=== PATIENT | male | born 1950 ===

== ENCOUNTER 2017-11-24 00:33 | Emergency (ER) | payer MEDICARE ==
[2017-11-24 00:56] VITALS: BP 153/52; PULSE 65; RESP 18; TEMP 97.1; O2SAT 100
[2017-11-24] MEDS ORDERED: Oxycodone/Acetaminophen 5/325 mg Tab PO ONE (02:14)
--- NOTE | 2017-11-24 02:18 | ED PDOC ---
Lower Extremity Pain/Injury Time Seen by Provider: 11/24/17 01:28 Chief Complaint (Nursing): Lower Extremity Problem/Injury Chief Complaint (Provider): left foot pain History Per: Patient History/Exam Limitations: no limitations Onset/Duration Of Symptoms: Days (3) Current Symptoms Are (Timing): Still Present Additional History Per: Patient Additional Complaint(s): 67 y/o male presents with left foot pain x 3 days. Patient states pain started in between 3rd and 4th toe, and today noted redness and swelling spreading up the foot. Denies fever, nausea/vomiting, chest pain, shortness of breath, palpitations, numbness/weakness lower extremities. Past Medical History Reviewed: Historical Data, Nursing Documentation, Vital Signs Vital Signs: Last Vital Signs Temp 97.1 F L 11/24/17 00:53 Pulse 65 11/24/17 00:53 Resp 18 11/24/17 00:53 BP 153/52 H 11/24/17 00:53 Pulse Ox 100 11/24/17 00:53 - Medical History PMH: CAD, Diabetes, Hypercholesterolemia - Surgical History Surgical History: CABG - Family History Family History: States: No Known Family Hx - Allergies Allergies/Adverse Reactions: Allergies Allergy/AdvReac Type Severity Reaction Status Date / Time No Known Allergies Allergy Verified 11/24/17 00:56 Review of Systems ROS Statement: Except As Marked, All Systems Reviewed And Found Negative Musculoskeletal: Positive for: Foot Pain (left foot) Physical Exam - Reviewed Nursing Documentation Reviewed: Yes Vital Signs Reviewed: Yes - Physical Exam Appears: Positive for: Well, Non-toxic, No Acute Distress Head Exam: Positive for: ATRAUMATIC, NORMAL INSPECTION, NORMOCEPHALIC Skin: Positive for: Normal Color Eye Exam: Positive for: Normal appearance ENT: Positive for: Normal ENT Inspection Cardiovascular/Chest: Positive for: Regular Rate, Rhythm Respiratory: Positive for: Normal Breath Sounds Pulses-Dorsalis Pedis (L): 2+ Pulses-Dorsalis Pedis (R): 2+ Pulses-Post. Tibialis (L): 2+ Pulses-Post. Tibialis (R): 2+ Extremity: Positive for: Normal ROM, Other (open wound/skin maceration 3- 4interdigit space left foot with surrounding edema, erythema dorsal left foot. + warm to touch) Neurologic/Psych: Positive for: Alert, Oriented. Negative for: Motor/Sensory Deficits - Laboratory Results Result Diagrams: 11/24/17 03:30 11/24/17 03:30 - ECG ECG: Positive for: Viewed By Me ECG Rhythm: Positive for: Sinus Bradycardia (59bpm) O2 Sat by Pulse Oximetry: 100 Pulse Ox Interpretation: Normal - Radiology X-Ray: Viewed By Me X-Ray Interpretation: No Acute Disease - Other Rad xray left foot X-Ray: Viewed By Me X-Ray Interpretation: no acute findings - Progress ED Course And Treament: labs, xray, percocet PO Patient educated on findings, IV vanco, IV zosyn dose given in ED. Advised patient and son that patient should be admitted for continuation of IV antibiotics but patient does not think he wants to stay. Patient agreeable for first dose IV antibiotic and podiatry consult and will discuss with son. Podiatry aware, will consult patient Disposition - Clinical Impression Clinical Impression: Cellulitis of foot - Patient ED Disposition Is Patient to be Admitted: No - Disposition Referrals: Tom Leo MD [Primary Care Provider] - Disposition: Transfer of Care Disposition Time: 06:00 Condition: FAIR Forms: [employer] (Cypriot) Patient Signed Over To: Jaspreet Champagne Handoff Comments: pending podiatry eval
[2017-11-24] MEDS ORDERED: Oxycodone/Acetaminophen 5/325 mg Tab ONE (02:49)
[2017-11-24 03:41] LABS: VENOUS BLOOD GAS BASE EXCESS -0.1 mmol/L (0.0-2.0); VENOUS BLOOD GAS PCO2 52 mmHg (40-60); VENOUS BLOOD GAS PO2 20 mm/Hg (30-55); VENOUS BLOOD PH 7.32 (7.32-7.43)
[2017-11-24 04:11] LABS: BASO # 0.1 K/uL (0.0-0.2); BASO % 0.8 % (0.0-2.0); EOS # 2.2 K/uL (0.0-0.7); EOS % 14.2 % (0.0-4.0); HEMOGLOBIN 11.9 g/dL (12.0-18.0); LYMPH # 1.8 K/uL (1.0-4.3); LYMPH % 11.5 % (20.0-40.0); MEAN CELL VOLUME 80.2 fl (80.0-94.0); MEAN CORPUSCULAR HEMOGLOBIN 26.6 pg (27.0-31.0); MEAN CORPUSCULAR HGB CONC 33.2 g/dL (33.0-37.0); MONO # 1.1 K/uL (0.0-0.8); MONO % 6.9 % (0.0-10.0); NEUT # 10.3 K/uL (1.8-7.0); NEUT % 66.6 % (50.0-75.0); RBC 4.49 Mil/uL (4.40-5.90); WHITE BLOOD COUNT 15.4 K/uL (4.8-10.8)
[2017-11-24 04:18] LABS: ALB/GLOB RATIO 1.1 (1.0-2.1); ALBUMIN 4.2 g/dL (3.5-5.0)
[2017-11-24] MEDS ORDERED: Piperacillin/Tazobact 3.375 GM in Sodium Chloride 0.9% 100 ML IV ONE (04:41)
[2017-11-24] MEDS ORDERED: Piperacillin/Tazobact 3.375 gm Inj IVPB ONE (05:12)
--- NOTE | 2017-11-24 06:13 | ED PDOC ---
- Laboratory Results Result Diagrams: 11/24/17 03:30 11/24/17 03:30 - ECG O2 Sat by Pulse Oximetry: 100 Medical Decision Making Medical Decision Making: Time: 06:00 --Patient signed over to me by Elsa Lora PA-C pending podiatry consult Time: 07:00 --This patient is choosing to leave against medical advice. I have personally explained to the pt that choosing to do so may result in permanent bodily harm or . I have discussed at great length that without further evaluation and monitoring there may be unforeseen circumstances and/or deterioration causing permanent bodily harm or as a result of their choice. The pt verbalized these risks back to the physician in laymans terms. The pt is alert, oriented, and shows the mental capacity to make clear decisions regarding the pts health care at this time. The pt continues to wish to leave against medical advice. --In light of the pts decision to leave AMA, follow-up has been arranged and the pt is aware of the importance of following up as instructed. The pt has been advised that they should return to the ED immediately if they change their mind at any time, or if their condition begins to change or worsen in any way. Scribe Attestation: Documented by Tawanda Becker, acting as a scribe for Jaspreet Champagne MD. Provider Scribe Attestation: All medical record entries made by the Scribe were at my direction and personally dictated by me. I have reviewed the chart and agree that the record accurately reflects my personal performance of the history, physical exam, medical decision making, and the department course for this patient. I have also personally directed, reviewed, and agree with the discharge instructions and disposition. Disposition - Clinical Impression Clinical Impression: Cellulitis of foot - POA Present On Arrival: None - Disposition Referrals: Tom Leo MD [Primary Care Provider] - Disposition: AGAINST MEDICAL ADVICE Disposition Time: 07:00 Condition: FAIR Prescriptions: Clindamycin [Cleocin] 300 mg PO TID 10 Days cap Instructions: Cellulitis (ED), Diabetic Foot Care (ED), Diabetic Foot Ulcers ( ED), Against Medical Advice (ED) Forms: [employer] (Tunisian) Print Language: ANGUILLAN
[2017-11-24] MEDS ORDERED: Povidone Iodine Topical 10% Sol ONE (06:30)
[2017-11-24] MEDS ORDERED: Povidone Iodine Topical 10% Sol TOP ONE (06:31)
--- NOTE | 2017-11-24 07:04 | CP.PCM.CON ---
History of Present Illness - History of Present Illness History of Present Illness: Podiatry Consult 67 y.o with PMH of DM, HTN, high cholesterol, and heart disease seen in the ED for left foot infection. Patient reports that the redness and swelling started Tuesday and has been getting progressively worse. Patient is accompanied by son at bedside. Patient reports that he does not have a criminal records technician whom he regularly sees. Patient denies n/v/sob/cp/chills or f Review of Systems - Constitutional Constitutional: As Per HPI Past Patient History - Past Social History Smoking Status: Heavy Smoker > 10 Cigarettes Daily - CARDIAC Hx Hypercholesterolemia: Yes - ENDOCRINE/METABOLIC Hx Endocrine Disorders: Yes Hx Diabetes Mellitus Type 1: Yes - PSYCHIATRIC Hx Substance Use: No - SURGICAL HISTORY Hx Coronary Artery Bypass Graft: Yes Meds Home Medications: Home Medication List Medication Instructions Recorded Confirmed Type Clindamycin [Cleocin] 300 mg PO TID 10 Days cap 11/24/17 Rx Allergies/Adverse Reactions: Allergies Allergy/AdvReac Type Severity Reaction Status Date / Time No Known Allergies Allergy Verified 11/24/17 00:56 Physical Exam - Constitutional Appears: Well, Non-toxic, No Acute Distress - Extremities Exam Additional comments: Vasc: DP and PT 1/4 bilaterally, CFT > 3 seconds x10 digits, mild swelling noted to left foot, temperature gradient WNL Ortho: pain with palpation to the lateral left foot and dorsum, MM is 4/5 in all four compartments: dorsiflexion, plantarflexion, inversion, and eversion Neuro: gross and protective sensation diminished bilaterally Derm: interdigital maceration noted to 4th interspace, no active purulence or drainage, no odor, erythema noted from the lateral left foot distal 4th and 5th toes extending dorsum of left forefoot, no abscess, no fluctance noted Results - Vital Signs Recent Vital Signs: Last Vital Signs Temp 97.1 F L 11/24/17 00:53 Pulse 65 11/24/17 00:53 Resp 18 11/24/17 00:53 BP 153/52 H 11/24/17 00:53 Pulse Ox 100 11/24/17 06:14 - Labs Result Diagrams: 11/24/17 03:30 11/24/17 03:30 Labs: Laboratory Results - last 24 hr 11/24/17 11/24/17 11/24/17 03:28 03:30 03:30 WBC 15.4 H RBC 4.49 Hgb 11.9 L Hct 36.0 MCV 80.2 MCH 26.6 L MCHC 33.2 RDW 14.0 Plt Count 220 MPV 9.0 Neut % (Auto) 66.6 Lymph % (Auto) 11.5 L Newberry % (Auto) 6.9 Eos % (Auto) 14.2 H Baso % (Auto) 0.8 Neut # 10.3 H Lymph # 1.8 Newberry # 1.1 H Eos # 2.2 H Baso # 0.1 pO2 VBG pH VBG pCO2 VBG HCO3 VBG Total CO2 VBG O2 Sat (Calc) VBG Base Excess VBG Potassium Glucose Lactate FiO2 Sodium 141 Potassium 5.2 H Chloride 105 Carbon Dioxide 24 Anion Gap 17 BUN 21 H Creatinine 1.7 H Est GFR ( Amer) 49 Est GFR (Non-Af Amer) 41 POC Glucose (mg/dL) 220 H Random Glucose 182 H Calcium 9.0 Total Bilirubin 0.4 AST 50 ALT 69 Alkaline Phosphatase 118 Total Protein 8.0 Albumin 4.2 Globulin 3.8 Albumin/Globulin Ratio 1.1 Venous Blood Potassium 11/24/17 03:38 WBC RBC Hgb Hct MCV MCH MCHC RDW Plt Count MPV Neut % (Auto) Lymph % (Auto) Newberry % (Auto) Eos % (Auto) Baso % (Auto) Neut # Lymph # Newberry # Eos # Baso # pO2 20 L VBG pH 7.32 VBG pCO2 52 VBG HCO3 22.9 VBG Total CO2 28.4 H VBG O2 Sat (Calc) 34.7 L VBG Base Excess -0.1 L VBG Potassium 5.0 Glucose 187 H Lactate 1.0 FiO2 21.0 Sodium 136.0 Potassium Chloride 104.0 Carbon Dioxide Anion Gap BUN Creatinine Est GFR ( Amer) Est GFR (Non-Af Amer) POC Glucose (mg/dL) Random Glucose Calcium Total Bilirubin AST ALT Alkaline Phosphatase Total Protein Albumin Globulin Albumin/Globulin Ratio Venous Blood Potassium 5.0 Assessment & Plan - Assessment and Plan (Free Text) Assessment: 67 y.o with PMH of DM, HTN, high cholesterol, and heart disease seen in the ED for left foot infection Plan: Patient examined and evaluated All questions/concerns addressed Discussed plan in detail with attending Dr. Zhang Labs and chart reviewed- WBC=15.4 X-rays reviewed Wound culture ordered and taken Betadine ordered Open lesion cleansed with copious mixture of 1:1 saline and betadine, dressed with betadine, dsd, cling. Stockinette placed over and surgical shoe dispense Will continue to follow patient once on floors Thank you for the consult
--- NOTE | 2017-11-24 08:20 | CARD ---
APPROVED REPORT EKG Measurement Heart [id number] <Conclusion> Sinus bradycardia with sinus arrhythmia Left axis deviation Right bundle branch block Anteroseptal infarct, age undetermined Abnormal ECG
--- NOTE | 2017-11-24 09:52 | RAD ---
PROCEDURE: Left Foot Radiographs. HISTORY: pain/redness COMPARISON: None. FINDINGS: BONES: No acute fracture. JOINTS: Unremarkable. SOFT TISSUES: Normal. OTHER FINDINGS: Achilles enthesophyte. Inferior plantar calcaneal spur. Arterial vascular calcifications. IMPRESSION: No demonstrated fracture or dislocation.
--- NOTE | 2017-11-24 10:03 | RAD ---
HISTORY: admit COMPARISON: Chest radiograph dated 01/11/2014. FINDINGS: LUNGS: No active pulmonary disease. PLEURA: No significant pleural effusion identified, no pneumothorax apparent. CARDIOVASCULAR: Prior sternotomy with sternal wires, surgical clips and prosthetic cardiac valve redemonstrated. Cardiomediastinal silhouette unchanged. OSSEOUS STRUCTURES: Unchanged. VISUALIZED UPPER ABDOMEN: Normal. OTHER FINDINGS: None. IMPRESSION: No active disease.
== END 2017-11-24 07:07 | disposition home or self-care (01) ==
LOC: H.ER 00:33
DX: A04.8 Other specified bacterial intestinal infections (principal); E11.9 Type 2 diabetes mellitus without complications; L03.116 Cellulitis of left lower limb; Z79.4 Long term (current) use of insulin; E78.00 Pure hypercholesterolemia, unspecified; I10 Essential (primary) hypertension; I25.10 Atherosclerotic heart disease of native coronary artery without angina pectoris; Z95.1 Presence of aortocoronary bypass graft
CPT/HCPCS: 71045; 73630; 80053; 82803; 82948; 85025; 87040; 87070; 87181; 93005; 96374; 99284; J2543

== ENCOUNTER 2017-12-28 09:00 | Emergency (ER) | payer MEDICARE ==
[2017-12-28 09:12] VITALS: RESP 18
[2017-12-28] MEDS ORDERED: Sodium Chloride 0.45% 1,000 ML IV SCH (10:00)
[2017-12-28 10:20] LABS: BASO # 0.1 K/uL (0.0-0.2); BASO % 0.7 % (0.0-2.0); EOS # 0.4 K/uL (0.0-0.7); EOS % 3.1 % (0.0-4.0); HEMOGLOBIN 11.8 g/dL (12.0-18.0); LYMPH # 1.1 K/uL (1.0-4.3); LYMPH % 8.6 % (20.0-40.0); MEAN CELL VOLUME 77.7 fl (80.0-94.0); MEAN CORPUSCULAR HGB CONC 33.4 g/dL (33.0-37.0); MEAN PLATELET VOLUME 8.2 fl (7.2-11.7); MONO # 0.5 K/uL (0.0-0.8); MONO % 4.2 % (0.0-10.0); NEUT # 10.8 K/uL (1.8-7.0); NEUT % 83.4 % (50.0-75.0); PLATELET COUNT 287 K/uL (130-400); RBC 4.55 Mil/uL (4.40-5.90); RED CELL DISTRIBUTION WIDTH 13.9 % (11.5-14.5)
--- NOTE | 2017-12-28 10:26 | ED PDOC ---
HPI:Nausea, Vomiting, Diarrhea Time Seen by Provider: 12/28/17 09:27 Chief Complaint (Nursing): Abdominal Pain Chief Complaint (Provider): Nausea, Vomiting History Per: Patient History/Exam Limitations: no limitations Onset/Duration Of Symptoms: Hrs (x 3) Current Symptoms Are (Timing): Still Present Additional Complaint(s): Ramses is a 67 y/o male who presents to the ED complaining of nausea and vomiting. Patient was woken up at 6am because he felt nauseous and vomited 2 times - no blood, no dark color. He also has associated nonradiating epigastric discomfort but denies chest pain or shortness of breath. PMD: Tom Leo Past Medical History Reviewed: Historical Data, Nursing Documentation, Vital Signs Vital Signs: Last Vital Signs Temp 97.5 F L 12/28/17 09:09 Pulse 91 H 12/28/17 09:09 Resp 18 12/28/17 09:09 BP 132/76 12/28/17 09:09 Pulse Ox 100 12/28/17 09:09 - Medical History PMH: CAD (status post CABG), Diabetes, Hypercholesterolemia Other PMH: Peripheral artery disease w/ gangreen in left foot - Surgical History Surgical History: CABG - Family History Family History: States: No Known Family Hx - Living Arrangements Living Arrangements: With Family - Social History Current smoker - smoking cessation education provided: No Drugs: Denies - Home Medications Home Medications: Ambulatory Orders Medication Instructions Recorded Clindamycin [Cleocin] 300 mg PO TID 10 Days cap 11/24/17 Ciprofloxacin [Cipro] 500 mg PO BID #20 tab 11/26/17 Ondansetron [Zofran] 4 mg PO Q8H #9 tab 12/28/17 - Allergies Allergies/Adverse Reactions: Allergies Allergy/AdvReac Type Severity Reaction Status Date / Time No Known Allergies Allergy Verified 12/28/17 09:09 Review of Systems ROS Statement: Except As Marked, All Systems Reviewed And Found Negative Constitutional: Negative for: Fever, Chills Cardiovascular: Negative for: Chest Pain Respiratory: Negative for: Shortness of Breath Gastrointestinal: Positive for: Nausea, Vomiting, Abdominal Pain (epigastric discomfort) Physical Exam - Reviewed Nursing Documentation Reviewed: Yes Vital Signs Reviewed: Yes - Physical Exam Head Exam: Positive for: ATRAUMATIC, NORMOCEPHALIC Skin: Positive for: Normal Color (thorocotomy scar midline of chest), Warm, Dry. Negative for: Rash Neck: Positive for: Normal, Painless ROM, Supple Cardiovascular/Chest: Positive for: Regular Rate, Rhythm. Negative for: Murmur Respiratory: Positive for: Normal Breath Sounds. Negative for: Respiratory Distress Gastrointestinal/Abdominal: Positive for: Soft, Tenderness (mild epigastric) Extremity: Positive for: Normal ROM. Negative for: Pedal Edema Neurologic/Psych: Positive for: Alert, Oriented. Negative for: Motor/Sensory Deficits - Laboratory Results Result Diagrams: 12/28/17 10:10 12/28/17 10:10 - ECG O2 Sat by Pulse Oximetry: 100 (RA) Pulse Ox Interpretation: Normal Medical Decision Making Medical Decision Making: Time: 9:47 Initial Impression: Acute Nausea; Differentials include gastritis, medication side effects, rule out acute coronary syndrome Initial Plan: --XR Obstructuve Series --EKG --CMP --Troponin --Urine Dip --CBC --Pepcid --Zofran Time: 10:53 XR OBSTRUCTIVE SERIES FINDINGS: CHEST: Lungs: Clear. Cardiovascular: Normal size heart. No pulmonary vascular congestion. Midline sternotomy wires in place and valve prosthesis in place Pleura: No pleural fluid. No pneumothorax. Other findings: None. ABDOMEN AND PELVIS: Bowel: Unremarkable bowel gas pattern. No evidence of mechanical obstruction. Free air: None. Bones: Senescent changes Other findings: None. IMPRESSION: Unremarkable radiographs of chest and abdomen. No evidence of mechanical bowel obstruction. Scribe Attestation: Documented by Esvin Hoyos, acting as a scribe for Dr. Paula Santana MD. Provider Scribe Attestation: All medical record entries made by the Scribe were at my direction and personally dictated by me. I have reviewed the chart and agree that the record accurately reflects my personal performance of the history, physical exam, medical decision making, and the department course for this patient. I have also personally directed, reviewed, and agree with the discharge instructions and disposition. 12.15p - he is feeling better. labs and x-rays are without significant findings. will d/c on symptomatic meds. Disposition - Clinical Impression Clinical Impression: Vomiting - Patient ED Disposition Is Patient to be Admitted: No Doctor Will See Patient In The: Office Counseled Patient/Family Regarding: Diagnosis, Need For Followup, Rx Given - Disposition Disposition: Routine/Home Disposition Time: 12:39 Condition: STABLE Prescriptions: Ondansetron [Zofran] 4 mg PO Q8H #9 tab Instructions: Acute Nausea and Vomiting (ED) Forms: [employer] (Mosotho) Print Language: VATICAN CITIZEN - POA Present On Arrival: None
[2017-12-28 10:31] LABS: ALBUMIN 4.2 g/dL (3.5-5.0); ALT/SGPT 41 U/L (21-72); AST/SGOT 29 U/L (17-59); BLOOD UREA NITROGEN 18 mg/dl (9-20); CALCIUM 9.4 mg/dL (8.4-10.2); GFR AFRICAN-AMERICAN > 60; GFR NON-AFRICAN AMERICAN 51
--- NOTE | 2017-12-28 10:55 | RAD ---
PROCEDURE: Radiographs of the chest and abdomen (obstructive series) HISTORY: epigastric pain, nausea, vomiting COMPARISON: No prior. TECHNIQUE: AP radiograph of the chest, with upright and supine radiographs of the abdomen. FINDINGS: CHEST: Lungs: Clear. Cardiovascular: Normal size heart. No pulmonary vascular congestion. Midline sternotomy wires in place and valve prosthesis in place Pleura: No pleural fluid. No pneumothorax. Other findings: None. ABDOMEN AND PELVIS: Bowel: Unremarkable bowel gas pattern. No evidence of mechanical obstruction. Free air: None. Bones: Senescent changes Other findings: None. IMPRESSION: Unremarkable radiographs of chest and abdomen. No evidence of mechanical bowel obstruction.
[2017-12-28 11:16] LABS: HYPOCHROMIC SLIGHT; LYMPHOCYTE 5 % (20-50); MICROCYTOSIS SLIGHT; MONOCYTE 4 % (0-10); NEUTROPHIL 91 % (42-75); PLATELET ESTIMATE NORMAL (NORMAL); TOTAL CELLS COUNTED 100
[2017-12-28 12:48] VITALS: BP 132/68; PULSE 89; TEMP 98; O2SAT 98
--- NOTE | 2017-12-28 14:04 | CARD ---
APPROVED REPORT EKG Measurement Heart [id number] <Conclusion> Sinus rhythm with premature atrial complexes with aberrant conduction Right bundle branch block Left anterior fascicular block Bifascicular block Cannot rule out Inferior infarct, age undetermined-not diagnostic Anteroseptal infarct, age undetermined Abnormal ECG
== END 2017-12-28 12:48 | disposition home or self-care (01) ==
LOC: H.ER 09:00
DX: R11.2 Nausea with vomiting, unspecified (principal); R10.9 Unspecified abdominal pain; E11.51 Type 2 diabetes mellitus with diabetic peripheral angiopathy without gangrene; E78.00 Pure hypercholesterolemia, unspecified; I25.10 Atherosclerotic heart disease of native coronary artery without angina pectoris; Z95.1 Presence of aortocoronary bypass graft
CPT/HCPCS: 74022; 80053; 84484; 85025; 93005; 96374; 96375; 99283; J2405; J7030

== ENCOUNTER 2018-01-27 09:48 | Inpatient (IN) | payer MEDICARE ==
--- NOTE | 2018-01-27 10:43 | ED PDOC ---
Lower Extremity Pain/Injury Time Seen by Provider: 01/27/18 10:19 Chief Complaint (Nursing): Lower Extremity Problem/Injury Chief Complaint (Provider): Lower Extremity Problem/Injury History Per: Patient History/Exam Limitations: no limitations Onset/Duration Of Symptoms: Persistent (x3 months) Current Symptoms Are (Timing): Still Present Additional Complaint(s): 67 year old male with medical history of CAD and diabetes, presents to the emergency department with a complaint of left foot pain associated with blackened toes ongoing for 3 months. He denied any fever or chills. PMD: none provided Past Medical History Reviewed: Historical Data, Nursing Documentation, Vital Signs Vital Signs: Last Vital Signs Temp 97 F L 01/27/18 10:30 Pulse 77 01/27/18 10:30 Resp 17 01/27/18 10:30 BP 115/65 01/27/18 10:30 Pulse Ox 99 01/27/18 10:30 - Medical History PMH: CAD (status post CABG), Diabetes, HTN, Hypercholesterolemia - Surgical History Surgical History: CABG - Family History Family History: States: Unknown Family Hx - Social History Current smoker - smoking cessation education provided: Yes Alcohol: None Drugs: Denies - Home Medications Home Medications: Ambulatory Orders Medication Instructions Recorded Clindamycin [Cleocin] 300 mg PO TID 10 Days cap 11/24/17 Ciprofloxacin [Cipro] 500 mg PO BID #20 tab 11/26/17 Ondansetron [Zofran] 4 mg PO Q8H #9 tab 12/28/17 - Allergies Allergies/Adverse Reactions: Allergies Allergy/AdvReac Type Severity Reaction Status Date / Time No Known Allergies Allergy Verified 12/28/17 09:09 Review of Systems ROS Statement: Except As Marked, All Systems Reviewed And Found Negative Constitutional: Negative for: Fever, Chills Musculoskeletal: Positive for: Foot Pain (left-sided with blackened toes) Physical Exam - Reviewed Nursing Documentation Reviewed: Yes Vital Signs Reviewed: Yes - Physical Exam Appears: Positive for: No Acute Distress Cardiovascular/Chest: Positive for: Regular Rate, Rhythm, Chest Non Tender Respiratory: Positive for: Normal Breath Sounds. Negative for: Decreased Breath Sounds, Wheezing, Respiratory Distress Pulses-Dorsalis Pedis (L): 1+ Pulses-Dorsalis Pedis (R): 1+ Pulses-Post. Tibialis (L): 1+ Pulses-Post. Tibialis (R): 1+ Gastrointestinal/Abdominal: Positive for: Normal Exam, Soft. Negative for: Tenderness Extremity: Positive for: Normal ROM (left 1st, 2nd and 5th toes), Other ( necrotic 3rd and 4th toes of left foot from tip to base with surounding erythema to MTP area; cool temperate on palpation) - Laboratory Results Result Diagrams: 01/27/18 10:40 01/27/18 10:40 - ECG O2 Sat by Pulse Oximetry: 99 (RA) Pulse Ox Interpretation: Normal Medical Decision Making Medical Decision Making: Initial Impression: Left foot pain Initial Plan: * EKG * CMP * Urine dipstick * CBC * CXR * Xray foot (left) Time: 1139 --CXR FINDINGS: LUNGS: No active pulmonary disease. PLEURA: No significant pleural effusion identified. No pneumothorax apparent. CARDIOVASCULAR: Mitral valve prosthesis. Sternotomy wires. Normal heart size. OSSEOUS STRUCTURES: No significant abnormalities. VISUALIZED UPPER ABDOMEN: Normal. OTHER FINDINGS: None. IMPRESSION: No active disease. Time: 1140 --Xray foot (left) FINDINGS: BONES: Normal. No fracture. JOINTS: Normal. SOFT TISSUES: Normal. OTHER FINDINGS: None. IMPRESSION: Normal left foot radiographs. Scribe Attestation: Documented by Nargis Rosales, acting as a scribe for Marin Mccartney MD. Provider Scribe Attestation: All medical record entries made by the Scribe were at my direction and personally dictated by me. I have reviewed the chart and agree that the record accurately reflects my personal performance of the history, physical exam, medical decision making, and the department course for this patient. I have also personally directed, reviewed, and agree with the discharge instructions and disposition. Disposition - Clinical Impression Clinical Impression: Gangrene of toe of left foot - Patient ED Disposition Is Patient to be Admitted: Yes - Disposition Referrals: Provider TRUPTI, [Primary Care Provider] - Disposition Time: 13:39 Condition: FAIR Forms: [employer] (Bulgarian) - Pt Status Changed To: Hospital Disposition Of: Inpatient - Admit Certification Admit to Inpatient:: After my assessment, the patient will require hospitalization for at least two midnights. This is because of the severity of symptoms shown, intensity of services needed, and/or the medical risk in this patient being treated as an outpatient. - POA Present On Arrival: None
[2018-01-27 10:54] LABS: BASO # 0.1 K/uL (0.0-0.2); BASO % 0.6 % (0.0-2.0); EOS # 1.6 K/uL (0.0-0.7); EOS % 11.6 % (0.0-4.0); HEMOGLOBIN 11.5 g/dL (12.0-18.0); LYMPH # 1.6 K/uL (1.0-4.3); LYMPH % 11.1 % (20.0-40.0); MEAN CELL VOLUME 77.2 fl (80.0-94.0); MEAN CORPUSCULAR HEMOGLOBIN 25.6 pg (27.0-31.0); MEAN CORPUSCULAR HGB CONC 33.1 g/dL (33.0-37.0); MEAN PLATELET VOLUME 7.9 fl (7.2-11.7); MONO # 0.8 K/uL (0.0-0.8); MONO % 5.9 % (0.0-10.0); NEUT # 10.1 K/uL (1.8-7.0); NEUT % 70.8 % (50.0-75.0); RBC 4.51 Mil/uL (4.40-5.90); RED CELL DISTRIBUTION WIDTH 13.7 % (11.5-14.5); WHITE BLOOD COUNT 14.2 K/uL (4.8-10.8)
[2018-01-27 11:13] LABS: ALB/GLOB RATIO 0.9 (1.0-2.1); ALBUMIN 4.1 g/dL (3.5-5.0); ALT/SGPT 28 U/L (21-72); AST/SGOT 32 U/L (17-59); BLOOD UREA NITROGEN 16 mg/dl (9-20); CALCIUM 9.7 mg/dL (8.4-10.2); GFR AFRICAN-AMERICAN > 60; GFR NON-AFRICAN AMERICAN 51
--- NOTE | 2018-01-27 12:15 | RAD ---
PROCEDURE: Left Foot Radiographs. HISTORY: Necrotic 3-4 digit COMPARISON: 11/24/2017 FINDINGS: BONES: Normal. No fracture. JOINTS: Normal. SOFT TISSUES: Normal. OTHER FINDINGS: None. IMPRESSION: Normal left foot radiographs.
--- NOTE | 2018-01-27 12:18 | RAD ---
HISTORY: preop COMPARISON: 11/24/2017 TECHNIQUE: Chest PA and lateral FINDINGS: LUNGS: No active pulmonary disease. PLEURA: No significant pleural effusion identified. No pneumothorax apparent. CARDIOVASCULAR: Mitral valve prosthesis. Sternotomy wires. Normal heart size. OSSEOUS STRUCTURES: No significant abnormalities. VISUALIZED UPPER ABDOMEN: Normal. OTHER FINDINGS: None. IMPRESSION: No active disease.
[2018-01-27] MEDS ORDERED: Naproxen 500 MG TAB PO ONE (13:08)
[2018-01-27] MEDS ORDERED: Ciprofloxacin 400mg/200ml D5W 400 MG/200 ML BAG IVPB STA (13:41)
[2018-01-27] MEDS ORDERED: Naproxen 500 MG TAB PO STA (14:09)
[2018-01-27] MEDS ORDERED: Ciprofloxacin 400mg/200ml D5W 400 MG/200 ML BAG IVPB ONE (14:10)
--- NOTE | 2018-01-27 14:20 | CP.PCM.CON ---
History of Present Illness - History of Present Illness History of Present Illness: Podiatry Consult Note - Dr. Dale 67M PMHx DM, HTN, HLD, CAD, CHF, PVD seen and evaluated in ED for left foot gangrene. Son present at bedside. Patient states approximately 3 months ago, his left 3rd and 4th digits became red and swollen and has gotten progressively darker until current hard/black state; states 2nd digit is now changing also. Denies previous trauma. Of note, patient was previously seen in ED 11/26/17 with left foot infection and patient was to be admitted for treatment however patient signed out AMA. Patient followed up with physical education instructor Dr. Fuller and was told to f/u with PMD. Patient states last month he was admitted at [facility] for left foot gangrene and was treated with abx. Reports that while he was admitted he had vascular testing performed. Currently, patient admits to moderate, continuous pain to his 3rd, 4th, and lateral aspect of his 2nd digits. Offers no other complaints. Denies N/V/F/D/C/SOB/ZHONG/dizziness. PMHx: L foot gangrene, CAD w/stents, CHF, PVD, HTN, DM, HLD PSH: peripheral vascular angioplasty FH: DM (brothers) SH: former tobacco use for 10 years (quit 45 years ago), denies ETOH/illicit drug use All: NKDA Review of Systems - Review of Systems All systems: reviewed and no additional remarkable complaints except (as per HPI ) Past Patient History - Infectious Disease Hx of Infectious Diseases: None - Past Social History Alcohol: None Drugs: Denies - CARDIAC Hx Hypercholesterolemia: Yes Hx Hypertension: Yes - ENDOCRINE/METABOLIC Hx Endocrine Disorders: Yes Hx Diabetes Mellitus Type 1: Yes - PSYCHIATRIC Hx Substance Use: No - SURGICAL HISTORY Hx Coronary Artery Bypass Graft: Yes - ANESTHESIA Hx Anesthesia: Yes Hx Anesthesia Reactions: Yes Hx Malignant Hyperthermia: Yes Meds Allergies/Adverse Reactions: Allergies Allergy/AdvReac Type Severity Reaction Status Date / Time No Known Allergies Allergy Verified 12/28/17 09:09 - Medications Medications: Current Medications Vancomycin HCl 1 gm/ Sodium (Chloride) 250 mls @ 166.667 mls/hr IVPB STAT STA PRN Reason: Protocol Stop: 01/27/18 15:08 Ciprofloxacin (Cipro 400mg/200ml Dsw) 400 mg in 200 mls @ 200 mls/hr IVPB STAT STA PRN Reason: Protocol Stop: 01/27/18 14:40 Physical Exam - Constitutional Appears: Well, Non-toxic, No Acute Distress - Extremities Exam Additional comments: VASC: LLE DP and PT pulse nonpalpable. RLE DP weakly palpable 1/4, PT nonpalpable. CFT >3 seconds to all digits LLE, WNL RLE. Temperature gradient cool to cool RLE, cool to cold LLE. Mild non-pitting edema noted to left forefoot. NEURO: Gross sensation diminished bilaterally. DERM: Dry, necrotic left 3rd and 4th digits extending approx. 2cm proximally from digital bases; necrosis extending into dorsolateral aspect of 2nd digit; well de-marcated; periwound erythema noted with surrounding xerosis. No drainage , no purulence, no fluctuance. ORTHO: Pain on palpation to necrotic tissue. - Neurological Exam Neurological exam: Alert, Oriented x3 - Psychiatric Exam Psychiatric exam: Normal Affect, Normal Mood Results - Vital Signs Recent Vital Signs: Last Vital Signs Temp 97 F L 01/27/18 10:30 Pulse 77 01/27/18 10:30 Resp 17 01/27/18 10:30 BP 115/65 01/27/18 10:30 Pulse Ox 99 01/27/18 13:39 - Labs Result Diagrams: 01/27/18 10:40 01/27/18 10:40 Labs: Laboratory Results - last 24 hr 01/27/18 01/27/18 01/27/18 10:40 10:40 10:55 WBC 14.2 H RBC 4.51 Hgb 11.5 L Hct 34.9 L MCV 77.2 L MCH 25.6 L MCHC 33.1 RDW 13.7 Plt Count 349 MPV 7.9 Neut % (Auto) 70.8 Lymph % (Auto) 11.1 L [place] % (Auto) 5.9 Eos % (Auto) 11.6 H Baso % (Auto) 0.6 Neut # (Auto) 10.1 H Lymph # (Auto) 1.6 [place] # (Auto) 0.8 Eos # (Auto) 1.6 H Baso # (Auto) 0.1 Sodium 142 Potassium 5.1 H Chloride 99 Carbon Dioxide 24 Anion Gap 24 H BUN 16 Creatinine 1.4 Est GFR ( Amer) > 60 Est GFR (Non-Af Amer) 51 POC Glucose (mg/dL) 133 H Random Glucose 170 H Calcium 9.7 Total Bilirubin 0.4 AST 32 ALT 28 Alkaline Phosphatase 153 H D Total Protein 8.6 H Albumin 4.1 Globulin 4.5 H Albumin/Globulin Ratio 0.9 L Assessment & Plan - Assessment and Plan (Free Text) Assessment: 67M with extensive PMHx with left foot gangrene - lateral 2nd/3rd/4th digits Plan: Patient seen and evaluated Discussed with attending, Dr. Dale Afebrile, WBC increased 14.2 L foot XR reviewed: unremarkable Vancomycin 1g IV, Ciprofloxacin 400mg IV given in ED ID consulted, f/u recs Pain mgmt per medicine Left foot dressed with DSD Recommend admission to Med/Surg Patient will likely need surgery pending vascular studies, medical clx, cardiac clx -F/u [facility] medical records Podiatry will continue to follow patient while in house
[2018-01-27 14:39] LABS: VENOUS BLOOD GAS BASE EXCESS -0.9 mmol/L (0.0-2.0); VENOUS BLOOD GAS PCO2 50 mmHg (40-60); VENOUS BLOOD GAS PO2 18 mm/Hg (30-55); VENOUS BLOOD PH 7.32 (7.32-7.43)
--- NOTE | 2018-01-27 15:40 | CP.PCM.HP ---
History of Present Illness - History of Present Illness History of Present Illness: "My toes are turning black" 67 year old male with PMH of CAD, DM2, HTN, HLD presented to [facility] ED complaining of painful, gangrenous third and fourth digits of left foot. Patient states that digits began to turn gangrenous at their bases roughly three months ago and since then the changes have increased distally, causing the entire third and fourth digit to turn black. Patient states that over the last week he has begun to have pain to both digits. He rates the pain today as a 7/10. He states that last month he was admitted to [facility] where he says vascular studies were performed, however he does not know exactly which studies were performed. He states that he has never been seen by a pharmacology associate. He also denies any previous foot problems including gangrenous changes, ulcerations or infection. However, per chart, patient was seen in [facility] ED for cellulitis of his left foot and was given Zosyn and Vancomycin in the ED in November of this year. He denies any further pedal complaints at this time. Denies any recent N/V/F/C/CP/SOB/D/posterior calf pain when squeezed. PMD: Tom Leo MD - Cardio, Internal Medicine; [address] [place] [id number] [address], [place] [address] PMHx: DM2, CAD, HTN, HLD Meds: as per med rec. Patient given STAT dose of Ciprofloxacin 400 mg IV and Vancomycin 1 gm IV in the ED ALL: NKDA PsurgHx: CAD with stenting FamilyHx: Brothers - DM2 SocialHx: denies ETOH/tobacco/drug abuse Next of kin: Peter Navarro (son) - [phone] Code Status: Full Code ED Course: Vitals on presentation: T 97 F, HR 77, BP 115/65, RR 17, POX 99% RA Labs CBC: 11.5/34.9, WBC 14.2 BMP: K+ 5.1, random glucose 170 pO2: 18 VBG: O2 sat (calc) 30.1, Base Excess -0.9, Potassium 5.4 Imaging: EKG: pending Left foot xray: normal left foot radiographs CXR: No active disease Meds: Ciprofloxacin 400 mg IV Stat Vancomycin 1 gm IV Stat Naproxen 500 mg PO stat Present on Admission - Present on Admission Any Indicators Present on Admission: Yes History of DVT/PE: No History of Uncontrolled Diabetes: Yes Review of Systems - Constitutional Constitutional: absent: Anorexia, Chills, Daytime Sleepiness, Excessive Sweating , Fatigue, Fever, Frequent Falls, Headache, Increased Appetite, Lethargy, Malaise, Night Sweats, Snoring, Sleep Apnea, Weight Gain, Weight Loss, Weakness - EENT Eyes: absent: Blind Spots, Blurred Vision, Change in Vision, Decreased Night Vision, Diplopia, Discharge, Dry Eye, Exophthalmos, Floaters, Irritation, Itchy Eyes, Loss of Peripheral Vision, Pain, Photophobia, Requires Corrective Lenses, Sees Flashes, Spots in Vision, Tunnel Vision, Other Visual Disturbances, Loss of Vision Ears: absent: Decreased Hearing, Ear Discharge, Ear Pain, Tinnitus, Abnormal Hearing, Disequilibrium, Dizziness Nose/Mouth/Throat: absent: Epistaxis, Nasal Congestion, Nasal Discharge, Nasal Obstruction, Nasal Trauma, Nose Pain, Post Nasal Drip, Sinus Pain, Sinus Pressure, Bleeding Gums, Change in Voice, Dental Pain, Dry Mouth, Dysphagia, Halitosis, Hoarsness, Lip Swelling, Mouth Lesions, Mouth Pain, Odynophagia, Sore Throat, Throat Swelling, Tongue Swelling, Facial Pain, Neck Pain, Neck Mass - Cardiovascular Cardiovascular: Dyspnea on Exertion. absent: Acrocyanosis, Chest Pain, Chest Pain at Rest, Chest Pain with Activity, Claudication, Diaphoresis, Dyspnea, Edema, Irregular Heart Rhythm, Pain Radiating to Arm/Neck/Jaw, Leg Edema, Leg Ulcers, Lightheadedness, Orthopnea, Palpitations, Paroxysmal Nocturnal Dyspnea, Pedal Edema, Radiating Pain, Rapid Heart Rate, Slow Heart Rate, Syncope - Respiratory Respiratory: absent: Cough, Dyspnea, Hemoptysis, Dyspnea on Exertion, Wheezing, Snoring, Stridor, Pain on Inspiration, Chest Congestion, Excessive Mucous Production, Change in Mucous Color, Pain with Coughing - Gastrointestinal Gastrointestinal: absent: Abdominal Pain, Belching, Bloating, Change in Bowel Habits, Change in Stool Character, Coffee Ground Emesis, Constipation, Cramping , Diarrhea, Dyspepsia, Dysphagia, Early Satiety, Excessive Flatus, Fecal Incontinence, Heartburn, Hematemesis, Hematochezia, Loose Stools, Melena, Nausea , Odynophagia, Temesmus, Vomiting - Genitourinary Genitourinary: absent: As Per HPI, Change in Urinary Stream, Difficulty Urinating, Dysuria, Flank Pain, Hematuria, Pyuria, Nocturia, Urinary Incontinence, Urinary Frequency, Urinary Hesitance, Urinary Urgency, Voiding Freq/Small Amts, Freq UTI, Hx Renal/Bladder Calculi, Hx /Renal Surgery, Bladder Distension, Other - Musculoskeletal Musculoskeletal: As Per HPI - Integumentary Integumentary: As Per HPI - Neurological Neurological: As Per HPI - Psychiatric Psychiatric: absent: As Per HPI, Abnormal Sleep Pattern, Anhedonia, Anxiety, Auditory Hallucinations, Behavioral Changes, Change in Appetite, Change in Libido, Confusion, Depression, Difficulty Concentrating, Hallucinations, Homicidal Ideation, Hopelessness, Irritability, Memory Loss, Mood Swings, Panic Attacks, Paranoia, Suicidal Ideation, Visual Hallucinations, Tactile Hallucinations, Other Past Patient History - Infectious Disease Hx of Infectious Diseases: None - Past Social History Smoking Status: Never Smoked Alcohol: None Drugs: Denies - CARDIAC Hx Cardiac Disorders: Yes Hx Circulatory Problems: Yes - ENDOCRINE/METABOLIC Hx Endocrine Disorders: Yes - PSYCHIATRIC Hx Substance Use: No - SURGICAL HISTORY Hx Coronary Artery Bypass Graft: Yes - ANESTHESIA Hx Anesthesia: Yes Hx Anesthesia Reactions: Yes Hx Malignant Hyperthermia: Yes Meds Allergies/Adverse Reactions: Allergies Allergy/AdvReac Type Severity Reaction Status Date / Time No Known Allergies Allergy Verified 12/28/17 09:09 Physical Exam - Constitutional Appears: Well, Non-toxic, No Acute Distress - Head Exam Head Exam: ATRAUMATIC - Eye Exam Eye Exam: EOMI, PERRL Pupil Exam: PERRL - ENT Exam ENT Exam: Mucous Membranes Moist - Neck Exam Neck exam: Positive for: Full Rom, Normal Inspection - Respiratory Exam Respiratory Exam: NORMAL BREATHING PATTERN - Cardiovascular Exam Cardiovascular Exam: REGULAR RHYTHM - GI/Abdominal Exam GI & Abdominal Exam: absent: Distended, Guarding, Tenderness - Extremities Exam Additional comments: LLE focused exam: Vasc: DP/PT pulses faintly palpable 1/4 b/l. Skin temperature warm to warm from proximal to distal. CFT > 3 seconds to all digits. Minimal edema noted to bases of left third and fourth digits at border of gangrenous changes Neuro: Epicritic and protective sensation grossly diminished b/l Derm: Dry, stable, gangrenous changes noted circumfrentially to left third and fourth digits from base of digits extending distally to tips of digits. No malodor, purulence, drainage, underlying fluctuance noted. MSK: Pain to gangrenous changes - Neurological Exam Neurological exam: Alert, Oriented x3 - Psychiatric Exam Psychiatric exam: Normal Affect, Normal Mood - Skin Skin Exam: Intact Results - Vital Signs Recent Vital Signs: Last Vital Signs Temp 97.6 F 01/27/18 15:23 Pulse 75 01/27/18 15:23 Resp 20 01/27/18 15:23 BP 127/75 01/27/18 15:23 Pulse Ox 100 01/27/18 14:53 - Labs Result Diagrams: 01/27/18 10:40 01/27/18 10:40 Labs: Laboratory Results - last 24 hr 01/27/18 01/27/18 01/27/18 10:40 10:40 10:55 WBC 14.2 H RBC 4.51 Hgb 11.5 L Hct 34.9 L MCV 77.2 L MCH 25.6 L MCHC 33.1 RDW 13.7 Plt Count 349 MPV 7.9 Neut % (Auto) 70.8 Lymph % (Auto) 11.1 L [place] % (Auto) 5.9 Eos % (Auto) 11.6 H Baso % (Auto) 0.6 Neut # (Auto) 10.1 H Lymph # (Auto) 1.6 [place] # (Auto) 0.8 Eos # (Auto) 1.6 H Baso # (Auto) 0.1 pO2 VBG pH VBG pCO2 VBG HCO3 VBG Total CO2 VBG O2 Sat (Calc) VBG Base Excess VBG Potassium Glucose Lactate FiO2 Sodium 142 Potassium 5.1 H Chloride 99 Carbon Dioxide 24 Anion Gap 24 H BUN 16 Creatinine 1.4 Est GFR ( Amer) > 60 Est GFR (Non-Af Amer) 51 POC Glucose (mg/dL) 133 H Random Glucose 170 H Calcium 9.7 Total Bilirubin 0.4 AST 32 ALT 28 Alkaline Phosphatase 153 H D Total Protein 8.6 H Albumin 4.1 Globulin 4.5 H Albumin/Globulin Ratio 0.9 L Venous Blood Potassium 01/27/18 14:30 WBC RBC Hgb Hct MCV MCH MCHC RDW Plt Count MPV Neut % (Auto) Lymph % (Auto) [place] % (Auto) Eos % (Auto) Baso % (Auto) Neut # (Auto) Lymph # (Auto) [place] # (Auto) Eos # (Auto) Baso # (Auto) pO2 18 L VBG pH 7.32 VBG pCO2 50 VBG HCO3 22.2 VBG Total CO2 27.3 VBG O2 Sat (Calc) 30.1 L VBG Base Excess -0.9 L VBG Potassium 5.4 H Glucose 97 Lactate 1.6 FiO2 21.0 Sodium 137.0 Potassium Chloride 104.0 Carbon Dioxide Anion Gap BUN Creatinine Est GFR ( Amer) Est GFR (Non-Af Amer) POC Glucose (mg/dL) Random Glucose Calcium Total Bilirubin AST ALT Alkaline Phosphatase Total Protein Albumin Globulin Albumin/Globulin Ratio Venous Blood Potassium 5.4 H Assessment & Plan - Assessment and Plan (Free Text) Assessment: 67 year old male seen in ED for gangrenous changes to left third and fourth digits Plan: 1) Gangrene of left third and fourth digit - Afebrile - WBC 14.2 - Left foot X-ray: Normal L foot radiograph - CXR: No active disease - Podiatry Consult: Dr. Dale - Per podiatry, patient for amputation of left third and fourth digits on Tuesday 01/30. Patient states that he received vascular studies last month at [facility] with Dr. Leo but he does not know which type. Consent obtained for release of medical records from [facility]. Depending on which vascular studies were done, Vascular Consult may need to be ordered for further vascular workup prior to surgery. Consult with podiatry. - F/u PT/PTT in AM - Type and Screen ordered - Infectious Disease Consult: Dr. Alvarez - Ciprofloxacin 400 mg IV q12h - Vancomycin 1g IV q12h - Vanco Troughs ordered - Tylenol 650 mg moderate pain - F/u Blood cx - Physical therapy eval and treat 2) Type 2 Diabetes - POC glucose 133 - Metformin 1000 mg PO BID CAREY - Pioglitazone Hcl 15 mg PO daily CAREY - Insulin sliding scale - Hypoglycemic control - F/u HgA1c 3) CAD - Aspirin 81 mg PO daily - Plavix 75 mg PO daily [facility] 4) HTN - Chronic - Asymptomatic - BP 115/65 at admission - Lisinopril 10 mg PO daily - Metoprolol 25 mg PO daily - F/u EKG read - Vital signs q4h 5) HLD - Chronic - Lipitor 10 mg PO HS CAREY 6) Hyperkalemia - K+ 5.1 on admission - Asymptomatic - F/u labs in AM 7) Anemia - Asymptomatic - H/H 11.5/34.9 - F/u labs in AM 8) Diet - Consistent Carbohydrate 9) DVT Prophylaxis - SCDs 10) Code Status - Discussed at length patient - Full code - Date & Time Date: 01/27/18 Time: 17:02
[2018-01-27] MEDS ORDERED: Glucagon Recombinant 1 mg Inj IM PRN (17:57)
[2018-01-27] MEDS ORDERED: Dextrose 50% SYRINGE Inj (50 ml) IV PRN (17:57)
[2018-01-27] MEDS ORDERED: Ciprofloxacin 200mg/100ml D5W 100 ML IVPB SCH (21:00)
[2018-01-27] MEDS ORDERED: Ciprofloxacin 400mg/200ml D5W 400 MG/200 ML BAG IVPB SCH (21:00)
[2018-01-27] MEDS: Insulin Regular 100 units/ml SC SCH (22:00)
[2018-01-28 06:33] LABS: HEMOGLOBIN 11.2 g/dL (12.0-18.0); MEAN CELL VOLUME 76.5 fl (80.0-94.0); MEAN CORPUSCULAR HEMOGLOBIN 25.7 pg (27.0-31.0); MEAN CORPUSCULAR HGB CONC 33.6 g/dL (33.0-37.0); RBC 4.35 Mil/uL (4.40-5.90); RED CELL DISTRIBUTION WIDTH 13.2 % (11.5-14.5); WHITE BLOOD COUNT 10.8 K/uL (4.8-10.8)
[2018-01-28] MEDS: Insulin Regular 100 units/ml SC SCH ×4 (06:50→22:05)
[2018-01-28 07:08] LABS: CALCIUM 9.2 mg/dL (8.4-10.2)
[2018-01-28 07:38] LABS: INR 1.2 (0.9-1.2); PARTIAL THROMBOPLASTIN TIME 30.8 Seconds (25.6-37.1); PROTHROMBIN TIME 13.5 Seconds (9.8-13.1)
[2018-01-28] MEDS: Metoprolol Succinate 25 mg XL Tab PO SCH (08:43)
--- NOTE | 2018-01-28 11:52 | CP.PCM.CON ---
History of Present Illness - History of Present Illness History of Present Illness: Infectious Disease Consultation Note- Asked to see this patient at the request of family practice team for left foot gangrenous toes. HPI- Jeaneth is a 67 year old male with PMH of DM II, HTN, CAD s/p CABG 10 years ago who is admitted with left foot 3rd and fourth toe gangrene. Patient states approximately 3 months ago, his left 3rd and 4th digits became red and swollen and has gotten progressively darker until current hard/black state. Patient states last month he was admitted at [facility] for left foot gangrene and was treated with IV abx. Reports that while he was admitted he had vascular testing performed. Currently, patient admits to moderate, continuous pain to his 3rd, 4th, toe. he denies any fever or chills, denies any discharge from the region. he denies any trauma to the region. he denies ever having any foot or toe ulceration or gangrene before. PMHx: L foot gangrene, CAD s/p CABG, CHF, PVD, HTN, DM, HLD PSH: CABG FH: DM (brothers) SH: former tobacco use for 10 years (quit 45 years ago), denies ETOH/illicit drug use All: NKDA Review of Systems - Review of Systems Review of Systems: ROS- denies any fever or chills, denies any ZHONG, denies any cough, denies any sob, denies any chest pain, denies any abd. pain, denies any dysurea, denies any diarrhea left 3rd and 4th toe black gangreneous, denies any injury to the area Past Patient History - Infectious Disease Hx of Infectious Diseases: None - Past Medical History & Family History Past Medical History?: Yes - Past Social History Smoking Status: Former Smoker Alcohol: None Drugs: Denies Home Situation {Lives}: With Family - CARDIAC Hx Hypercholesterolemia: Yes Hx Hypertension: Yes - PULMONARY Hx Respiratory Disorders: No - NEUROLOGICAL Hx Neurological Disorder: No - HEENT Hx HEENT Problems: No - RENAL Hx Chronic Kidney Disease: No Hx Dialysis: No - ENDOCRINE/METABOLIC Hx Endocrine Disorders: Yes Hx Diabetes Mellitus Type 1: Yes - HEMATOLOGICAL/ONCOLOGICAL Hx Blood Disorders: No Hx Human Immunodeficiency Virus (HIV): No - INTEGUMENTARY Hx Dermatological Problems: Yes Other/Comment: gangrene left toes - MUSCULOSKELETAL/RHEUMATOLOGICAL Hx Musculoskeletal Disorders: No Hx Falls: No - GASTROINTESTINAL Hx Gastrointestinal Disorders: No - GENITOURINARY/GYNECOLOGICAL Hx Genitourinary Disorders: No - PSYCHIATRIC Hx Substance Use: No - SURGICAL HISTORY Hx Coronary Artery Bypass Graft: Yes - ANESTHESIA Hx Anesthesia: Yes Hx Anesthesia Reactions: Yes Hx Malignant Hyperthermia: Yes Meds Allergies/Adverse Reactions: Allergies Allergy/AdvReac Type Severity Reaction Status Date / Time No Known Allergies Allergy Verified 12/28/17 09:09 - Medications Medications: Current Medications Acetaminophen (Tylenol 325mg Tab) 650 mg PO Q6 PRN PRN Reason: Pain, moderate (4-7) Last Admin: 01/27/18 22:27 Dose: 650 mg Aspirin (Ecotrin) 81 mg PO DAILY [facility] Last Admin: 01/28/18 08:43 Dose: 81 mg Atorvastatin Calcium (Lipitor) 10 mg PO HS [facility] Last Admin: 01/27/18 22:27 Dose: 10 mg Clopidogrel Bisulfate (Plavix) 75 mg PO DAILY [facility] Last Admin: 01/28/18 08:43 Dose: 75 mg Dextrose (Dextrose 50% Inj) 0 ml IV STAT PRN; Protocol PRN Reason: Hypoglycemia Protocol Dextrose (Glutose 15) 0 gm PO ONCE PRN; Protocol PRN Reason: Hypoglycemia Protocol Glucagon (Glucagen Diagnostic Kit) 0 mg IM STAT PRN; Protocol PRN Reason: Hypoglycemia Protocol Vancomycin HCl 1 gm/ Sodium (Chloride) 250 mls @ 125 mls/hr IVPB Q12@0400,1600 [facility] PRN Reason: Protocol Last Admin: 01/28/18 03:59 Dose: 125 mls/hr Ciprofloxacin (Cipro 400mg/200ml Dsw) 400 mg in 200 mls @ 200 mls/hr IVPB Q12@ 0000,1200 [facility] PRN Reason: Protocol Last Admin: 01/28/18 00:54 Dose: 200 mls/hr Insulin Human Regular (Humulin R) 0 units SC ACHS [facility] PRN Reason: Protocol Last Admin: 01/28/18 06:50 Dose: Not Given Lisinopril (Zestril) 10 mg PO DAILY [facility] Metformin HCl (Glucophage) 1,000 mg PO BID [facility] Last Admin: 01/28/18 08:43 Dose: 1,000 mg Metoprolol Succinate (Toprol Xl) 25 mg PO DAILY [facility] Last Admin: 01/28/18 08:43 Dose: 25 mg Pioglitazone HCl (Actos) 15 mg PO DAILY [facility] Last Admin: 01/28/18 08:43 Dose: 15 mg Physical Exam - Constitutional Appears: No Acute Distress - Head Exam Head Exam: ATRAUMATIC - Eye Exam Eye Exam: EOMI, PERRL - ENT Exam ENT Exam: Normal Oropharynx - Neck Exam Neck exam: Positive for: Full Rom - Respiratory Exam Respiratory Exam: Clear to Auscultation Bilateral, NORMAL BREATHING PATTERN - Cardiovascular Exam Cardiovascular Exam: RRR, +S1, +S2 - GI/Abdominal Exam GI & Abdominal Exam: Normal Bowel Sounds, Soft Additional comments: NT, ND - Extremities Exam Additional comments: left foot with 3rd and 4th toes completely black ,hard agngrenouds eschar extending to dorsal aspect of the foot no malodor No discharge minimal surrounding skin erythema, no swelling - Neurological Exam Neurological exam: Alert, Oriented x3 Results - Vital Signs Recent Vital Signs: Last Vital Signs Temp 97.3 F L 01/28/18 07:42 Pulse 85 01/28/18 07:42 Resp 20 01/28/18 07:42 BP 111/72 01/28/18 08:43 Pulse Ox 100 01/28/18 07:42 - Labs Result Diagrams: 01/28/18 05:30 01/28/18 05:30 Labs: Laboratory Results - last 24 hr 01/27/18 01/27/18 01/27/18 14:30 17:37 22:00 WBC RBC Hgb Hct MCV MCH MCHC RDW Plt Count PT INR APTT pO2 18 L VBG pH 7.32 VBG pCO2 50 VBG HCO3 22.2 VBG Total CO2 27.3 VBG O2 Sat (Calc) 30.1 L VBG Base Excess -0.9 L VBG Potassium 5.4 H Sodium 137.0 Chloride 104.0 Glucose 97 Lactate 1.6 FiO2 21.0 Potassium Carbon Dioxide Anion Gap BUN Creatinine Est GFR ( Amer) Est GFR (Non-Af Amer) POC Glucose (mg/dL) 75 93 Random Glucose Calcium Venous Blood Potassium 5.4 H Vancomycin Trough 01/28/18 01/28/18 01/28/18 05:17 05:30 05:30 WBC 10.8 RBC 4.35 L Hgb 11.2 L Hct 33.3 L MCV 76.5 L MCH 25.7 L MCHC 33.6 RDW 13.2 Plt Count 303 PT INR APTT pO2 VBG pH VBG pCO2 VBG HCO3 VBG Total CO2 VBG O2 Sat (Calc) VBG Base Excess VBG Potassium Sodium Chloride Glucose Lactate FiO2 Potassium Carbon Dioxide Anion Gap BUN Creatinine Est GFR ( Amer) Est GFR (Non-Af Amer) POC Glucose (mg/dL) 87 Random Glucose Calcium Venous Blood Potassium Vancomycin Trough 31.3 H 01/28/18 01/28/18 05:30 05:30 WBC RBC Hgb Hct MCV MCH MCHC RDW Plt Count PT 13.5 H INR 1.2 APTT 30.8 pO2 VBG pH VBG pCO2 VBG HCO3 VBG Total CO2 VBG O2 Sat (Calc) VBG Base Excess VBG Potassium Sodium 142 Chloride 101 Glucose Lactate FiO2 Potassium 4.5 Carbon Dioxide 26 Anion Gap 20 BUN 23 H Creatinine 1.5 Est GFR ( Amer) 57 Est GFR (Non-Af Amer) 47 POC Glucose (mg/dL) Random Glucose 94 Calcium 9.2 Venous Blood Potassium Vancomycin Trough Laboratory Results - last 72 hr 01/27/18 01/27/18 01/27/18 10:40 10:40 10:55 WBC 14.2 H RBC 4.51 Hgb 11.5 L Hct 34.9 L MCV 77.2 L MCH 25.6 L MCHC 33.1 RDW 13.7 Plt Count 349 MPV 7.9 Neut % (Auto) 70.8 Lymph % (Auto) 11.1 L Preston % (Auto) 5.9 Eos % (Auto) 11.6 H Baso % (Auto) 0.6 Neut # (Auto) 10.1 H Lymph # (Auto) 1.6 Preston # (Auto) 0.8 Eos # (Auto) 1.6 H Baso # (Auto) 0.1 PT INR APTT pO2 VBG pH VBG pCO2 VBG HCO3 VBG Total CO2 VBG O2 Sat (Calc) VBG Base Excess VBG Potassium Glucose Lactate FiO2 Sodium 142 Potassium 5.1 H Chloride 99 Carbon Dioxide 24 Anion Gap 24 H BUN 16 Creatinine 1.4 Est GFR ( Amer) > 60 Est GFR (Non-Af Amer) 51 POC Glucose (mg/dL) 133 H Random Glucose 170 H Calcium 9.7 Total Bilirubin 0.4 AST 32 ALT 28 Alkaline Phosphatase 153 H D Total Protein 8.6 H Albumin 4.1 Globulin 4.5 H Albumin/Globulin Ratio 0.9 L Venous Blood Potassium Vancomycin Trough 01/27/18 01/27/18 01/27/18 14:30 17:37 22:00 WBC RBC Hgb Hct MCV MCH MCHC RDW Plt Count MPV Neut % (Auto) Lymph % (Auto) Preston % (Auto) Eos % (Auto) Baso % (Auto) Neut # (Auto) Lymph # (Auto) Preston # (Auto) Eos # (Auto) Baso # (Auto) PT INR APTT pO2 18 L VBG pH 7.32 VBG pCO2 50 VBG HCO3 22.2 VBG Total CO2 27.3 VBG O2 Sat (Calc) 30.1 L VBG Base Excess -0.9 L VBG Potassium 5.4 H Glucose 97 Lactate 1.6 FiO2 21.0 Sodium 137.0 Potassium Chloride 104.0 Carbon Dioxide Anion Gap BUN Creatinine Est GFR ( Amer) Est GFR (Non-Af Amer) POC Glucose (mg/dL) 75 93 Random Glucose Calcium Total Bilirubin AST ALT Alkaline Phosphatase Total Protein Albumin Globulin Albumin/Globulin Ratio Venous Blood Potassium 5.4 H Vancomycin Trough 01/28/18 01/28/18 01/28/18 05:17 05:30 05:30 WBC 10.8 RBC 4.35 L Hgb 11.2 L Hct 33.3 L MCV 76.5 L MCH 25.7 L MCHC 33.6 RDW 13.2 Plt Count 303 MPV Neut % (Auto) Lymph % (Auto) Preston % (Auto) Eos % (Auto) Baso % (Auto) Neut # (Auto) Lymph # (Auto) Preston # (Auto) Eos # (Auto) Baso # (Auto) PT INR APTT pO2 VBG pH VBG pCO2 VBG HCO3 VBG Total CO2 VBG O2 Sat (Calc) VBG Base Excess VBG Potassium Glucose Lactate FiO2 Sodium Potassium Chloride Carbon Dioxide Anion Gap BUN Creatinine Est GFR ( Amer) Est GFR (Non-Af Amer) POC Glucose (mg/dL) 87 Random Glucose Calcium Total Bilirubin AST ALT Alkaline Phosphatase Total Protein Albumin Globulin Albumin/Globulin Ratio Venous Blood Potassium Vancomycin Trough 31.3 H 18 01/28/18 05:30 05:30 WBC RBC Hgb Hct MCV MCH MCHC RDW Plt Count MPV Neut % (Auto) Lymph % (Auto) Preston % (Auto) Eos % (Auto) Baso % (Auto) Neut # (Auto) Lymph # (Auto) Preston # (Auto) Eos # (Auto) Baso # (Auto) PT 13.5 H INR 1.2 APTT 30.8 pO2 VBG pH VBG pCO2 VBG HCO3 VBG Total CO2 VBG O2 Sat (Calc) VBG Base Excess VBG Potassium Glucose Lactate FiO2 Sodium 142 Potassium 4.5 Chloride 101 Carbon Dioxide 26 Anion Gap 20 BUN 23 H Creatinine 1.5 Est GFR ( Amer) 57 Est GFR (Non-Af Amer) 47 POC Glucose (mg/dL) Random Glucose 94 Calcium 9.2 Total Bilirubin AST ALT Alkaline Phosphatase Total Protein Albumin Globulin Albumin/Globulin Ratio Venous Blood Potassium Vancomycin Trough Microbiology 11/24/17 07:44 Foot - Left Gram Stain - Final 11/24/17 07:44 Foot - Left Wound Culture - Final Enterobacter Cloacae Ssp Cloac Methicillin Resistant S Aureus Strep Anginosus/Milleri 11/24/17 04:15 Blood Blood Culture - Final 11/24/17 04:15 Blood Gram Stain - Final NO GROWTH AFTER 5 DAYS TEST NOT PERFORMED 11/24/17 03:45 Blood Blood Culture - Final 11/24/17 03:45 Blood Gram Stain - Final NO GROWTH AFTER 5 DAYS TEST NOT PERFORMED Accession No. : [id number] Patient Name / ID : SAEED Rooney / [id number] Exam Date : 01/27/2018 11:23:52 ( Approved ) Study Comment : Sex / Age : M / [id number] Creator : ophelia nunez Dictator : Jose Carlos Mccormick MD Steam Conditioning Operator : Dean Of Men : Jose Carlos Mccormick MD Approver2 : Report Date : 01/27/2018 11:39:02 My Comment : PROCEDURE: Left Foot Radiographs. HISTORY: Necrotic 3-4 digit COMPARISON: 11/24/2017 FINDINGS: BONES: Normal. No fracture. JOINTS: Normal. SOFT TISSUES: Normal. OTHER FINDINGS: None. IMPRESSION: Normal left foot radiographs. Assessment & Plan (1) Gangrene of toe of left foot Status: Acute (2) Cellulitis of foot Status: Acute (3) Diabetes Status: Acute (4) Coronary artery disease Status: Acute - Assessment and Plan (Free Text) Assessment: A/P- 67 year old male with DM II, CAD s/p CABG admitted with left foot 3rd and 4th toe gangrene and surrounding cellulitis. afebrile minimal leukocytosis has improved since admission. foot wound cx from multiorganisms including MRSA , enterobacter and strep foot xray- negative report. plan- check ESR. pt. with most likely OVD based on h/o CAD , dMM and now gangrenous toes . most likely will need amputation if the 2 gangrenous toes as IV antibiotics would not be sufficient in light of gangrene. in the meantime advise to continue with IV vancomyicn. keep trough <20. would advise to d/c cipro ad place on zosyn instead. check blood cx x 2. would advise to send bone biopsy and bone cx by podiatry once surgical decision has been made. All above d/w patient and he verbalizes full understanding of all above and agrees with above plan of care. Thank you for allowing me to take part in the care of this patient.
[2018-01-28] MEDS ORDERED: Ciprofloxacin 400mg/200ml D5W 400 MG/200 ML BAG IVPB SCH (12:00)
--- NOTE | 2018-01-28 23:10 | CP.PCM.PN ---
Subjective - Date & Time of Evaluation Date of Evaluation: 01/28/18 Time of Evaluation: 23:08 - Subjective Subjective: Podiatry Consult note for Dr. Dale 67M PMHx DM, HTN, HLD, CAD, CHF, PVD seen and evaluated at bedside for left foot gangrene of third and fourth digits. Patient is AAO x 3 and NAD. Denies any acute overnight events. States that pain is well controlled. Denies any further pedal complaints at this time. Denies any recent N/V/F/C/CP/SOB/D/ posterior calf pain when squeezed Objective - Vital Signs/Intake and Output Vital Signs (last 24 hours): Temp Pulse Resp BP Pulse Ox 98.7 F 81 20 112/74 100 01/28/18 15:48 01/28/18 15:48 01/28/18 15:48 01/28/18 15:48 01/28/18 15:48 - Medications Medications: Current Medications Acetaminophen (Tylenol 325mg Tab) 650 mg PO Q6 PRN PRN Reason: Pain, moderate (4-7) Last Admin: 01/28/18 21:30 Dose: 650 mg Aspirin (Ecotrin) 81 mg PO DAILY [facility] Last Admin: 01/28/18 08:43 Dose: 81 mg Atorvastatin Calcium (Lipitor) 10 mg PO HS [facility] Last Admin: 01/28/18 21:30 Dose: 10 mg Clopidogrel Bisulfate (Plavix) 75 mg PO DAILY [facility] Last Admin: 01/28/18 08:43 Dose: 75 mg Dextrose (Dextrose 50% Inj) 0 ml IV STAT PRN; Protocol PRN Reason: Hypoglycemia Protocol Dextrose (Glutose 15) 0 gm PO ONCE PRN; Protocol PRN Reason: Hypoglycemia Protocol Glucagon (Glucagen Diagnostic Kit) 0 mg IM STAT PRN; Protocol PRN Reason: Hypoglycemia Protocol Piperacillin Sod/Tazobactam (Sod 2.25 gm/ Sodium Chloride) 100 mls @ 100 mls/ hr IVPB Q8 [facility] PRN Reason: Protocol Last Admin: 01/28/18 17:09 Dose: 100 mls/hr Vancomycin HCl 750 mg/ Sodium (Chloride) 250 mls @ 166.667 mls/hr IVPB Q12 [facility] PRN Reason: Protocol Last Admin: 01/28/18 21:30 Dose: 166.667 mls/hr Insulin Human Regular (Humulin R) 0 units SC ACHS [facility] PRN Reason: Protocol Last Admin: 01/28/18 15:30 Dose: Not Given Lisinopril (Zestril) 10 mg PO DAILY [facility] Last Admin: 01/28/18 15:27 Dose: 10 mg Metformin HCl (Glucophage) 1,000 mg PO BID [facility] Last Admin: 01/28/18 17:10 Dose: 1,000 mg Metoprolol Succinate (Toprol Xl) 25 mg PO DAILY [facility] Last Admin: 01/28/18 08:43 Dose: 25 mg Pioglitazone HCl (Actos) 15 mg PO DAILY [facility] Last Admin: 01/28/18 08:43 Dose: 15 mg - Labs Labs: 01/28/18 05:30 01/28/18 05:30 PT 13.5 Seconds (9.8-13.1) H 01/28/18 05:30 INR 1.2 (0.9-1.2) 01/28/18 05:30 APTT 30.8 Seconds (25.6-37.1) 01/28/18 05:30 - Constitutional Appears: Well, Non-toxic, No Acute Distress - Extremities Exam Additional comments: VASC: LLE DP and PT pulse nonpalpable. RLE DP weakly palpable 1/4, PT nonpalpable. CFT >3 seconds to all digits LLE, WNL RLE. Temperature gradient cool to cool RLE, cool to cold LLE. Mild non-pitting edema noted to left forefoot. NEURO: Gross sensation diminished bilaterally. DERM: Dry, necrotic left 3rd and 4th digits extending approx. 2cm proximally from digital bases; necrosis extending into dorsolateral aspect of 2nd digit; well de-marcated; periwound erythema noted with surrounding xerosis. No drainage , no purulence, no fluctuance. ORTHO: Pain on palpation to necrotic tissue. - Neurological Exam Neurological Exam: Alert, Awake, Oriented x3 - Psychiatric Exam Psychiatric exam: Normal Affect, Normal Mood Assessment and Plan - Assessment and Plan (Free Text) Assessment: 67M with extensive PMHx with left foot gangrene - lateral 3rd/4th digits Plan: Patient seen and evaluated at bedside Afebrile; WBC 10.8 from 14.2 Plan discussed with attending Dr. Dale Wounds dressed with DSD Continue IV abx per ID Patietn for surgery on Tuesday as long as vascular [place] [facility] [place] (amputation of necrotic digits) To be NPO tomorrow night after midnight Podiatry will continue to follow while patient in house
[2018-01-29] MEDS: Insulin Regular 100 units/ml SC SCH ×4 (07:30→22:00)
[2018-01-29] MEDS: Metoprolol Succinate 25 mg XL Tab PO SCH (08:56)
--- NOTE | 2018-01-29 10:09 | CP.PCM.PN ---
Subjective - Date & Time of Evaluation Date of Evaluation: 01/29/18 Time of Evaluation: 08:10 - Subjective Subjective: 67M seen and examined at bedside with attending. Pt reports feeling well except LEFT toe pain. Otherwise, denies SOB, chest pain. Objective - Vital Signs/Intake and Output Vital Signs (last 24 hours): Temp Pulse Resp BP Pulse Ox 36.7 C 100 H 19 118/73 99 01/29/18 07:47 01/29/18 07:47 01/29/18 07:47 01/29/18 08:56 01/29/18 07:47 - Medications Medications: Current Medications Acetaminophen (Tylenol 325mg Tab) 650 mg PO Q6 PRN PRN Reason: Pain, moderate (4-7) Last Admin: 01/28/18 21:30 Dose: 650 mg Aspirin (Ecotrin) 81 mg PO DAILY [facility] Last Admin: 01/29/18 08:57 Dose: 81 mg Atorvastatin Calcium (Lipitor) 10 mg PO HS [facility] Last Admin: 01/28/18 21:30 Dose: 10 mg Clopidogrel Bisulfate (Plavix) 75 mg PO DAILY [facility] Last Admin: 01/29/18 08:57 Dose: 75 mg Dextrose (Dextrose 50% Inj) 0 ml IV STAT PRN; Protocol PRN Reason: Hypoglycemia Protocol Dextrose (Glutose 15) 0 gm PO ONCE PRN; Protocol PRN Reason: Hypoglycemia Protocol Glucagon (Glucagen Diagnostic Kit) 0 mg IM STAT PRN; Protocol PRN Reason: Hypoglycemia Protocol Piperacillin Sod/Tazobactam (Sod 2.25 gm/ Sodium Chloride) 100 mls @ 100 mls/ hr IVPB Q8 [facility] PRN Reason: Protocol Last Admin: 01/29/18 08:56 Dose: 100 mls/hr Vancomycin HCl 750 mg/ Sodium (Chloride) 250 mls @ 166.667 mls/hr IVPB Q12 [facility] PRN Reason: Protocol Last Admin: 01/29/18 10:06 Dose: 166.667 mls/hr Insulin Human Regular (Humulin R) 0 units SC ACHS [facility] PRN Reason: Protocol Last Admin: 01/29/18 07:30 Dose: Not Given Lisinopril (Zestril) 10 mg PO DAILY [facility] Last Admin: 01/29/18 10:07 Dose: 10 mg Metformin HCl (Glucophage) 1,000 mg PO BID [facility] Last Admin: 01/29/18 08:57 Dose: 1,000 mg Metoprolol Succinate (Toprol Xl) 25 mg PO DAILY [facility] Last Admin: 01/29/18 08:56 Dose: 25 mg Pioglitazone HCl (Actos) 15 mg PO DAILY [facility] Last Admin: 01/29/18 08:57 Dose: 15 mg - Labs Labs: 01/28/18 05:30 01/28/18 05:30 PT 13.5 Seconds (9.8-13.1) H 01/28/18 05:30 INR 1.2 (0.9-1.2) 01/28/18 05:30 APTT 30.8 Seconds (25.6-37.1) 01/28/18 05:30 - Constitutional Appears: Well, Non-toxic - Head Exam Head Exam: ATRAUMATIC, NORMAL INSPECTION - Eye Exam Eye Exam: EOMI, Normal appearance - ENT Exam ENT Exam: Mucous Membranes Moist, Normal Exam - Neck Exam Neck Exam: Full ROM, Normal Inspection - Respiratory Exam Respiratory Exam: Clear to Ausculation Bilateral, NORMAL BREATHING PATTERN. absent: Rales, Rhonchi, Wheezes - Cardiovascular Exam Cardiovascular Exam: REGULAR RHYTHM - GI/Abdominal Exam GI & Abdominal Exam: Soft, Normal Bowel Sounds. absent: Tenderness - Extremities Exam Extremities Exam: Normal Capillary Refill. absent: Normal Inspection (LEFT 3rd/ 4th toes with dry gangrene and concomitant cellulitic changes.), Pedal Edema - Neurological Exam Neurological Exam: Alert, Awake, Oriented x3 - Psychiatric Exam Psychiatric exam: Normal Affect, Normal Mood - Skin Skin Exam: Dry, Warm Assessment and Plan - Assessment and Plan (Free Text) Assessment: Assessment and Plan (1) Gangrene of toe of left foot Assessment & Plan: Left 3rd/4th toes with some dry/gangrene mixed with cellulitic changes. Palpable popliteal/femoral pulses. [id number] - Podiatry management: Vasc documentation from [facility] [place], alireza changes, [place] 01/30 - ID Consult (Dr Tolbert): Vanc, Zosyn, BCx- pending - NPO/IVF after midnight - Cardiology Clearance- PENDING Status: Acute (2) DVT prophylaxis Assessment & Plan: - SCDs - Heparin held after midnight Status: Acute (3) Coronary artery disease Assessment & Plan: Asymptomatic, controlled. - c/w medication - Cardiology for pre-op - EKG performed Status: Chronic (4) Diabetes Assessment & Plan: Asymptomatic, controlled. - c/w medication - Accu-checks - Hypoglycemic Bundle - Mod CHO diet
--- NOTE | 2018-01-29 15:37 | CP.PCM.PN ---
Subjective - Date & Time of Evaluation Date of Evaluation: 01/29/18 Time of Evaluation: 13:34 - Subjective Subjective: Podiatry Consult note for Dr. Dale 67M PMHx DM, HTN, HLD, CAD, CHF, PVD seen and evaluated at bedside for left foot gangrene of third and fourth digits. Patient is AAO x 3 and NAD. Denies any acute overnight events. States that pain is well controlled. Denies any further pedal complaints at this time. Denies any recent N/V/F/C/CP/SOB/D/ posterior calf pain when squeezed Objective - Vital Signs/Intake and Output Vital Signs (last 24 hours): Temp Pulse Resp BP Pulse Ox 98.0 F 100 H 19 118/73 99 01/29/18 07:47 01/29/18 07:47 01/29/18 07:47 01/29/18 08:56 01/29/18 07:47 - Medications Medications: Current Medications Acetaminophen (Tylenol 325mg Tab) 650 mg PO Q6 PRN PRN Reason: Pain, moderate (4-7) Last Admin: 01/29/18 13:49 Dose: 650 mg Aspirin (Ecotrin) 81 mg PO DAILY [facility] Last Admin: 01/29/18 08:57 Dose: 81 mg Atorvastatin Calcium (Lipitor) 10 mg PO HS [facility] Last Admin: 01/28/18 21:30 Dose: 10 mg Clopidogrel Bisulfate (Plavix) 75 mg PO DAILY [facility] Last Admin: 01/29/18 08:57 Dose: 75 mg Dextrose (Dextrose 50% Inj) 0 ml IV STAT PRN; Protocol PRN Reason: Hypoglycemia Protocol Dextrose (Glutose 15) 0 gm PO ONCE PRN; Protocol PRN Reason: Hypoglycemia Protocol Glucagon (Glucagen Diagnostic Kit) 0 mg IM STAT PRN; Protocol PRN Reason: Hypoglycemia Protocol Heparin Sodium (Porcine) (Heparin) 5,000 units SC Q8 [facility] PRN Reason: Protocol Piperacillin Sod/Tazobactam (Sod 2.25 gm/ Sodium Chloride) 100 mls @ 100 mls/ hr IVPB Q8 [facility] PRN Reason: Protocol Last Admin: 01/29/18 08:56 Dose: 100 mls/hr Vancomycin HCl 750 mg/ Sodium (Chloride) 250 mls @ 166.667 mls/hr IVPB Q12 [facility] PRN Reason: Protocol Last Admin: 01/29/18 10:06 Dose: 166.667 mls/hr Sodium Chloride (Sodium Chloride 0.9%) 500 mls @ 75 mls/hr IV .Q6H40M [facility] Insulin Human Regular (Humulin R) 0 units SC ACHS [facility] PRN Reason: Protocol Last Admin: 01/29/18 12:20 Dose: 1 units Ketorolac Tromethamine (Toradol) 15 mg IVP Q6 PRN PRN Reason: Pain, severe (8-10) Lisinopril (Zestril) 10 mg PO DAILY [facility] Last Admin: 01/29/18 10:07 Dose: 10 mg Metformin HCl (Glucophage) 1,000 mg PO BID [facility] Last Admin: 01/29/18 08:57 Dose: 1,000 mg Metoprolol Succinate (Toprol Xl) 25 mg PO DAILY [facility] Last Admin: 01/29/18 08:56 Dose: 25 mg Pioglitazone HCl (Actos) 15 mg PO DAILY [facility] Last Admin: 01/29/18 08:57 Dose: 15 mg - Labs Labs: 01/28/18 05:30 01/28/18 05:30 PT 13.5 Seconds (9.8-13.1) H 01/28/18 05:30 INR 1.2 (0.9-1.2) 01/28/18 05:30 APTT 30.8 Seconds (25.6-37.1) 01/28/18 05:30 - Constitutional Appears: Well, Non-toxic, No Acute Distress - Extremities Exam Additional comments: VASC: LLE DP and PT pulse nonpalpable. RLE DP weakly palpable 1/4, PT nonpalpable. CFT >3 seconds to all digits LLE, WNL RLE. Temperature gradient cool to cool RLE, cool to cold LLE. Mild non-pitting edema noted to left forefoot. NEURO: Gross sensation diminished bilaterally. DERM: Dry, necrotic left 3rd and 4th digits extending approx. 2cm proximally from digital bases; necrosis extending into dorsolateral aspect of 2nd digit as well as dorsal base of fifth digit; well de-marcated. Isolated area of necrosis noted to distal medial portion of fifth digit. Periwound erythema noted with surrounding xerosis, improving. No drainage, no purulence, no fluctuance, no other clinical signs of infection ORTHO: Pain on palpation to necrotic tissue. - Neurological Exam Neurological Exam: Alert, Awake, Oriented x3 - Psychiatric Exam Psychiatric exam: Normal Affect, Normal Mood Assessment and Plan - Assessment and Plan (Free Text) Assessment: 67M with extensive PMHx with left foot gangrene - lateral 3rd/4th digits, base of second digit and fifth digit Plan: Patient seen and evaluated at bedside Afebrile; WBC 10.8 yesterday Plan discussed with attending Dr. Dale Wounds dressed with DSD Continue IV abx per ID Patient for surgery tomorrow as long as vascular [place] [facility] and pending cardiac clearance from Dr. Rodriguez To be NPO tonight after midnight beside medication Podiatry will continue to follow while patient in house
--- NOTE | 2018-01-29 22:10 | CP.PCM.PN ---
Subjective - Date & Time of Evaluation Date of Evaluation: 01/28/18 Time of Evaluation: 09:05 - Subjective Subjective: 67M seen and examined at bedside with attending. Patient denies SOB, chest pain, but is having some mild LEFT foot pain at the 3rd/4th digits due to dry gangrene. He reports what appears to be an angiogram being performed at [facility]. Objective - Vital Signs/Intake and Output Vital Signs (last 24 hours): Temp Pulse Resp BP Pulse Ox 36.3 C L 90 18 109/68 99 01/29/18 15:50 01/29/18 15:50 01/29/18 15:50 01/29/18 15:50 01/29/18 15:50 - Medications Medications: Current Medications Acetaminophen (Tylenol 325mg Tab) 650 mg PO Q6 PRN PRN Reason: Pain, moderate (4-7) Last Admin: 01/29/18 20:50 Dose: 650 mg Aspirin (Ecotrin) 81 mg PO DAILY [facility] Last Admin: 01/29/18 08:57 Dose: 81 mg Atorvastatin Calcium (Lipitor) 10 mg PO HS [facility] Last Admin: 01/29/18 21:00 Dose: 10 mg Clopidogrel Bisulfate (Plavix) 75 mg PO DAILY [facility] Last Admin: 01/29/18 08:57 Dose: 75 mg Dextrose (Dextrose 50% Inj) 0 ml IV STAT PRN; Protocol PRN Reason: Hypoglycemia Protocol Dextrose (Glutose 15) 0 gm PO ONCE PRN; Protocol PRN Reason: Hypoglycemia Protocol Glucagon (Glucagen Diagnostic Kit) 0 mg IM STAT PRN; Protocol PRN Reason: Hypoglycemia Protocol Heparin Sodium (Porcine) (Heparin) 5,000 units SC Q8 [facility] PRN Reason: Protocol Last Admin: 01/29/18 16:57 Dose: 5,000 units Piperacillin Sod/Tazobactam (Sod 2.25 gm/ Sodium Chloride) 100 mls @ 100 mls/ hr IVPB Q8 [facility] PRN Reason: Protocol Last Admin: 01/29/18 16:58 Dose: 100 mls/hr Vancomycin HCl 750 mg/ Sodium (Chloride) 250 mls @ 166.667 mls/hr IVPB Q12 [facility] PRN Reason: Protocol Last Admin: 01/29/18 21:50 Dose: 166.667 mls/hr Sodium Chloride (Sodium Chloride 0.9%) 500 mls @ 75 mls/hr IV .Q6H40M [facility] Insulin Human Regular (Humulin R) 0 units SC ACHS [facility] PRN Reason: Protocol Last Admin: 01/29/18 22:00 Dose: Not Given Ketorolac Tromethamine (Toradol) 15 mg IVP Q6 PRN PRN Reason: Pain, severe (8-10) Lisinopril (Zestril) 10 mg PO DAILY [facility] Last Admin: 01/29/18 10:07 Dose: 10 mg Metformin HCl (Glucophage) 1,000 mg PO BID [facility] Last Admin: 01/29/18 16:59 Dose: 1,000 mg Metoprolol Succinate (Toprol Xl) 25 mg PO DAILY [facility] Last Admin: 01/29/18 08:56 Dose: 25 mg Pioglitazone HCl (Actos) 15 mg PO DAILY [facility] Last Admin: 01/29/18 08:57 Dose: 15 mg - Labs Labs: 01/28/18 05:30 01/28/18 05:30 PT 13.5 Seconds (9.8-13.1) H 01/28/18 05:30 INR 1.2 (0.9-1.2) 01/28/18 05:30 APTT 30.8 Seconds (25.6-37.1) 01/28/18 05:30 - Constitutional Appears: Well, Non-toxic - Head Exam Head Exam: NORMAL INSPECTION - Eye Exam Eye Exam: EOMI, Normal appearance - ENT Exam ENT Exam: Mucous Membranes Moist - Respiratory Exam Respiratory Exam: Clear to Ausculation Bilateral, NORMAL BREATHING PATTERN - Cardiovascular Exam Cardiovascular Exam: REGULAR RHYTHM (Sternotomy Scar) - GI/Abdominal Exam GI & Abdominal Exam: Soft, Normal Bowel Sounds - Extremities Exam Extremities Exam: Tenderness (LEFT 3rd/4th toes otherwise no b/l pedal edema) - Neurological Exam Neurological Exam: Alert, Awake - Psychiatric Exam Psychiatric exam: Normal Affect, Normal Mood - Skin Skin Exam: Dry, Warm Assessment and Plan (1) Gangrene of toe of left foot Assessment & Plan: Left 3rd/4th toes with some dry/gangrene mixed with cellulitic changes. Foot cooler than right, palpable popliteal/femoral pulses. - Podiatry management: Vasc documentation from [facility], drsg changes, OR 01/30 - ID Consult (Dr Tolbert): Vanc, Zosyn, BCx, ESR Status: Acute (2) DVT prophylaxis Assessment & Plan: SCDs Status: Acute (3) Coronary artery disease Assessment & Plan: Asymptomatic, controlled. - c/w medication - Cardiology for pre-op - EKG performed Status: Chronic (4) Diabetes Assessment & Plan: Asymptomatic, controlled. - c/w medication - Accu-checks - Hypoglycemic Bundle - Mod CHO diet Status: Chronic
[2018-01-30] MEDS: Sodium Chloride 0.9% 500 ML IV SCH ×3 (00:36→16:02)
--- NOTE | 2018-01-30 02:06 | CP.PCM.PN ---
Subjective - Date & Time of Evaluation Date of Evaluation: 01/29/18 Time of Evaluation: 01:00 - Subjective Subjective: Patient appears comfortable reports some pain in affected foot no cp sob n/v/c/f Objective - Vital Signs/Intake and Output Vital Signs (last 24 hours): Temp Pulse Resp BP Pulse Ox 97.9 F 81 19 113/67 100 01/30/18 00:00 01/30/18 00:00 01/30/18 00:00 01/30/18 00:00 01/30/18 00:00 - Medications Medications: Current Medications Acetaminophen (Tylenol 325mg Tab) 650 mg PO Q6 PRN PRN Reason: Pain, moderate (4-7) Last Admin: 01/29/18 20:50 Dose: 650 mg Aspirin (Ecotrin) 81 mg PO DAILY [facility] Last Admin: 01/29/18 08:57 Dose: 81 mg Atorvastatin Calcium (Lipitor) 10 mg PO HS [facility] Last Admin: 01/29/18 21:00 Dose: 10 mg Clopidogrel Bisulfate (Plavix) 75 mg PO DAILY [facility] Last Admin: 01/29/18 08:57 Dose: 75 mg Dextrose (Dextrose 50% Inj) 0 ml IV STAT PRN; Protocol PRN Reason: Hypoglycemia Protocol Dextrose (Glutose 15) 0 gm PO ONCE PRN; Protocol PRN Reason: Hypoglycemia Protocol Glucagon (Glucagen Diagnostic Kit) 0 mg IM STAT PRN; Protocol PRN Reason: Hypoglycemia Protocol Heparin Sodium (Porcine) (Heparin) 5,000 units SC Q8 [facility] PRN Reason: Protocol Last Admin: 01/29/18 16:57 Dose: 5,000 units Piperacillin Sod/Tazobactam (Sod 2.25 gm/ Sodium Chloride) 100 mls @ 100 mls/ hr IVPB Q8 [facility] PRN Reason: Protocol Last Admin: 01/30/18 00:32 Dose: 100 mls/hr Vancomycin HCl 750 mg/ Sodium (Chloride) 250 mls @ 166.667 mls/hr IVPB Q12 [facility] PRN Reason: Protocol Last Admin: 01/29/18 21:50 Dose: 166.667 mls/hr Sodium Chloride (Sodium Chloride 0.9%) 500 mls @ 75 mls/hr IV .Q6H40M [facility] Last Admin: 01/30/18 00:36 Dose: 75 mls/hr Insulin Human Regular (Humulin R) 0 units SC ACHS [facility] PRN Reason: Protocol Last Admin: 01/29/18 22:00 Dose: Not Given Ketorolac Tromethamine (Toradol) 15 mg IVP Q6 PRN PRN Reason: Pain, severe (8-10) Last Admin: 01/30/18 00:28 Dose: 15 mg Lisinopril (Zestril) 10 mg PO DAILY [facility] Last Admin: 01/29/18 10:07 Dose: 10 mg Metformin HCl (Glucophage) 1,000 mg PO BID [facility] Last Admin: 01/29/18 16:59 Dose: 1,000 mg Metoprolol Succinate (Toprol Xl) 25 mg PO DAILY [facility] Last Admin: 01/29/18 08:56 Dose: 25 mg Pioglitazone HCl (Actos) 15 mg PO DAILY [facility] Last Admin: 01/29/18 08:57 Dose: 15 mg - Labs Labs: 01/28/18 05:30 01/28/18 05:30 PT 13.5 Seconds (9.8-13.1) H 01/28/18 05:30 INR 1.2 (0.9-1.2) 01/28/18 05:30 APTT 30.8 Seconds (25.6-37.1) 01/28/18 05:30 - Additional Findings Additional findings: HRT S1 S2 RRR Lungs CTA ABD soft NT ND EXT warm to touch gangrenous toes wrapped Assessment and Plan - Assessment and Plan (Free Text) Plan: Gangrene left foot -for OR -will need cardiac clearance -f/U vascular studies
[2018-01-30 06:45] LABS: HEMOGLOBIN 10.6 g/dL (12.0-18.0); MEAN CELL VOLUME 76.3 fl (80.0-94.0); MEAN CORPUSCULAR HGB CONC 32.8 g/dL (33.0-37.0); RBC 4.22 Mil/uL (4.40-5.90); RED CELL DISTRIBUTION WIDTH 13.7 % (11.5-14.5)
[2018-01-30 07:00] LABS: CALCIUM 9.3 mg/dL (8.4-10.2)
[2018-01-30] MEDS: Insulin Regular 100 units/ml SC SCH ×4 (07:30→22:18)
[2018-01-30] MEDS: Metoprolol Succinate 25 mg XL Tab PO SCH (09:02)
--- NOTE | 2018-01-30 09:02 | CP.PCM.PN ---
Subjective - Date & Time of Evaluation Date of Evaluation: 01/30/18 Time of Evaluation: 17:28 - Subjective Subjective: Podiatry Progress Note- Dr. Dale 67 year old male with PMHx DM, HTN, HLD, CAD, CHF, PVD seen and evaluated at bedside for left foot gangrene. Patient is seen resting comfortably in bed, in NAD, and AA0x3. Patient reports the same constant pain to the left foot. Reports pain medication helps somewhat. Patient reports that he didn't eat or drink anything since yesterday. Patient understands that he may be going to surgery today for left foot amputation depending [place] [facility] [place]. Patient denies nausea, fever, shortness of breath, chest pains, or chills. Objective - Vital Signs/Intake and Output Vital Signs (last 24 hours): Temp Pulse Resp BP Pulse Ox 98.4 F 84 19 109/69 99 01/30/18 08:27 01/30/18 08:27 01/30/18 08:27 01/30/18 08:27 01/30/18 08:27 - Medications Medications: Current Medications Acetaminophen (Tylenol 325mg Tab) 650 mg PO Q6 PRN PRN Reason: Pain, moderate (4-7) Last Admin: 01/29/18 20:50 Dose: 650 mg Aspirin (Ecotrin) 81 mg PO DAILY [facility] Last Admin: 01/29/18 08:57 Dose: 81 mg Atorvastatin Calcium (Lipitor) 10 mg PO HS [facility] Last Admin: 01/29/18 21:00 Dose: 10 mg Clopidogrel Bisulfate (Plavix) 75 mg PO DAILY [facility] Last Admin: 01/29/18 08:57 Dose: 75 mg Dextrose (Dextrose 50% Inj) 0 ml IV STAT PRN; Protocol PRN Reason: Hypoglycemia Protocol Dextrose (Glutose 15) 0 gm PO ONCE PRN; Protocol PRN Reason: Hypoglycemia Protocol Glucagon (Glucagen Diagnostic Kit) 0 mg IM STAT PRN; Protocol PRN Reason: Hypoglycemia Protocol Heparin Sodium (Porcine) (Heparin) 5,000 units SC Q8 [facility] PRN Reason: Protocol Last Admin: 01/29/18 16:57 Dose: 5,000 units Piperacillin Sod/Tazobactam (Sod 2.25 gm/ Sodium Chloride) 100 mls @ 100 mls/ hr IVPB Q8 [facility] PRN Reason: Protocol Last Admin: 01/30/18 00:32 Dose: 100 mls/hr Vancomycin HCl 750 mg/ Sodium (Chloride) 250 mls @ 166.667 mls/hr IVPB Q12 [facility] PRN Reason: Protocol Last Admin: 01/29/18 21:50 Dose: 166.667 mls/hr Sodium Chloride (Sodium Chloride 0.9%) 500 mls @ 75 mls/hr IV .Q6H40M [facility] Last Admin: 01/30/18 06:55 Dose: Not Given Insulin Human Regular (Humulin R) 0 units SC ACHS [facility] PRN Reason: Protocol Last Admin: 01/30/18 07:30 Dose: Not Given Ketorolac Tromethamine (Toradol) 15 mg IVP Q6 PRN PRN Reason: Pain, severe (8-10) Last Admin: 01/30/18 00:28 Dose: 15 mg Lisinopril (Zestril) 10 mg PO DAILY [facility] Last Admin: 01/29/18 10:07 Dose: 10 mg Metformin HCl (Glucophage) 1,000 mg PO BID [facility] Last Admin: 01/29/18 16:59 Dose: 1,000 mg Metoprolol Succinate (Toprol Xl) 25 mg PO DAILY [facility] Last Admin: 01/29/18 08:56 Dose: 25 mg Pioglitazone HCl (Actos) 15 mg PO DAILY [facility] Last Admin: 01/29/18 08:57 Dose: 15 mg - Labs Labs: 01/30/18 05:50 01/30/18 05:50 PT 13.5 Seconds (9.8-13.1) H 01/28/18 05:30 INR 1.2 (0.9-1.2) 01/28/18 05:30 APTT 30.8 Seconds (25.6-37.1) 01/28/18 05:30 - Constitutional Appears: Well, Non-toxic, No Acute Distress - Extremities Exam Extremities Exam: absent: Calf Tenderness Additional comments: VASC: DP and PT pulse nonpalpable to the left. DP weakly palpable 1/4, PT nonpalpable to the right, CFT delayed to all digits on the left, no appreciable capillary refill noted to the 3rd and 4th digit, WNL RLE. Temperature gradient cool to cool RLE, cool to cold LLE. Mild non-pitting edema noted to left forefoot. NEURO: Gross sensation diminished bilaterally. DERM: Dry, necrotic left with ischemic changes noted to 3rd and 4th digits extending approx. 2cm proximally from digital bases; necrosis extending into dorsolateral aspect of 2nd digit as well as dorsal base of fifth digit; well de- marcatation noted between nonviable and healthy tissue. Isolated area of necrosis noted to distal medial portion of fifth digit. Periwound erythema noted with surrounding xerosis- improving. No drainage, no purulence, no fluctuance, no clinical signs of infection ORTHO: Pain on palpation to necrotic tissue. - Neurological Exam Neurological Exam: Alert, Awake, Oriented x3 - Psychiatric Exam Psychiatric exam: Normal Affect, Normal Mood Assessment and Plan - Assessment and Plan (Free Text) Assessment: 67 year old male with PMHx DM, HTN, HLD, CAD, CHF, PVD seen and evaluated at bedside for left digits 2-5 dry gangrene Plan: Patient seen and evaluated at bedside Afebrile; WBC 11.0 on 01/30/18 Plan discussed with attending Dr. Dale Wounds dressed with DSnichole Bolanos Continue IV abx per ID Plan for surgery today transmetatarsal amputation pending vascular [place] [facility] [place] and pending cardiac clearance NPO status confirmed Podiatry will continue to follow while patient in house
--- NOTE | 2018-01-30 11:06 | CP.PCM.CON ---
History of Present Illness - History of Present Illness History of Present Illness: Cardiology 67 y/o male admitted for Gangrene of the left 3rd & 4th toes scheduled for surgery this AM PMH: CABG 10 yrs ago ISAEL DM II HTN Denies any chest pains/SOB/HASKINS/palpitations EKG: RBBB Past Patient History - Infectious Disease Hx of Infectious Diseases: None - Past Medical History & Family History Past Medical History?: Yes - Past Social History Smoking Status: Former Smoker Alcohol: None Drugs: Denies Home Situation {Lives}: With Family - CARDIAC Hx Hypercholesterolemia: Yes Hx Hypertension: Yes - PULMONARY Hx Respiratory Disorders: No - NEUROLOGICAL Hx Neurological Disorder: No - HEENT Hx HEENT Problems: No - RENAL Hx Chronic Kidney Disease: No Hx Dialysis: No - ENDOCRINE/METABOLIC Hx Endocrine Disorders: Yes Hx Diabetes Mellitus Type 1: Yes - HEMATOLOGICAL/ONCOLOGICAL Hx Blood Disorders: No Hx Human Immunodeficiency Virus (HIV): No - INTEGUMENTARY Hx Dermatological Problems: Yes Other/Comment: gangrene left toes - MUSCULOSKELETAL/RHEUMATOLOGICAL Hx Musculoskeletal Disorders: No Hx Falls: No - GASTROINTESTINAL Hx Gastrointestinal Disorders: No - GENITOURINARY/GYNECOLOGICAL Hx Genitourinary Disorders: No - PSYCHIATRIC Hx Substance Use: No - SURGICAL HISTORY Hx Coronary Artery Bypass Graft: Yes - ANESTHESIA Hx Anesthesia: Yes Hx Anesthesia Reactions: Yes Hx Malignant Hyperthermia: Yes Meds Allergies/Adverse Reactions: Allergies Allergy/AdvReac Type Severity Reaction Status Date / Time No Known Allergies Allergy Verified 12/28/17 09:09 - Medications Medications: Current Medications Acetaminophen (Tylenol 325mg Tab) 650 mg PO Q6 PRN PRN Reason: Pain, moderate (4-7) Last Admin: 01/29/18 20:50 Dose: 650 mg Aspirin (Ecotrin) 81 mg PO DAILY [facility] Last Admin: 01/30/18 09:06 Dose: Not Given Atorvastatin Calcium (Lipitor) 10 mg PO HS [facility] Last Admin: 01/29/18 21:00 Dose: 10 mg Clopidogrel Bisulfate (Plavix) 75 mg PO DAILY [facility] Last Admin: 01/29/18 08:57 Dose: 75 mg Dextrose (Dextrose 50% Inj) 0 ml IV STAT PRN; Protocol PRN Reason: Hypoglycemia Protocol Dextrose (Glutose 15) 0 gm PO ONCE PRN; Protocol PRN Reason: Hypoglycemia Protocol Glucagon (Glucagen Diagnostic Kit) 0 mg IM STAT PRN; Protocol PRN Reason: Hypoglycemia Protocol Heparin Sodium (Porcine) (Heparin) 5,000 units SC Q8 [facility] PRN Reason: Protocol Last Admin: 01/29/18 16:57 Dose: 5,000 units Piperacillin Sod/Tazobactam (Sod 2.25 gm/ Sodium Chloride) 100 mls @ 100 mls/ hr IVPB Q8 [facility] PRN Reason: Protocol Last Admin: 01/30/18 09:03 Dose: 100 mls/hr Vancomycin HCl 750 mg/ Sodium (Chloride) 250 mls @ 166.667 mls/hr IVPB Q12 [facility] PRN Reason: Protocol Last Admin: 01/30/18 09:02 Dose: 166.667 mls/hr Sodium Chloride (Sodium Chloride 0.9%) 500 mls @ 75 mls/hr IV .Q6H40M [facility] Last Admin: 01/30/18 06:55 Dose: Not Given Insulin Human Regular (Humulin R) 0 units SC ACHS [facility] PRN Reason: Protocol Last Admin: 01/30/18 07:30 Dose: Not Given Ketorolac Tromethamine (Toradol) 15 mg IVP Q6 PRN PRN Reason: Pain, severe (8-10) Last Admin: 01/30/18 09:07 Dose: 15 mg Lisinopril (Zestril) 10 mg PO DAILY [facility] Last Admin: 01/30/18 09:06 Dose: Not Given Metformin HCl (Glucophage) 1,000 mg PO BID [facility] Last Admin: 01/30/18 09:06 Dose: Not Given Metoprolol Succinate (Toprol Xl) 25 mg PO DAILY [facility] Last Admin: 01/30/18 09:02 Dose: 25 mg Pioglitazone HCl (Actos) 15 mg PO DAILY [facility] Last Admin: 01/30/18 09:06 Dose: Not Given Physical Exam - Constitutional Appears: Well - Head Exam Head Exam: NORMAL INSPECTION - Neck Exam Neck exam: Positive for: Normal Inspection - Respiratory Exam Respiratory Exam: NORMAL BREATHING PATTERN - Cardiovascular Exam Cardiovascular Exam: REGULAR RHYTHM Results - Vital Signs Recent Vital Signs: Last Vital Signs Temp 98.4 F 01/30/18 08:27 Pulse 84 01/30/18 08:27 Resp 19 01/30/18 08:27 BP 109/69 01/30/18 08:27 Pulse Ox 99 01/30/18 08:27 - Labs Result Diagrams: 01/30/18 05:50 01/30/18 05:50 Labs: Laboratory Results - last 24 hr 01/28/18 01/29/18 01/29/18 05:30 15:25 21:28 WBC RBC Hgb Hct MCV MCH MCHC RDW Plt Count Sodium Potassium Chloride Carbon Dioxide Anion Gap BUN Creatinine Est GFR ( Amer) Est GFR (Non-Af Amer) POC Glucose (mg/dL) 82 92 Random Glucose Hemoglobin A1c 6.2 Calcium Vancomycin Trough 01/30/18 01/30/18 01/30/18 05:40 05:50 05:50 WBC 11.0 H RBC 4.22 L Hgb 10.6 L Hct 32.2 L MCV 76.3 L MCH 25.0 L MCHC 32.8 L RDW 13.7 Plt Count 328 Sodium 144 Potassium 5.1 H Chloride 104 Carbon Dioxide 24 Anion Gap 21 H BUN 28 H Creatinine 1.6 H Est GFR ( Amer) 53 Est GFR (Non-Af Amer) 43 POC Glucose (mg/dL) 112 H Random Glucose 104 Hemoglobin A1c Calcium 9.3 Vancomycin Trough 01/30/18 01/30/18 06:59 10:47 WBC RBC Hgb Hct MCV MCH MCHC RDW Plt Count Sodium Potassium Chloride Carbon Dioxide Anion Gap BUN Creatinine Est GFR ( Amer) Est GFR (Non-Af Amer) POC Glucose (mg/dL) 106 Random Glucose Hemoglobin A1c Calcium Vancomycin Trough 21.7 H Assessment & Plan (1) Gangrene of toe of left foot Assessment and Plan: The patient is cleared for surgery Status: Acute (2) Coronary artery disease Status: Chronic (3) Diabetes Status: Chronic
--- NOTE | 2018-01-30 11:41 | CP.PCM.PN ---
Subjective - Date & Time of Evaluation Date of Evaluation: 01/30/18 Time of Evaluation: 11:41 - Subjective Subjective: ID Note- pt. seen and examined today. denies any fever or chills. Objective - Vital Signs/Intake and Output Vital Signs (last 24 hours): Temp Pulse Resp BP Pulse Ox 98.4 F 84 19 109/69 99 01/30/18 08:27 01/30/18 08:27 01/30/18 08:27 01/30/18 08:27 01/30/18 08:27 - Medications Medications: Current Medications Acetaminophen (Tylenol 325mg Tab) 650 mg PO Q6 PRN PRN Reason: Pain, moderate (4-7) Last Admin: 01/29/18 20:50 Dose: 650 mg Aspirin (Ecotrin) 81 mg PO DAILY [facility] Last Admin: 01/30/18 09:06 Dose: Not Given Atorvastatin Calcium (Lipitor) 10 mg PO HS [facility] Last Admin: 01/29/18 21:00 Dose: 10 mg Clopidogrel Bisulfate (Plavix) 75 mg PO DAILY [facility] Last Admin: 01/29/18 08:57 Dose: 75 mg Dextrose (Dextrose 50% Inj) 0 ml IV STAT PRN; Protocol PRN Reason: Hypoglycemia Protocol Dextrose (Glutose 15) 0 gm PO ONCE PRN; Protocol PRN Reason: Hypoglycemia Protocol Glucagon (Glucagen Diagnostic Kit) 0 mg IM STAT PRN; Protocol PRN Reason: Hypoglycemia Protocol Heparin Sodium (Porcine) (Heparin) 5,000 units SC Q8 [facility] PRN Reason: Protocol Last Admin: 01/29/18 16:57 Dose: 5,000 units Piperacillin Sod/Tazobactam (Sod 2.25 gm/ Sodium Chloride) 100 mls @ 100 mls/ hr IVPB Q8 [facility]Y PRN Reason: Protocol Last Admin: 01/30/18 09:03 Dose: 100 mls/hr Vancomycin HCl 750 mg/ Sodium (Chloride) 250 mls @ 166.667 mls/hr IVPB Q12 [facility] PRN Reason: Protocol Last Admin: 01/30/18 09:02 Dose: 166.667 mls/hr Sodium Chloride (Sodium Chloride 0.9%) 500 mls @ 75 mls/hr IV .Q6H40M [facility] Last Admin: 01/30/18 06:55 Dose: Not Given Insulin Human Regular (Humulin R) 0 units SC ACHS [facility] PRN Reason: Protocol Last Admin: 01/30/18 07:30 Dose: Not Given Ketorolac Tromethamine (Toradol) 15 mg IVP Q6 PRN PRN Reason: Pain, severe (8-10) Last Admin: 01/30/18 09:07 Dose: 15 mg Lisinopril (Zestril) 10 mg PO DAILY [facility] Last Admin: 01/30/18 09:06 Dose: Not Given Metformin HCl (Glucophage) 1,000 mg PO BID [facility] Last Admin: 01/30/18 09:06 Dose: Not Given Metoprolol Succinate (Toprol Xl) 25 mg PO DAILY [facility] Last Admin: 01/30/18 09:02 Dose: 25 mg Pioglitazone HCl (Actos) 15 mg PO DAILY [facility] Last Admin: 01/30/18 09:06 Dose: Not Given - Labs Labs: - Additional Findings Additional findings: Constitutional Appears: No Acute Distress - Head Exam Head Exam: ATRAUMATIC - Eye Exam Eye Exam: EOMI, PERRL - ENT Exam ENT Exam: Normal Oropharynx - Neck Exam Neck exam: Positive for: Full Rom - Respiratory Exam Respiratory Exam: Clear to Auscultation Bilateral, NORMAL BREATHING PATTERN - Cardiovascular Exam Cardiovascular Exam: RRR, +S1, +S2 - GI/Abdominal Exam GI & Abdominal Exam: Normal Bowel Sounds, Soft Additional comments: NT, ND - Extremities Exam Additional comments: left foot with 3rd and 4th toes completely black ,hard agngrenouds eschar extending to dorsal aspect of the foot no malodor No discharge minimal surrounding skin erythema, no swelling - Neurological Exam Neurological exam: Alert, Oriented x 3 Laboratory Results - last 72 hr 01/27/18 01/27/18 01/27/18 14:30 17:37 22:00 WBC RBC Hgb Hct MCV MCH MCHC RDW Plt Count ESR PT INR APTT pO2 18 L VBG pH 7.32 VBG pCO2 50 VBG HCO3 22.2 VBG Total CO2 27.3 VBG O2 Sat (Calc) 30.1 L VBG Base Excess -0.9 L VBG Potassium 5.4 H Sodium 137.0 Chloride 104.0 Glucose 97 Lactate 1.6 FiO2 21.0 Potassium Carbon Dioxide Anion Gap BUN Creatinine Est GFR ( Amer) Est GFR (Non-Af Amer) POC Glucose (mg/dL) 75 93 Random Glucose Hemoglobin A1c Calcium Venous Blood Potassium 5.4 H Vancomycin Trough Blood Type Blood Type Confirm Antibody Screen BBK History Checked 01/28/18 01/28/18 01/28/18 05:17 05:30 05:30 WBC RBC Hgb Hct MCV MCH MCHC RDW Plt Count ESR PT INR APTT pO2 VBG pH VBG pCO2 VBG HCO3 VBG Total CO2 VBG O2 Sat (Calc) VBG Base Excess VBG Potassium Sodium Chloride Glucose Lactate FiO2 Potassium Carbon Dioxide Anion Gap BUN Creatinine Est GFR ( Amer) Est GFR (Non-Af Amer) POC Glucose (mg/dL) 87 Random Glucose Hemoglobin A1c Calcium Venous Blood Potassium Vancomycin Trough 31.3 H Blood Type O POSITIVE Blood Type Confirm Antibody Screen Negative BBK History Checked No verified bt 01/28/18 01/28/18 01/28/18 05:30 05:30 05:30 WBC 10.8 RBC 4.35 L Hgb 11.2 L Hct 33.3 L MCV 76.5 L MCH 25.7 L MCHC 33.6 RDW 13.2 Plt Count 303 ESR PT 13.5 H INR 1.2 APTT 30.8 pO2 VBG pH VBG pCO2 VBG HCO3 VBG Total CO2 VBG O2 Sat (Calc) VBG Base Excess VBG Potassium Sodium Chloride Glucose Lactate FiO2 Potassium Carbon Dioxide Anion Gap BUN Creatinine Est GFR ( Amer) Est GFR (Non-Af Amer) POC Glucose (mg/dL) Random Glucose Hemoglobin A1c 6.2 Calcium Venous Blood Potassium Vancomycin Trough Blood Type Blood Type Confirm Antibody Screen BBK History Checked 01/28/18 01/28/18 01/28/18 05:30 10:39 13:52 WBC RBC Hgb Hct MCV MCH MCHC RDW Plt Count ESR PT INR APTT pO2 VBG pH VBG pCO2 VBG HCO3 VBG Total CO2 VBG O2 Sat (Calc) VBG Base Excess VBG Potassium Sodium 142 Chloride 101 Glucose Lactate FiO2 Potassium 4.5 Carbon Dioxide 26 Anion Gap 20 BUN 23 H Creatinine 1.5 Est GFR ( Amer) 57 Est GFR (Non-Af Amer) 47 POC Glucose (mg/dL) 235 H Random Glucose 94 Hemoglobin A1c Calcium 9.2 Venous Blood Potassium Vancomycin Trough Blood Type Blood Type Confirm O POSITIVE Antibody Screen BBK History Checked 01/28/18 01/28/18 01/28/18 15:28 16:30 21:01 WBC RBC Hgb Hct MCV MCH MCHC RDW Plt Count ESR 86 H PT INR APTT pO2 VBG pH VBG pCO2 VBG HCO3 VBG Total CO2 VBG O2 Sat (Calc) VBG Base Excess VBG Potassium Sodium Chloride Glucose Lactate FiO2 Potassium Carbon Dioxide Anion Gap BUN Creatinine Est GFR ( Amer) Est GFR (Non-Af Amer) POC Glucose (mg/dL) 114 H 124 H Random Glucose Hemoglobin A1c Calcium Venous Blood Potassium Vancomycin Trough Blood Type Blood Type Confirm Antibody Screen BBK History Checked 01/29/18 01/29/18 01/29/18 05:45 10:34 15:25 WBC RBC Hgb Hct MCV MCH MCHC RDW Plt Count ESR PT INR APTT pO2 VBG pH VBG pCO2 VBG HCO3 VBG Total CO2 VBG O2 Sat (Calc) VBG Base Excess VBG Potassium Sodium Chloride Glucose Lactate FiO2 Potassium Carbon Dioxide Anion Gap BUN Creatinine Est GFR ( Amer) Est GFR (Non-Af Amer) POC Glucose (mg/dL) 103 168 H 82 Random Glucose Hemoglobin A1c Calcium Venous Blood Potassium Vancomycin Trough Blood Type Blood Type Confirm Antibody Screen BBK History Checked 01/29/18 01/30/18 01/30/18 21:28 05:40 05:50 WBC 11.0 H RBC 4.22 L Hgb 10.6 L Hct 32.2 L MCV 76.3 L MCH 25.0 L MCHC 32.8 L RDW 13.7 Plt Count 328 ESR PT INR APTT pO2 VBG pH VBG pCO2 VBG HCO3 VBG Total CO2 VBG O2 Sat (Calc) VBG Base Excess VBG Potassium Sodium Chloride Glucose Lactate FiO2 Potassium Carbon Dioxide Anion Gap BUN Creatinine Est GFR ( Amer) Est GFR (Non-Af Amer) POC Glucose (mg/dL) 92 112 H Random Glucose Hemoglobin A1c Calcium Venous Blood Potassium Vancomycin Trough Blood Type Blood Type Confirm Antibody Screen BBK History Checked 01/30/18 01/30/18 01/30/18 05:50 06:59 10:47 WBC RBC Hgb Hct MCV MCH MCHC RDW Plt Count ESR PT INR APTT pO2 VBG pH VBG pCO2 VBG HCO3 VBG Total CO2 VBG O2 Sat (Calc) VBG Base Excess VBG Potassium Sodium 144 Chloride 104 Glucose Lactate FiO2 Potassium 5.1 H Carbon Dioxide 24 Anion Gap 21 H BUN 28 H Creatinine 1.6 H Est GFR ( Amer) 53 Est GFR (Non-Af Amer) 43 POC Glucose (mg/dL) 106 Random Glucose 104 Hemoglobin A1c Calcium 9.3 Venous Blood Potassium Vancomycin Trough 21.7 H Blood Type Blood Type Confirm Antibody Screen BBK History Checked Microbiology 01/29/18 05:30 Blood-Venous Blood Culture - Preliminary NO GROWTH AFTER 24 HOURS 01/27/18 14:30 Blood Blood Culture - Preliminary NO GROWTH AFTER 48 HOURS Assessment and Plan (1) Gangrene of toe of left foot Status: Acute (2) Cellulitis of foot Status: Acute (3) Diabetes Status: Chronic (4) Coronary artery disease Status: Chronic - Assessment and Plan (Free Text) Assessment: A/P- 67 year old male with DM II, CAD s/p CABG admitted with left foot 3rd and 4th toe gangrene and surrounding cellulitis. afebrile minimal leukocytosis today foot wound cx from 11/2017 multiorganisms including MRSA , enterobacter and strep blood cx- neg x 3 foot xray- negative report. high ESR plan- most likely will need amputation if the 2 gangrenous toes as IV antibiotics would not be sufficient in light of gangrene. in the meantime advise to continue with IV vancomyicn.day #3 keep trough <20. continue with IV zosyn day #3 as well. would advise to send bone biopsy and bone cx by podiatry once surgical decision has been made. All above d/w patient and he verbalizes full understanding of all above and agrees with above plan of care.
--- NOTE | 2018-01-30 16:17 | CP.PCM.PN ---
Subjective - Date & Time of Evaluation Date of Evaluation: 01/30/18 Time of Evaluation: 16:15 - Subjective Subjective: 67 year old male with PMHx DM, HTN, HLD, CAD, CHF, PVD seen and evaluated at bedside for left foot gangrene of 2-5 digits. Patient is AAO x 3 and NAD, resting comfortably in bed at time of visit. States that he continues to have pain to his left foot but that it is controlled. States that he has been NPO since before midnight last night. Denies any acute overnight events. Denies any further pedal complaints at this time. Denies any recent N/V/F/C/CP/SOB/D/ posterior calf pain when squeezed Objective - Vital Signs/Intake and Output Vital Signs (last 24 hours): Temp Pulse Resp BP Pulse Ox 98 F 73 18 108/67 100 01/30/18 16:02 01/30/18 16:02 01/30/18 16:02 01/30/18 16:02 01/30/18 16:02 - Medications Medications: Current Medications Acetaminophen (Tylenol 325mg Tab) 650 mg PO Q6 PRN PRN Reason: Pain, moderate (4-7) Last Admin: 01/29/18 20:50 Dose: 650 mg Aspirin (Ecotrin) 81 mg PO DAILY [facility] Last Admin: 01/30/18 09:06 Dose: Not Given Atorvastatin Calcium (Lipitor) 10 mg PO HS [facility] Last Admin: 01/29/18 21:00 Dose: 10 mg Clopidogrel Bisulfate (Plavix) 75 mg PO DAILY [facility] Last Admin: 01/29/18 08:57 Dose: 75 mg Dextrose (Dextrose 50% Inj) 0 ml IV STAT PRN; Protocol PRN Reason: Hypoglycemia Protocol Dextrose (Glutose 15) 0 gm PO ONCE PRN; Protocol PRN Reason: Hypoglycemia Protocol Glucagon (Glucagen Diagnostic Kit) 0 mg IM STAT PRN; Protocol PRN Reason: Hypoglycemia Protocol Heparin Sodium (Porcine) (Heparin) 5,000 units SC Q8 [facility]Y PRN Reason: Protocol Last Admin: 01/29/18 16:57 Dose: 5,000 units Piperacillin Sod/Tazobactam (Sod 2.25 gm/ Sodium Chloride) 100 mls @ 100 mls/ hr IVPB Q8 [facility] PRN Reason: Protocol Last Admin: 01/30/18 09:03 Dose: 100 mls/hr Vancomycin HCl 750 mg/ Sodium (Chloride) 250 mls @ 166.667 mls/hr IVPB Q12 [facility] PRN Reason: Protocol Last Admin: 01/30/18 09:02 Dose: 166.667 mls/hr Sodium Chloride (Sodium Chloride 0.9%) 500 mls @ 75 mls/hr IV .Q6H40M [facility] Last Admin: 01/30/18 06:55 Dose: Not Given Insulin Human Regular (Humulin R) 0 units SC ACHS [facility]Y PRN Reason: Protocol Last Admin: 01/30/18 11:59 Dose: Not Given Ketorolac Tromethamine (Toradol) 15 mg IVP Q6 PRN PRN Reason: Pain, severe (8-10) Last Admin: 01/30/18 09:07 Dose: 15 mg Lisinopril (Zestril) 10 mg PO DAILY [facility] Last Admin: 01/30/18 09:06 Dose: Not Given Metformin HCl (Glucophage) 1,000 mg PO BID [facility] Last Admin: 01/30/18 09:06 Dose: Not Given Metoprolol Succinate (Toprol Xl) 25 mg PO DAILY [facility] Last Admin: 01/30/18 09:02 Dose: 25 mg Pioglitazone HCl (Actos) 15 mg PO DAILY [facility] Last Admin: 01/30/18 09:06 Dose: Not Given - Labs Labs: 01/30/18 05:50 01/30/18 05:50 PT 13.5 Seconds (9.8-13.1) H 01/28/18 05:30 INR 1.2 (0.9-1.2) 01/28/18 05:30 APTT 30.8 Seconds (25.6-37.1) 01/28/18 05:30 - Constitutional Appears: Well, Non-toxic, No Acute Distress - Head Exam Head Exam: ATRAUMATIC, NORMOCEPHALIC - Eye Exam Eye Exam: EOMI, PERRL Pupil Exam: PERRL - ENT Exam ENT Exam: Mucous Membranes Moist - Respiratory Exam Respiratory Exam: NORMAL BREATHING PATTERN - Cardiovascular Exam Cardiovascular Exam: REGULAR RHYTHM - GI/Abdominal Exam GI & Abdominal Exam: absent: Distended, Firm, Guarding, Tenderness - Rectal Exam Rectal Exam: Deferred - Extremities Exam Extremities Exam: absent: Calf Tenderness, Normal Capillary Refill Additional comments: RLE focused exam: VASC: LLE DP and PT pulse nonpalpable. RLE DP weakly palpable 1/4, PT nonpalpable. CFT >3 seconds to all digits LLE, WNL RLE. Temperature gradient cool to cool RLE, cool to cold LLE. Mild non-pitting edema noted to left forefoot. NEURO: Gross sensation diminished bilaterally. DERM: Dry, necrotic left 3rd and 4th digits extending approx. 2cm proximally from digital bases; necrosis extending into dorsolateral aspect of 2nd digit as well as dorsal base of fifth digit; well de-marcated. Isolated area of necrosis noted to distal medial portion of fifth digit. Periwound erythema noted with surrounding xerosis, improving. No drainage, no purulence, no fluctuance, no other clinical signs of infection ORTHO: Pain on palpation to necrotic tissue. - Neurological Exam Neurological Exam: Alert, Awake, Oriented x3 - Psychiatric Exam Psychiatric exam: Normal Affect, Normal Mood Assessment and Plan - Assessment and Plan (Free Text) Assessment: 67 year old male with PMHx DM, HTN, HLD, CAD, CHF, PVD seen and evaluated at bedside for left foot gangrene of 2-5 digits Plan: Assessment and Plan (1) Gangrene of toe of left foot - WBC 11.0 - Afebrile - H/H 10.6/32.2 - Vanc Trough 21.7 - Blood cx no growth after 24 hours - Continue with IV abx per ID (Dr. Alvarez) - Podiatry management: Vasc documentation from [facility] [place] received - New LYRIC/PVRs ordered - podiatry to assess - Patient possibly to OR tomorrow evening pending surgeon availability. If not to OR tomorrow then patient will be DC home and will have surgery next week on outpatient basis - Transmetatarsal amputation - Cardiac clearance given by Dr. Rodriguez - NPO/IVF after breakfast tomorrow - Hold Plavix, hold Heparin (2) DVT prophylaxis - Hold heparin, hold plavix - SCDs (3) Coronary artery disease - Asymptomatic - Controlled: BP 108/67 - EKG performed - c/w medication - Vital signs qshift (4) Diabetes - Asymptomatic - controlled - c/w medication - Hypoglycemic Bundle - Mod CHO diet, NPO after breakfast tomorrow - Accu-checks
[2018-01-31] MEDS: Insulin Regular 100 units/ml SC SCH ×3 (06:48→16:12)
[2018-01-31 09:08] LABS: HEMOGLOBIN 10.5 g/dL (12.0-18.0); MEAN CELL VOLUME 75.9 fl (80.0-94.0); MEAN CORPUSCULAR HEMOGLOBIN 25.6 pg (27.0-31.0); MEAN CORPUSCULAR HGB CONC 33.7 g/dL (33.0-37.0); RBC 4.11 Mil/uL (4.40-5.90); RED CELL DISTRIBUTION WIDTH 13.2 % (11.5-14.5); WHITE BLOOD COUNT 11.7 K/uL (4.8-10.8)
[2018-01-31 09:20] LABS: BLOOD UREA NITROGEN 22 mg/dl (9-20); GFR AFRICAN-AMERICAN > 60; GFR NON-AFRICAN AMERICAN 51
[2018-01-31] MEDS: Metoprolol Succinate 25 mg XL Tab PO SCH (09:28)
[2018-01-31] MEDS ORDERED: Dextrose 5%/0.45% NS 1,000 ML IV SCH (10:15)
--- NOTE | 2018-01-31 10:24 | CP.PCM.PN ---
Subjective - Date & Time of Evaluation Date of Evaluation: 01/31/18 Time of Evaluation: 10:00 - Subjective Subjective: Podiatry Progress Note- Dr. Dale 67 year old male with PMHx DM, HTN, HLD, CAD, CHF, PVD seen and evaluated at bedside for left foot gangrene. Patient is seen resting comfortably in bed, in NAD, and AA0x3. No overnight acute events. Patient reports the same constant pain to the left foot. Patient reports that he did no want blood work done this morning because it was too early. Patient denies nausea, fever, shortness of breath, chest pains, or chills. NPO status confirmed. Objective - Vital Signs/Intake and Output Vital Signs (last 24 hours): Temp Pulse Resp BP Pulse Ox 98.3 F 78 19 124/70 100 01/31/18 07:38 01/31/18 09:35 01/31/18 07:38 01/31/18 09:35 01/31/18 07:38 - Medications Medications: Current Medications Acetaminophen (Tylenol 325mg Tab) 650 mg PO Q6 PRN PRN Reason: Pain, moderate (4-7) Last Admin: 01/31/18 09:35 Dose: 650 mg Aspirin (Ecotrin) 81 mg PO DAILY [facility] Last Admin: 01/31/18 09:28 Dose: 81 mg Atorvastatin Calcium (Lipitor) 10 mg PO HS [facility] Last Admin: 01/30/18 21:34 Dose: 10 mg Clopidogrel Bisulfate (Plavix) 75 mg PO DAILY [facility] Last Admin: 01/29/18 08:57 Dose: 75 mg Dextrose (Dextrose 50% Inj) 0 ml IV STAT PRN; Protocol PRN Reason: Hypoglycemia Protocol Dextrose (Glutose 15) 0 gm PO ONCE PRN; Protocol PRN Reason: Hypoglycemia Protocol Glucagon (Glucagen Diagnostic Kit) 0 mg IM STAT PRN; Protocol PRN Reason: Hypoglycemia Protocol Heparin Sodium (Porcine) (Heparin) 5,000 units SC Q8 [facility]Y PRN Reason: Protocol Last Admin: 01/29/18 16:57 Dose: 5,000 units Piperacillin Sod/Tazobactam (Sod 2.25 gm/ Sodium Chloride) 100 mls @ 100 mls/ hr IVPB Q8 [facility] PRN Reason: Protocol Last Admin: 01/31/18 09:30 Dose: 100 mls/hr Vancomycin HCl 750 mg/ Sodium (Chloride) 250 mls @ 166.667 mls/hr IVPB Q12 [facility] PRN Reason: Protocol Last Admin: 01/30/18 09:02 Dose: 166.667 mls/hr Sodium Chloride (Sodium Chloride 0.9%) 500 mls @ 75 mls/hr IV .Q6H40M [facility] Last Admin: 01/30/18 16:02 Dose: Not Given Dextrose/Sodium Chloride (Dextrose 5%/0.45% Ns 1000 Ml) 1,000 mls @ 100 mls/hr IV .Q10H [facility] Stop: 02/01/18 10:09 Insulin Human Regular (Humulin R) 0 units SC ACHS CAREY PRN Reason: Protocol Last Admin: 01/31/18 06:48 Dose: Not Given Ketorolac Tromethamine (Toradol) 15 mg IVP Q6 PRN PRN Reason: Pain, severe (8-10) Last Admin: 01/30/18 09:07 Dose: 15 mg Lisinopril (Zestril) 10 mg PO DAILY [facility] Last Admin: 01/31/18 09:35 Dose: 10 mg Metformin HCl (Glucophage) 1,000 mg PO BID [facility] Last Admin: 01/31/18 09:29 Dose: 1,000 mg Metoprolol Succinate (Toprol Xl) 25 mg PO DAILY [facility] Last Admin: 01/31/18 09:28 Dose: 25 mg Pioglitazone HCl (Actos) 15 mg PO DAILY [facility] Last Admin: 01/31/18 09:28 Dose: 15 mg - Labs Labs: 01/31/18 08:36 01/31/18 08:36 PT 13.5 Seconds (9.8-13.1) H 01/28/18 05:30 INR 1.2 (0.9-1.2) 01/28/18 05:30 APTT 30.8 Seconds (25.6-37.1) 01/28/18 05:30 - Constitutional Appears: Well, Non-toxic, No Acute Distress - Extremities Exam Additional comments: VASC: DP and PT pulse nonpalpable to the left. DP weakly palpable 1/4, PT nonpalpable to the right, CFT delayed to all digits on the left, no appreciable capillary refill noted to the 3rd and 4th digit, WNL RLE. Temperature gradient cool to cool RLE, cool to cold LLE. Mild non-pitting edema noted to left forefoot. NEURO: Gross sensation diminished bilaterally. DERM: Dry, necrotic left with ischemic changes noted to 3rd and 4th digits extending approx. 2cm proximally from digital bases; necrosis extending into dorsolateral aspect of 2nd digit as well as dorsal base of fifth digit; well de- marcatation noted between nonviable and healthy tissue. Isolated area of necrosis noted to distal medial portion of fifth digit. Periwound erythema noted with surrounding xerosis- improving. No drainage, no purulence, no fluctuance, no clinical signs of infection ORTHO: Pain on palpation to necrotic tissue. - Neurological Exam Neurological Exam: Alert, Awake, Oriented x3 - Psychiatric Exam Psychiatric exam: Normal Affect, Normal Mood Assessment and Plan - Assessment and Plan (Free Text) Assessment: 67 year old male with PMHx DM, HTN, HLD, CAD, CHF, PVD seen and evaluated at bedside for left digits 2-5 dry gangrene Plan: Patient seen and evaluated at bedside Afebrile; WBC 11.7 Plan discussed with attending Dr. Dale Possible left foot transmetatarsal amputation in the OR today pending Dr. Dale Patient to be NPO after breakfast If patient will not go to the OR today, patient will be discharge home and will be scheduled for surgery as outpatient next week [facility] [place] documentations received -Patient underwent revascularization of the left lower extremity on 12/09/[address] Devries secondary to nonhealing wound of L foot LYRIC/PVR-pending official read Heparin, Plavis held Cardiac clearance obtained Wounds dressed with DSD, kerlix Continue IV abx per ID
--- NOTE | 2018-01-31 11:46 | CARD ---
APPROVED REPORT EKG Measurement Heart [id number] <Conclusion> Normal sinus rhythm Right bundle branch block Left anterior fascicular block
[2018-01-31] MEDS: Sodium Chloride 0.9% 500 ML IV SCH (11:56)
--- NOTE | 2018-01-31 11:56 | CP.PCM.DIS ---
Provider - Provider Date of Admission: 01/27/18 13:42 Attending physician: Alina Bray MD Primary care physician: Adams TBD Consults: Podiatry - Dr. Dale Cardiology - Dr. Rodriguez Infectious Disease - Dr. Alvarez Time Spent in preparation of Discharge (in minutes): 45 Diagnosis - Discharge Diagnosis (1) Gangrene of toe of left foot Status: Acute Comment: 67M with gangrene of digits 2-5 L foot. PVR/LYRIC's show mild occlussion of left PT artery. Patient to be D/C home today and will return on 02/06 for TMA , left foot by podiatry. Stable at this time (2) Coronary artery disease Status: Chronic Comment: Asymptomatic and controlled. EKG reviewed by cardiology: NSR, RBBB, AL fascicular block. Cardiac clearance given for surgery. C/w at home medications (3) Diabetes Status: Chronic Comment: Controlled, asymptomatic. C/w at home medications Hospital Course - Lab Results Lab Results: Micro Results 01/29/18 05:30 Blood-Venous Blood Culture - Preliminary NO GROWTH AFTER 48 HOURS 01/27/18 14:30 Blood Blood Culture - Preliminary NO GROWTH AFTER 3 DAYS Most Recent Lab Values WBC 11.7 K/uL (4.8-10.8) H 01/31/18 08:36 RBC 4.11 Mil/uL (4.40-5.90) L 01/31/18 08:36 Hgb 10.5 g/dL (12.0-18.0) L 01/31/18 08:36 Hct 31.2 % (35.0-51.0) L 01/31/18 08:36 MCV 75.9 fl (80.0-94.0) L 01/31/18 08:36 MCH 25.6 pg (27.0-31.0) L 01/31/18 08:36 MCHC 33.7 g/dL (33.0-37.0) 01/31/18 08:36 RDW 13.2 % (11.5-14.5) 01/31/18 08:36 Plt Count 355 K/uL (130-400) 01/31/18 08:36 MPV 7.9 fl (7.2-11.7) 01/27/18 10:40 Neut % (Auto) 70.8 % (50.0-75.0) 01/27/18 10:40 Lymph % (Auto) 11.1 % (20.0-40.0) L 01/27/18 10:40 [place] % (Auto) 5.9 % (0.0-10.0) 01/27/18 10:40 Eos % (Auto) 11.6 % (0.0-4.0) H 01/27/18 10:40 Baso % (Auto) 0.6 % (0.0-2.0) 01/27/18 10:40 Neut # (Auto) 10.1 K/uL (1.8-7.0) H 01/27/18 10:40 Lymph # (Auto) 1.6 K/uL (1.0-4.3) 01/27/18 10:40 [place] # (Auto) 0.8 K/uL (0.0-0.8) 01/27/18 10:40 Eos # (Auto) 1.6 K/uL (0.0-0.7) H 01/27/18 10:40 Baso # (Auto) 0.1 K/uL (0.0-0.2) 01/27/18 10:40 ESR 86 mm/hr (0-20) H 01/28/18 16:30 PT 13.5 Seconds (9.8-13.1) H 01/28/18 05:30 INR 1.2 (0.9-1.2) 01/28/18 05:30 APTT 30.8 Seconds (25.6-37.1) 01/28/18 05:30 pO2 18 mm/Hg (30-55) L 01/27/18 14:30 VBG pH 7.32 (7.32-7.43) 01/27/18 14:30 VBG pCO2 50 mmHg (40-60) 01/27/18 14:30 VBG HCO3 22.2 mmol/L 01/27/18 14:30 VBG Total CO2 27.3 mmol/L (22-28) 01/27/18 14:30 VBG O2 Sat (Calc) 30.1 % (40-65) L 01/27/18 14:30 VBG Base Excess -0.9 mmol/L (0.0-2.0) L 01/27/18 14:30 VBG Potassium 5.4 mmol/L (3.6-5.2) H 01/27/18 14:30 Sodium 137.0 mmol/L (132-148) 01/27/18 14:30 Chloride 104.0 mmol/L (98-107) 01/27/18 14:30 Glucose 97 mg/dL (75-110) 01/27/18 14:30 Lactate 1.6 mmol/L (0.7-2.1) 01/27/18 14:30 FiO2 21.0 % 01/27/18 14:30 Sodium 144 mmol/l (132-148) 01/31/18 08:36 Potassium 4.8 MMOL/L (3.6-5.0) 01/31/18 08:36 Chloride 108 mmol/L (98-107) H 01/31/18 08:36 Carbon Dioxide 22 mmol/L (22-30) 01/31/18 08:36 Anion Gap 19 (10-20) 01/31/18 08:36 BUN 22 mg/dl (9-20) H 01/31/18 08:36 Creatinine 1.4 mg/dl (0.8-1.5) 01/31/18 08:36 Est GFR ( Amer) > 60 01/31/18 08:36 Est GFR (Non-Af Amer) 51 01/31/18 08:36 POC Glucose (mg/dL) 118 mg/dL (65-110) H 01/31/18 11:21 Random Glucose 118 mg/dL (75-110) H 01/31/18 08:36 Hemoglobin A1c 6.2 % (4.2-6.5) 01/28/18 05:30 Calcium 9.0 mg/dL (8.4-10.2) 01/31/18 08:36 Total Bilirubin 0.4 mg/dl (0.2-1.3) 01/27/18 10:40 AST 32 U/L (17-59) 01/27/18 10:40 ALT 28 U/L (21-72) 01/27/18 10:40 Alkaline Phosphatase 153 U/L (38-126) H D 01/27/18 10:40 Total Protein 8.6 G/DL (6.3-8.2) H 01/27/18 10:40 Albumin 4.1 g/dL (3.5-5.0) 01/27/18 10:40 Globulin 4.5 gm/dL (2.2-3.9) H 01/27/18 10:40 Albumin/Globulin Ratio 0.9 (1.0-2.1) L 01/27/18 10:40 Venous Blood Potassium 5.4 mmol/L (3.6-5.2) H 01/27/18 14:30 Vancomycin Trough 13.2 ug/mL (5.0-10.0) H 01/31/18 08:36 Blood Type O POSITIVE 01/28/18 05:30 Blood Type Confirm O POSITIVE 01/28/18 13:52 Antibody Screen Negative 01/28/18 05:30 BBK History Checked No verified bt 01/28/18 05:30 - Hospital Course Hospital Course: 67M with PMHx DM, HTN, HLD, CAD, CHF, PVD seen in ED on 01/27/18 for gangrenous changes to toes 2-5 of left foot with associated pain. Foot xray shows normal left foot radiograph. Patient admitted with home meds continued, diabetic meds, pain medication regimen and ID consult (Dr. Alvarez) with abx recs. Podiatry consulted - Dr. Dale. Patient stated that in November he had vascular procedures done at [facility]. Patient was scheduled for TMA on 01/30 once medical records were obtained. Medical records did not show LYRIC/PVRs post L angiogram/ angioplasty at [facility] so LYRIC/PVRs were ordered on 01/30 and patient was found to have mild stenosis of the left PT artery. Per podiatry patient was kept overnight on 01/30 for tentative scheduling of TMA on 01/31 pending surgeon availability, however per podiatry, surgery will not go and patient is clear for DC home. Patient will return on 02/06 for TMA as an outpatient with podiatry. Patient stable and asymptomatic at this time. Patient to be DC home with Percocet 5/325, will retrurn to hospital daily for IV abx via PICC line (Vanco, Cefepime) DC plavix until after surgery Patient to return on 02/06 for L foot TMA per podiatry - Date & Time of H&P Date of H&P: 01/31/18 Time of H&P: 12:14 Discharge Exam - Head Exam Head Exam: ATRAUMATIC, NORMOCEPHALIC - Eye Exam Eye Exam: EOMI, PERRL Pupil Exam: PERRL - ENT Exam ENT Exam: Mucous Membranes Moist - Respiratory Exam Respiratory Exam: NORMAL BREATHING PATTERN, UNREMARKABLE - Cardiovascular Exam Cardiovascular Exam: REGULAR RHYTHM - GI/Abdominal Exam GI & Abdominal Exam: absent: Distended, Firm, Guarding, Rigid, Tenderness - Rectal Exam Rectal Exam: Deferred - Extremities Exam Extremities exam: tenderness - Neurological Exam Neurological exam: Alert, Oriented x3 - Psychiatric Exam Psychiatric exam: Normal Affect, Normal Mood Discharge Plan - Discharge Medications Prescriptions: Cefepime [Maxipime] 1 gm IV DAILY 6 Days vial oxyCODONE/Acetaminophen [Percocet 5/325 mg Tab] 1 ea PO Q6 #24 tab Vancomycin 1 GM [Vancomycin 1GM in Normal Saline Addvantage] 750 mg IVPB DAILY 6 Days bag - Follow Up Plan Condition: FAIR Disposition: HOME/ ROUTINE Instructions: Gangrene, Diabetes Diet , Necrotizing Fasciitis (DC) Additional Instructions: regresar al piso 7 de lunes a viernes para infusion de antibiotico. Vaya a la codie de emergencia el sabado y niles para continuar infusion Referrals: [facility] [place] [Outside] Sandra Alvarez MD [Staff Provider] - Niles Dale DPM [Staff Provider] -
[2018-01-31] MEDS ORDERED: Lidocaine 1% Inj (20ml) ONE (13:22)
--- NOTE | 2018-01-31 13:54 | PCM.SURG1 ---
Surgeon's Initial Post Op Note - Surgeon's Notes Surgeon: Nabeel Méndez MD Project Analyst: NONE Type of Anesthesia: Local Pre-Operative Diagnosis: Infection Operative Findings: US showed patent right basilic vein. Post-Operative Diagnosis: INfection Operation Performed: Single lumen picc right basilic vein, 37 cm. Tip is in the SVC. Specimen/Specimens Removed: none Estimated Blood Loss: EBL {In ML}: 2 Blood Products Given: N/A Drains Used: No Drains Post-Op Condition: Fair Date of Surgery/Procedure: 01/31/18 Time of Surgery/Procedure: 13:50
--- NOTE | 2018-01-31 14:09 | VASCULAR ---
PROCEDURE: Date of procedure: 01/31/2018 Procedure: 1. Placement of a right arm PICC with ultrasound and fluoroscopic guidance, CPT 76301 2. PICC tip confirmation with spot radiograph and is in the superior vena cava Medications: 1 percent lidocaine Total Fluoro time: 4.4 seconds Radiation: 0.49 MGy EBL: 2 cc HISTORY: Infection requiring long-term IV antibiotics TECHNIQUE: Following informed consent and procedure time-out, the patient was placed supine on the interventional table and the right arm prepped and draped in the usual sterile fashion. Ultrasound showed a patent and compressible right basilic vein. After the skin was anesthetized with lidocaine, the basilic vein was accessed with micro micropuncture technique using ultrasound guidance. A guidewire was then advanced under fluoroscopic guidance into the superior vena cava. An image documenting ultrasound guidance for vascular access was permanently saved. The length of the single-lumen 4 Lebanese PICC was trimmed to 37 centimeters and advanced through a peel-away sheath. The PICC was position with tip of PICC confirm a spot radiograph the superior vena cava. The PICC was secured to the patient's skin. The PICC was flushed. A biopatch and sterile dressing was applied. IMPRESSION: Placement of a single-lumen 4 Lebanese PICC trimmed to 37 centimeters via right basilic vein. The tip of the PICC is confirmed with spot radiograph and is in the superior vena cava.
[2018-01-31] MEDS ORDERED: Cefepime (Maxipime) 1 g Inj IVPB ONE (15:01)
[2018-01-31] MEDS ORDERED: Cefepime 1 GM in Sodium Chloride 0.9% 100 ML IVPB ONE (15:15)
[2018-01-31 15:56] VITALS: BP 114/71; PULSE 82; RESP 19; TEMP 97.4; O2SAT 100
== END 2018-01-31 17:30 | disposition home health service (06) | DRG 300 ==
LOC: H.ER 09:48 → SUPCPDRO 09:48 → H.ERHOLD 13:42 → H.MEDSURG1 16:01
PROVIDERS: ADMIT Family Medicine Geriatric Medicine; ATTEND Family Medicine Geriatric Medicine
PROC: 02HV33Z Insertion of Infusion Device into Superior Vena Cava, Percutaneous Approach (ICD-10-PCS; principal; 2018-01-31)
PROC: B518ZZA Fluoroscopy of Superior Vena Cava, Guidance (ICD-10-PCS; 2018-01-31)
PROC: B548ZZA Ultrasonography of Superior Vena Cava, Guidance (ICD-10-PCS; 2018-01-31)
DX: E11.52 Type 2 diabetes mellitus with diabetic peripheral angiopathy with gangrene (principal); I96 Gangrene, not elsewhere classified; I11.0 Hypertensive heart disease with heart failure; I50.9 Heart failure, unspecified; E78.00 Pure hypercholesterolemia, unspecified; E78.5 Hyperlipidemia, unspecified; F17.200 Nicotine dependence, unspecified, uncomplicated; I25.10 Atherosclerotic heart disease of native coronary artery without angina pectoris; I45.10 Unspecified right bundle-branch block; L03.032 Cellulitis of left toe; Z79.4 Long term (current) use of insulin; Z83.3 Family history of diabetes mellitus; Z95.1 Presence of aortocoronary bypass graft; Z95.5 Presence of coronary angioplasty implant and graft

== ENCOUNTER 2018-02-06 09:33 | Day surgery (SDC) | payer MEDICARE ==
[2018-02-01 11:04] VITALS: BMI 29.4
[2018-02-06] MEDS ORDERED: Lidocaine 1% Inj (20ml) ONE (11:09)
[2018-02-06] MEDS ORDERED: Bupivacaine 0.5% Inj(30mL) ONE (11:09)
[2018-02-06] MEDS ORDERED: Sodium Chloride 0.9% 500 ML IV ONE ×2 (11:26→14:10)
[2018-02-06] MEDS ORDERED: Lactated Ringer's 1,000 ML IV ONE (11:26)
[2018-02-06] MEDS ORDERED: Sodium Chloride 0.9% 250 ML IV ONE (11:30)
[2018-02-06] MEDS ORDERED: Vancomycin 1 g Inj IVPB ONE (11:30)
[2018-02-06] MEDS ORDERED: Oxycodone/Acetaminophen 5/325 mg Tab PO PRN ×2 (13:57)
--- NOTE | 2018-02-06 14:02 | PCM.SURG1 ---
Surgeon's Initial Post Op Note - Surgeon's Notes Surgeon: Dr. Niles Dale DPM Strategic Marketing Specialist: Dr. Haseeb Ornelas DPM PGY-2; Dr. Lola Bob DPM PGY-2, Dr. Quynh Leo Type of Anesthesia: General LMA, Local Anesthesia Administered By: Dr. Sj PARSONS Pre-Operative Diagnosis: Left forefoot gangrene Operative Findings: See dictation. M: 3-0 vicryl, 3-0 nylone. I: Pre-op: 1:1 1 % lidocain plain: 0.5% Marcain plain 20 cc Post-Operative Diagnosis: Same Operation Performed: Left foot Transmetatarsal Amputation Specimen/Specimens Removed: Left forefoot. Cultures taken Estimated Blood Loss: EBL {In ML}: 50 Blood Products Given: N/A Drains Used: No Drains Post-Op Condition: Good Date of Surgery/Procedure: 02/06/18 Time of Surgery/Procedure: 14:03
[2018-02-06] MEDS ORDERED: HYDROmorphone 0.5 mg/0.5 ml ISec IVP PRN (14:44)
[2018-02-06] MEDS ORDERED: Sodium Chloride 0.9% 1,000 ML IV SCH (14:45)
[2018-02-06 16:09] VITALS: RESP 18
[2018-02-06 18:33] VITALS: BP 130/70; PULSE 78; TEMP 98.1; O2SAT 99
--- NOTE | 2018-02-06 20:23 | PCM.OP ---
Operative Report - Operative Report Date of Surgery/Procedure: 02/06/18 Time of Surgery/Procedure: 11:50 Surgeon: Dr. Dale Sander And Buffer: Dr. Ornelas, Dr. Bob, Dr. Leo Anesthesia/Sedation: General LMA, Local Pre-Operative Diagnosis: Left forefoot gangrene Post-Operative Diagnosis: same Indication for Surgery: Indications: The patient is a 67 year-old male with the above diagnoses. The patient has exhausted all conservative treatment at this time and now requests surgical intervention. The patient signed the consent after careful explanation of risks, benefits, complication and alternatives for surgical procedure. No guarantees were given nor implied. Operative Findings: Preparation: The patient was brought in to the operating room and placed on the operating room table in a supine position. Timeout was performed for identification of the correct patient and procedure. After induction of general anesthesia, the patient received a total of 20 mL of 0.5% Marcaine plain in a local block type fashion to the left ankle. Once local anesthesia was achieved, the left foot was then prepped and draped in normal sterile manner and the procedure began. Procedure/Operation Description: Procedure: Attention was directed to the left foot where gangrenous changes were noted to entire forefoot. Utilizing a sterile marking pen, incision line was drawn in preparation for adequate soft tissue coverage after the amputation. With the use of a #15 blade, a circumferential incision was made surrounding the forefoot at the level of the metatarso-phalangeal joint. Incision was planned so as to leave more skin and soft tissue plantarly compared to dorsally. With continued dissections utilizing #15 blade, the entire forefoot distal to MTPJ was detached from the foot at the level of MTPJ. Utilizing #15 blade and a pickup, soft tissue around the neck of metatarsals 1 through 5 were freed from the osseous attachments, exposing the head and diaphysis of all metatarsals. Utilizing sagittal saw, the distal aspect of the metatarsal heads 1, 2, 3 ,4 and 5 were resected and removed from the distal aspect of the Left foot. The soft tissue to plantar skin flap were debrided thinner for proper closure of the wound. All exposed tendons were resected with Hemostat and #15 blade. The wound site was flushed with copious amount of mixture of normal sterile saline and Bacitracin Solution. Next, the deep tissue was reapproximated with #3-0 Vicryl. The skin was reapproximated with # 3-0 Nylon. The wound was dressed with Xeroform, followed by sterile gauze, Kerlix, ABD and posterior splint. The attending was present during the entire case. Estimated Blood Loss: <40 mL Complications: None Discharge & Condition: Postoperative Condition: The patient tolerated the anesthesia and procedure well and was escorted to the recovery room with vital signs stable and neurovascular status intact to the Left foot. This patient will follow up with Dr. Dale
--- NOTE | 2018-02-07 08:52 | RAD ---
PROCEDURE: Left Foot Radiographs. HISTORY: s/p left foot surgery COMPARISON: Left foot radiographs dated 01/27/2018. FINDINGS: Left lower extremity cast bony detail. There has been interval transmetatarsal amputation of the foot. Remaining osseous structures are otherwise unchanged. Achilles enthesophyte and to the inferior plantar calcaneal spur are redemonstrated. IMPRESSION: Interval transmetatarsal amputation as described above.
== END 2018-02-06 18:20 | disposition home or self-care (01) ==
LOC: H.OPSURG 09:33
PROVIDERS: ATTEND Podiatrist Foot & Ankle Surgery
DX: I70.262 Atherosclerosis of native arteries of extremities with gangrene, left leg (principal); I25.10 Atherosclerotic heart disease of native coronary artery without angina pectoris; I11.0 Hypertensive heart disease with heart failure; I50.9 Heart failure, unspecified; E78.5 Hyperlipidemia, unspecified; M86.10 Other acute osteomyelitis, unspecified site
CPT/HCPCS: 28288; 73630; 82948; 87070; 87075; 88304; 97162; 97530; G8978; G8979; J1170; J7030; J7040

== ENCOUNTER 2018-02-09 07:42 | Emergency (ER) | payer MEDICARE ==
[2018-02-09 07:42] VITALS: BMI 29.4
[2018-02-09] MEDS ORDERED: Naproxen 500 MG TAB PO STA (08:11)
--- NOTE | 2018-02-09 08:16 | ED PDOC ---
Lower Extremity Pain/Injury Time Seen by Provider: 02/09/18 08:00 Chief Complaint (Nursing): Lower Extremity Problem/Injury Chief Complaint (Provider): Left Foot Injury History Per: Patient History/Exam Limitations: no limitations Onset/Duration Of Symptoms: Days (x1) Current Symptoms Are (Timing): Still Present Additional Complaint(s): 67 y/o male with a pmhx of peripheral vascular disease, who presents to the ED due to a left foot injury x1 day. Patient states he felt dizzy and fell with injury to left foot this morning. Patient is s/p amputation of toes for gangrene 1 week ago. Denies other injury. PMD: Non-[facility] Provider Past Medical History Reviewed: Historical Data, Nursing Documentation, Vital Signs Vital Signs: Last Vital Signs Temp 97 F L 02/09/18 07:53 Pulse 111 H 02/09/18 07:53 Resp 18 02/09/18 07:53 BP 152/80 H 02/09/18 07:53 Pulse Ox 100 02/09/18 07:53 - Medical History PMH: CAD (status post CABG), Diabetes, HTN, Hypercholesterolemia Denies: HIV, Chronic Kidney Disease - Surgical History Surgical History: CABG - Family History Family History: States: Unknown Family Hx - Home Medications Home Medications: Ambulatory Orders Medication Instructions Recorded Aspirin [Ecotrin] 81 mg PO DAILY 01/27/18 Atorvastatin [Lipitor] 10 mg PO DAILY 01/27/18 Clopidogrel [Plavix] 75 mg PO DAILY 01/27/18 Lisinopril [Zestril] 10 mg PO DAILY 01/27/18 MetFORMIN [glucoPHAGE] 1,000 mg PO BID 01/27/18 Metoprolol Succinate [Toprol XL] 25 mg PO DAILY 01/27/18 Pioglitazone [Actos] 15 mg PO DAILY 01/27/18 Cefepime [Maxipime] 1 gm IV DAILY 6 Days vial 01/31/18 Vancomycin 1 GM [Vancomycin 1GM in 750 mg IVPB DAILY 6 Days bag 01/31/18 Normal Saline Addvantage] oxyCODONE/Acetaminophen [Percocet 1 ea PO Q6 #24 tab 01/31/18 5/325 mg Tab] Cephalexin [cephalexin] 500 mg PO TID 02/06/18 Naproxen [Naprosyn] 500 mg PO Q12H #20 tab 02/09/18 Non-Formulary 1 ea .ROUTE Q6 #1 ea 02/09/18 - Allergies Allergies/Adverse Reactions: Allergies Allergy/AdvReac Type Severity Reaction Status Date / Time No Known Allergies Allergy Verified 12/28/17 09:09 Review of Systems ROS Statement: Except As Marked, All Systems Reviewed And Found Negative Musculoskeletal: Positive for: Foot Pain (left) Neurological: Positive for: Dizziness Physical Exam - Reviewed Nursing Documentation Reviewed: Yes Vital Signs Reviewed: Yes - Physical Exam Appears: Positive for: Non-toxic, No Acute Distress Skin: Positive for: Normal Color, Warm, Dry Extremity: Positive for: Other (left foot suture line clean, no drainage, no active bleeding). Negative for: Deformity (left foot or ankle) Neurologic/Psych: Positive for: Alert, Oriented - ECG O2 Sat by Pulse Oximetry: 100 (RA) Pulse Ox Interpretation: Normal Medical Decision Making Medical Decision Making: Time: 08:11 Initial Plan: --Naproxen 500mg PO --Left Foot X-Ray --Left Ankle X-Ray --Reevaluation Scribe Attestation: Documented by Tawanda Becker, acting as a scribe for Marin Mccartney MD. Provider Scribe Attestation: All medical record entries made by the Scribe were at my direction and personally dictated by me. I have reviewed the chart and agree that the record accurately reflects my personal performance of the history, physical exam, medical decision making, and the department course for this patient. I have also personally directed, reviewed, and agree with the discharge instructions and disposition. Disposition - Clinical Impression Clinical Impression: Foot contusion - Patient ED Disposition Is Patient to be Admitted: No Counseled Patient/Family Regarding: Studies Performed, Diagnosis, Need For Followup, Rx Given - Disposition Referrals: [facility] [Outside] Disposition: Routine/Home Disposition Time: 10:18 Condition: FAIR Prescriptions: Naproxen [Naprosyn] 500 mg PO Q12H #20 tab Non-Formulary 1 ea .ROUTE Q6 #1 ea Instructions: Contusion (DC) Forms: [employer] (Uzbek)
[2018-02-09] MEDS ORDERED: Naproxen 500 MG TAB PO ONE (08:19)
--- NOTE | 2018-02-09 08:55 | RAD ---
PROCEDURE: Left Foot Radiographs. HISTORY: trauma COMPARISON: None. FINDINGS: BONES: No acute fracture. Status post transmetatarsal amputation. JOINTS: Normal. SOFT TISSUES: Normal. OTHER FINDINGS: None. IMPRESSION: No acute fracture. Status post transmetatarsal amputation.
--- NOTE | 2018-02-09 08:56 | RAD ---
PROCEDURE: Left Ankle Radiographs. HISTORY: trauma COMPARISON: None FINDINGS: BONES: Normal. No fracture. JOINTS: Normal. No osteoarthritis. Ankle mortise maintained. Talar dome intact SOFT TISSUES: Normal. OTHER FINDINGS: None. IMPRESSION: Normal left ankle radiographs.
--- NOTE | 2018-02-09 12:05 | CP.PCM.CON ---
History of Present Illness - History of Present Illness History of Present Illness: Podiatry Consult Note- Dr. Dale 67 y.o male with PMHx of DM, HTN, HLD, CAD, CHF, PVD 4 days s/p L foot TMA by Dr. Dale, is consulted in the ED s/p fall. Patient reports that he was getting up from the bed this morning to go to the bathroom when he fell off the bed. Patient is seen resting comfortably in bed, in NAD, and AA0x3. Patient denies increase pain to the foot from the fall. Patient is known to podiatry service. Seen on the floors for ischemic, painful toes. Reports that the pain in his foot has decreased compared to his hospital stay. Patient denies n/v/sob/ cp/chills/f/d. Patient is seen with son at bedside who reports having an appointment with the clinic Tuesday with Dr. Dale as instructed. He has been using the crutches, not putting weight to the left foot with crutches. Patient reports that the crutches are difficult to use. Reports that he has been keeping his PICC line clean and dry. No new pedal complaints Past Patient History - Infectious Disease Hx of Infectious Diseases: None - Past Medical History & Family History Past Medical History?: Yes - Past Social History Smoking Status: Former Smoker - CARDIAC Hx Hypercholesterolemia: Yes Hx Hypertension: Yes - PULMONARY Hx Respiratory Disorders: No - NEUROLOGICAL Hx Neurological Disorder: No - HEENT Hx HEENT Problems: No - RENAL Hx Chronic Kidney Disease: No - ENDOCRINE/METABOLIC Hx Endocrine Disorders: Yes Hx Diabetes Mellitus Type 1: Yes Hx Diabetes Mellitus Type 2: Yes - HEMATOLOGICAL/ONCOLOGICAL Hx Human Immunodeficiency Virus (HIV): No - INTEGUMENTARY Hx Dermatological Problems: Yes Other/Comment: gangrene left toes - MUSCULOSKELETAL/RHEUMATOLOGICAL Hx Musculoskeletal Disorders: No Hx Falls: No - GASTROINTESTINAL Hx Gastrointestinal Disorders: No - GENITOURINARY/GYNECOLOGICAL Hx Genitourinary Disorders: No - PSYCHIATRIC Hx Psychophysiologic Disorder: No Hx Substance Use: No - SURGICAL HISTORY Hx Coronary Artery Bypass Graft: Yes - ANESTHESIA Hx Anesthesia: Yes Hx Anesthesia Reactions: Yes Hx Malignant Hyperthermia: Yes Meds Home Medications: Home Medication List Medication Instructions Recorded Confirmed Type Naproxen [Naprosyn] 500 mg PO Q12H #20 tab 02/09/18 Rx Non-Formulary 1 ea .ROUTE Q6 #1 ea 02/09/18 Rx Allergies/Adverse Reactions: Allergies Allergy/AdvReac Type Severity Reaction Status Date / Time No Known Allergies Allergy Verified 12/28/17 09:09 Physical Exam - Constitutional Appears: Well, Non-toxic, No Acute Distress - Extremities Exam Extremities exam: Negative for: calf tenderness Additional comments: VASC: CFT delayed, temperature is cool to cool, mild edema noted to the surgical site, no hair present, unpalpable pulses NEURO: Gross and protective sensation diminished bilaterally DERM: Surgical incision to the TMA site is co-apted with no dehiscence noted. No drianage, no maceration, no erythema, no purulence, no clinical signs of infection. TMA site is healing ORTHO: Pain on palpation surrounding surgical site - Neurological Exam Neurological exam: Alert, Oriented x3 - Psychiatric Exam Psychiatric exam: Normal Affect, Normal Mood Results - Vital Signs Recent Vital Signs: Last Vital Signs Temp 97 F L 02/09/18 07:53 Pulse 111 H 02/09/18 07:53 Resp 18 02/09/18 07:53 BP 152/80 H 02/09/18 07:53 Pulse Ox 100 02/09/18 10:19 Assessment & Plan - Assessment and Plan (Free Text) Assessment: 67 y.o male with PMHx of DM, HTN, HLD, CAD, CHF, PVD 4 days s/p L foot TMA by Dr. Dale, is consulted in the ED s/p fall Plan: Patient examined and evaluated Discussed all plans in detail with attending Labs, vitals, chart reviewed X-rays reviewed- WNL post surgical TMA Cleansed surgical site with saline, painted with betadine, applied xeroform, gauze, dsd, and kerlix Posterior splint applied Recommends Rx walker to help with NWB status in posterior splint instead of crutches for increase stability F/U with Dr. Dale on Tuesday Thank you for allowing us to take part in patient's care
[2018-02-09 12:29] VITALS: BP 152/80; PULSE 111; RESP 18; TEMP 97; O2SAT 100
== END 2018-02-09 10:55 | disposition home or self-care (01) ==
LOC: H.ER 07:42
DX: S90.30XA Contusion of unspecified foot, initial encounter (principal); E11.51 Type 2 diabetes mellitus with diabetic peripheral angiopathy without gangrene; Z89.422 Acquired absence of other left toe(s); Z87.891 Personal history of nicotine dependence; Z95.1 Presence of aortocoronary bypass graft; Z79.4 Long term (current) use of insulin; Z79.82 Long term (current) use of aspirin; I25.10 Atherosclerotic heart disease of native coronary artery without angina pectoris; I11.0 Hypertensive heart disease with heart failure; W06.XXXA Fall from bed, initial encounter

== ENCOUNTER 2018-03-03 21:58 | Inpatient (IN) | payer MEDICARE ==
[2018-03-03 21:58] VITALS: BMI 29.4
--- NOTE | 2018-03-03 22:29 | ED PDOC ---
Lower Extremity Pain/Injury Time Seen by Provider: 03/03/18 22:09 Chief Complaint (Nursing): Lower Extremity Problem/Injury Chief Complaint (Provider): left foot pain History Per: Patient Additional Complaint(s): 67-year-old male presents to emergency Department with pain to left foot. 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 He has been receiving wound care every Tuesday at the wound clinic under the care of Dr. Dale. Patient states yesterday he noticed acute worsening pain and came to ED today. Patient has been taking Naprosyn for the pain but this has not helped. He states that Naprosyn was helping until yesterday. Patient denies fever or chills. Patient has not been changing the bandage at home. PMD: Dr. Leo, [facility] [employer]: Dr Dale Past Medical History Reviewed: Historical Data, Nursing Documentation, Vital Signs Vital Signs: Last Vital Signs Temp 98.2 F 03/03/18 22:00 Pulse 80 03/03/18 22:00 Resp 18 03/03/18 22:00 BP 124/75 03/03/18 22:00 Pulse Ox 100 03/03/18 22:00 - Medical History PMH: CAD, Diabetes, HTN, Hypercholesterolemia, Chronic Kidney Disease - Surgical History Surgical History: CABG Other surgeries: left foot TMA - Family History Family History: States: No Known Family Hx - Living Arrangements Living Arrangements: With Family - Social History Current smoker - smoking cessation education provided: No Alcohol: None Drugs: Denies - Home Medications Home Medications: Ambulatory Orders Medication Instructions Recorded Aspirin [Ecotrin] 81 mg PO DAILY 01/27/18 Atorvastatin [Lipitor] 10 mg PO DAILY 01/27/18 Clopidogrel [Plavix] 75 mg PO DAILY 01/27/18 Lisinopril [Zestril] 10 mg PO DAILY 01/27/18 MetFORMIN [glucoPHAGE] 1,000 mg PO BID 01/27/18 Metoprolol Succinate [Toprol XL] 25 mg PO DAILY 01/27/18 Pioglitazone [Actos] 15 mg PO DAILY 01/27/18 oxyCODONE/Acetaminophen [Percocet 1 ea PO Q6 #24 tab 01/31/18 5/325 mg Tab] Naproxen [Naprosyn] 500 mg PO Q12H #20 tab 02/09/18 - Allergies Allergies/Adverse Reactions: Allergies Allergy/AdvReac Type Severity Reaction Status Date / Time No Known Allergies Allergy Verified 03/04/18 01:27 Wells Criteria for PE - Wells Criteria for Pulmonary Embolism Clinical Signs and Symptoms of DVT: No P.E is #1 Diagnosis, or Equally Likely: No Heart Rate >100: No Immobilization at least 3 days;Surgery previous 4 weeks: No Previous, objectively diagnosed PE or DVT: No Hemoptysis: No Malignancy w/treatment within 6 months, or palliative: No Total Score: 0 Review of Systems ROS Statement: Except As Marked, All Systems Reviewed And Found Negative Constitutional: Negative for: Fever, Chills Musculoskeletal: Positive for: Foot Pain (left foot pain) Physical Exam - Reviewed Nursing Documentation Reviewed: Yes Vital Signs Reviewed: Yes - Physical Exam Appears: Positive for: Well, Non-toxic, No Acute Distress Skin: Negative for: Rash Eye Exam: Positive for: Normal appearance Cardiovascular/Chest: Positive for: Regular Rate, Rhythm Respiratory: Positive for: Normal Breath Sounds. Negative for: Wheezing, Respiratory Distress Extremity: Positive for: Other (s/p TMA to left foot with wound dehisence noted , foul smelling purulent drainage noted. Several areas of skin flap are blackened, moderately tender to palpation) Neurologic/Psych: Positive for: Alert, Oriented - Laboratory Results Result Diagrams: 03/03/18 22:53 03/04/18 00:08 - ECG O2 Sat by Pulse Oximetry: 100 Pulse Ox Interpretation: Normal Medical Decision Making Medical Decision Makin67 year old with post op left foot pain Plan: Blood culture CBC CMP Wound culture IVF IV vanco and zosyn PO tramadol IVF Podiatry resident Dr. Rayo at bedside to see patient. He states patient will be admitted for wound infection and necrosis of wound. Case was d/w Dr. Naranjo, [facility] practice resident for admission. Patient agrees with admission. Disposition - Clinical Impression Clinical Impression: Postoperative wound infection, Dehiscence of amputation stump - Patient ED Disposition Is Patient to be Admitted: Yes - Disposition Disposition Time: 03:08 Condition: FAIR - Pt Status Changed To: Hospital Disposition Of: Inpatient - Admit Certification Admit to Inpatient:: After my assessment, the patient will require hospitalization for at least two midnights. This is because of the severity of symptoms shown, intensity of services needed, and/or the medical risk in this patient being treated as an outpatient. - POA Present On Arrival: None Results - Lab Results Lab Results: 03/04/18 03/03/18 03/03/18 00:08 22:53 22:53 WBC 14.2 H RBC 3.73 L Hgb 8.9 L Hct 27.2 L MCV 72.8 L D MCH 24.0 L MCHC 32.9 L RDW 14.6 H Plt Count 437 H MPV 7.7 Neut % (Auto) 67.2 Lymph % (Auto) 13.2 L [place] % (Auto) 7.0 Eos % (Auto) 12.0 H Baso % (Auto) 0.6 Neut # (Auto) 9.6 H Lymph # (Auto) 1.9 [place] # (Auto) 1.0 H Eos # (Auto) 1.7 H Baso # (Auto) 0.1 Sodium 142 144 Potassium 5.1 H 5.9 H Chloride 108 H 106 Carbon Dioxide 19 L 21 L Anion Gap 20 23 H BUN 24 H 25 H Creatinine 1.5 1.4 Est GFR ( Amer) 57 > 60 Est GFR (Non-Af Amer) 47 51 Random Glucose 116 H 109 Calcium 8.5 8.6 Total Bilirubin 0.3 0.6 AST 18 47 ALT 32 38 Alkaline Phosphatase 201 H 198 H D Total Protein 7.5 8.0 Albumin 3.4 L 3.6 Globulin 4.1 H 4.4 H Albumin/Globulin Ratio 0.8 L 0.8 L
[2018-03-03] MEDS ORDERED: Piperacillin/Tazobact 3.375 gm Inj IVPB STA (22:30)
[2018-03-03] MEDS ORDERED: Piperacillin/Tazobact 3.375 GM in Sodium Chloride 0.9% 100 ML IVPB STA (22:36)
[2018-03-03] MEDS ORDERED: Piperacillin/Tazobact 3.375 gm Inj IVPB ONE (22:55)
[2018-03-03 22:57] LABS: BASO # 0.1 K/uL (0.0-0.2); BASO % 0.6 % (0.0-2.0); EOS # 1.7 K/uL (0.0-0.7); HEMOGLOBIN 8.9 g/dL (12.0-18.0); LYMPH # 1.9 K/uL (1.0-4.3); LYMPH % 13.2 % (20.0-40.0); MEAN CELL VOLUME 72.8 fl (80.0-94.0); MEAN CORPUSCULAR HGB CONC 32.9 g/dL (33.0-37.0); MEAN PLATELET VOLUME 7.7 fl (7.2-11.7); NEUT # 9.6 K/uL (1.8-7.0); NEUT % 67.2 % (50.0-75.0); RBC 3.73 Mil/uL (4.40-5.90); RED CELL DISTRIBUTION WIDTH 14.6 % (11.5-14.5); WHITE BLOOD COUNT 14.2 K/uL (4.8-10.8)
[2018-03-03 23:07] LABS: ALB/GLOB RATIO 0.8 (1.0-2.1); ALBUMIN 3.6 g/dL (3.5-5.0); CALCIUM 8.6 mg/dL (8.4-10.2); GFR AFRICAN-AMERICAN > 60; GFR NON-AFRICAN AMERICAN 51
[2018-03-03 23:09] LABS: ALT/SGPT 38 U/L (21-72); AST/SGOT 47 U/L (17-59); BLOOD UREA NITROGEN 25 mg/dl (9-20)
[2018-03-04 00:25] LABS: ALB/GLOB RATIO 0.8 (1.0-2.1); ALBUMIN 3.4 g/dL (3.5-5.0); CALCIUM 8.5 mg/dL (8.4-10.2)
--- NOTE | 2018-03-04 00:52 | CP.PCM.CON ---
History of Present Illness - History of Present Illness History of Present Illness: 67M with PMHx of DM, HTN, HLD, CAD, CHF, PVD seen in ED three weeks s/p left foot TMA with Dr. Dale complaining of pain to the TMA site. Patient's son is present with him at bedside. Patient states that his pain has been increasing over the last several days. He states that he has kept his dressing c /d/i at home and admits to minimal walking on the TMA site. Patient denies any malodor, pus, erythema or other signs of infection from the site. Patient denies any further pedal complaints at this time. He denies any recent N/V/F/C/ CP/SOB/D/posterior calf pain when squeezed Review of Systems - Review of Systems Review of Systems: ROS as per HPI Past Patient History - Infectious Disease Hx of Infectious Diseases: None - Past Medical History & Family History Past Medical History?: Yes - Past Social History Alcohol: None Drugs: Denies - CARDIAC Hx Hypercholesterolemia: Yes Hx Hypertension: Yes - PULMONARY Hx Respiratory Disorders: No - NEUROLOGICAL Hx Neurological Disorder: No - HEENT Hx HEENT Problems: No - RENAL Hx Chronic Kidney Disease: Yes - ENDOCRINE/METABOLIC Hx Endocrine Disorders: Yes Hx Diabetes Mellitus Type 1: Yes Hx Diabetes Mellitus Type 2: Yes - HEMATOLOGICAL/ONCOLOGICAL Hx Human Immunodeficiency Virus (HIV): No - INTEGUMENTARY Hx Dermatological Problems: Yes Other/Comment: gangrene left toes - MUSCULOSKELETAL/RHEUMATOLOGICAL Hx Musculoskeletal Disorders: No Hx Falls: No - GASTROINTESTINAL Hx Gastrointestinal Disorders: No - GENITOURINARY/GYNECOLOGICAL Hx Genitourinary Disorders: No - PSYCHIATRIC Hx Psychophysiologic Disorder: No Hx Substance Use: No - SURGICAL HISTORY Hx Coronary Artery Bypass Graft: Yes - ANESTHESIA Hx Anesthesia: Yes Hx Anesthesia Reactions: Yes Hx Malignant Hyperthermia: Yes Meds Allergies/Adverse Reactions: Allergies Allergy/AdvReac Type Severity Reaction Status Date / Time No Known Allergies Allergy Verified 12/28/17 09:09 Physical Exam - Constitutional Appears: Well, Non-toxic, No Acute Distress - Extremities Exam Additional comments: VASC: CFT delayed, temperature is cool to cool, mild edema noted to the surgical site, no hair present, unpalpable pulses NEURO: Gross and protective sensation diminished bilaterally DERM: Necrosis noted to TMA flap with dehiscence of surgical site. Approximately 2 cc of purulence expressed from dehisced site. No malodor and mild erythema noted. ORTHO: Pain on palpation surrounding surgical site - Neurological Exam Neurological exam: Alert, Oriented x3 - Psychiatric Exam Psychiatric exam: Normal Affect, Normal Mood Results - Vital Signs Recent Vital Signs: Last Vital Signs Temp 98.2 F 03/03/18 22:00 Pulse 80 03/03/18 22:00 Resp 18 03/03/18 22:00 BP 124/75 03/03/18 22:00 Pulse Ox 100 03/03/18 23:32 - Labs Result Diagrams: 03/03/18 22:53 03/04/18 00:08 Labs: Laboratory Results - last 24 hr 03/03/18 03/03/18 03/04/18 22:53 22:53 00:08 WBC 14.2 H RBC 3.73 L Hgb 8.9 L Hct 27.2 L MCV 72.8 L D MCH 24.0 L MCHC 32.9 L RDW 14.6 H Plt Count 437 H MPV 7.7 Neut % (Auto) 67.2 Lymph % (Auto) 13.2 L [place] % (Auto) 7.0 Eos % (Auto) 12.0 H Baso % (Auto) 0.6 Neut # (Auto) 9.6 H Lymph # (Auto) 1.9 [place] # (Auto) 1.0 H Eos # (Auto) 1.7 H Baso # (Auto) 0.1 Sodium 144 142 Potassium 5.9 H 5.1 H Chloride 106 108 H Carbon Dioxide 21 L 19 L Anion Gap 23 H 20 BUN 25 H 24 H Creatinine 1.4 1.5 Est GFR ( Amer) > 60 57 Est GFR (Non-Af Amer) 51 47 Random Glucose 109 116 H Calcium 8.6 8.5 Total Bilirubin 0.6 0.3 AST 47 18 ALT 38 32 Alkaline Phosphatase 198 H D 201 H Total Protein 8.0 7.5 Albumin 3.6 3.4 L Globulin 4.4 H 4.1 H Albumin/Globulin Ratio 0.8 L 0.8 L Assessment & Plan - Assessment and Plan (Free Text) Assessment: 67M with PMHx of DM, HTN, HLD, CAD, CHF, PVD seen in ED three weeks s/p left foot TMA with Dr. Dale complaining of pain to the TMA site with dehiscence and purulent drainage noted Plan: Patient seen and evaluated in ED Charts, labs, vitals reviewed Plan discussed with attending Dr. Dale WBC 14.2, afebrile Xrays do not show any signs of cortical erosion but are positive for increased soft tissue density to distal, plantar foot. No soft tissue emphysema appreciated Wound cx taken ID consult placed, recs appreciated Patients wound dressed with ABD, DSD Patient to be admitted to hospital for IV abx therapy and continued wound management No plan for surgical intervention at this time Podiatry will continue to follow while patient in house - Date & Time Date: 03/04/18 Time: 00:58
--- NOTE | 2018-03-04 01:29 | CP.PCM.HP ---
Addendum entered and electronically signed by Geovanna Ortiz MD 03/04/18 21:05 : I saw and evaluated the patient. I discussed the case with the resident and agree with the findings and plan as documented in the resident's note. Addendum entered and electronically signed by Lynn Saldaña MD 03/04/18 12: 18: Patient seen and examined on morning rounding, denies pain. Hyperkalemia-hold lisinopril for today, monitor cmp. PT order placed c/w antibiotics, wound care per Podiatry. Original Note: History of Present Illness - History of Present Illness History of Present Illness: 67 yo ,m, PMhx/o HTN, DM, CAD s/p CABG 2006, HLD, s/p Left total metatarsal amputation 02/06/18 presented to Ed c/o left foot pain for several days on the site of the surgery that got worse today during the night, 7/10 intensity, partially alleviated with Naproxen, no associated symptoms. Denies fever, chest pain, cough, SOB, n,v,d,abd pain,dysuria, polyuria, polydipsia, recent trauma, fall, wound discharge, calf pain, leg swelling, orthopnea, PND. Reports wound care every week after surgery. last visit to podiatry on Tuesday. Not on Abx at this moment. On evaluation in ED patient comfortable reports pain subsided with tramadol. PMD: Tom Leo MD - Cardio, Internal Medicine; [address] [place] [id number] PMHx: DM2, CAD s/p CABG 2006, HTN, HLD Meds: Does not remember names. Meds reconciled ALL: NKDA PsurgHx: CAD with stenting CABG 2006, TMA 02/06/18 FamilyHx: Brothers - DM2 SocialHx: denies ETOH/tobacco/drug abuse Next of kin: Peter Navarro (son) - [phone] Code Status: Full Code ED Course VS: normal Labs: CBC: 14.2>8.9<437 CMP: k:5.1 BUN/CR 24/1.5 GFR: 47 Cr CL: 49. VBG : normal EKG: NSR. old RBBB,LAFB Imaging: Left foot XR:( By podiatry resident )do not show any signs of cortical erosion but are positive for increased soft tissue density to distal, plantar foot. No soft tissue emphysema appreciated Meds: Zosyn, Vanco x 1 dose, Ultram 50 mg PO Present on Admission - Present on Admission Any Indicators Present on Admission: No History of DVT/PE: No History of Uncontrolled Diabetes: No Urinary Catheter: No Decubitus Ulcer Present: No Review of Systems - Review of Systems All systems: reviewed and no additional remarkable complaints except - Cardiovascular Cardiovascular: As Per HPI - Respiratory Respiratory: As Per HPI - Gastrointestinal Gastrointestinal: As Per HPI - Musculoskeletal Additional comments: left foot pain Past Patient History - Infectious Disease Hx of Infectious Diseases: None - Past Medical History & Family History Past Medical History?: Yes - Past Social History Alcohol: None Drugs: Denies - CARDIAC Hx Hypercholesterolemia: Yes Hx Hypertension: Yes - PULMONARY Hx Respiratory Disorders: No - NEUROLOGICAL Hx Neurological Disorder: No - HEENT Hx HEENT Problems: No - RENAL Hx Chronic Kidney Disease: Yes - ENDOCRINE/METABOLIC Hx Endocrine Disorders: Yes Hx Diabetes Mellitus Type 1: Yes Hx Diabetes Mellitus Type 2: Yes - HEMATOLOGICAL/ONCOLOGICAL Hx Human Immunodeficiency Virus (HIV): No - INTEGUMENTARY Hx Dermatological Problems: Yes Other/Comment: gangrene left toes - MUSCULOSKELETAL/RHEUMATOLOGICAL Hx Musculoskeletal Disorders: No Hx Falls: No - GASTROINTESTINAL Hx Gastrointestinal Disorders: No - GENITOURINARY/GYNECOLOGICAL Hx Genitourinary Disorders: No - PSYCHIATRIC Hx Psychophysiologic Disorder: No Hx Substance Use: No - SURGICAL HISTORY Hx Coronary Artery Bypass Graft: Yes - ANESTHESIA Hx Anesthesia: Yes Hx Anesthesia Reactions: Yes Hx Malignant Hyperthermia: Yes Meds Allergies/Adverse Reactions: Allergies Allergy/AdvReac Type Severity Reaction Status Date / Time No Known Allergies Allergy Verified 03/04/18 01:27 Physical Exam - Constitutional Appears: Non-toxic, No Acute Distress - Head Exam Head Exam: ATRAUMATIC, NORMOCEPHALIC - Eye Exam Eye Exam: Normal appearance - ENT Exam ENT Exam: Mucous Membranes Moist - Neck Exam Neck exam: Positive for: Normal Inspection - Respiratory Exam Respiratory Exam: Clear to Auscultation Bilateral. absent: Rales, Rhonchi, Wheezes - Cardiovascular Exam Cardiovascular Exam: Gallop, REGULAR RHYTHM, +S1, +S2, +S4 - GI/Abdominal Exam GI & Abdominal Exam: Normal Bowel Sounds, Soft. absent: Guarding, Rebound, Tenderness - Extremities Exam Extremities exam: Positive for: normal capillary refill. Negative for: calf tenderness, pedal edema Additional comments: Left foot s/p TMA: wound dehiscence noted, foul smelling purulent drainage noted. Several areas of skin flap are blackened, moderately tender to palpation) - Back Exam Back exam: NORMAL INSPECTION - Neurological Exam Neurological exam: Alert, Oriented x3 - Psychiatric Exam Psychiatric exam: Normal Affect, Normal Mood - Skin Skin Exam: Normal Color Results - Vital Signs Recent Vital Signs: Last Vital Signs Temp 98.2 F 03/03/18 22:00 Pulse 80 03/03/18 22:00 Resp 18 03/03/18 22:00 BP 124/75 03/03/18 22:00 Pulse Ox 100 03/03/18 23:32 - Labs Result Diagrams: 03/03/18 22:53 03/04/18 00:08 Labs: Laboratory Results - last 24 hr 03/03/18 03/03/18 03/04/18 22:53 22:53 00:08 WBC 14.2 H RBC 3.73 L Hgb 8.9 L Hct 27.2 L MCV 72.8 L D MCH 24.0 L MCHC 32.9 L RDW 14.6 H Plt Count 437 H MPV 7.7 Neut % (Auto) 67.2 Lymph % (Auto) 13.2 L [place] % (Auto) 7.0 Eos % (Auto) 12.0 H Baso % (Auto) 0.6 Neut # (Auto) 9.6 H Lymph # (Auto) 1.9 [place] # (Auto) 1.0 H Eos # (Auto) 1.7 H Baso # (Auto) 0.1 Sodium 144 142 Potassium 5.9 H 5.1 H Chloride 106 108 H Carbon Dioxide 21 L 19 L Anion Gap 23 H 20 BUN 25 H 24 H Creatinine 1.4 1.5 Est GFR ( Amer) > 60 57 Est GFR (Non-Af Amer) 51 47 Random Glucose 109 116 H Calcium 8.6 8.5 Total Bilirubin 0.6 0.3 AST 47 18 ALT 38 32 Alkaline Phosphatase 198 H D 201 H Total Protein 8.0 7.5 Albumin 3.6 3.4 L Globulin 4.4 H 4.1 H Albumin/Globulin Ratio 0.8 L 0.8 L Assessment & Plan - Assessment and Plan (Free Text) Plan: 67 yo ,m, PMhx/o HTN, DM, CAD s/p CABG 2006, HLD, s/p Left total metatarsal amputation 02/06/18 admitted for postop foot wound infection Assessment plan 1) Postop left foot wound infection -secondary to total metatarsal amputation 02/06/18 -CBC leukocytosis,afebrile. -wound cx - Left foot XR:( By podiatry resident )do not show any signs of cortical erosion but are positive for increased soft tissue density to distal, plantar foot. No soft tissue emphysema appreciated -s/p Zosyn,Vanco ED -c/w Zosyn and Vanco ( renal dose) CrcL 49 -Podiatry consult appreciated -ID consult suggested -f/u CBC, CMP, wound cx 2)HTN controlled c/w home meds lisinopril 3)DM Hga1c 6.2 01/28/18 - Metformin 1000 mg PO BID [facility] - Pioglitazone Hcl 15 mg PO daily [facility] - Insulin sliding scale - Hypoglycemic control 4) CKD stage 3 BUN/CR 24/1.5 GFR: : 47 Cr CL: 49 5) CAD s/p CABG 2006 -c/w aspirin, plavix -EKG: no acute changes. Old RBBB, LAFB 6) Hyperkalemia 5.1 on admission, asymptomatic -f/u CMP 7) DVT Prophylaxis Lovenox 40 mg sc daily
[2018-03-04 01:41] LABS: VENOUS BLOOD GAS BASE EXCESS 0.2 mmol/L (0.0-2.0); VENOUS BLOOD GAS PCO2 43 mmHg (40-60); VENOUS BLOOD GAS PO2 32 mm/Hg (30-55); VENOUS BLOOD PH 7.38 (7.32-7.43)
[2018-03-04] MEDS ORDERED: Dextrose 50% SYRINGE Inj (50 ml) IV PRN (01:55)
[2018-03-04] MEDS ORDERED: Glucagon Recombinant 1 mg Inj IM PRN (01:55)
[2018-03-04] MEDS ORDERED: Piperacillin/Tazobact 3.375 GM in Sodium Chloride 0.9% 100 ML IVPB SCH (04:00)
[2018-03-04 07:10] LABS: BASO # 0.1 K/uL (0.0-0.2); BASO % 1.1 % (0.0-2.0); EOS # 1.4 K/uL (0.0-0.7); EOS % 13.3 % (0.0-4.0); HEMOGLOBIN 8.6 g/dL (12.0-18.0); LYMPH # 1.5 K/uL (1.0-4.3); LYMPH % 14.1 % (20.0-40.0); MEAN CELL VOLUME 74.3 fl (80.0-94.0); MEAN CORPUSCULAR HEMOGLOBIN 23.9 pg (27.0-31.0); MEAN CORPUSCULAR HGB CONC 32.2 g/dL (33.0-37.0); MEAN PLATELET VOLUME 7.6 fl (7.2-11.7); MONO # 0.8 K/uL (0.0-0.8); MONO % 7.7 % (0.0-10.0); NEUT # 6.6 K/uL (1.8-7.0); NEUT % 63.8 % (50.0-75.0); RBC 3.59 Mil/uL (4.40-5.90); RED CELL DISTRIBUTION WIDTH 14.6 % (11.5-14.5); WHITE BLOOD COUNT 10.3 K/uL (4.8-10.8)
[2018-03-04] MEDS: Insulin Lispro (humaLOG) 100 Units/ml Inj SC SCH ×4 (07:12→22:31)
[2018-03-04 07:28] LABS: ALB/GLOB RATIO 0.8 (1.0-2.1); ALBUMIN 3.4 g/dL (3.5-5.0); ALT/SGPT 33 U/L (21-72); AST/SGOT 24 U/L (17-59); BLOOD UREA NITROGEN 22 mg/dl (9-20); CALCIUM 8.5 mg/dL (8.4-10.2); GFR AFRICAN-AMERICAN > 60; GFR NON-AFRICAN AMERICAN 51
[2018-03-04] MEDS: Oxycodone/Acetaminophen 5/325 mg Tab PO PRN ×2 (08:33→22:29)
--- NOTE | 2018-03-04 09:04 | RAD ---
PROCEDURE: Left Foot Radiographs. HISTORY: possible infection s/p TMA COMPARISON: Foot radiographs dated 02/09/2018. FINDINGS: BONES: Transmetatarsal amputation. No acute fracture or periosteal reaction. JOINTS: Unremarkable. SOFT TISSUES: Normal. OTHER FINDINGS: Achilles enthesophyte. Inferior plantar calcaneal spur. IMPRESSION: Prior transmetatarsal amputation. No acute fracture or periosteal reaction.
[2018-03-04] MEDS: Enoxaparin 40 mg Syringe SC SCH (09:40)
[2018-03-04] MEDS: Metoprolol Succinate 25 mg XL Tab PO SCH (09:41)
[2018-03-04] MEDS: Piperacillin/Tazobact 2.25 GM in Sodium Chloride 0.9% 50 ML IVPB SCH ×3 (11:16→22:34)
--- NOTE | 2018-03-04 11:48 | CARD ---
APPROVED REPORT EKG Measurement Heart [id number] CT [id number] [id number] <Conclusion> Normal sinus rhythm Incomplete right bundle branch block Left anterior fascicular block Anteroseptal infarct, age undetermined Abnormal ECG
--- NOTE | 2018-03-04 15:29 | CP.PCM.PN ---
Subjective - Date & Time of Evaluation Date of Evaluation: 03/04/18 Time of Evaluation: 15:26 - Subjective Subjective: Podiatry consult note for Dr. Dale 67M seen at bedside accompanied by his son for infected TMA site. Patient is AAO x 3 and NAD at time of visit. Denies any acute overnight events or further pedal complaints at this time. States that pain is well controlled. Denies any recent N/V/F/C/CP/SOB/D/posterior calf pain when squeezed Objective - Vital Signs/Intake and Output Vital Signs (last 24 hours): Temp Pulse Resp BP Pulse Ox 98.1 F 64 18 100/63 100 03/04/18 08:18 03/04/18 09:41 03/04/18 08:18 03/04/18 09:42 03/04/18 08:18 - Medications Medications: Current Medications Acetaminophen (Tylenol 325mg Tab) 650 mg PO Q6 PRN PRN Reason: Pain, Mild (1-3) Acetaminophen (Tylenol 325mg Tab) 650 mg PO Q6 PRN PRN Reason: Fever >100.4 F Aspirin (Ecotrin) 81 mg PO DAILY [facility] Last Admin: 03/04/18 09:39 Dose: 81 mg Atorvastatin Calcium (Lipitor) 10 mg PO DAILY [facility] Last Admin: 03/04/18 09:40 Dose: 10 mg Clopidogrel Bisulfate (Plavix) 75 mg PO DAILY [facility] Last Admin: 03/04/18 09:40 Dose: 75 mg Dextrose (Dextrose 50% Inj) 0 ml IV STAT PRN; Protocol PRN Reason: Hypoglycemia Protocol Dextrose (Glutose 15) 0 gm PO ONCE PRN; Protocol PRN Reason: Hypoglycemia Protocol Enoxaparin Sodium (Lovenox) 40 mg SC DAILY [facility] PRN Reason: Protocol Last Admin: 03/04/18 09:40 Dose: 40 mg Glucagon (Glucagen Diagnostic Kit) 0 mg IM STAT PRN; Protocol PRN Reason: Hypoglycemia Protocol Vancomycin HCl 1 gm/ Sodium (Chloride) 250 mls @ 166.667 mls/hr IVPB DAILY [facility] PRN Reason: Protocol Piperacillin Sod/Tazobactam (Sod 2.25 gm/ Sodium Chloride) 50 mls @ 50 mls/hr IVPB Q6 [facility] PRN Reason: Protocol Last Admin: 03/04/18 11:16 Dose: 50 mls/hr Insulin Human Lispro (Humalog) 0 units SC ACHS [facility] PRN Reason: Protocol Last Admin: 03/04/18 14:44 Dose: Not Given Lisinopril (Zestril) 10 mg PO DAILY [facility] Last Admin: 03/04/18 09:42 Dose: Not Given Metformin HCl (Glucophage) 1,000 mg PO BID [facility] Last Admin: 03/04/18 09:40 Dose: 1,000 mg Metoprolol Succinate (Toprol Xl) 25 mg PO DAILY [facility] Last Admin: 03/04/18 09:41 Dose: 25 mg Morphine Sulfate (Morphine) 2 mg IVP Q6 PRN PRN Reason: Pain, severe (8-10) Last Admin: 03/04/18 02:49 Dose: 2 mg Oxycodone/Acetaminophen (Percocet 5/325 Mg Tab) 1 tab PO Q4 PRN PRN Reason: Pain, moderate (4-7) Stop: 03/07/18 01:40 Last Admin: 03/04/18 08:33 Dose: 1 tab Pioglitazone HCl (Actos) 15 mg PO DAILY [facility] Last Admin: 03/04/18 09:39 Dose: 15 mg - Labs Labs: 03/04/18 05:25 03/04/18 05:25 - Constitutional Appears: Well, Non-toxic, No Acute Distress - Extremities Exam Additional comments: VASC: CFT delayed, temperature is cool to cool, mild edema noted to the surgical site, no hair present, unpalpable pulses NEURO: Gross and protective sensation diminished bilaterally DERM: Necrosis noted to TMA flap with dehiscence of surgical site. No purulence expressed from dehisced site today. No malodor and mild erythema noted. ORTHO: Pain on palpation surrounding surgical site, improved since yesterday - Neurological Exam Neurological Exam: Alert, Awake, Oriented x3 - Psychiatric Exam Psychiatric exam: Normal Affect, Normal Mood Assessment and Plan - Assessment and Plan (Free Text) Assessment: 67M seen at bedside accompanied by his son for infected TMA site Plan: Patient seen and evaluated Plan discussed with attending Dr. Dale Charts, labs, vitals reviewed Afebrile, leukocytosis improving, 10.3 from 14.2 yesterday F/u wound cx ID consult placed MRI left foot ordered to r/o underlying abscess No plan for surgical intervention at this time Continue IV abx Podiatry will continue to follow while patient in house
[2018-03-04 18:09] LABS: URINE BACTERIA RARE (<OCC); URINE BILIRUBIN NEGATIVE (NEGATIVE); URINE BLOOD NEGATIVE (NEGATIVE); URINE CLARITY CLEAR (Clear); URINE COLOR STRAW (YELLOW); URINE GLUCOSE (UA) NEG (Normal); URINE LEUKOCYTE ESTERASE NEG Leu/uL (Negative); URINE PROTEIN NEGATIVE (NEGATIVE); URINE UROBILINOGEN 0.2-1.0 mg/dL (0.2-1.0)
--- NOTE | 2018-03-04 22:46 | CON ---
DATE: HISTORY OF PRESENT ILLNESS: The patient is a 67-year-old male who has a past medical history of hypertension, diabetes, coronary artery disease, lipodystrophy, and status post coronary artery bypass surgery. The patient had a left TMA done in January of this year, the date being 02/06/2018 and came to the emergency room with left foot pain and some drainage on the surgical site. He states there is no fever or chills, but there is definitely some purulence and possibly of an abscess and was not on any antibiotics. PHYSICAL EXAMINATION: GENERAL: The patient is alert, cooperative, and oriented to time and place. HEENT: Within normal limits. NECK: Supple. LUNGS: Clear. HEART: Regular sinus rhythm. EXTREMITIES: Negative for calf tenderness and edema. Wound is as described previously. The left foot is status post TMA. Wound dehiscence, foul smelling, and purulent drainage noted. There is also some necrosis of the skin flap. LABORATORY DATA: CBC shows a white count of 14.2 and today being 10.3, hemoglobin is 8.6, and platelet count is 339. He has 63% polys. Chemistries shows a creatinine of 1.4 with 51 GFR. Alkaline phosphatase is 1.74 possibly allowing for bone necrosis. I have reviewed his past labs and his past cultures in November showed MRSA, Enterobacter, and Strep. At present, the coverage of vancomycin and Zosyn seems appropriate, although we will adjust the dosing schedules. I have discussed with the podiatry resident who I will meet tomorrow since he has just wrapped up the wound and I have not seen it, he will open the wound tomorrow and show me the patient's pathology. Kevin Haynes MD MTDD
[2018-03-05] MEDS: Piperacillin/Tazobact 2.25 GM in Sodium Chloride 0.9% 50 ML IVPB SCH ×2 (03:30→10:55)
[2018-03-05] MEDS: Oxycodone/Acetaminophen 5/325 mg Tab PO PRN ×3 (07:03→19:09)
[2018-03-05 07:14] LABS: BASO # 0.1 K/uL (0.0-0.2); BASO % 0.9 % (0.0-2.0); EOS % 14.8 % (0.0-4.0); LYMPH # 1.8 K/uL (1.0-4.3); MEAN CELL VOLUME 72.3 fl (80.0-94.0); MEAN CORPUSCULAR HEMOGLOBIN 23.9 pg (27.0-31.0); MEAN PLATELET VOLUME 7.5 fl (7.2-11.7); MONO # 0.9 K/uL (0.0-0.8); NEUT # 8.3 K/uL (1.8-7.0); NEUT % 63.3 % (50.0-75.0); RBC 3.78 Mil/uL (4.40-5.90); RED CELL DISTRIBUTION WIDTH 14.7 % (11.5-14.5); WHITE BLOOD COUNT 13.2 K/uL (4.8-10.8)
[2018-03-05 07:56] LABS: ALB/GLOB RATIO 0.8 (1.0-2.1); ALBUMIN 3.6 g/dL (3.5-5.0); ALT/SGPT 34 U/L (21-72); AST/SGOT 46 U/L (17-59); BLOOD UREA NITROGEN 17 mg/dl (9-20); CALCIUM 9.1 mg/dL (8.4-10.2); GFR AFRICAN-AMERICAN > 60; GFR NON-AFRICAN AMERICAN 51
--- NOTE | 2018-03-05 09:59 | CP.PCM.PN ---
Subjective - Date & Time of Evaluation Date of Evaluation: 03/05/18 Time of Evaluation: 09:30 - Subjective Subjective: Pt. seen at bedside today. Pt. with no complaints today. Overnight events reviewed. Pt. denies any fever, chills, chest pain, dyspnea, or abdominal pain. Objective - Vital Signs/Intake and Output Vital Signs (last 24 hours): Temp Pulse Resp BP Pulse Ox 98.3 F 78 20 103/65 100 03/05/18 08:15 03/05/18 08:15 03/05/18 08:15 03/05/18 08:15 03/05/18 08:15 - Medications Medications: Current Medications Acetaminophen (Tylenol 325mg Tab) 650 mg PO Q6 PRN PRN Reason: Pain, Mild (1-3) Acetaminophen (Tylenol 325mg Tab) 650 mg PO Q6 PRN PRN Reason: Fever >100.4 F Aspirin (Ecotrin) 81 mg PO DAILY [facility] Last Admin: 03/04/18 09:39 Dose: 81 mg Atorvastatin Calcium (Lipitor) 10 mg PO DAILY [facility] Last Admin: 03/04/18 09:40 Dose: 10 mg Clopidogrel Bisulfate (Plavix) 75 mg PO DAILY [facility] Last Admin: 03/04/18 09:40 Dose: 75 mg Dextrose (Dextrose 50% Inj) 0 ml IV STAT PRN; Protocol PRN Reason: Hypoglycemia Protocol Dextrose (Glutose 15) 0 gm PO ONCE PRN; Protocol PRN Reason: Hypoglycemia Protocol Enoxaparin Sodium (Lovenox) 40 mg SC DAILY [facility] PRN Reason: Protocol Last Admin: 03/04/18 09:40 Dose: 40 mg Glucagon (Glucagen Diagnostic Kit) 0 mg IM STAT PRN; Protocol PRN Reason: Hypoglycemia Protocol Piperacillin Sod/Tazobactam (Sod 2.25 gm/ Sodium Chloride) 50 mls @ 50 mls/hr IVPB Q6 [facility] PRN Reason: Protocol Last Admin: 03/05/18 03:30 Dose: 50 mls/hr Vancomycin HCl 500 mg/ Sodium (Chloride) 100 mls @ 100 mls/hr IVPB Q12 [facility] PRN Reason: Protocol Last Admin: 03/04/18 21:25 Dose: 100 mls/hr Insulin Human Lispro (Humalog) 0 units SC ACHS [facility] PRN Reason: Protocol Last Admin: 03/04/18 22:31 Dose: Not Given Lisinopril (Zestril) 10 mg PO DAILY [facility] Last Admin: 03/04/18 09:42 Dose: Not Given Metformin HCl (Glucophage) 1,000 mg PO BID [facility] Last Admin: 03/04/18 17:57 Dose: 1,000 mg Metoprolol Succinate (Toprol Xl) 25 mg PO DAILY [facility] Last Admin: 03/04/18 09:41 Dose: 25 mg Morphine Sulfate (Morphine) 2 mg IVP Q6 PRN PRN Reason: Pain, severe (8-10) Last Admin: 03/05/18 03:26 Dose: 2 mg Oxycodone/Acetaminophen (Percocet 5/325 Mg Tab) 1 tab PO Q4 PRN PRN Reason: Pain, moderate (4-7) Stop: 03/07/18 01:40 Last Admin: 03/05/18 07:03 Dose: 1 tab Pioglitazone HCl (Actos) 15 mg PO DAILY [facility] Last Admin: 03/04/18 09:39 Dose: 15 mg - Labs Labs: 03/05/18 05:30 03/05/18 05:30 - Constitutional Appears: Non-toxic, No Acute Distress - Head Exam Head Exam: ATRAUMATIC, NORMOCEPHALIC - Eye Exam Eye Exam: Normal appearance. absent: Scleral icterus - ENT Exam ENT Exam: Mucous Membranes Moist - Respiratory Exam Respiratory Exam: Clear to Ausculation Bilateral, NORMAL BREATHING PATTERN - Cardiovascular Exam Cardiovascular Exam: +S1, +S2 - GI/Abdominal Exam GI & Abdominal Exam: Soft. absent: Tenderness - Extremities Exam Extremities Exam: Normal Capillary Refill. absent: Calf Tenderness, Pedal Edema , Tenderness Additional comments: Left foot dressing clean dry and intact - Neurological Exam Neurological Exam: Alert, Awake, Oriented x3 Assessment and Plan - Assessment and Plan (Free Text) Assessment: 67 y.o. 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 No soft tissue emphysema appreciated -c/w Zosyn and Vanco ( renal dose) CrcL 49 -Podiatry consult appreciated -ID consult suggested 2)Hyperkalemia- Improving - Lisinopril held - Potassium today 4.9 3)HTN controlled c/w home meds lisinopril 4)DM HbA1c 6.2 01/28/18 c/w current management 5) CKD stage 3 BUN/CR 24/1.5 GFR: : 47 Cr CL: 49 Control underlying Diabetes 6) Hx of CAD s/p CABG 2006 -c/w aspirin, plavix 7) DVT Prophylaxis Lovenox 40 mg sc daily
[2018-03-05] MEDS: Insulin Lispro (humaLOG) 100 Units/ml Inj SC SCH ×4 (10:40→22:21)
[2018-03-05] MEDS: Enoxaparin 40 mg Syringe SC SCH (10:41)
[2018-03-05] MEDS: Metoprolol Succinate 25 mg XL Tab PO SCH (10:45)
--- NOTE | 2018-03-05 15:48 | CP.PCM.PN ---
Subjective - Date & Time of Evaluation Date of Evaluation: 03/05/18 Time of Evaluation: 15:48 - Subjective Subjective: Podiatry consult note for Dr. Dale 67M seen at bedside accompanied by his son for infected TMA site. Patient is AAO x 3 and NAD at time of visit. Denies any acute overnight events or further pedal complaints at this time. States that pain is well controlled. Denies any recent N/V/F/C/CP/SOB/D/posterior calf pain when squeezed Objective - Vital Signs/Intake and Output Vital Signs (last 24 hours): Temp Pulse Resp BP Pulse Ox 98.3 F 78 20 103/65 100 03/05/18 08:15 03/05/18 10:45 03/05/18 08:15 03/05/18 10:45 03/05/18 08:15 - Medications Medications: Current Medications Acetaminophen (Tylenol 325mg Tab) 650 mg PO Q6 PRN PRN Reason: Pain, Mild (1-3) Acetaminophen (Tylenol 325mg Tab) 650 mg PO Q6 PRN PRN Reason: Fever >100.4 F Aspirin (Ecotrin) 81 mg PO DAILY [facility] Last Admin: 03/05/18 10:39 Dose: 81 mg Atorvastatin Calcium (Lipitor) 10 mg PO DAILY [facility] Last Admin: 03/05/18 10:41 Dose: 10 mg Clopidogrel Bisulfate (Plavix) 75 mg PO DAILY [facility] Last Admin: 03/05/18 10:44 Dose: 75 mg Dextrose (Dextrose 50% Inj) 0 ml IV STAT PRN; Protocol PRN Reason: Hypoglycemia Protocol Dextrose (Glutose 15) 0 gm PO ONCE PRN; Protocol PRN Reason: Hypoglycemia Protocol Enoxaparin Sodium (Lovenox) 40 mg SC DAILY [facility] PRN Reason: Protocol Last Admin: 03/05/18 10:41 Dose: 40 mg Glucagon (Glucagen Diagnostic Kit) 0 mg IM STAT PRN; Protocol PRN Reason: Hypoglycemia Protocol Vancomycin HCl 500 mg/ Sodium (Chloride) 100 mls @ 100 mls/hr IVPB Q12 [facility] PRN Reason: Protocol Last Admin: 03/05/18 10:44 Dose: 100 mls/hr Piperacillin Sod/Tazobactam (Sod 2.25 gm/ Sodium Chloride) 100 mls @ 100 mls/ hr IVPB Q6 [facility] PRN Reason: Protocol Insulin Human Lispro (Humalog) 0 units SC ACHS [facility] PRN Reason: Protocol Last Admin: 03/05/18 13:56 Dose: Not Given Lisinopril (Zestril) 10 mg PO DAILY [facility] Last Admin: 03/04/18 09:42 Dose: Not Given Metformin HCl (Glucophage) 1,000 mg PO BID [facility] Last Admin: 03/05/18 10:40 Dose: 1,000 mg Metoprolol Succinate (Toprol Xl) 25 mg PO DAILY [facility] Last Admin: 03/05/18 10:45 Dose: 25 mg Morphine Sulfate (Morphine) 2 mg IVP Q6 PRN PRN Reason: Pain, severe (8-10) Last Admin: 03/05/18 03:26 Dose: 2 mg Oxycodone/Acetaminophen (Percocet 5/325 Mg Tab) 1 tab PO Q4 PRN PRN Reason: Pain, moderate (4-7) Stop: 03/07/18 01:40 Last Admin: 03/05/18 12:47 Dose: 1 tab Pioglitazone HCl (Actos) 15 mg PO DAILY [facility] Last Admin: 03/05/18 10:39 Dose: 15 mg - Labs Labs: 03/05/18 05:30 03/05/18 05:30 - Constitutional Appears: Well, Non-toxic, No Acute Distress - Extremities Exam Additional comments: VASC: CFT delayed, temperature is cool to cool, mild edema noted to the surgical site, no hair present, unpalpable pulses NEURO: Gross and protective sensation diminished bilaterally DERM: Necrosis noted to TMA flap with dehiscence of surgical site. No purulence expressed from dehisced site today. No malodor and mild erythema noted. Increasing dusky coloration noted to plantar foot with some fluctuance ORTHO: Pain on palpation surrounding surgical site, improved since yesterday - Neurological Exam Neurological Exam: Alert, Awake, Oriented x3 - Psychiatric Exam Psychiatric exam: Normal Affect, Normal Mood Assessment and Plan - Assessment and Plan (Free Text) Assessment: 67M seen at bedside accompanied by his son for infected TMA site Plan: Patient seen and evaluated Plan discussed with attending Dr. Dale Charts, labs, vitals reviewed Afebrile, leukocytosis 13.2 Wound cx prelim GN rods ID recs appreciated MRI left foot ordered to r/o underlying abscess No plan for surgical intervention at this time Continue IV abx Podiatry will continue to follow while patient in house
[2018-03-06] MEDS: Oxycodone/Acetaminophen 5/325 mg Tab PO PRN ×2 (04:00→12:03)
[2018-03-06] MEDS: Insulin Lispro (humaLOG) 100 Units/ml Inj SC SCH ×4 (06:52→22:52)
--- NOTE | 2018-03-06 10:16 | CP.PCM.PN ---
Subjective - Date & Time of Evaluation Date of Evaluation: 03/06/18 Time of Evaluation: 10:16 - Subjective Subjective: Patient seen this morning during rounding, no overnight events, denies pain, afebrile, no chills, N/V. No urinary symptoms. Normal BM. Objective - Vital Signs/Intake and Output Vital Signs (last 24 hours): Temp Pulse Resp BP Pulse Ox 97.8 F 103 H 20 143/73 100 03/06/18 08:05 03/06/18 08:05 03/06/18 08:05 03/06/18 08:05 03/06/18 08:05 - Medications Medications: Current Medications Acetaminophen (Tylenol 325mg Tab) 650 mg PO Q6 PRN PRN Reason: Pain, Mild (1-3) Last Admin: 03/05/18 21:47 Dose: 650 mg Acetaminophen (Tylenol 325mg Tab) 650 mg PO Q6 PRN PRN Reason: Fever >100.4 F Aspirin (Ecotrin) 81 mg PO DAILY [facility] Last Admin: 03/06/18 09:03 Dose: 81 mg Atorvastatin Calcium (Lipitor) 10 mg PO DAILY [facility] Last Admin: 03/06/18 09:03 Dose: 10 mg Clopidogrel Bisulfate (Plavix) 75 mg PO DAILY [facility] Last Admin: 03/06/18 09:03 Dose: 75 mg Dextrose (Dextrose 50% Inj) 0 ml IV STAT PRN; Protocol PRN Reason: Hypoglycemia Protocol Dextrose (Glutose 15) 0 gm PO ONCE PRN; Protocol PRN Reason: Hypoglycemia Protocol Enoxaparin Sodium (Lovenox) 40 mg SC DAILY [facility] PRN Reason: Protocol Last Admin: 03/05/18 10:41 Dose: 40 mg Glucagon (Glucagen Diagnostic Kit) 0 mg IM STAT PRN; Protocol PRN Reason: Hypoglycemia Protocol Vancomycin HCl 500 mg/ Sodium (Chloride) 100 mls @ 100 mls/hr IVPB Q12 [facility] PRN Reason: Protocol Last Admin: 03/05/18 20:26 Dose: 100 mls/hr Piperacillin Sod/Tazobactam (Sod 2.25 gm/ Sodium Chloride) 100 mls @ 100 mls/ hr IVPB Q6 [facility] PRN Reason: Protocol Last Admin: 03/06/18 09:04 Dose: 100 mls/hr Insulin Human Lispro (Humalog) 0 units SC ACHS [facility] PRN Reason: Protocol Last Admin: 03/06/18 06:52 Dose: Not Given Lisinopril (Zestril) 10 mg PO DAILY [facility] Last Admin: 03/04/18 09:42 Dose: Not Given Metformin HCl (Glucophage) 1,000 mg PO BID [facility] Last Admin: 03/05/18 19:10 Dose: 1,000 mg Metoprolol Succinate (Toprol Xl) 25 mg PO DAILY [facility] Last Admin: 03/05/18 10:45 Dose: 25 mg Morphine Sulfate (Morphine) 2 mg IVP Q6 PRN PRN Reason: Pain, severe (8-10) Last Admin: 03/06/18 09:18 Dose: 2 mg Oxycodone/Acetaminophen (Percocet 5/325 Mg Tab) 1 tab PO Q4 PRN PRN Reason: Pain, moderate (4-7) Stop: 03/07/18 01:40 Last Admin: 03/06/18 04:00 Dose: 1 tab Pioglitazone HCl (Actos) 15 mg PO DAILY [facility] Last Admin: 03/05/18 10:39 Dose: 15 mg - Labs Labs: 03/05/18 05:30 03/05/18 05:30 - Constitutional Appears: No Acute Distress - Head Exam Head Exam: NORMAL INSPECTION - Eye Exam Eye Exam: EOMI, PERRL - ENT Exam ENT Exam: Mucous Membranes Moist - Respiratory Exam Respiratory Exam: Clear to Ausculation Bilateral, NORMAL BREATHING PATTERN. absent: Wheezes - Cardiovascular Exam Cardiovascular Exam: REGULAR RHYTHM, +S1, +S2. absent: Tachycardia - GI/Abdominal Exam GI & Abdominal Exam: Soft, Normal Bowel Sounds. absent: Tenderness - Extremities Exam Additional comments: Left foot dressing clean dry and intact, no tender to palpation, no edema. - Neurological Exam Neurological Exam: Awake, Oriented x3 Assessment and Plan - Assessment and Plan (Free Text) Assessment: 67 yo male admitte for wound infection of left foot s/p Left total metatarsal amputation 02/06/18. IV abx. Wound cx + for E coli. Podiatry on board. Plan: 1- Left foot wound infection - S/P L TMA - leukocytosis (trending down) - c/w Zosyn and Vanco ( renal dose) CrcL 49. - Podiatry on board. - Daily wound care. - ID consult placed, recs appreciated. 2- Hyperkalemia- Improving - Lisinopril held - Potassium today 4.9 3- HTN - controlled 4- DM HbA1c 6.2 01/28/18 c/w current management 5- CKD stage 3, stable BUN/CR 24.5 GFR: : 47 Cr CL: 49 6- Hx of CAD s/p CABG 2006 -c/w aspirin, plavix 7- DVT Prophylaxis Lovenox 40 mg sc daily 8-Dispo PT: [facility]
[2018-03-06] MEDS: Enoxaparin 40 mg Syringe SC SCH (10:21)
[2018-03-06] MEDS: Metoprolol Succinate 25 mg XL Tab PO SCH (10:21)
[2018-03-06 11:31] LABS: GAMMA GLUTAMYL TRANSPEPTIDASE 315 U/L (8-78)
--- NOTE | 2018-03-06 13:24 | PQF GENQUE ---
Dr. Bray, The attending physician is required to clarify conflicting documentation in the medical record. The following documentation is noted in the medical record: Diagnosis 1: DM Type 1 Documented by: Attending Location: [facility] Diagnosis 2: DM Type 2 Documented by: Attending Location: [facility] Please clarify the appropriate diagnosis for this patient. This form is a permanent part of the medical record Clarification of your documentation is requested to better reflect the severity of illness and intensity of treatment of your patient. Indicators present [] Specify: [] [] Specify: [] [] Specify: [] [] Specify: [] Location in the medical record that reflects the above clinical findings: [] Treatment Provided: [] PHYSICIAN'S RESPONSE Pt has type 2 DM controlled Based on your medical judgment of the clinical indicators outlined above please clarify the following: [] Practitioner response [] If unable to determine, please check the box, sign and date. Present On Admission (POA) Indicator: [] Present at the time of admission [] Not present at the time of admission [] Clinically Undetermined In responding to this query, please exercise your independent professional judgment. The fact that a question is asked does not imply that any particular answer is desired or expected. Thank you for your clarification on this documentation. If you have any questions please call. * Thank you, Lisa Albarran RN ext. #[phone] MTDD
--- NOTE | 2018-03-06 16:50 | CP.PCM.PN ---
Subjective - Date & Time of Evaluation Date of Evaluation: 03/06/18 Time of Evaluation: 16:48 - Subjective Subjective: Podiatry consult note for Dr. Dale 67M seen at bedside accompanied by his son and for infected TMA site. Patient is AAO x 3 and NAD at time of visit. Denies any acute overnight events or further pedal complaints at this time. States that pain is well controlled. Denies any recent N/V/F/C/CP/SOB/D/posterior calf pain when squeezed. Patient went for MRI this afternoon and refused to complete the entire study because he says he was uncomfortable. Objective - Vital Signs/Intake and Output Vital Signs (last 24 hours): Temp Pulse Resp BP Pulse Ox 98 F 67 20 111/68 97 03/06/18 15:30 03/06/18 15:30 03/06/18 15:30 03/06/18 15:30 03/06/18 15:30 - Medications Medications: Current Medications Acetaminophen (Tylenol 325mg Tab) 650 mg PO Q6 PRN PRN Reason: Pain, Mild (1-3) Last Admin: 03/05/18 21:47 Dose: 650 mg Acetaminophen (Tylenol 325mg Tab) 650 mg PO Q6 PRN PRN Reason: Fever >100.4 F Aspirin (Ecotrin) 81 mg PO DAILY [facility] Last Admin: 03/06/18 09:03 Dose: 81 mg Atorvastatin Calcium (Lipitor) 10 mg PO DAILY [facility] Last Admin: 03/06/18 09:03 Dose: 10 mg Clopidogrel Bisulfate (Plavix) 75 mg PO DAILY [facility] Last Admin: 03/06/18 09:03 Dose: 75 mg Dextrose (Dextrose 50% Inj) 0 ml IV STAT PRN; Protocol PRN Reason: Hypoglycemia Protocol Dextrose (Glutose 15) 0 gm PO ONCE PRN; Protocol PRN Reason: Hypoglycemia Protocol Enoxaparin Sodium (Lovenox) 40 mg SC DAILY [facility] PRN Reason: Protocol Last Admin: 03/06/18 10:21 Dose: 40 mg Glucagon (Glucagen Diagnostic Kit) 0 mg IM STAT PRN; Protocol PRN Reason: Hypoglycemia Protocol Vancomycin HCl 500 mg/ Sodium (Chloride) 100 mls @ 100 mls/hr IVPB Q12 [facility] PRN Reason: Protocol Last Admin: 03/06/18 10:23 Dose: 100 mls/hr Piperacillin Sod/Tazobactam (Sod 2.25 gm/ Sodium Chloride) 100 mls @ 100 mls/ hr IVPB Q6 [facility] PRN Reason: Protocol Last Admin: 03/06/18 16:38 Dose: 100 mls/hr Insulin Human Lispro (Humalog) 0 units SC ACHS [facility] PRN Reason: Protocol Last Admin: 03/06/18 12:08 Dose: Not Given Lisinopril (Zestril) 10 mg PO DAILY [facility] Last Admin: 03/04/18 09:42 Dose: Not Given Metformin HCl (Glucophage) 1,000 mg PO BID [facility] Last Admin: 03/06/18 10:21 Dose: 1,000 mg Metoprolol Succinate (Toprol Xl) 25 mg PO DAILY [facility] Last Admin: 03/06/18 10:21 Dose: 25 mg Morphine Sulfate (Morphine) 2 mg IVP Q6 PRN PRN Reason: Pain, severe (8-10) Last Admin: 03/06/18 09:18 Dose: 2 mg Oxycodone/Acetaminophen (Percocet 5/325 Mg Tab) 1 tab PO Q4 PRN PRN Reason: Pain, moderate (4-7) Stop: 03/07/18 01:40 Last Admin: 03/06/18 12:03 Dose: 1 tab Pioglitazone HCl (Actos) 15 mg PO DAILY [facility] Last Admin: 03/06/18 10:21 Dose: 15 mg - Labs Labs: 03/05/18 05:30 03/05/18 05:30 - Constitutional Appears: Well, Non-toxic, No Acute Distress - Extremities Exam Additional comments: VASC: CFT delayed, temperature is cool to cool, mild edema noted to the surgical site, no hair present, unpalpable pulses NEURO: Gross and protective sensation diminished bilaterally DERM: Necrosis noted to TMA flap with dehiscence of surgical site. No purulence expressed from dehisced site today. No malodor and mild erythema noted. Increasing dusky coloration noted to plantar foot with increased fluctuance/ discoloration ORTHO: Pain on palpation surrounding surgical site, improved since yesterday - Neurological Exam Neurological Exam: Alert, Awake, Oriented x3 - Psychiatric Exam Psychiatric exam: Normal Affect, Normal Mood Assessment and Plan - Assessment and Plan (Free Text) Assessment: 67M seen at bedside accompanied by his son and for infected TMA site Plan: Patient seen and evaluated Plan discussed with attending Dr. Dale Charts, labs, vitals reviewed Afebrile CBC ordered for AM Wound cx: E coli ID recs appreciated MRI left foot- reading pending Based on results of MRI and CBC values tomorrow possible bedside I and D vs I and D in OR vs fdc abx will be done No plan for surgical intervention at this time Continue IV abx Podiatry will continue to follow while patient in house
--- NOTE | 2018-03-06 17:54 | CP.PCM.PN ---
Subjective - Date & Time of Evaluation Date of Evaluation: 03/06/18 Time of Evaluation: 17:50 - Subjective Subjective: I D NOTE AWAITING MRI HAS ESBL + E.COLI HAVE D/ISAEL ZOSYN ,STARTED MEROPENEM(BETTER MICs) continue vancomycin Objective - Vital Signs/Intake and Output Vital Signs (last 24 hours): Temp Pulse Resp BP Pulse Ox 98 F 67 20 111/68 97 03/06/18 15:30 03/06/18 15:30 03/06/18 15:30 03/06/18 15:30 03/06/18 15:30 - Medications Medications: Current Medications Acetaminophen (Tylenol 325mg Tab) 650 mg PO Q6 PRN PRN Reason: Pain, Mild (1-3) Last Admin: 03/05/18 21:47 Dose: 650 mg Acetaminophen (Tylenol 325mg Tab) 650 mg PO Q6 PRN PRN Reason: Fever >100.4 F Aspirin (Ecotrin) 81 mg PO DAILY [facility] Last Admin: 03/06/18 09:03 Dose: 81 mg Atorvastatin Calcium (Lipitor) 10 mg PO DAILY [facility] Last Admin: 03/06/18 09:03 Dose: 10 mg Clopidogrel Bisulfate (Plavix) 75 mg PO DAILY [facility] Last Admin: 03/06/18 09:03 Dose: 75 mg Dextrose (Dextrose 50% Inj) 0 ml IV STAT PRN; Protocol PRN Reason: Hypoglycemia Protocol Dextrose (Glutose 15) 0 gm PO ONCE PRN; Protocol PRN Reason: Hypoglycemia Protocol Enoxaparin Sodium (Lovenox) 40 mg SC DAILY [facility] PRN Reason: Protocol Last Admin: 03/06/18 10:21 Dose: 40 mg Glucagon (Glucagen Diagnostic Kit) 0 mg IM STAT PRN; Protocol PRN Reason: Hypoglycemia Protocol Vancomycin HCl 500 mg/ Sodium (Chloride) 100 mls @ 100 mls/hr IVPB Q12 [facility] PRN Reason: Protocol Last Admin: 03/06/18 10:23 Dose: 100 mls/hr Meropenem 500 mg/ Sodium (Chloride) 100 mls @ 100 mls/hr IVPB Q12H [facility] PRN Reason: Protocol Insulin Human Lispro (Humalog) 0 units SC ACHS [facility] PRN Reason: Protocol Last Admin: 03/06/18 17:26 Dose: Not Given Lisinopril (Zestril) 10 mg PO DAILY [facility] Last Admin: 03/04/18 09:42 Dose: Not Given Metformin HCl (Glucophage) 1,000 mg PO BID [facility] Last Admin: 03/06/18 17:34 Dose: 1,000 mg Metoprolol Succinate (Toprol Xl) 25 mg PO DAILY [facility] Last Admin: 03/06/18 10:21 Dose: 25 mg Morphine Sulfate (Morphine) 2 mg IVP Q6 PRN PRN Reason: Pain, severe (8-10) Last Admin: 03/06/18 09:18 Dose: 2 mg Oxycodone/Acetaminophen (Percocet 5/325 Mg Tab) 1 tab PO Q4 PRN PRN Reason: Pain, moderate (4-7) Stop: 03/07/18 01:40 Last Admin: 03/06/18 12:03 Dose: 1 tab Pioglitazone HCl (Actos) 15 mg PO DAILY [facility] Last Admin: 03/06/18 10:21 Dose: 15 mg - Labs Labs: 03/05/18 05:30 03/05/18 05:30
[2018-03-06] MEDS: Meropenem 500 MG in Sodium Chloride 0.9% 100 ML IVPB SCH (18:55)
[2018-03-07] MEDS: Meropenem 500 MG in Sodium Chloride 0.9% 100 ML IVPB SCH ×2 (06:27→18:48)
[2018-03-07 07:07] LABS: HEMOGLOBIN 9.3 g/dL (12.0-18.0); MEAN CELL VOLUME 72.4 fl (80.0-94.0); MEAN CORPUSCULAR HEMOGLOBIN 24.1 pg (27.0-31.0); MEAN CORPUSCULAR HGB CONC 33.2 g/dL (33.0-37.0); RBC 3.88 Mil/uL (4.40-5.90); RED CELL DISTRIBUTION WIDTH 14.9 % (11.5-14.5); WHITE BLOOD COUNT 11.6 K/uL (4.8-10.8)
[2018-03-07 07:27] LABS: ALB/GLOB RATIO 0.9 (1.0-2.1); ALBUMIN 3.8 g/dL (3.5-5.0); ALT/SGPT 29 U/L (21-72); AST/SGOT 43 U/L (17-59); BLOOD UREA NITROGEN 18 mg/dl (9-20); CALCIUM 9.6 mg/dL (8.4-10.2); GFR AFRICAN-AMERICAN > 60; GFR NON-AFRICAN AMERICAN > 60
--- NOTE | 2018-03-07 07:56 | CP.PCM.PN ---
Subjective - Date & Time of Evaluation Date of Evaluation: 03/07/18 Time of Evaluation: 08:10 - Subjective Subjective: Pt seen and evaluated at bedside. Denies significant overnight events. Reports continued L foot pain, slightly improving with meds. Denies CP/SOB/N/V. Objective - Vital Signs/Intake and Output Vital Signs (last 24 hours): Temp Pulse Resp BP Pulse Ox 98.6 F 86 20 107/59 L 100 03/06/18 23:19 03/06/18 23:19 03/06/18 23:19 03/06/18 23:19 03/06/18 23:19 - Medications Medications: Current Medications Acetaminophen (Tylenol 325mg Tab) 650 mg PO Q6 PRN PRN Reason: Pain, Mild (1-3) Last Admin: 03/05/18 21:47 Dose: 650 mg Acetaminophen (Tylenol 325mg Tab) 650 mg PO Q6 PRN PRN Reason: Fever >100.4 F Aspirin (Ecotrin) 81 mg PO DAILY [facility] Last Admin: 03/06/18 09:03 Dose: 81 mg Atorvastatin Calcium (Lipitor) 10 mg PO DAILY [facility] Last Admin: 03/06/18 09:03 Dose: 10 mg Clopidogrel Bisulfate (Plavix) 75 mg PO DAILY [facility] Last Admin: 03/06/18 09:03 Dose: 75 mg Dextrose (Dextrose 50% Inj) 0 ml IV STAT PRN; Protocol PRN Reason: Hypoglycemia Protocol Dextrose (Glutose 15) 0 gm PO ONCE PRN; Protocol PRN Reason: Hypoglycemia Protocol Enoxaparin Sodium (Lovenox) 40 mg SC DAILY [facility] PRN Reason: Protocol Last Admin: 03/06/18 10:21 Dose: 40 mg Glucagon (Glucagen Diagnostic Kit) 0 mg IM STAT PRN; Protocol PRN Reason: Hypoglycemia Protocol Vancomycin HCl 500 mg/ Sodium (Chloride) 100 mls @ 100 mls/hr IVPB Q12 [facility] PRN Reason: Protocol Last Admin: 03/06/18 21:35 Dose: 100 mls/hr Meropenem 500 mg/ Sodium (Chloride) 100 mls @ 100 mls/hr IVPB Q12H [facility] PRN Reason: Protocol Last Admin: 03/07/18 06:27 Dose: 100 mls/hr Insulin Human Lispro (Humalog) 0 units SC ACHS [facility] PRN Reason: Protocol Last Admin: 03/06/18 22:52 Dose: Not Given Lisinopril (Zestril) 10 mg PO DAILY [facility] Last Admin: 03/04/18 09:42 Dose: Not Given Metformin HCl (Glucophage) 1,000 mg PO BID [facility] Last Admin: 03/06/18 17:34 Dose: 1,000 mg Metoprolol Succinate (Toprol Xl) 25 mg PO DAILY [facility] Last Admin: 03/06/18 10:21 Dose: 25 mg Morphine Sulfate (Morphine) 2 mg IVP Q6 PRN PRN Reason: Pain, severe (8-10) Last Admin: 03/07/18 00:14 Dose: 2 mg Pantoprazole Sodium (Protonix Ec Tab) 20 mg PO DAILY [facility] Pioglitazone HCl (Actos) 15 mg PO DAILY [facility] Last Admin: 03/06/18 10:21 Dose: 15 mg - Labs Labs: 03/07/18 06:30 03/07/18 06:30 - Eye Exam Eye Exam: EOMI - Neck Exam Neck Exam: Full ROM - Respiratory Exam Respiratory Exam: Clear to Ausculation Bilateral, NORMAL BREATHING PATTERN. absent: Wheezes - Cardiovascular Exam Cardiovascular Exam: +S1, +S2 - GI/Abdominal Exam GI & Abdominal Exam: Soft, Normal Bowel Sounds. absent: Tenderness - Extremities Exam Additional comments: L foot wrapped with not signs of fluid saturation. Pt able to have limited ROM 2 /2 pain. To ambulate with assistance of PT - Neurological Exam Neurological Exam: Alert, Awake, CN II-XII Intact, Oriented x3 - Psychiatric Exam Psychiatric exam: Normal Affect, Normal Mood Assessment and Plan - Assessment and Plan (Free Text) Plan: 67 yo male admitted for wound infection of left foot s/p Left total metatarsal amputation 02/06/18. IV abx. Wound cx + for E coli. Podiatry on board. Plan: Wound infection 2/2 to L TMA - leukocytosis (trending down) - ID consult placed, recs appreciated.: d/c Zosyn and start meropenem. Vanco ( renal dose) CrcL 49. (Vanc trough 8.2 03/06/2018) - Podiatry on board: recommendations appreciated - Daily wound care. - MRI foot: repeat: pending official read Hyperkalemia- Improving - Lisinopril held - Potassium today 5.0 HTN - controlled with metoprolol - Continue to monitor VS DM -HbA1c 6.2 on 01/28/18 -eloina -ISS -c/w current management CKD stage 3, stable BUN/CR 01/12.2 GFR: : >60 Cr Cl: 61 Hx of CAD s/p CABG 2006 -c/w aspirin, plavix DVT Prophylaxis Lovenox 40 mg sc daily Dispo PT: [facility]GR[facility]
[2018-03-07] MEDS: Insulin Lispro (humaLOG) 100 Units/ml Inj SC SCH ×4 (08:27→22:06)
[2018-03-07] MEDS: Metoprolol Succinate 25 mg XL Tab PO SCH (08:39)
[2018-03-07] MEDS: Enoxaparin 40 mg Syringe SC SCH (08:39)
[2018-03-07] MEDS: Pantoprazole 20 mg EC Tab PO SCH (08:40)
--- NOTE | 2018-03-07 08:49 | MRI ---
MRI left foot History: Abscess. Comparison: Foot x-ray dated 03/03/2018 Technique: Multi-echo multiplanar sequences were performed through the left foot without the use of intravenous contrast. Findings: Markedly limited study as the patient could not tolerate the examination. In addition, there is prominent patient motion artifact. Repeat study is recommended. The study is essentially nondiagnostic. Edema throughout the hindfoot and forefoot musculature throughout the entire plantar surfaces. Amputation of the forefoot at the level of the mid metatarsals. Fluid collection adjacent to the distal remaining end of the 1st metatarsal measuring 2.3 x 2.0 x 0.9 centimeters. This fluid collection extends in a finger-like projection fashion along the plantar aspect of the metatarsal bone. This is concerning for possible abscess. Diffuse subcutaneous edema. Plantar and dorsal calcaneal spurring. Mild tenosynovitis of the medial flexor tendon sheaths. Mild tenosynovitis the peroneal tendon sheaths. Anterior and posterior tibiofibular and talofibular ligaments appear preserved. Achilles tendon is preserved. Mild thickening of the plantar fascia measuring up to 7 millimeters. 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 4 millimeters subchondral cyst formation mid talus. Small ankle joint effusion. Prominent degenerative changes noted at the dorsal aspect of the talonavicular joint space some bony hypertrophy. Evaluation of the osseous marrow demonstrates some prominent focal signal abnormality seen at the distal end of the 3rd metatarsal remnant demonstrating decreased T1 signal and increased STIR signal. This is nonspecific; however, subtle acute and or early acute osteomyelitic changes at this level cannot entirely be excluded. Clinical correlation. Additional scattered areas of patchy reactive bone marrow edema with some increased STIR signal are more nonspecific and seen at the bases the 1st metatarsal bone, 2nd metatarsal bone, 4th metatarsal bone, medial, middle, and lateral cuneiform bones, cuboid bone, anterior calcaneus, and lateral distal fibula. Clinical correlation. Subchondral cyst formation measuring 5 millimeters within the medial aspect of the navicular bone. Subchondral cyst formation seen at the anterior aspect of the calcaneus. 5 mm subchondral cyst formation noted within the mid talus. Impression: Markedly limited study as the patient could not tolerate the examination. In addition, there is prominent patient motion artifact. Repeat study is recommended. The study is essentially nondiagnostic. 1. Fluid collection adjacent to the distal remaining end of the 1st metatarsal bone measuring 2.3 x 2.0 x 0.9 centimeters suggestive for an abscess. 2. Edema throughout the visualized musculature thickening throughout the entire plantar surface. 3. Evaluation of the osseous marrow demonstrates some prominent focal signal abnormality seen at the distal end of the 3rd metatarsal remnant demonstrating decreased T1 signal and increased STIR signal. This is nonspecific; however, subtle acute and or early acute osteomyelitic changes at this level cannot entirely be excluded. Clinical correlation. Additional scattered areas of patchy reactive bone marrow edema with some increased STIR signal are more nonspecific and seen at the bases the 1st metatarsal bone, 2nd metatarsal bone, 4th metatarsal bone, medial, middle, and lateral cuneiform bones, cuboid bone, anterior calcaneus, and lateral distal fibula. Clinical correlation. 4. Small ankle joint effusion. Additional findings as above.
--- NOTE | 2018-03-07 14:20 | MRI ---
MRI left foot History: Surgery. Comparison: MRI dated 03/06/2018 Technique: Multi-echo multiplanar sequences were performed through the left foot without the use of intravenous contrast. Findings: Amputation of the forefoot at the level of the mid metatarsals. Edema throughout the hindfoot and forefoot musculature and throughout the entire plantar surfaces. Again identified is a prominent fluid collection adjacent to the distal remaining end of the 1st metatarsal bone measuring 2.3 x 1.2 x 2.5 centimeters. This fluid collection extends in a finger-like projection fashion along the plantar aspect of the metatarsal bone. This is concerning for a possible abscess. Adjacent mild signal abnormality seen at the distal end of the 1st metatarsal bone with some minimal decreased T1 signal and increased STIR signal. These changes are nonspecific and may represent mild and or early acute developing osteomyelitis. Clinical correlation. Mild reactive edema seen within the remnant base of the 1st metatarsal bone. Additional small area of focal fluid signal intensity measuring up to 1 centimeters seen at the volar base of the 3rd metatarsal bone remnant. At the distal end of the 3rd metatarsal bone, there is decreased T1 signal with increased STIR signal. This is nonspecific and may represent early acute and or developing acute osteomyelitis. Clinical correlation. Additional scattered areas of osseous signal abnormality with patchy reactive bone marrow edema and some increased STIR signal, more nonspecific, at the bases of the 1st metatarsal bone, 2nd metatarsal bone, 4th metatarsal bone, medial, middle, and lateral cuneiform bones, cuboid bone, anterior calcaneus, and lateral distal fibula. Clinical correlation. Achilles tendon is preserved. Thickening of the plantar fascia measuring up to 8.4 millimeters. 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 Small ankle joint effusion. Plantar and dorsal calcaneal spurring. Mild tenosynovitis of the medial flexor tendon sheaths. Mild tenosynovitis of the peroneal tendon sheaths. 4 millimeter subchondral cyst formation in the mid talus. Prominent degenerative changes noted at the dorsal aspect of the talonavicular joint space with some bony hypertrophy. Subchondral cyst formation measuring 5 millimeters within medial aspect of the navicular bone. Subchondral cyst formation seen at the anterior aspect of the calcaneus measuring 5 millimeters. Additional subchondral cyst formation noted within the mid talus. Fraying with increased signal noted at the level of the Lisfranc ligament suggestive for partial tearing and or high grade sprain. Prominent rounded low signal foci in the lateral soft tissues at the level of mid calcaneus measuring up to 7 millimeters, nonspecific. Clinical correlation. Impression: 1. Amputation of the forefoot at the level of the mid metatarsals. 2. Edema throughout the hindfoot and forefoot musculature and throughout the entire plantar surfaces. 3. Again identified is a prominent fluid collection adjacent to the distal remaining end of the 1st metatarsal bone measuring 2.3 x 1.2 x 2.5 centimeters. This fluid collection extends in a finger-like projection fashion along the plantar aspect of the metatarsal bone. This is concerning for a possible abscess. 4. Adjacent mild signal abnormality seen at the distal end of the 1st metatarsal bone with some minimal decreased T1 signal and increased STIR signal. These changes are nonspecific and may represent mild and or early acute developing osteomyelitis. Clinical correlation. Mild reactive edema seen within the remnant base of the 1st metatarsal bone. 5. Additional small area of focal fluid signal intensity measuring up to 1 centimeters seen at the volar base of the 3rd metatarsal bone remnant. At the distal end of the 3rd metatarsal bone, there is decreased T1 signal with increased STIR signal. This is nonspecific and may represent early acute and or developing acute osteomyelitis. Clinical correlation. 6. Additional scattered areas of osseous signal abnormality with patchy reactive bone marrow edema and some increased STIR signal, more nonspecific, at the bases of the 1st metatarsal bone, 2nd metatarsal bone, 4th metatarsal bone, medial, middle, and lateral cuneiform bones, cuboid bone, anterior calcaneus, and lateral distal fibula. Clinical correlation. 7. Thickening of the plantar fascia measuring up to 8.4 millimeters. 8. 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 9. Small ankle joint effusion. 10. Mild tenosynovitis of the medial flexor tendon sheaths. Mild tenosynovitis of the peroneal tendon sheaths. 11. 4 millimeter subchondral cyst formation in the mid talus. 12. Prominent degenerative changes noted at the dorsal aspect of the talonavicular joint space with some bony hypertrophy. 13. Subchondral cyst formation measuring 5 millimeters within medial aspect of the navicular bone. Subchondral cyst formation seen at the anterior aspect of the calcaneus measuring 5 millimeters. Additional subchondral cyst formation noted within the mid talus. 14. Fraying with increased signal noted at the level of the Lisfranc ligament suggestive for partial tearing and or high grade sprain. 15. Prominent rounded low signal foci in the lateral soft tissues at the level of mid calcaneus measuring up to 7 millimeters, nonspecific. Clinical correlation.
--- NOTE | 2018-03-07 19:48 | CP.PCM.PN ---
Subjective - Date & Time of Evaluation Date of Evaluation: 03/07/18 Time of Evaluation: 19:46 - Subjective Subjective: Podiatry consult note for Dr. Dale 67M seen at bedside accompanied by his family for infected TMA site. Patient is AAO x 3 and NAD at time of visit. Denies any acute overnight events or further pedal complaints at this time. States that pain is well controlled. Denies any recent N/V/F/C/CP/SOB/D/posterior calf pain when squeezed. Objective - Vital Signs/Intake and Output Vital Signs (last 24 hours): Temp Pulse Resp BP Pulse Ox 97.2 F L 98 H 18 110/68 99 03/07/18 16:45 03/07/18 16:45 03/07/18 16:45 03/07/18 16:45 03/07/18 16:45 - Medications Medications: Current Medications Acetaminophen (Tylenol 325mg Tab) 650 mg PO Q6 PRN PRN Reason: Pain, Mild (1-3) Last Admin: 03/07/18 16:33 Dose: 650 mg Acetaminophen (Tylenol 325mg Tab) 650 mg PO Q6 PRN PRN Reason: Fever >100.4 F Aspirin (Ecotrin) 81 mg PO DAILY [facility] Last Admin: 03/07/18 08:39 Dose: 81 mg Atorvastatin Calcium (Lipitor) 10 mg PO DAILY [facility] Last Admin: 03/07/18 08:39 Dose: 10 mg Clopidogrel Bisulfate (Plavix) 75 mg PO DAILY [facility] Last Admin: 03/07/18 08:39 Dose: 75 mg Dextrose (Dextrose 50% Inj) 0 ml IV STAT PRN; Protocol PRN Reason: Hypoglycemia Protocol Dextrose (Glutose 15) 0 gm PO ONCE PRN; Protocol PRN Reason: Hypoglycemia Protocol Enoxaparin Sodium (Lovenox) 40 mg SC DAILY [facility] PRN Reason: Protocol Last Admin: 03/07/18 08:39 Dose: 40 mg Glucagon (Glucagen Diagnostic Kit) 0 mg IM STAT PRN; Protocol PRN Reason: Hypoglycemia Protocol Vancomycin HCl 500 mg/ Sodium (Chloride) 100 mls @ 100 mls/hr IVPB Q12 [facility] PRN Reason: Protocol Last Admin: 03/07/18 08:40 Dose: 100 mls/hr Meropenem 500 mg/ Sodium (Chloride) 100 mls @ 100 mls/hr IVPB Q12H [facility] PRN Reason: Protocol Last Admin: 03/07/18 18:48 Dose: 100 mls/hr Insulin Human Lispro (Humalog) 0 units SC ACHS [facility] PRN Reason: Protocol Last Admin: 03/07/18 16:33 Dose: 2 units Lisinopril (Zestril) 10 mg PO DAILY [facility] Last Admin: 03/04/18 09:42 Dose: Not Given Metformin HCl (Glucophage) 1,000 mg PO BID [facility] Last Admin: 03/07/18 16:34 Dose: 1,000 mg Metoprolol Succinate (Toprol Xl) 25 mg PO DAILY [facility] Last Admin: 03/07/18 08:39 Dose: 25 mg Morphine Sulfate (Morphine) 2 mg IVP Q6 PRN PRN Reason: Pain, severe (8-10) Last Admin: 03/07/18 15:37 Dose: 2 mg Morphine Sulfate (Morphine) 4 mg IVP Q6 PRN PRN Reason: Pain, moderate (4-7) Last Admin: 03/07/18 18:43 Dose: 4 mg Pantoprazole Sodium (Protonix Ec Tab) 20 mg PO DAILY [facility] Last Admin: 03/07/18 08:40 Dose: 20 mg Pioglitazone HCl (Actos) 15 mg PO DAILY [facility] Last Admin: 03/07/18 08:39 Dose: 15 mg Senna/Docusate Sodium (Senokot S 50 Mg-8.6 Mg) 2 tab PO HS [facility] - Labs Labs: 03/07/18 06:30 03/07/18 06:30 - Constitutional Appears: Well, Non-toxic, No Acute Distress - Extremities Exam Additional comments: VASC: CFT delayed, temperature is cool to cool, mild edema noted to the surgical site, no hair present, unpalpable pulses NEURO: Gross and protective sensation diminished bilaterally DERM: Necrosis noted to TMA flap with dehiscence of surgical site. No purulence expressed from dehisced site today. No malodor and mild erythema noted. Increasing dusky coloration noted to plantar foot with continued increased fluctuance/discoloration ORTHO: Pain on palpation surrounding surgical site, controlled - Neurological Exam Neurological Exam: Alert, Awake, Oriented x3 - Psychiatric Exam Psychiatric exam: Normal Affect, Normal Mood Assessment and Plan - Assessment and Plan (Free Text) Assessment: 67M seen at bedside accompanied by his family for infected TMA site Plan: Patient seen and evaluated Plan discussed with attending Dr. Dale Charts, labs, vitals reviewed Afebrile, WBC 11.6 Continue IV abx per ID Continue Medical management per Medical team Wound cx L foot - E coli MRI reading reviewed Plantar aspect of patient's foot cleansed with betadine over fluctuant area, 2 cc of lidocaine 2% plain introduced into area Bedside I and D performed using a #15 blade w/ approximately 7 cc of brown/ serous drainage expressed from the plantar aspect of the foot All detached epidermal skin was removed from the foot and the underlying skin was painted with betadine Foot dressed with betadine, DSD, ABD, kirlix, BRYANT No plan for surgical intervention at this time Podiatry will continue to follow while patient in house
[2018-03-07] MEDS: Docusate-Senna 50 mg-8.6 mg Tab PO SCH (21:35)
[2018-03-08] MEDS: Meropenem 500 MG in Sodium Chloride 0.9% 100 ML IVPB SCH ×2 (05:35→16:59)
[2018-03-08 08:10] LABS: HEMOGLOBIN 8.7 g/dL (12.0-18.0); MEAN CELL VOLUME 72.1 fl (80.0-94.0); MEAN CORPUSCULAR HEMOGLOBIN 24.2 pg (27.0-31.0); MEAN CORPUSCULAR HGB CONC 33.6 g/dL (33.0-37.0); RBC 3.59 Mil/uL (4.40-5.90); RED CELL DISTRIBUTION WIDTH 14.6 % (11.5-14.5); WHITE BLOOD COUNT 9.9 K/uL (4.8-10.8)
[2018-03-08] MEDS: Insulin Lispro (humaLOG) 100 Units/ml Inj SC SCH ×4 (08:24→22:12)
[2018-03-08] MEDS: Pantoprazole 20 mg EC Tab PO SCH (08:25)
[2018-03-08] MEDS: Enoxaparin 40 mg Syringe SC SCH (08:28)
[2018-03-08] MEDS: Metoprolol Succinate 25 mg XL Tab PO SCH (08:29)
--- NOTE | 2018-03-08 09:19 | CP.PCM.PN ---
Subjective - Date & Time of Evaluation Date of Evaluation: 03/08/18 Time of Evaluation: 09:17 - Subjective Subjective: 67 y/o M seen at bedside for infected TMA site and bedside I and D 03/07/18. Patient is AAO x 3 and NAD at time of visit. Denies any acute overnight events or further pedal complaints at this time. States that pain is well controlled. Denies any recent N/V/F/C/CP/SOB/D/posterior calf pain when squeezed. Objective - Vital Signs/Intake and Output Vital Signs (last 24 hours): Temp Pulse Resp BP Pulse Ox 97.9 F 55 L 20 122/68 95 03/08/18 08:23 03/08/18 08:29 03/08/18 08:23 03/08/18 08:23 03/08/18 08:23 - Medications Medications: Current Medications Acetaminophen (Tylenol 325mg Tab) 650 mg PO Q6 PRN PRN Reason: Pain, Mild (1-3) Last Admin: 03/07/18 16:33 Dose: 650 mg Acetaminophen (Tylenol 325mg Tab) 650 mg PO Q6 PRN PRN Reason: Fever >100.4 F Aspirin (Ecotrin) 81 mg PO DAILY [facility] Last Admin: 03/08/18 08:25 Dose: 81 mg Atorvastatin Calcium (Lipitor) 10 mg PO DAILY [facility] Last Admin: 03/08/18 08:24 Dose: 10 mg Clopidogrel Bisulfate (Plavix) 75 mg PO DAILY [facility] Last Admin: 03/08/18 08:24 Dose: 75 mg Dextrose (Dextrose 50% Inj) 0 ml IV STAT PRN; Protocol PRN Reason: Hypoglycemia Protocol Dextrose (Glutose 15) 0 gm PO ONCE PRN; Protocol PRN Reason: Hypoglycemia Protocol Enoxaparin Sodium (Lovenox) 40 mg SC DAILY [facility] PRN Reason: Protocol Last Admin: 03/08/18 08:28 Dose: 40 mg Glucagon (Glucagen Diagnostic Kit) 0 mg IM STAT PRN; Protocol PRN Reason: Hypoglycemia Protocol Vancomycin HCl 500 mg/ Sodium (Chloride) 100 mls @ 100 mls/hr IVPB Q12 [facility] PRN Reason: Protocol Last Admin: 03/08/18 08:23 Dose: 100 mls/hr Meropenem 500 mg/ Sodium (Chloride) 100 mls @ 100 mls/hr IVPB Q12H [facility] PRN Reason: Protocol Last Admin: 03/08/18 05:35 Dose: 100 mls/hr Insulin Human Lispro (Humalog) 0 units SC ACHS [facility] PRN Reason: Protocol Last Admin: 03/08/18 08:24 Dose: Not Given Lisinopril (Zestril) 10 mg PO DAILY [facility] Last Admin: 03/04/18 09:42 Dose: Not Given Metformin HCl (Glucophage) 1,000 mg PO BID [facility] Last Admin: 03/08/18 08:24 Dose: 1,000 mg Metoprolol Succinate (Toprol Xl) 25 mg PO DAILY [facility] Last Admin: 03/08/18 08:29 Dose: Not Given Morphine Sulfate (Morphine) 2 mg IVP Q6 PRN PRN Reason: Pain, severe (8-10) Last Admin: 03/07/18 15:37 Dose: 2 mg Morphine Sulfate (Morphine) 4 mg IVP Q6 PRN PRN Reason: Pain, moderate (4-7) Last Admin: 03/07/18 18:43 Dose: 4 mg Pantoprazole Sodium (Protonix Ec Tab) 20 mg PO DAILY [facility] Last Admin: 03/08/18 08:25 Dose: 20 mg Pioglitazone HCl (Actos) 15 mg PO DAILY [facility] Last Admin: 03/08/18 08:25 Dose: 15 mg Senna/Docusate Sodium (Senokot S 50 Mg-8.6 Mg) 2 tab PO HS [facility] Last Admin: 03/07/18 21:35 Dose: 2 tab - Labs Labs: 03/08/18 07:50 03/07/18 06:30 - Constitutional Appears: Well, Non-toxic, No Acute Distress - Extremities Exam Additional comments: LLE Focused Exam VASC: Dp and PT non-palpable, CFT delayed, temperature is warm to cool, mild edema noted to the surgical site, no hair present NEURO: Gross and protective sensation diminished bilaterally DERM: Necrosis noted to TMA flap with dehiscence of surgical site. No purulence expressed from dehisced site today. No malodor and mild erythema noted. De- roofed area of I and D (03/07/18) noted to be less macerated, more pink in nature with no evidence fluctuance or infection ORTHO: POP at surgical site, Controlled and improving - Neurological Exam Neurological Exam: Alert, Awake, Oriented x3 - Psychiatric Exam Psychiatric exam: Normal Affect, Normal Mood Assessment and Plan - Assessment and Plan (Free Text) Assessment: 67 y/o M seen at bedside for infected TMA site and bedside I and D 03/07/18. Plan: Patient seen and evaluated at bedside Plan discussed with attending Dr. Dale Chart, labs, and vitals reviewed Afebrile, WBC 9.9 Continue IV abx per ID Continue medical management per Medical team Wound Cx L foot- E Coli MRI reading reviewed Foot dressed with betadine, DSD, ABD, Kerlix and BRYANT No plan for surgical intervention at this time Podiatry will continue to follow patient while in house
--- NOTE | 2018-03-08 09:44 | CP.PCM.PN ---
Subjective - Date & Time of Evaluation Date of Evaluation: 03/08/18 Time of Evaluation: 09:43 - Subjective Subjective: Pt seen and evaluated at bedside. Denies significant overnight events. Reports mild L foot pain, improving with meds. Denies CP/SOB/N/V. Objective - Vital Signs/Intake and Output Vital Signs (last 24 hours): Temp Pulse Resp BP Pulse Ox 97.9 F 55 L 20 122/68 95 03/08/18 08:23 03/08/18 08:29 03/08/18 08:23 03/08/18 08:23 03/08/18 08:23 - Medications Medications: Current Medications Acetaminophen (Tylenol 325mg Tab) 650 mg PO Q6 PRN PRN Reason: Pain, Mild (1-3) Last Admin: 03/07/18 16:33 Dose: 650 mg Acetaminophen (Tylenol 325mg Tab) 650 mg PO Q6 PRN PRN Reason: Fever >100.4 F Aspirin (Ecotrin) 81 mg PO DAILY [facility] Last Admin: 03/08/18 08:25 Dose: 81 mg Atorvastatin Calcium (Lipitor) 10 mg PO DAILY [facility] Last Admin: 03/08/18 08:24 Dose: 10 mg Clopidogrel Bisulfate (Plavix) 75 mg PO DAILY [facility] Last Admin: 03/08/18 08:24 Dose: 75 mg Dextrose (Dextrose 50% Inj) 0 ml IV STAT PRN; Protocol PRN Reason: Hypoglycemia Protocol Dextrose (Glutose 15) 0 gm PO ONCE PRN; Protocol PRN Reason: Hypoglycemia Protocol Enoxaparin Sodium (Lovenox) 40 mg SC DAILY [facility] PRN Reason: Protocol Last Admin: 03/08/18 08:28 Dose: 40 mg Glucagon (Glucagen Diagnostic Kit) 0 mg IM STAT PRN; Protocol PRN Reason: Hypoglycemia Protocol Vancomycin HCl 500 mg/ Sodium (Chloride) 100 mls @ 100 mls/hr IVPB Q12 [facility] PRN Reason: Protocol Last Admin: 03/08/18 08:23 Dose: 100 mls/hr Meropenem 500 mg/ Sodium (Chloride) 100 mls @ 100 mls/hr IVPB Q12H [facility] PRN Reason: Protocol Last Admin: 03/08/18 05:35 Dose: 100 mls/hr Insulin Human Lispro (Humalog) 0 units SC ACHS [facility] PRN Reason: Protocol Last Admin: 03/08/18 08:24 Dose: Not Given Lisinopril (Zestril) 10 mg PO DAILY [facility] Last Admin: 03/04/18 09:42 Dose: Not Given Metformin HCl (Glucophage) 1,000 mg PO BID [facility] Last Admin: 03/08/18 08:24 Dose: 1,000 mg Metoprolol Succinate (Toprol Xl) 25 mg PO DAILY [facility] Last Admin: 03/08/18 08:29 Dose: Not Given Morphine Sulfate (Morphine) 2 mg IVP Q6 PRN PRN Reason: Pain, severe (8-10) Last Admin: 03/07/18 15:37 Dose: 2 mg Morphine Sulfate (Morphine) 4 mg IVP Q6 PRN PRN Reason: Pain, moderate (4-7) Last Admin: 03/07/18 18:43 Dose: 4 mg Pantoprazole Sodium (Protonix Ec Tab) 20 mg PO DAILY [facility] Last Admin: 03/08/18 08:25 Dose: 20 mg Pioglitazone HCl (Actos) 15 mg PO DAILY [facility] Last Admin: 03/08/18 08:25 Dose: 15 mg Senna/Docusate Sodium (Senokot S 50 Mg-8.6 Mg) 2 tab PO HS [facility] Last Admin: 03/07/18 21:35 Dose: 2 tab - Labs Labs: 03/08/18 07:50 03/07/18 06:30 - Constitutional Appears: No Acute Distress - Eye Exam Eye Exam: EOMI, PERRL - Respiratory Exam Respiratory Exam: Clear to Ausculation Bilateral, NORMAL BREATHING PATTERN - Cardiovascular Exam Cardiovascular Exam: REGULAR RHYTHM, +S1, +S2 - GI/Abdominal Exam GI & Abdominal Exam: Soft, Normal Bowel Sounds. absent: Distended, Tenderness - Extremities Exam Extremities Exam: absent: Calf Tenderness Additional comments: Dressing clean, intact, not signs of fluid saturation. 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 IV abx. Wound cx + for E coli. Podiatry on board. Plan: Wound infection 2/2 to L TMA - leukocytosis resolved, afebrile - ID on board recs appreciated. - start meropenem and c/w Vanco ( renal dose) CrcL 49. (Vanc trough 8.2 03/06/2018) - Podiatry on board: recommendations appreciated - Daily wound care. - Repeat MRI foot: finding of fluid collection on 1st metatarsal bone concerning for possible abscess, non specific changes at distal end of 1st and 3rd metatarsal bone concerning for early OM. HTN - controlled with metoprolol - Continue to monitor VS DM -HbA1c 6.2 on 01/28/18 -accuchecks -ISS -c/w current management CKD stage 3, stable BUN/CR 01/12.2 GFR: : >60 Cr Cl: 61 Hx of CAD s/p CABG 2006 -c/w aspirin, plavix DVT Prophylaxis Lovenox 40 mg sc daily Dispo PT: [facility]GRID
[2018-03-08 14:43] LABS: INR 1.2 (0.9-1.2); PARTIAL THROMBOPLASTIN TIME 38.8 Seconds (25.6-37.1); PROTHROMBIN TIME 13.4 Seconds (9.8-13.1)
[2018-03-08] MEDS: Docusate-Senna 50 mg-8.6 mg Tab PO SCH (21:15)
[2018-03-09] MEDS: Meropenem 500 MG in Sodium Chloride 0.9% 100 ML IVPB SCH (05:25)
[2018-03-09] MEDS: Insulin Lispro (humaLOG) 100 Units/ml Inj SC SCH ×2 (07:28→11:30)
[2018-03-09] MEDS: Enoxaparin 40 mg Syringe SC SCH (08:09)
[2018-03-09] MEDS: Metoprolol Succinate 25 mg XL Tab PO SCH ×2 (08:10→11:09)
[2018-03-09] MEDS: Pantoprazole 20 mg EC Tab PO SCH ×2 (08:10→11:11)
[2018-03-09 08:25] VITALS: O2SAT 96
[2018-03-09 09:32] VITALS: BP 120/74; PULSE 72; RESP 18; TEMP 98.2
[2018-03-09] MEDS ORDERED: Lidocaine Hydrochloride 1% 10 ML ONE (09:39)
--- NOTE | 2018-03-09 09:53 | PCM.SURG1 ---
Surgeon's Initial Post Op Note - Surgeon's Notes Surgeon: Edgardo Sanderson MD Sociology Adjunct Instructor: None Type of Anesthesia: Local Pre-Operative Diagnosis: infection Operative Findings: patent right basilic vein. catheter length: 40 cm. catheter tip: cavoatrial junction Post-Operative Diagnosis: same Operation Performed: RUE PICC Insertion Specimen/Specimens Removed: n/a Estimated Blood Loss: EBL {In ML}: 0 Date of Surgery/Procedure: 03/09/18 Time of Surgery/Procedure: 09:45
--- NOTE | 2018-03-09 10:22 | VASCULAR ---
PROCEDURE: PERIPHERALLY INSERTED CENTRAL VENOUS CATHETER INSERTION CLINICAL HISTORY: 67-year-old male requiring buttermaker continuous churn intravenous antibiotics is referred to Interventional Radiology for PICC insertion. COMPARISON: PICC insertion dated. PROCEDURE: 1. Focused ultrasound of the right upper extremity vasculature. 2. Ultrasound-guided access. 3. Insertion of peripherally inserted central venous catheter. 4. Fluoroscopic localization of catheter tip. PRE-PROCEDURE FINDINGS: 1. Patent right basilic vein. POST-PROCEDURE FINDINGS: 1. Placement of 4 Ukrainian single-lumen PICC. 2. Catheter length: 40 cm. 3. Catheter tip at cavoatrial junction. INTERVENTIONAL RADIOLOGIST: Edgardo Sanderson M.D. (the attending was present for the entire procedure) ANESTHESIA: None. MEDICATION: Lidocaine 1% for local subcutaneous analgesia. COMPLICATIONS: None. RADIATION DOSE: Fluoroscopy Time: 8.3 seconds Cumulative dose: 0.96 mGy PROCEDURE DESCRIPTION AND FINDINGS: The risks, benefits, alternatives and possible complications of the procedure were fully discussed; all questions were answered and informed consent was obtained. The patient was brought into the interventional suite and a pre-procedure 'time-out' was performed. The patient was placed on the fluoroscopy table in the supine position. The right upper extremity was prepped and draped in the usual sterile fashion. Maximum sterile barrier precautions were maintained throughout the entire procedure. Preliminary ultrasound images of the right upper extremity vasculature demonstrate patency of the right basilic vein. Following subcutaneous infiltration of 1% lidocaine for local analgesia, under ultrasound guidance, a 21-gauge needle was advanced into the right basilic vein with real-time visualization of needle entry. The ultrasound images were permanently recorded and submitted to the PACS. A 0.018 guidewire was advanced centrally to the cavoatrial junction. A 4.5 Ukrainian peel-away sheath was advanced over the guidewire. After obtaining length measurement, a 4 Ukrainian single-lumen PICC was placed with the tip of the catheter at the cavoatrial junction. The total length of the catheter is 40 cm. The hub of the PICC was secured to the skin using a sterile adhesive bandage. The patient tolerated the procedure well without immediate post-procedure complications and was transferred back to the floor in stable condition. IMPRESSION: SUCCESSFUL INSERTION OF RIGHT UPPER EXTREMITY PICC. PICC OK TO USE.
[2018-03-09 10:36] LABS: HEMOGLOBIN 9.5 g/dL (12.0-18.0); MEAN CORPUSCULAR HEMOGLOBIN 24.2 pg (27.0-31.0); MEAN CORPUSCULAR HGB CONC 33.6 g/dL (33.0-37.0); RBC 3.94 Mil/uL (4.40-5.90); WHITE BLOOD COUNT 11.9 K/uL (4.8-10.8)
--- NOTE | 2018-03-09 13:29 | CP.PCM.DIS ---
Provider - Provider Date of Admission: 03/04/18 01:01 Attending physician: Alina Bray MD Time Spent in preparation of Discharge (in minutes): 30 Diagnosis - Discharge Diagnosis (1) Osteomyelitis Status: Acute (2) Dehiscence of amputation stump Status: Acute (3) Postoperative wound infection Status: Acute (4) Hyperlipidemia Status: Acute (5) Coronary artery disease Status: Chronic (6) Diabetes Status: Chronic Hospital Course - Lab Results Lab Results: Micro Results 03/03/18 22:45 Blood-Venous Blood Culture - Final NO GROWTH AFTER 5 DAYS 03/03/18 22:45 Blood-Venous Gram Stain - Final TEST NOT PERFORMED 03/03/18 09:10 Foot - Left Gram Stain - Final 03/03/18 09:10 Foot - Left Wound Culture - Final Escherichia Coli Most Recent Lab Values WBC 11.9 K/uL (4.8-10.8) H 03/09/18 10:15 RBC 3.94 Mil/uL (4.40-5.90) L 03/09/18 10:15 Hgb 9.5 g/dL (12.0-18.0) L 03/09/18 10:15 Hct 28.4 % (35.0-51.0) L 03/09/18 10:15 MCV 72.0 fl (80.0-94.0) L 03/09/18 10:15 MCH 24.2 pg (27.0-31.0) L 03/09/18 10:15 MCHC 33.6 g/dL (33.0-37.0) 03/09/18 10:15 RDW 15.0 % (11.5-14.5) H 03/09/18 10:15 Plt Count 363 K/uL (130-400) 03/09/18 10:15 MPV 7.5 fl (7.2-11.7) 03/05/18 05:30 Neut % (Auto) 63.3 % (50.0-75.0) 03/05/18 05:30 Lymph % (Auto) 14.0 % (20.0-40.0) L 03/05/18 05:30 [place] % (Auto) 7.0 % (0.0-10.0) 03/05/18 05:30 Eos % (Auto) 14.8 % (0.0-4.0) H 03/05/18 05:30 Baso % (Auto) 0.9 % (0.0-2.0) 03/05/18 05:30 Neut # (Auto) 8.3 K/uL (1.8-7.0) H 03/05/18 05:30 Lymph # (Auto) 1.8 K/uL (1.0-4.3) 03/05/18 05:30 [place] # (Auto) 0.9 K/uL (0.0-0.8) H 03/05/18 05:30 Eos # (Auto) 2.0 K/uL (0.0-0.7) H 03/05/18 05:30 Baso # (Auto) 0.1 K/uL (0.0-0.2) 03/05/18 05:30 PT 13.4 Seconds (9.8-13.1) H 03/08/18 14:20 INR 1.2 (0.9-1.2) 03/08/18 14:20 APTT 38.8 Seconds (25.6-37.1) H 03/08/18 14:20 pO2 32 mm/Hg (30-55) 03/04/18 01:27 VBG pH 7.38 (7.32-7.43) 03/04/18 01:27 VBG pCO2 43 mmHg (40-60) 03/04/18 01:27 VBG HCO3 24.4 mmol/L 03/04/18 01:27 VBG Total CO2 26.7 mmol/L (22-28) 03/04/18 01:27 VBG O2 Sat (Calc) 63.2 % (40-65) 03/04/18 01:27 VBG Base Excess 0.2 mmol/L (0.0-2.0) 03/04/18 01:27 VBG Potassium 5.0 mmol/L (3.6-5.2) 03/04/18 01:27 Sodium 138.0 mmol/L (132-148) 03/04/18 01:27 Chloride 110.0 mmol/L (98-107) H 03/04/18 01:27 Glucose 102 mg/dL (75-110) 03/04/18 01:27 Lactate 0.7 mmol/L (0.7-2.1) 03/04/18 01:27 FiO2 21.0 % 03/04/18 01:27 Sodium 143 mmol/l (132-148) 03/07/18 06:30 Potassium 5.0 MMOL/L (3.6-5.0) 03/07/18 06:30 Chloride 105 mmol/L (98-107) 03/07/18 06:30 Carbon Dioxide 25 mmol/L (22-30) 03/07/18 06:30 Anion Gap 18 (10-20) 03/07/18 06:30 BUN 18 mg/dl (9-20) 03/07/18 06:30 Creatinine 1.2 mg/dl (0.8-1.5) 03/07/18 06:30 Est GFR ( Amer) > 60 03/07/18 06:30 Est GFR (Non-Af Amer) > 60 03/07/18 06:30 POC Glucose (mg/dL) 181 mg/dL (65-110) H 03/09/18 11:26 Random Glucose 100 mg/dL (75-110) 03/07/18 06:30 Calcium 9.6 mg/dL (8.4-10.2) 03/07/18 06:30 Total Bilirubin 0.4 mg/dl (0.2-1.3) 03/07/18 06:30 GGT 315 U/L (8-78) H 03/05/18 05:30 AST 43 U/L (17-59) 03/07/18 06:30 ALT 29 U/L (21-72) 03/07/18 06:30 Alkaline Phosphatase 165 U/L (38-126) H 03/07/18 06:30 Total Protein 8.2 G/DL (6.3-8.2) 03/07/18 06:30 Albumin 3.8 g/dL (3.5-5.0) 03/07/18 06:30 Globulin 4.3 gm/dL (2.2-3.9) H 03/07/18 06:30 Albumin/Globulin Ratio 0.9 (1.0-2.1) L 03/07/18 06:30 Venous Blood Potassium 5.0 mmol/L (3.6-5.2) 03/04/18 01:27 Urine Color Straw (YELLOW) 03/04/18 17:48 Urine Clarity Clear (Clear) 03/04/18 17:48 Urine pH 6.0 (5.0-8.0) 03/04/18 17:48 Ur Specific [place] 1.012 (1.003-1.030) 03/04/18 17:48 Urine Protein Negative mg/dL (NEGATIVE) 03/04/18 17:48 Urine Glucose (UA) Neg mg/dL (Normal) 03/04/18 17:48 Urine Ketones Negative mg/dL (NEGATIVE) 03/04/18 17:48 Urine Blood Negative (NEGATIVE) 03/04/18 17:48 Urine Nitrate Negative (NEGATIVE) 03/04/18 17:48 Urine Bilirubin Negative (NEGATIVE) 03/04/18 17:48 Urine Urobilinogen 0.2-1.0 mg/dL (0.2-1.0) 03/04/18 17:48 Ur Leukocyte Esterase Neg Augie/uL (Negative) 03/04/18 17:48 Urine RBC (Auto) 1 /hpf (0-3) 03/04/18 17:48 Urine Microscopic WBC < 1 /hpf (0-5) 03/04/18 17:48 Urine Bacteria Rare (<OCC) 03/04/18 17:48 Vancomycin Trough 8.3 ug/mL (5.0-10.0) 03/06/18 08:55 - Hospital Course Hospital Course: 67 yo M patient with PMhx/o HTN, DM, CAD s/p CABG 2006, HLD, 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 Foot MRI showed possible abscess on first metatarsal bone and also initial signs of OM in 1st and 3rd metatarsal bone. Patient followed by ID and Podiatry during admission, blood cx negative, wound cx growth ESBL- E coli. Patient afebrile, stable. PICC line inserted today, patient transferred to [place] to complete 4 weeks of IV abx as per ID recs. Patient provided with scripts. Instructions to f/u with PMD once discharged. Discharge Exam - Head Exam Head Exam: NORMAL INSPECTION - Eye Exam Eye Exam: EOMI, Normal appearance, PERRL - Respiratory Exam Respiratory Exam: Clear to PA & Lateral - Cardiovascular Exam Cardiovascular Exam: REGULAR RHYTHM, +S1, +S2. absent: Tachycardia - GI/Abdominal Exam GI & Abdominal Exam: Normal Bowel Sounds, Soft. absent: Tenderness - Extremities Exam Additional comments: R foot dressing clean, intact, no signs of exudates on it. - Neurological Exam Neurological exam: Alert, Oriented x3 Discharge Plan - Discharge Medications Prescriptions: MEROPENEM 500 MG in NS [Merrem IV 500 MG/NS 50 ML] 500 mg IV Q12 26 Days #52 bag Vancomycin [Vancocin (Oral/Rectal USE)] 500 mg IV Q12 24 Days #48 vial - Follow Up Plan Condition: FAIR Disposition: REHAB FACILITY/REHAB UNIT Instructions: How to Prevent Surgical Site Infections, Wound Infection Additional Instructions: f/u with PMD once discharged
--- NOTE | 2018-03-09 14:15 | CP.PCM.PN ---
Subjective - Date & Time of Evaluation Date of Evaluation: 03/09/18 Time of Evaluation: 14:08 - Subjective Subjective: 67 y/o M seen at bedside with attending Dr. Lieberman for infected TMA site and bedside I and D 03/07/18. Patient is AAO x 3 and NAD at time of visit. Denies any acute overnight events or further pedal complaints at this time. States that pain is well controlled. Denies any recent N/V/F/C/CP/SOB/D/posterior calf pain when squeezed. Patient is aware that he will be discharged today and spend four weeks at [facility] to receive IV abx. Objective - Vital Signs/Intake and Output Vital Signs (last 24 hours): Temp Pulse Resp BP Pulse Ox 98.2 F 72 18 120/74 96 03/09/18 09:31 03/09/18 11:09 03/09/18 09:31 03/09/18 09:31 03/09/18 08:24 Intake and Output: 03/09/18 03/09/18 06:59 18:59 Output Total 400 Balance -400 - Medications Medications: Current Medications Acetaminophen (Tylenol 325mg Tab) 650 mg PO Q6 PRN PRN Reason: Pain, Mild (1-3) Last Admin: 03/09/18 11:08 Dose: 650 mg Acetaminophen (Tylenol 325mg Tab) 650 mg PO Q6 PRN PRN Reason: Fever >100.4 F Aspirin (Ecotrin) 81 mg PO DAILY [facility] Last Admin: 03/09/18 11:10 Dose: 81 mg Atorvastatin Calcium (Lipitor) 10 mg PO DAILY [facility] Last Admin: 03/09/18 11:10 Dose: 10 mg Clopidogrel Bisulfate (Plavix) 75 mg PO DAILY [facility] Last Admin: 03/09/18 11:10 Dose: 75 mg Dextrose (Dextrose 50% Inj) 0 ml IV STAT PRN; Protocol PRN Reason: Hypoglycemia Protocol Dextrose (Glutose 15) 0 gm PO ONCE PRN; Protocol PRN Reason: Hypoglycemia Protocol Enoxaparin Sodium (Lovenox) 40 mg SC DAILY [facility] PRN Reason: Protocol Last Admin: 03/09/18 08:09 Dose: Not Given Glucagon (Glucagen Diagnostic Kit) 0 mg IM STAT PRN; Protocol PRN Reason: Hypoglycemia Protocol Vancomycin HCl 500 mg/ Sodium (Chloride) 100 mls @ 100 mls/hr IVPB Q12 [facility] PRN Reason: Protocol Last Admin: 03/09/18 11:08 Dose: 100 mls/hr Meropenem 500 mg/ Sodium (Chloride) 100 mls @ 100 mls/hr IVPB Q12H [facility] PRN Reason: Protocol Last Admin: 03/09/18 05:25 Dose: 100 mls/hr Insulin Human Lispro (Humalog) 0 units SC ACHS [facility] PRN Reason: Protocol Last Admin: 03/09/18 11:30 Dose: 2 units Lisinopril (Zestril) 10 mg PO DAILY [facility] Last Admin: 03/04/18 09:42 Dose: Not Given Metformin HCl (Glucophage) 1,000 mg PO BID [facility] Last Admin: 03/09/18 08:10 Dose: Not Given Metoprolol Succinate (Toprol Xl) 25 mg PO DAILY [facility] Last Admin: 03/09/18 11:09 Dose: 25 mg Morphine Sulfate (Morphine) 2 mg IVP Q6 PRN PRN Reason: Pain, severe (8-10) Last Admin: 03/08/18 20:55 Dose: 2 mg Morphine Sulfate (Morphine) 4 mg IVP Q6 PRN PRN Reason: Pain, moderate (4-7) Last Admin: 03/09/18 04:16 Dose: 4 mg Pantoprazole Sodium (Protonix Ec Tab) 20 mg PO DAILY [facility] Last Admin: 03/09/18 11:11 Dose: 20 mg Pioglitazone HCl (Actos) 15 mg PO DAILY [facility] Last Admin: 03/09/18 11:10 Dose: 15 mg Senna/Docusate Sodium (Senokot S 50 Mg-8.6 Mg) 2 tab PO HS [facility] Last Admin: 03/08/18 21:15 Dose: 2 tab - Labs Labs: 03/09/18 10:15 03/07/18 06:30 PT 13.4 Seconds (9.8-13.1) H 03/08/18 14:20 INR 1.2 (0.9-1.2) 03/08/18 14:20 APTT 38.8 Seconds (25.6-37.1) H 03/08/18 14:20 - Constitutional Appears: Well, Non-toxic, No Acute Distress - Extremities Exam Additional comments: LLE Focused Exam VASC: DP and PT non-palpable, CFT delayed, temperature is warm to cool, mild edema noted to the surgical site, no hair present NEURO: Gross and protective sensation diminished bilaterally DERM: Necrosis noted to TMA flap with dehiscence of surgical site. No purulence expressed from dehisced site today. No malodor and mild erythema noted, improving. De-roofed area of I and D (03/07/18) noted to have no maceration at this time with no evidence of fluctuance or infection. Surgical site appears to be stable at this time ORTHO: POP at surgical site, Controlled and improving - Neurological Exam Neurological Exam: Alert, Awake, Oriented x3 - Psychiatric Exam Psychiatric exam: Normal Affect, Normal Mood Assessment and Plan - Assessment and Plan (Free Text) Assessment: 67 y/o M seen at bedside for infected TMA site and bedside I and D 03/07/18. Plan: Patient seen and evaluated with attending Dr. Lieberman Charts, labs, vitals reviewed WBC 11.9, afebrile Wound cx L foot E coli PICC line inserted, patient to get 4 weeks IV abx at [facility] per ID request MRI reading reviewed Wound dressed with Adaptic, DSD, ABD, Kirlix, BRYANT No further plan for surgical intervention at this time Patient to follow up in Dr. Dale's clinic on Tuesday for continued care
--- NOTE | 2018-03-09 14:51 | PQF GENQUE ---
Dr. Lieberman, Please clarify if a debridement was performed and if so the type etc. Documentation of debridement needs to be descriptive enough to create a clear picture of procedure performed. Please clarify the term 'debridement' by specifying in the progress notes: Type of instrument used? Depth of Debridement/Type of tissue removed? (e.g., skin, subcutaneous tissue, soft tissue, muscle, bone) Did the debridement extend outside or beyond the wound margins? Excisional vs. nonexcisional? Irrigation of wound (e.g, Versajet)? Location of wound? OR: Disagree OR: Other explanation of clinical finding 03/07 Podiatry progress note: 03/07 podiatry: Bedside I and D performed using a # 15 blade w/ approximately 7 cc of brown/serous drainage expressed from the plantar aspect of the foot .All detached epidermal skin was removed from the foot and theunderlying skin was painted with betadine Foot dressed with betadine , DSD, ABD, kirlix, BRYANT This form is a permanent part of the medical record Clarification of your documentation is requested to better reflect the severity of illness and intensity of treatment of your patient. Indicators present [] Specify: [] [] Specify: [] [] Specify: [] [] Specify: [] Location in the medical record that reflects the above clinical findings: [] Treatment Provided: [] PHYSICIAN'S RESPONSE Based on your medical judgment of the clinical indicators outlined above please clarify the following: [] Practitioner response [] If unable to determine, please check the box, sign and date. Present On Admission (POA) Indicator: [] Present at the time of admission [] Not present at the time of admission [] Clinically Undetermined In responding to this query, please exercise your independent professional judgment. The fact that a question is asked does not imply that any particular answer is desired or expected. Thank you for your clarification on this documentation. If you have any questions please call. * Thank you, Lisa Albarran RN ext. #[phone] MTDD
== END 2018-03-09 14:45 | DRG 565 ==
LOC: H.ER 21:58 → H.ERHOLD 03-04 01:01 → H.MEDSURG1 03-04 02:25
PROVIDERS: ADMIT Family Medicine Geriatric Medicine; ATTEND Family Medicine Geriatric Medicine
PROC: 0H9NXZZ Drainage of Left Foot Skin, External Approach (ICD-10-PCS; 2018-03-07)
PROC: 02HV33Z Insertion of Infusion Device into Superior Vena Cava, Percutaneous Approach (ICD-10-PCS; principal; 2018-03-09)
DX: T87.44 Infection of amputation stump, left lower extremity (principal); M86.9 Osteomyelitis, unspecified; T87.81 Dehiscence of amputation stump; Y83.5 Amputation of limb(s) as the cause of abnormal reaction of the patient, or of later complication, without mention of misadventure at the time of the procedure; I25.10 Atherosclerotic heart disease of native coronary artery without angina pectoris; I12.9 Hypertensive chronic kidney disease with stage 1 through stage 4 chronic kidney disease, or unspecified chronic kidney disease; E11.22 Type 2 diabetes mellitus with diabetic chronic kidney disease; N18.3 Chronic kidney disease, stage 3 (moderate); E78.00 Pure hypercholesterolemia, unspecified; Z95.1 Presence of aortocoronary bypass graft; E87.5 Hyperkalemia; E78.5 Hyperlipidemia, unspecified; B96.20 Unspecified Escherichia coli [E. coli] as the cause of diseases classified elsewhere; Z89.432 Acquired absence of left foot; Z16.12 Extended spectrum beta lactamase (ESBL) resistance; E11.69 Type 2 diabetes mellitus with other specified complication

== ENCOUNTER 2018-03-11 20:47 | Emergency (ER) | payer MEDICARE ==
[2018-03-11 20:47] VITALS: BMI 29.4
[2018-03-11 20:53] VITALS: RESP 18; O2SAT 99
--- NOTE | 2018-03-11 22:23 | ED PDOC ---
Upper Extremity Pain/Injury Time Seen by Provider: 03/11/18 21:45 Chief Complaint (Nursing): Upper Extremity Problem/Injury Chief Complaint (Provider): Upper Extremity Problem/Injury History Per: Patient, Family (son at bedside) History/Exam Limitations: no limitations Current Symptoms Are (Timing): Still Present Severity: Moderate Pain Scale Rating Of: 7 Exacerbating Factor(s): Movement Additional Complaint(s): Patient is a 67 year old male who reports injuring his left shoulder last night when he fell out of bed approximately 2-3 feet. Event occurred at [facility]. An x-ray was performed this morning with positive fracture noted. Patient last given Percocet at 2100 earlier tonight for pain control and was advised to go to ED for further evaluation. Pain is localized to the left shoulder and worsens with movement. Otherwise: (-) chest pain, (-) shortness of breath, (-) abdominal pain, (-) head injury, (-) LOC or dizziness (-) other extremity injury. Patient states he has full recollection of event. PMD: Tom Leo MD Past Medical History Reviewed: Historical Data, Nursing Documentation, Vital Signs Vital Signs: Last Vital Signs Temp 98.5 F 03/11/18 20:50 Pulse 98 H 03/11/18 20:50 Resp 18 03/11/18 20:50 BP 147/69 03/11/18 20:50 Pulse Ox 99 03/11/18 20:50 - Medical History PMH: CAD, Diabetes, HTN, Hypercholesterolemia, Chronic Kidney Disease Denies: HIV - Surgical History Surgical History: CABG - Family History Family History: States: Unknown Family Hx - Living Arrangements Living Arrangements: Residential/Assist [facility] ([place]) - Social History Current smoker - smoking cessation education provided: No Ex-Smoker (has not smoked in the last 12 months): No Alcohol: None Drugs: Denies - Home Medications Home Medications: Ambulatory Orders Medication Instructions Recorded Aspirin [Ecotrin] 81 mg PO DAILY 01/27/18 Atorvastatin [Lipitor] 10 mg PO DAILY 01/27/18 Clopidogrel [Plavix] 75 mg PO DAILY 01/27/18 Lisinopril [Zestril] 10 mg PO DAILY 01/27/18 MetFORMIN [glucoPHAGE] 1,000 mg PO BID 01/27/18 Metoprolol Succinate [Toprol XL] 25 mg PO DAILY 01/27/18 Pioglitazone [Actos] 15 mg PO DAILY 01/27/18 oxyCODONE/Acetaminophen [Percocet 1 ea PO Q6 PRN 03/04/18 5/325 mg Tab] MEROPENEM 500 MG in NS [Merrem IV 500 mg IV Q12 26 Days #52 bag 03/09/18 500 MG/NS 50 ML] Pantoprazole [Protonix EC Tab] 20 mg PO DAILY ect 03/09/18 Vancomycin [Vancocin (Oral/Rectal 500 mg IV Q12 24 Days #48 vial 03/09/18 USE)] traMADol [Ultram] 50 mg PO Q8 #12 tab 03/12/18 - Allergies Allergies/Adverse Reactions: Allergies Allergy/AdvReac Type Severity Reaction Status Date / Time No Known Allergies Allergy Verified 03/04/18 01:27 Review of Systems ROS Statement: Except As Marked, All Systems Reviewed And Found Negative Cardiovascular: Negative for: Chest Pain Respiratory: Negative for: Shortness of Breath Gastrointestinal: Negative for: Abdominal Pain Musculoskeletal: Positive for: Shoulder Pain (left) Neurological: Negative for: Dizziness, Other (head injury or LOC) Physical Exam - Reviewed Nursing Documentation Reviewed: Yes Vital Signs Reviewed: Yes - Physical Exam Comments: GENERAL APPEARANCE: Patient is awake, alert, oriented x 3, in no acute distress. Resting comfortably in ED stretcher. SKIN: Warm, dry; (-) cyanosis. NECK: Supple, FROM (-) tenderness ENT: Mucus membranes moist. Airway patent (-) stridor. CHEST AND RESPIRATORY: (-) chest wall tenderness. Lungs: (-) rales, (-) rhonchi , (-) wheezes; breath sounds equal bilaterally. HEART AND CARDIOVASCULAR: (-) irregularity; (-) murmur, (-) gallop. ABDOMEN AND GI: Soft; (-) tenderness (-) guarding (-) distention. 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 SHOULDER (left-sided): (+) anterior and lateral scattered ecchymosis (+) tenderness to proximal humerus and anterior/lateral shoulder (+) decreased ROM secondary to pain (-) gross deformity (-) AC joint tenderness (-) clavicular tenderness (-) tenting of skin NEURO AND PSYCH: Mental status as above. EOMI and painless. (-) facial asymmetry. Speech clear (-) facial droop (-) aphasia. - ECG O2 Sat by Pulse Oximetry: 99 (RA) Pulse Ox Interpretation: Normal Medical Decision Making Medical Decision Making: Initial Impression:Shoulder injury S/P fall Initial Plan: * Ultram 50mg PO * Xray shoulder (left) 2305 XR reviewed: oblique nondisplaced fracture of humeral head Patient notified official radiology read will be available within 24 hours and the patient will be notified of any discrepancies by phone. Shoulder sling ordered and applied. NV intact after placement. 0010 On exam, patient remains AAOx3, in no acute distress. Lungs clear to auscultation, cardiac RRR, abdomen soft, non-tender, repeat neuro exam shows no focal findings. Repeat HR: 90 Repeat BP: 130/60 Lab/Diagnostic results d/w the patient and son at bedside in great detail. Diagnosis of humeral head fracture d/w the patient and son at bedside. Based on history, exam and diagnostic results, plan will be for outpatient follow up. Patient instructed to follow-up with pmd / referral provided / the clinic in 1- 2 days without fail. Advised to take medication as prescribed. Return to the emergency room at any time for any new or worsening symptoms. Patient states he fully agrees with and understands discharge instructions. States that he agrees with the plan and disposition. Verbalized and repeated discharge instructions and plan. I have given the patient opportunity to ask any additional questions. Scribe Attestation: Documented by Nargis Rosales, acting as a scribe for Elise K. Ernestina PA-C. Provider Scribe Attestation: All medical record entries made by the Scribe were at my direction and personally dictated by me. I have reviewed the chart and agree that the record accurately reflects my personal performance of the history, physical exam, medical decision making, and the department course for this patient. I have also personally directed, reviewed, and agree with the discharge instructions and disposition. Disposition - Clinical Impression Clinical Impression: Humeral head fracture, Fall from bed - Patient ED Disposition Is Patient to be Admitted: No Counseled Patient/Family Regarding: Studies Performed, Diagnosis, Need For Followup, Rx Given - Disposition Referrals: Tom Leo MD [Primary Care Provider] - Rui Dior III, MD [Staff Provider] - Disposition Time: 00:09 Condition: STABLE Prescriptions: traMADol [Ultram] 50 mg PO Q8 #12 tab Instructions: Upper Arm Fracture, Shoulder Fracture, How to Use a Shoulder Sling Forms: [facility] (K[place]akh) Print Language: CITIZEN OF [place] - POA Present On Arrival: Falls Or Trauma
[2018-03-12 07:47] VITALS: BP 130/60; PULSE 90; TEMP 98.2
--- NOTE | 2018-03-12 09:58 | RAD ---
PROCEDURE: Radiographs of the Left Shoulder HISTORY: s/p fall COMPARISON: No prior. FINDINGS: BONES: Bone alignment and mineralization are normal. There is no acute fracture or bone destruction. JOINTS: There is mild degenerative osteoarthrosis in the acromioclavicular joint. The glenohumeral joint is normal. SOFT TISSUES: Normal. OTHER FINDINGS: None. IMPRESSION: No acute fracture or dislocation.
== END 2018-03-12 02:50 ==
LOC: H.ER 20:47
DX: S42.202A Unspecified fracture of upper end of left humerus, initial encounter for closed fracture (principal); W06.XXXA Fall from bed, initial encounter; Y92.003 Bedroom of unspecified non-institutional (private) residence as the place of occurrence of the external cause; E78.00 Pure hypercholesterolemia, unspecified; I12.9 Hypertensive chronic kidney disease with stage 1 through stage 4 chronic kidney disease, or unspecified chronic kidney disease; Z79.84 Long term (current) use of oral hypoglycemic drugs; Z95.1 Presence of aortocoronary bypass graft

== ENCOUNTER 2018-05-03 22:55 | Inpatient (IN) | payer MEDICARE ==
--- NOTE | 2018-05-04 00:16 | ED PDOC ---
HPI: Wound Care - HPI Time Seen by Provider: 05/03/18 23:53 Chief Complaint (Nursing): Wound Check History Per: Patient Current Symptoms Are (Timing): Still Present Additional Complaint(s): Hx of DM, HTN, CAD, osteomyelitis s/p 5 toe removal of L foot in March presenting with worsening foot discoloration of stump. Was sent in by Dr. Dale for eval and possible surgery. Patient denies fever, cough, chest pain, shortness of breath, leg pain. Past Medical History Reviewed: Historical Data, Nursing Documentation, Vital Signs Vital Signs: Last Vital Signs Temp 98.4 F 05/03/18 23:17 Pulse 82 05/03/18 23:17 Resp 18 05/03/18 23:17 BP 123/61 05/03/18 23:17 Pulse Ox 99 05/03/18 23:17 - Medical History PMH: CAD, Diabetes, HTN, Hypercholesterolemia, Hyperlipidemia, Chronic Kidney Disease Denies: HIV - Surgical History Surgical History: CABG - Family History Family History: States: Unknown Family Hx - Home Medications Home Medications: Ambulatory Orders Medication Instructions Recorded Aspirin [Ecotrin] 81 mg PO DAILY 01/27/18 Atorvastatin [Lipitor] 10 mg PO DAILY 01/27/18 Clopidogrel [Plavix] 75 mg PO DAILY 01/27/18 MetFORMIN [glucoPHAGE] 1,000 mg PO BID 01/27/18 Metoprolol Succinate XL [Toprol XL] 50 mg PO DAILY 01/27/18 Pioglitazone [Actos] 15 mg PO DAILY 01/27/18 Pantoprazole [Protonix EC Tab] 20 mg PO DAILY ect 03/09/18 Acetaminophen [Tylenol 325mg tab] 650 mg PO Q4 PRN 05/04/18 Ferrous Sulfate [Feosol] 325 mg PO DAILY 05/04/18 Lisinopril [Zestril] 2.5 mg PO DAILY 05/04/18 - Allergies Allergies/Adverse Reactions: Allergies Allergy/AdvReac Type Severity Reaction Status Date / Time No Known Allergies Allergy Verified 05/03/18 23:16 Review of Systems ROS Statement: Except As Marked, All Systems Reviewed And Found Negative Physical Exam - Reviewed Nursing Documentation Reviewed: Yes Vital Signs Reviewed: Yes - Physical Exam Appears: Positive for: Well, Non-toxic, No Acute Distress Head Exam: Positive for: ATRAUMATIC, NORMAL INSPECTION, NORMOCEPHALIC Skin: Positive for: Normal Color, Warm, DRY Eye Exam: Positive for: EOMI, Normal appearance, PERRL ENT: Positive for: Normal ENT Inspection Neck: Positive for: Normal, Painless ROM Cardiovascular/Chest: Positive for: Regular Rate, Rhythm Respiratory: Positive for: CNT, Normal Breath Sounds Gastrointestinal/Abdominal: Positive for: Normal Exam, Soft Back: Positive for: Normal Inspection Extremity: Positive for: Normal ROM, Other (L foot with gangrene of stump with black gangrene, pus drainage, decreased sensation). Negative for: Tenderness Neurologic/Psych: Positive for: Alert, Oriented - Laboratory Results Result Diagrams: 05/04/18 00:40 05/04/18 00:40 - ECG O2 Sat by Pulse Oximetry: 99 Pulse Ox Interpretation: Normal Medical Decision Making Medical Decision Makin A/P: Hx of osteo, htn, hld, cad, dm presenting with foot gangrene -patient likely will need debridement and possible amputation -podiatry aware -pending labs and xrays -Dr. Lima aware -will give vanc to combat further spreading of infection Disposition - Clinical Impression Clinical Impression: Osteomyelitis - Disposition Disposition Time: 01:00 Condition: FAIR
[2018-05-04 00:59] LABS: BASO # 0.1 K/uL (0.0-0.2); BASO % 0.6 % (0.0-2.0); EOS # 1.8 K/uL (0.0-0.7); EOS % 13.7 % (0.0-4.0); HEMOGLOBIN 8.9 g/dL (12.0-18.0); LYMPH # 1.5 K/uL (1.0-4.3); LYMPH % 11.2 % (20.0-40.0); MEAN CELL VOLUME 71.3 fl (80.0-94.0); MEAN CORPUSCULAR HEMOGLOBIN 23.2 pg (27.0-31.0); MEAN CORPUSCULAR HGB CONC 32.6 g/dL (33.0-37.0); MEAN PLATELET VOLUME 8.2 fl (7.2-11.7); MONO # 1.1 K/uL (0.0-0.8); MONO % 8.1 % (0.0-10.0); NEUT % 66.4 % (50.0-75.0); RBC 3.83 Mil/uL (4.40-5.90); RED CELL DISTRIBUTION WIDTH 17.9 % (11.5-14.5); WHITE BLOOD COUNT 13.5 K/uL (4.8-10.8)
[2018-05-04 01:06] LABS: BLOOD UREA NITROGEN 16 mg/dl (9-20); GFR AFRICAN-AMERICAN > 60; GFR NON-AFRICAN AMERICAN 51
[2018-05-04] MEDS ORDERED: Povidone Iodine Topical 10% Sol ONE (01:39)
--- NOTE | 2018-05-04 02:50 | CP.PCM.CON ---
History of Present Illness - History of Present Illness History of Present Illness: Podiatry Consult note: Dr. Dale 67 year old male with PMHx of DM2, CAD, HTN, HLD was seen and evaluated at bedside in ED for left necrotic TMA stump. Patient reports that he was seen at the podiatry clinic with Dr. Dale on Tuesday who asked for him to be admitted for further workup. Patient reports that he had few things to take care of so he was not able to come in until now. Reports that he has been performing daily dressing changes. Reports that he has very little pain today. Patient denies of recent F/N/V/C/SOB/CP/headache/diarrhea. No other pedal complains at this time. PMHx: DM2, CAD, HTN, HLD PSHx: CAD with stenting CABG 2006, TMA 02/06/18 Allergies: N.K.D.A SHx: denies ETOH/tobacco/drug abuse Review of Systems - Constitutional Constitutional: As Per HPI Past Patient History - Infectious Disease Hx of Infectious Diseases: None - Past Medical History & Family History Past Medical History?: Yes - Past Social History Smoking Status: Never Smoked - CARDIAC Hx Hypercholesterolemia: Yes Hx Hypertension: Yes - PULMONARY Hx Respiratory Disorders: No - NEUROLOGICAL Hx Neurological Disorder: No - HEENT Hx HEENT Problems: No - RENAL Hx Chronic Kidney Disease: Yes - ENDOCRINE/METABOLIC Hx Endocrine Disorders: Yes Hx Diabetes Mellitus Type 1: Yes Hx Diabetes Mellitus Type 2: Yes - HEMATOLOGICAL/ONCOLOGICAL Hx Human Immunodeficiency Virus (HIV): No - INTEGUMENTARY Hx Dermatological Problems: Yes Other/Comment: gangrene left toes - MUSCULOSKELETAL/RHEUMATOLOGICAL Hx Musculoskeletal Disorders: No Hx Falls: No - GASTROINTESTINAL Hx Gastrointestinal Disorders: No - GENITOURINARY/GYNECOLOGICAL Hx Genitourinary Disorders: No - PSYCHIATRIC Hx Psychophysiologic Disorder: No Hx Substance Use: No - SURGICAL HISTORY Hx Coronary Artery Bypass Graft: Yes - ANESTHESIA Hx Anesthesia: Yes Hx Anesthesia Reactions: No Meds Allergies/Adverse Reactions: Allergies Allergy/AdvReac Type Severity Reaction Status Date / Time No Known Allergies Allergy Verified 05/03/18 23:16 - Medications Medications: Current Medications Vancomycin HCl 1 gm/ Sodium (Chloride) 250 mls @ 166.667 mls/hr IVPB STAT STA PRN Reason: Protocol Stop: 05/04/18 03:26 Last Admin: 05/04/18 02:35 Dose: 166.667 mls/hr Physical Exam - Constitutional Appears: Well, Non-toxic, No Acute Distress - Extremities Exam Additional comments: LLE Focused Exam VASC: DP and PT non-palpable, Cap refill time on the dorsum of the proximal foot - delayed, temperature gradient is warm to cool from proximal to distal, no pitting or non-pitting edema noted at this time, no pedal hair present DERM: Necrosis noted to the whole TMA flap with dehiscence of surgical site. wound base is mainly necrotic with islands of fibrosis noted on the lateral aspect of the foot, metatarsal shaft 1-5 from the TMA exposed distally from the flap, no purulence expressed from dehisced site today. No malodor, no active drainage, no fluctuance noted NEURO: Gross and protective sensation diminished bilaterally ORTHO: minimal pain during palpation of the necrotic TMA flap - Neurological Exam Neurological exam: Alert, Oriented x3 - Psychiatric Exam Psychiatric exam: Normal Affect, Normal Mood Results - Vital Signs Recent Vital Signs: Last Vital Signs Temp 98.4 F 05/03/18 23:17 Pulse 82 05/03/18 23:17 Resp 18 05/03/18 23:17 BP 123/61 05/03/18 23:17 Pulse Ox 99 05/04/18 00:30 - Labs Result Diagrams: 05/04/18 00:40 05/04/18 00:40 Labs: Laboratory Results - last 24 hr 05/04/18 05/04/18 05/04/18 00:40 00:40 00:44 WBC 13.5 H RBC 3.83 L Hgb 8.9 L Hct 27.3 L MCV 71.3 L MCH 23.2 L MCHC 32.6 L RDW 17.9 H Plt Count 237 D MPV 8.2 Neut % (Auto) 66.4 Lymph % (Auto) 11.2 L [place] % (Auto) 8.1 Eos % (Auto) 13.7 H Baso % (Auto) 0.6 Neut # (Auto) 9.0 H Lymph # (Auto) 1.5 [place] # (Auto) 1.1 H Eos # (Auto) 1.8 H Baso # (Auto) 0.1 ESR 61 H Sodium 140 Potassium 5.2 H Chloride 106 Carbon Dioxide 25 Anion Gap 14 BUN 16 Creatinine 1.4 Est GFR ( Amer) > 60 Est GFR (Non-Af Amer) 51 POC Glucose (mg/dL) 116 H Random Glucose 109 Calcium 9.0 Assessment & Plan - Assessment and Plan (Free Text) Assessment: 67 year old male with PMHx of DM2, CAD, HTN, HLD was evaluated for left foot necrotic TMA flap with exposed bone ([place] 4) Plan: Patient seen and evaluated Discussed plan with attending Dr. Dale Labs, vitals and charts reviewed - afebrile - WBC @ 13.5, ESR - elevated at 61, CRP - pending X-rays of the left foot ordered/reviewed - no radiographic changes suggestive of OM - clinically bones are exposed suggestive of clinical OM Wound cleaned with saline Wound cultures taken - pending Patient will be admitted for further work-up ID consult - recs appreciated LYRIC/PVR ordered - pending Vascular consult - recs appreciated Podiatry plans surgical intervention following vascular suggestions Wound dressed with betadine, DSD Multipodus boots ordered - to be worn in bed at all times Thank you for the podiatry consult and allowing to take part in patient care Podiatry will follow patient while in-house - Date & Time Date: 05/04/18 Time: 12:05
[2018-05-04] MEDS ORDERED: Povidone Iodine Topical 10% Sol TOP ONE (02:53)
--- NOTE | 2018-05-04 08:36 | CP.PCM.HP ---
History of Present Illness - History of Present Illness History of Present Illness: 67 yr old M presented to ED with complaint of worsening infection of left forefoot. PMHx includes Left foot osteomyelitis with transmetatarsal amputation , hypertension, NIDDM type 2, CAD s/p CABG 2006, HLD. Denies fevers, chills, LE pain, chest pain, nausea, vomiting or diarrhea. Patient reports he goes for wound care regularly with Dr. Dale. PMD: Dr. Tom Leo Specialists: Dr. Dale-podiatry PMHx: Left foot osteomyelitis with transmetatarsal amputation 02/06/18, hypertension, NIDDM type 2, CAD s/p CABG 2006, HLD SurgHx: CABG 2006, left TMA FMHx: noncontributory SocHx: denies tobacco/Etoh or drugs Medications: Aspirin 81 mg PO QD, Atorvastatin 10mg PO QD, Plavix 75mg PO QD, Lisinopril 10mg PO QD, Metformin 1,000mg PO BID, Metoprolol Succinate XL 25mg PO QD, Pioglitazone 15 mg PO QD Allergies: NKDA ED course: BP 123/61 mmHg, HR 82 bpm, Resp 18, O2 sat 99% on room air, Temp 98.4F -Left Foot xray: interval mottled radiolucency at the transmetatarsal amputation site compatible with a history of gangrene -CXR: no active disease -CBC: WBC 13.5, H/H 8.9/27.3, plts 237, no left shift -CMP: Na 140, K+ 5.2, Cl 106, HCO3 25, anion gap 14, BUN 16/Cr 1.4, eGFR 51 -CRP 22.00 Present on Admission - Present on Admission Any Indicators Present on Admission: No History of DVT/PE: No History of Uncontrolled Diabetes: Yes Urinary Catheter: No Decubitus Ulcer Present: No History Surgical Site Infection Following: None Review of Systems - Constitutional Constitutional: absent: Chills - EENT Eyes: absent: Change in Vision Nose/Mouth/Throat: absent: Sore Throat - Cardiovascular Cardiovascular: absent: Chest Pain, Dyspnea - Respiratory Respiratory: absent: Cough, Dyspnea, Hemoptysis - Gastrointestinal Gastrointestinal: absent: Abdominal Pain, Diarrhea, Nausea, Vomiting - Genitourinary Genitourinary: absent: Change in Urinary Stream, Difficulty Urinating, Dysuria - Musculoskeletal Musculoskeletal: absent: Arthralgias - Neurological Neurological: absent: Confusion, Focal Weakness - Psychiatric Psychiatric: absent: Suicidal Ideation - Endocrine Endocrine: absent: Polydipsia, Polyphagia, Polyuria - Hematologic/Lymphatic Hematologic: absent: Easy Bleeding, Easy Bruising Past Patient History - Infectious Disease Hx of Infectious Diseases: None - Past Medical History & Family History Past Medical History?: Yes - Past Social History Smoking Status: Never Smoked - CARDIAC Hx Hypercholesterolemia: Yes Hx Hypertension: Yes - PULMONARY Hx Respiratory Disorders: No - NEUROLOGICAL Hx Neurological Disorder: No - HEENT Hx HEENT Problems: No - RENAL Hx Chronic Kidney Disease: Yes - ENDOCRINE/METABOLIC Hx Endocrine Disorders: Yes - HEMATOLOGICAL/ONCOLOGICAL Hx Human Immunodeficiency Virus (HIV): No - INTEGUMENTARY Hx Dermatological Problems: Yes - MUSCULOSKELETAL/RHEUMATOLOGICAL Hx Musculoskeletal Disorders: No - GASTROINTESTINAL Hx Gastrointestinal Disorders: No - GENITOURINARY/GYNECOLOGICAL Hx Genitourinary Disorders: No - PSYCHIATRIC Hx Psychophysiologic Disorder: No - SURGICAL HISTORY Hx Coronary Artery Bypass Graft: Yes - ANESTHESIA Hx Anesthesia: Yes Hx Anesthesia Reactions: No Meds Allergies/Adverse Reactions: Allergies Allergy/AdvReac Type Severity Reaction Status Date / Time No Known Allergies Allergy Verified 05/03/18 23:16 Physical Exam - Constitutional Appears: No Acute Distress - Head Exam Head Exam: ATRAUMATIC, NORMOCEPHALIC - Eye Exam Eye Exam: EOMI, PERRL - ENT Exam ENT Exam: Mucous Membranes Moist - Respiratory Exam Respiratory Exam: Clear to Auscultation Bilateral, NORMAL BREATHING PATTERN - Cardiovascular Exam Cardiovascular Exam: REGULAR RHYTHM, +S1, +S2 - GI/Abdominal Exam GI & Abdominal Exam: Normal Bowel Sounds, Soft. absent: Tenderness - Extremities Exam Extremities exam: Negative for: normal inspection (left foot stump wrapped in gauze, dressing clean/dry/intact, no tenderness) - Neurological Exam Neurological exam: Alert, CN II-XII Intact (grossly intact), Oriented x3 - Psychiatric Exam Psychiatric exam: Normal Affect, Normal Mood - Skin Skin Exam: Warm Results - Vital Signs Recent Vital Signs: Last Vital Signs Temp 98.1 F 05/04/18 08:00 Pulse 91 H 05/04/18 08:00 Resp 18 05/04/18 08:00 BP 118/71 05/04/18 08:00 Pulse Ox 100 05/04/18 08:00 - Labs Result Diagrams: 05/04/18 00:40 05/04/18 00:40 Labs: Laboratory Results - last 24 hr 05/04/18 05/04/18 05/04/18 00:40 00:40 00:44 WBC 13.5 H RBC 3.83 L Hgb 8.9 L Hct 27.3 L MCV 71.3 L MCH 23.2 L MCHC 32.6 L RDW 17.9 H Plt Count 237 D MPV 8.2 Neut % (Auto) 66.4 Lymph % (Auto) 11.2 L [place] % (Auto) 8.1 Eos % (Auto) 13.7 H Baso % (Auto) 0.6 Neut # (Auto) 9.0 H Lymph # (Auto) 1.5 [place] # (Auto) 1.1 H Eos # (Auto) 1.8 H Baso # (Auto) 0.1 ESR 61 H Sodium 140 Potassium 5.2 H Chloride 106 Carbon Dioxide 25 Anion Gap 14 BUN 16 Creatinine 1.4 Est GFR ( Amer) > 60 Est GFR (Non-Af Amer) 51 POC Glucose (mg/dL) 116 H Random Glucose 109 Calcium 9.0 Assessment & Plan - Assessment and Plan (Free Text) Assessment: 67 yr old M admitted for worsening left forefoot gangrene with PMHx of left foot osteomyelitis s/p left TMA digits 1-4, CAD s/p CABG, HTN, HLD, NIDDM type 2. Plan: -Admit to telemetry -Heart healthy , moderate carbohydrate diet -continue home medications -Podiatry on board-, will follow recommendations -ID consult: Dr. Gannon, will follow recommendations -Vascular consult: Dr. Bolden, will follow recommendations -SCD's for now, possible OR tomorrow - Date & Time Date: 05/04/18 Time: 08:05
--- NOTE | 2018-05-04 09:19 | RAD ---
PROCEDURE: Left Foot Radiographs. HISTORY: gangrene COMPARISON: 03/03/2018 FINDINGS: BONES: The 1st through 5th trans metatarsal amputation status is renoted. The distal elective radiolucency of the bony matrix appears similar. No interval cortical destruction or periosteal reaction appreciated. Plantar and Achilles Tendon insertion calcaneal spurs JOINTS: Normal. SOFT TISSUES: There is interval mottled radiolucency at the amputation site compatible with a history of gangrene. Atherosclerotic vascular calcifications present. . OTHER FINDINGS: None. IMPRESSION: Transmetatarsal amputation site,, interval soft tissue changes compatible with the clinical history of gangrene noted. No radiographic osseous changes here to suggest osteomyelitis.
--- NOTE | 2018-05-04 09:24 | RAD ---
PROCEDURE: CHEST RADIOGRAPH, 1 VIEW HISTORY: infection COMPARISON: 01/27/2018 FINDINGS: LUNGS: Clear. PLEURA: No pneumothorax or pleural fluid seen. CARDIOVASCULAR: Mitral valve prosthesis. Sternotomy wires. Normal heart size. OSSEOUS STRUCTURES: Sternotomy. Bilateral shoulder arthrosis. Thoracic spondylosis VISUALIZED UPPER ABDOMEN: Normal. OTHER FINDINGS: None. IMPRESSION: No active disease.
[2018-05-04] MEDS: Metoprolol Succinate 50 mg XL Tab PO SCH (11:09)
[2018-05-04] MEDS: Pantoprazole 20 mg EC Tab PO SCH (11:14)
[2018-05-04 12:06] VITALS: BMI 27.3
[2018-05-04] MEDS ORDERED: guaiFENesin DM 200 mg-20 mg/10 ml UD PO ONE (12:27)
--- NOTE | 2018-05-04 18:32 | CP.PCM.CON ---
History of Present Illness - History of Present Illness History of Present Illness: Evaluation for PVOD HPI: 67-year-old male with past medical history significant for hypertension diabetes hyperlipidemia CAD status post CABG who was admitted with worsening of the TMA amputation site which was done a few months ago patient apparently is saying that he had some kind of a vascular procedure done about few months ago at [facility]. He was seen by Dr. Dale for follow-up of his TMA site which was getting gangrenous and therefore was getting concerns for possible worsening vascular disease and was admitted to the hospital. Does have severe significant history of vasculopathy with prior history of CAD CABG and stenting. Review of Systems - Review of Systems Systems not reviewed;Unavailable: Acuity of Condition - Constitutional Constitutional: As Per HPI - EENT Eyes: As Per HPI Ears: As Per HPI Nose/Mouth/Throat: As Per HPI - Cardiovascular Cardiovascular: As Per HPI - Respiratory Respiratory: As Per HPI - Gastrointestinal Gastrointestinal: As Per HPI - Genitourinary Genitourinary: As Per HPI - Reproductive: Male Reproductive:Male: As Per HPI - Musculoskeletal Musculoskeletal: As Per HPI - Integumentary Integumentary: As Per HPI - Neurological Neurological: As Per HPI - Psychiatric Psychiatric: As Per HPI - Endocrine Endocrine: As Per HPI - Hematologic/Lymphatic Hematologic: As Per HPI Past Patient History - Infectious Disease Hx of Infectious Diseases: None - Past Medical History & Family History Past Medical History?: Yes - Past Social History Smoking Status: Never Smoked - CARDIAC Hx Hypercholesterolemia: Yes Hx Hypertension: Yes - PULMONARY Hx Respiratory Disorders: No - NEUROLOGICAL Hx Neurological Disorder: No - HEENT Hx HEENT Problems: No - RENAL Hx Chronic Kidney Disease: Yes - ENDOCRINE/METABOLIC Hx Endocrine Disorders: Yes - HEMATOLOGICAL/ONCOLOGICAL Hx Human Immunodeficiency Virus (HIV): No - INTEGUMENTARY Hx Dermatological Problems: Yes - MUSCULOSKELETAL/RHEUMATOLOGICAL Hx Musculoskeletal Disorders: No - GASTROINTESTINAL Hx Gastrointestinal Disorders: No - GENITOURINARY/GYNECOLOGICAL Hx Genitourinary Disorders: No - PSYCHIATRIC Hx Psychophysiologic Disorder: No - SURGICAL HISTORY Hx Coronary Artery Bypass Graft: Yes - ANESTHESIA Hx Anesthesia: Yes Hx Anesthesia Reactions: No Meds Allergies/Adverse Reactions: Allergies Allergy/AdvReac Type Severity Reaction Status Date / Time No Known Allergies Allergy Verified 05/03/18 23:16 - Medications Medications: Current Medications Acetaminophen (Tylenol 325mg Tab) 650 mg PO Q4 PRN PRN Reason: Pain, Mild (1-3) Aspirin (Ecotrin) 81 mg PO DAILY [facility] Last Admin: 05/04/18 11:14 Dose: 81 mg Atorvastatin Calcium (Lipitor) 10 mg PO DAILY [facility] Clopidogrel Bisulfate (Plavix) 75 mg PO DAILY [facility] Last Admin: 05/04/18 11:13 Dose: 75 mg Ferrous Sulfate (Feosol) 325 mg PO DAILY [facility] Last Admin: 05/04/18 11:13 Dose: 325 mg Lisinopril (Zestril) 2.5 mg PO DAILY [facility] Last Admin: 05/04/18 11:11 Dose: 2.5 mg Metformin HCl (Glucophage) 1,000 mg PO BID [facility] Last Admin: 05/04/18 17:36 Dose: 1,000 mg Metoprolol Succinate (Toprol Xl) 50 mg PO DAILY [facility] Last Admin: 05/04/18 11:09 Dose: 50 mg Pantoprazole Sodium (Protonix Ec Tab) 20 mg PO DAILY [facility] Last Admin: 05/04/18 11:14 Dose: 20 mg Pioglitazone HCl (Actos) 15 mg PO DAILY [facility] Last Admin: 05/04/18 11:10 Dose: 15 mg Physical Exam - Constitutional Appears: Well - Head Exam Head Exam: ATRAUMATIC, NORMAL INSPECTION, NORMOCEPHALIC - Eye Exam Eye Exam: EOMI, Normal appearance, PERRL Pupil Exam: NORMAL ACCOMODATION, PERRL - ENT Exam ENT Exam: Mucous Membranes Moist, Normal Exam - Neck Exam Neck exam: Positive for: Normal Inspection - Respiratory Exam Respiratory Exam: Clear to Auscultation Bilateral, NORMAL BREATHING PATTERN - Cardiovascular Exam Cardiovascular Exam: REGULAR RHYTHM, RRR, +S1, +S2, Systolic Murmur - GI/Abdominal Exam GI & Abdominal Exam: Normal Bowel Sounds, Soft. absent: Tenderness - Extremities Exam Additional comments: left TMA site gangrene - Back Exam Back exam: NORMAL INSPECTION - Neurological Exam Neurological exam: Alert, CN II-XII Intact, Oriented x3, Reflexes Normal - Psychiatric Exam Psychiatric exam: Normal Affect, Normal Mood - Skin Skin Exam: Dry, Intact, Normal Color, Warm Results - Vital Signs Recent Vital Signs: Last Vital Signs Temp 97.8 F 05/04/18 17:00 Pulse 76 05/04/18 17:00 Resp 20 05/04/18 17:00 BP 131/75 05/04/18 17:00 Pulse Ox 100 05/04/18 17:00 - Labs Result Diagrams: 05/04/18 00:40 05/04/18 00:40 Labs: Laboratory Results - last 24 hr 05/04/18 05/04/18 05/04/18 00:40 00:40 00:44 WBC 13.5 H RBC 3.83 L Hgb 8.9 L Hct 27.3 L MCV 71.3 L MCH 23.2 L MCHC 32.6 L RDW 17.9 H Plt Count 237 D MPV 8.2 Neut % (Auto) 66.4 Lymph % (Auto) 11.2 L [place] % (Auto) 8.1 Eos % (Auto) 13.7 H Baso % (Auto) 0.6 Neut # (Auto) 9.0 H Lymph # (Auto) 1.5 [place] # (Auto) 1.1 H Eos # (Auto) 1.8 H Baso # (Auto) 0.1 ESR 61 H Sodium 140 Potassium 5.2 H Chloride 106 Carbon Dioxide 25 Anion Gap 14 BUN 16 Creatinine 1.4 Est GFR ( Amer) > 60 Est GFR (Non-Af Amer) 51 POC Glucose (mg/dL) 116 H Random Glucose 109 Calcium 9.0 C-Reactive Protein 22.00 H 05/04/18 05/04/18 11:06 16:05 WBC RBC Hgb Hct MCV MCH MCHC RDW Plt Count MPV Neut % (Auto) Lymph % (Auto) [place] % (Auto) Eos % (Auto) Baso % (Auto) Neut # (Auto) Lymph # (Auto) [place] # (Auto) Eos # (Auto) Baso # (Auto) ESR Sodium Potassium Chloride Carbon Dioxide Anion Gap BUN Creatinine Est GFR ( Amer) Est GFR (Non-Af Amer) POC Glucose (mg/dL) 116 H 75 Random Glucose Calcium C-Reactive Protein Assessment & Plan (1) PVD (peripheral vascular disease) Assessment and Plan: CTA abdominal aorta with b/l LE runoff cont asa and plavix statins bb Status: Acute (2) Dehiscence of amputation stump Assessment and Plan: will need assessment of PVD with CTA prior to any surgical intervention Status: Acute (3) Gangrene of toe of left foot Status: Acute (4) Hyperlipidemia Status: Acute (5) Coronary artery disease Status: Chronic (6) Diabetes Status: Chronic
[2018-05-05] MEDS: Meropenem 500 MG in Sodium Chloride 0.9% 100 ML IVPB SCH ×3 (03:29→16:15)
[2018-05-05 06:13] LABS: BASO # 0.1 K/uL (0.0-0.2); BASO % 0.5 % (0.0-2.0); EOS # 1.7 K/uL (0.0-0.7); HEMOGLOBIN 8.7 g/dL (12.0-18.0); LYMPH # 1.1 K/uL (1.0-4.3); MEAN CELL VOLUME 71.4 fl (80.0-94.0); MEAN CORPUSCULAR HEMOGLOBIN 23.1 pg (27.0-31.0); MEAN CORPUSCULAR HGB CONC 32.3 g/dL (33.0-37.0); MEAN PLATELET VOLUME 8.4 fl (7.2-11.7); MONO % 8.8 % (0.0-10.0); NEUT # 7.3 K/uL (1.8-7.0); NEUT % 65.7 % (50.0-75.0); RBC 3.78 Mil/uL (4.40-5.90); RED CELL DISTRIBUTION WIDTH 17.9 % (11.5-14.5)
[2018-05-05 06:23] LABS: ALBUMIN 3.8 g/dL (3.5-5.0); ALT/SGPT 16 U/L (21-72); AST/SGOT 21 U/L (17-59); BLOOD UREA NITROGEN 15 mg/dl (9-20); CALCIUM 9.2 mg/dL (8.4-10.2); GFR AFRICAN-AMERICAN > 60; GFR NON-AFRICAN AMERICAN > 60
--- NOTE | 2018-05-05 06:57 | CP.PCM.PN ---
Subjective - Date & Time of Evaluation Date of Evaluation: 05/05/18 Time of Evaluation: 06:54 - Subjective Subjective: Podiatry Consult note: Dr. Dale 67 year old male pt seen and evaluated at bedside for left necrotic TMA stump. Patient when seen was hanging his L leg down the bed while sleeping. Pt states that he has moderate pain in his L foot when being touched. Pt denies any acute overnight events. Patient denies of recent F/N/V/C/SOB/CP/headache/diarrhea. No other pedal complains at this time. Objective - Vital Signs/Intake and Output Vital Signs (last 24 hours): Temp Pulse Resp BP Pulse Ox 98.0 F 69 18 107/63 100 05/05/18 05:22 05/05/18 05:22 05/05/18 05:22 05/05/18 05:22 05/05/18 05:22 - Medications Medications: Current Medications Acetaminophen (Tylenol 325mg Tab) 650 mg PO Q4 PRN PRN Reason: Pain, Mild (1-3) Last Admin: 05/05/18 06:09 Dose: 650 mg Aspirin (Ecotrin) 81 mg PO DAILY [facility] Last Admin: 05/04/18 11:14 Dose: 81 mg Atorvastatin Calcium (Lipitor) 10 mg PO DAILY [facility] Last Admin: 05/04/18 21:26 Dose: 10 mg Clopidogrel Bisulfate (Plavix) 75 mg PO DAILY [facility] Last Admin: 05/04/18 11:13 Dose: 75 mg Ferrous Sulfate (Feosol) 325 mg PO DAILY [facility] Last Admin: 05/04/18 11:13 Dose: 325 mg Meropenem 500 mg/ Sodium (Chloride) 100 mls @ 100 mls/hr IVPB Q8 [facility] PRN Reason: Protocol Last Admin: 05/05/18 03:29 Dose: 100 mls/hr Vancomycin HCl 750 mg/ Sodium (Chloride) 250 mls @ 250 mls/hr IVPB Q12 [facility] PRN Reason: Protocol Last Admin: 05/04/18 21:24 Dose: 250 mls/hr Lisinopril (Zestril) 2.5 mg PO DAILY [facility] Last Admin: 05/04/18 11:11 Dose: 2.5 mg Metformin HCl (Glucophage) 1,000 mg PO BID [facility] Last Admin: 05/04/18 17:36 Dose: 1,000 mg Metoprolol Succinate (Toprol Xl) 50 mg PO DAILY [facility] Last Admin: 05/04/18 11:09 Dose: 50 mg Pantoprazole Sodium (Protonix Ec Tab) 20 mg PO DAILY [facility] Last Admin: 05/04/18 11:14 Dose: 20 mg Pioglitazone HCl (Actos) 15 mg PO DAILY [facility] Last Admin: 05/04/18 11:10 Dose: 15 mg - Labs Labs: 05/05/18 05:20 05/05/18 05:20 - Constitutional Appears: Well, Non-toxic, No Acute Distress - Head Exam Head Exam: ATRAUMATIC, NORMOCEPHALIC - Extremities Exam Additional comments: Left LE Focused Exam VASC: DP/PT non-palpable, Cap refill time on the dorsum of the proximal foot - delayed, temperature gradient is warm to cool from proximal to distal, no pitting or non-pitting edema noted at this time, no pedal hair present. DERM: Necrosis noted to the whole TMA flap with dehiscence of surgical site. wound base is mainly necrotic covered with black escar with islands of fibrosis noted on the lateral aspect of the foot, metatarsal shaft 1-5 from the TMA exposed distally from the flap, no purulence expressed from dehisced site today. slight malodor, no fluctuance noted. liquified necrotic tissue noted to drain from the dehesient wound site. Tracking and undermining of the wound noted. NEURO: Gross and protective sensation diminished. ORTHO: moderate pain during palpation of the necrotic TMA flap. - Neurological Exam Neurological Exam: Alert, Awake, Oriented x3 - Psychiatric Exam Psychiatric exam: Normal Affect, Normal Mood Assessment and Plan - Assessment and Plan (Free Text) Assessment: 67 year old male with PMHx of DM2, CAD, HTN, HLD was evaluated for left foot necrotic TMA flap with exposed bone ([place] 4) Plan: Patient seen and evaluated Discussed plan with attending Dr. Dale patient is afebrile, WBC 11.0 from 13.5 X-rays of the left foot reviewed an it showed no radiographic changes suggestive of OM, clinically bones are exposed suggestive of clinical OM. Wound cx - GNR x 2 Continue IV abx per ID Abdominal angiography - Scattered areas of moderate stenosis in both superficial femoral arteries. Suboptimal evaluation of the [id number] arteries due to heavy arterial wall calcification Podiatry plans surgical intervention with amputation of fourth digit pending recs for vascular intervention Wound dressed with betadine, DSD Patient to continue wearing the multipodus boots in bed at all times Podiatry will continue to follow patient while in-house
[2018-05-05] MEDS: Metoprolol Succinate 50 mg XL Tab PO SCH (08:36)
[2018-05-05] MEDS: Pantoprazole 20 mg EC Tab PO SCH (08:37)
[2018-05-05] MEDS ORDERED: Iodixanol 320 MG/ML 100 ML BOTTLE IV ONE ×2 (11:57→12:47)
[2018-05-05] MEDS ORDERED: Sodium Chloride 0.9% 50 ML IV ONE (11:58)
[2018-05-05] MEDS ORDERED: Iodixanol 320 mg/ml 50 ml Sol IV ONE (11:58)
--- NOTE | 2018-05-05 12:54 | CP.PCM.CON ---
History of Present Illness - History of Present Illness History of Present Illness: 67 yr old M presented to ED with complaint of worsening infection of left forefoot. . Denies fevers, chills, LE pain, chest pain, nausea, vomiting or diarrhea. HAS HX OF MRSA AND MDRO FROM WOUNDS WILL START VANCO MERREM NEEDS VASCULAR RE-EVAL, CULTURES POSSIBLE OR/ REVISION AND OR AMPUTATION PMHx: Left foot osteomyelitis with transmetatarsal amputation 02/06/18, hypertension, NIDDM type 2, CAD s/p CABG 2006, HLD SurgHx: CABG 2006, left TMA FMHx: noncontributory SocHx: denies tobacco/Etoh or drugs Medications: Aspirin 81 mg PO QD, Atorvastatin 10mg PO QD, Plavix 75mg PO QD, Lisinopril 10mg PO QD, Metformin 1,000mg PO BID, Metoprolol Succinate XL 25mg PO QD, Pioglitazone 15 mg PO QD Allergies: NKDA Review of Systems - Constitutional Constitutional: As Per HPI - EENT Eyes: absent: As Per HPI, Blind Spots, Blurred Vision, Change in Vision, Decreased Night Vision, Diplopia, Discharge, Dry Eye, Exophthalmos, Floaters, Irritation, Itchy Eyes, Loss of Peripheral Vision, Pain, Photophobia, Requires Corrective Lenses, Sees Flashes, Spots in Vision, Tunnel Vision, Other Visual Disturbances, Loss of Vision, Other Ears: absent: As Per HPI, Decreased Hearing, Ear Discharge, Ear Pain, Tinnitus, Abnormal Hearing, Disequilibrium, Dizziness, Other Nose/Mouth/Throat: absent: As Per HPI, Epistaxis, Nasal Congestion, Nasal Discharge, Nasal Obstruction, Nasal Trauma, Nose Pain, Post Nasal Drip, Sinus Pain, Sinus Pressure, Bleeding Gums, Change in Voice, Dental Pain, Dry Mouth, Dysphagia, Halitosis, Hoarsness, Lip Swelling, Mouth Lesions, Mouth Pain, Odynophagia, Sore Throat, Throat Swelling, Tongue Swelling, Facial Pain, Neck Pain, Neck Mass, Other - Cardiovascular Cardiovascular: absent: As Per HPI, Acrocyanosis, Chest Pain, Chest Pain at Rest , Chest Pain with Activity, Claudication, Diaphoresis, Dyspnea, Dyspnea on Exertion, Edema, Irregular Heart Rhythm, Pain Radiating to Arm/Neck/Jaw, Leg Edema, Leg Ulcers, Lightheadedness, Orthopnea, Palpitations, Paroxysmal Nocturnal Dyspnea, Pedal Edema, Radiating Pain, Rapid Heart Rate, Slow Heart Rate, Syncope, Other - Respiratory Respiratory: absent: As Per HPI, Cough, Dyspnea, Hemoptysis, Dyspnea on Exertion , Wheezing, Snoring, Stridor, Pain on Inspiration, Chest Congestion, Excessive Mucous Production, Change in Mucous Color, Pain with Coughing, Other - Gastrointestinal Gastrointestinal: absent: As Per HPI, Abdominal Pain, Belching, Bloating, Change in Bowel Habits, Change in Stool Character, Coffee Ground Emesis, Constipation, Cramping, Diarrhea, Dyspepsia, Dysphagia, Early Satiety, Excessive Flatus, Fecal Incontinence, Heartburn, Hematemesis, Hematochezia, Loose Stools, Melena, Nausea, Odynophagia, Temesmus, Vomiting, Other - Genitourinary Genitourinary: absent: As Per HPI, Change in Urinary Stream, Difficulty Urinating, Dysuria, Flank Pain, Hematuria, Pyuria, Nocturia, Urinary Incontinence, Urinary Frequency, Urinary Hesitance, Urinary Urgency, Voiding Freq/Small Amts, Freq UTI, Hx Renal/Bladder Calculi, Hx /Renal Surgery, Bladder Distension, Other - Musculoskeletal Musculoskeletal: Deformity - Integumentary Integumentary: As Per HPI, Skin Pain, Wounds - Neurological Neurological: absent: As Per HPI, Abnormal Gait, Abnormal Hearing, Abnormal Movements, Abnormal Speech, Behavioral Changes, Burning Sensations, Confusion, Convulsions, Disequilibrium, Dizziness, Numbness, Focal Weakness, Frequent Falls , Headaches, Lack of Coordination, Loss of Vision, Memory Loss, Paresthesias, Radicular Pain, Restless Legs, Sensory Deficit, Syncope, Tingling, Tremor, Vertigo, Weakness, Other Visual Disturbances, Other - Psychiatric Psychiatric: absent: As Per HPI, Abnormal Sleep Pattern, Anhedonia, Anxiety, Auditory Hallucinations, Behavioral Changes, Change in Appetite, Change in Libido, Confusion, Depression, Difficulty Concentrating, Hallucinations, Homicidal Ideation, Hopelessness, Irritability, Memory Loss, Mood Swings, Panic Attacks, Paranoia, Suicidal Ideation, Visual Hallucinations, Tactile Hallucinations, Other - Endocrine Endocrine: absent: As Per HPI, Change in Body Appearance, Change in Libido, Cold Intolorance, Deepening of Voice, Excessive Sweating, Fatigue, Flushing, Heat Intolorance, Increase in Ring/Shoe/Hat Size, Palpitations, Polydipsia, Polyphagia, Polyuria, Other - Hematologic/Lymphatic Hematologic: absent: As Per HPI, Easy Bleeding, Easy Bruising, Lymphadenopathy, Other Past Patient History - Infectious Disease Hx of Infectious Diseases: None - Past Medical History & Family History Past Medical History?: Yes - Past Social History Smoking Status: Never Smoked - CARDIAC Hx Hypercholesterolemia: Yes Hx Hypertension: Yes - PULMONARY Hx Respiratory Disorders: No - NEUROLOGICAL Hx Neurological Disorder: No - HEENT Hx HEENT Problems: No - RENAL Hx Chronic Kidney Disease: Yes - ENDOCRINE/METABOLIC Hx Endocrine Disorders: Yes - HEMATOLOGICAL/ONCOLOGICAL Hx Human Immunodeficiency Virus (HIV): No - INTEGUMENTARY Hx Dermatological Problems: Yes - MUSCULOSKELETAL/RHEUMATOLOGICAL Hx Musculoskeletal Disorders: No - GASTROINTESTINAL Hx Gastrointestinal Disorders: No - GENITOURINARY/GYNECOLOGICAL Hx Genitourinary Disorders: No - PSYCHIATRIC Hx Psychophysiologic Disorder: No - SURGICAL HISTORY Hx Coronary Artery Bypass Graft: Yes - ANESTHESIA Hx Anesthesia: Yes Hx Anesthesia Reactions: No Meds Allergies/Adverse Reactions: Allergies Allergy/AdvReac Type Severity Reaction Status Date / Time No Known Allergies Allergy Verified 05/03/18 23:16 - Medications Medications: Current Medications Acetaminophen (Tylenol 325mg Tab) 650 mg PO Q4 PRN PRN Reason: Pain, Mild (1-3) Last Admin: 05/05/18 10:47 Dose: 650 mg Aspirin (Ecotrin) 81 mg PO DAILY [facility] Last Admin: 05/05/18 08:37 Dose: 81 mg Atorvastatin Calcium (Lipitor) 10 mg PO DAILY [facility] Last Admin: 05/05/18 08:36 Dose: 10 mg Clopidogrel Bisulfate (Plavix) 75 mg PO DAILY [facility] Last Admin: 05/05/18 08:37 Dose: 75 mg Ferrous Sulfate (Feosol) 325 mg PO DAILY [facility] Last Admin: 05/05/18 08:36 Dose: 325 mg Meropenem 500 mg/ Sodium (Chloride) 100 mls @ 100 mls/hr IVPB Q8 [facility] PRN Reason: Protocol Last Admin: 05/05/18 08:37 Dose: 100 mls/hr Vancomycin HCl 750 mg/ Sodium (Chloride) 250 mls @ 250 mls/hr IVPB Q12 [facility] PRN Reason: Protocol Last Admin: 05/05/18 10:34 Dose: 250 mls/hr Lisinopril (Zestril) 2.5 mg PO DAILY [facility] Last Admin: 05/05/18 08:35 Dose: 2.5 mg Metformin HCl (Glucophage) 1,000 mg PO BID [facility] Last Admin: 05/05/18 08:36 Dose: 1,000 mg Metoprolol Succinate (Toprol Xl) 50 mg PO DAILY [facility] Last Admin: 05/05/18 08:36 Dose: 50 mg Pantoprazole Sodium (Protonix Ec Tab) 20 mg PO DAILY [facility] Last Admin: 05/05/18 08:37 Dose: 20 mg Pioglitazone HCl (Actos) 15 mg PO DAILY [facility] Last Admin: 05/05/18 08:36 Dose: 15 mg Physical Exam - Constitutional Appears: No Acute Distress, Chronically Ill - Head Exam Head Exam: ATRAUMATIC, NORMAL INSPECTION - Eye Exam Eye Exam: PERRL. absent: Scleral icterus - ENT Exam ENT Exam: Mucous Membranes Dry - Neck Exam Neck exam: Negative for: Lymphadenopathy - Respiratory Exam Respiratory Exam: Decreased Breath Sounds, Rhonchi - Cardiovascular Exam Cardiovascular Exam: REGULAR RHYTHM, +S1, +S2 - GI/Abdominal Exam GI & Abdominal Exam: Diminished Bowel Sounds, Soft. absent: Tenderness - Rectal Exam Rectal Exam: Deferred - Exam Exam: NORMAL INSPECTION - Extremities Exam Extremities exam: Positive for: pedal edema, tenderness. Negative for: calf tenderness, pedal pulses present Additional comments: LLE Focused Exam VASC: DP and PT non-palpable, Cap refill time on the dorsum of the proximal foot - delayed, temperature gradient is warm to cool from proximal to distal, no pitting or non-pitting edema noted at this time, no pedal hair present DERM: Necrosis noted to the whole TMA flap with dehiscence of surgical site. wound base is mainly necrotic with islands of fibrosis noted on the lateral aspect of the foot, metatarsal shaft 1-5 from the TMA exposed distally from the flap, no purulence expressed from dehisced site today. No malodor, no active drainage, no fluctuance noted NEURO: Gross and protective sensation diminished bilaterally ORTHO: minimal pain during palpation of the necrotic TMA flap - Back Exam Back exam: absent: CVA tenderness (L), CVA tenderness (R) - Neurological Exam Neurological exam: Alert, CN II-XII Intact, Oriented x3, Reflexes Normal - Psychiatric Exam Psychiatric exam: Normal Mood - Skin Skin Exam: Dry Results - Vital Signs Recent Vital Signs: Last Vital Signs Temp 97.4 F L 05/05/18 08:00 Pulse 76 05/05/18 08:36 Resp 20 05/05/18 08:00 BP 116/65 05/05/18 08:36 Pulse Ox 95 05/05/18 08:00 - Labs Result Diagrams: 05/05/18 05:20 05/05/18 05:20 Labs: Laboratory Results - last 24 hr 05/04/18 05/04/18 05/04/18 00:40 16:05 21:22 WBC RBC Hgb Hct MCV MCH MCHC RDW Plt Count MPV Neut % (Auto) Lymph % (Auto) [place] % (Auto) Eos % (Auto) Baso % (Auto) Neut # (Auto) Lymph # (Auto) [place] # (Auto) Eos # (Auto) Baso # (Auto) Sodium Potassium Chloride Carbon Dioxide Anion Gap BUN Creatinine Est GFR ( Amer) Est GFR (Non-Af Amer) POC Glucose (mg/dL) 75 127 H Random Glucose Calcium Total Bilirubin AST ALT Alkaline Phosphatase C-Reactive Protein 22.00 H Total Protein Albumin Globulin Albumin/Globulin Ratio Procalcitonin 05/05/18 05/05/18 05/05/18 05:20 05:20 05:20 WBC 11.0 H RBC 3.78 L Hgb 8.7 L Hct 27.0 L MCV 71.4 L MCH 23.1 L MCHC 32.3 L RDW 17.9 H Plt Count 245 MPV 8.4 Neut % (Auto) 65.7 Lymph % (Auto) 10.0 L [place] % (Auto) 8.8 Eos % (Auto) 15.0 H Baso % (Auto) 0.5 Neut # (Auto) 7.3 H Lymph # (Auto) 1.1 [place] # (Auto) 1.0 H Eos # (Auto) 1.7 H Baso # (Auto) 0.1 Sodium 140 Potassium 4.8 Chloride 105 Carbon Dioxide 28 Anion Gap 12 BUN 15 Creatinine 1.2 Est GFR ( Amer) > 60 Est GFR (Non-Af Amer) > 60 POC Glucose (mg/dL) Random Glucose 87 Calcium 9.2 Total Bilirubin 0.7 AST 21 ALT 16 L D Alkaline Phosphatase 103 C-Reactive Protein Total Protein 7.7 Albumin 3.8 Globulin 3.9 Albumin/Globulin Ratio 1.0 Procalcitonin < 0.05 L 05/05/18 05:23 WBC RBC Hgb Hct MCV MCH MCHC RDW Plt Count MPV Neut % (Auto) Lymph % (Auto) [place] % (Auto) Eos % (Auto) Baso % (Auto) Neut # (Auto) Lymph # (Auto) [place] # (Auto) Eos # (Auto) Baso # (Auto) Sodium Potassium Chloride Carbon Dioxide Anion Gap BUN Creatinine Est GFR ( Amer) Est GFR (Non-Af Amer) POC Glucose (mg/dL) 89 Random Glucose Calcium Total Bilirubin AST ALT Alkaline Phosphatase C-Reactive Protein Total Protein Albumin Globulin Albumin/Globulin Ratio Procalcitonin Assessment & Plan (1) Osteomyelitis Status: Acute (2) PVD (peripheral vascular disease) Status: Acute (3) Cellulitis of foot Status: Acute (4) Dehiscence of amputation stump Status: Acute - Assessment and Plan (Free Text) Assessment: AWAIT CULTURES HX OF MRSA AND MDRO GRAM NEG IN PAST FOR VASCULAR EVAL PROGNOSIS FOR LIMB SALVAGE GUARDED Plan: CONT VANCO/MERREM
--- NOTE | 2018-05-05 13:41 | PN ---
DATE: 05/05/2018 SUBJECTIVE: The patient is seen and examined. Interim events noted. Consults noted and appreciated. Podiatry followup and interventions noted and appreciated. The patient remains in progressive care unit, on telemetry monitoring for possible surgery on Tuesday or Tuesday. The patient feels okay. Pain is adequately controlled. No chest pain or shortness of breath. PHYSICAL EXAMINATION: GENERAL: The patient is in no acute distress. VITAL SIGNS: Stable. HEART: S1, S2, normal and regular. LUNGS: Good bilateral air exchange. ABDOMEN: Soft and nontender. EXTREMITIES: The patient has osteomyelitis and ulcer covered with podiatry dressing. No sign of acute complication. No edema. No calf swelling. No tenderness. No acute ischemia. DIRECTOR OPERATIONS: Exam is essentially unchanged. DIAGNOSTIC DATA: Available diagnostic data reviewed. Telemetry monitoring does not reveal significant arrhythmia. ASSESSMENT AND PLAN: Overall, the patient's general medical condition is stable. Plan as ordered. Doug Lima MD
--- NOTE | 2018-05-05 14:49 | CT ---
PROCEDURE: CT Angiography Abdomen, Pelvis and Lower Extremity with Contrast HISTORY: gangrene of toes COMPARISON: None. TECHNIQUE: Technique: CT angiography of the abdomen, pelvis and bilateral lower extremities performed in the arterial phase of enhancement. Coronal and sagittal reformats, and well as rotating MIP images of the vessels generated at the workstation. Intravenous contrast dose: 99 mL Visipaque 320 Radiation dose: Total exam DLP = 957.5 mGy-cm. This CT exam was performed using one or more of the following dose reduction techniques: Automated exposure control, adjustment of the mA and/or kV according to patient size, and/or use of iterative reconstruction technique. FINDINGS: CT ANGIOGRAPHY: ABDOMINAL AORTA:: Calcific atherosclerosis. No aneurysm or stenosis. MAJOR AORTIC BRANCHES: Celiac Newell: Mild ostial stenosis. Superior mesenteric artery: Mild ostial stenosis. Inferior mesenteric artery: Unremarkable. Renal arteries: Unremarkable. PELVIC ARTERIES: Right Common Iliac: Calcific atherosclerosis, patent. Right External Iliac: Calcific atherosclerosis, patent. Right Internal Iliac: Calcific atherosclerosis, patent. Left Common Iliac: Calcific atherosclerosis, patent. Left External Iliac: Calcific atherosclerosis, patent. Left Internal Iliac: Calcific atherosclerosis, patent. RIGHT LOWER EXTREMITY ARTERIES: Right Common Femoral: Calcific atherosclerosis, patent. Right Superficial Femoral: Calcific atherosclerosis with a few focal areas of moderate stenosis. Right Profunda Femoris: Calcific atherosclerosis, patent. Right Popliteal:Calcific atherosclerosis, patent. Right Anterior Tibial: Suboptimal evaluation due to heavy arterial wall calcification. Right Tibioperoneal Trunk: Suboptimal evaluation due to heavy arterial wall calcification. Right Posterior Tibial: Suboptimal evaluation due to heavy arterial wall calcification. Right Peroneal: Suboptimal evaluation due to heavy arterial wall calcification. Right dorsalis pedis : Suboptimal evaluation due to heavy arterial wall calcification. LEFT LOWER EXTREMITY ARTERIES: Left Common Femoral: Calcific atherosclerosis, patent. Left Superficial Femoral: Calcific atherosclerosis with a few focal areas of moderate stenosis. Left Profunda Femoris: Calcific atherosclerosis, patent. Left Popliteal: Calcific atherosclerosis, patent. Left Anterior Tibial: Suboptimal evaluation due to heavy arterial wall calcification. Left Tibioperoneal Trunk: Suboptimal evaluation due to heavy arterial wall calcification. Left Posterior Tibial: Suboptimal evaluation due to heavy arterial wall calcification. Left Peronea: Suboptimal evaluation due to heavy arterial wall calcification. Left Dorsalis pedis: Suboptimal evaluation due to heavy arterial wall calcification. NON-ANGIOGRAPHIC ASPECT OF THE EXAM: LOWER THORAX: Prior sternotomy and mitral valve replacement. Heart size normal. No focal consolidation or pleural effusion. LIVER: Unremarkable. No gross lesion or ductal dilatation. GALLBLADDER AND BILE DUCTS: Trace cholelithiasis. PANCREAS: Unremarkable. No gross lesion or ductal dilatation. SPLEEN: Unremarkable. ADRENALS: Unremarkable. No mass. KIDNEYS AND URETERS: Unremarkable. No hydronephrosis. No solid mass. STOMACH AND BOWEL: Unremarkable. No obstruction. No gross mural thickening. APPENDIX: Normal appendix. PERITONEUM: Unremarkable. No free fluid. No free air. LYMPH NODES: Unremarkable. No enlarged lymph nodes. BLADDER: Unremarkable. REPRODUCTIVE: Prostatomegaly. BONES: No acute fracture. Left foot transmetatarsal amputation. OTHER FINDINGS: None. IMPRESSION: Scattered areas of moderate stenosis in both superficial femoral arteries. Suboptimal evaluation of the [id number] arteries due to heavy arterial wall calcification. Cholelithiasis without CT evidence of acute cholecystitis.
[2018-05-06] MEDS ORDERED: guaiFENesin DM 200 mg-20 mg/10 ml UD PO ONE (01:37)
[2018-05-06] MEDS: Meropenem 500 MG in Sodium Chloride 0.9% 100 ML IVPB SCH ×4 (01:45→16:39)
[2018-05-06] MEDS: Metoprolol Succinate 50 mg XL Tab PO SCH (08:29)
[2018-05-06] MEDS: Pantoprazole 20 mg EC Tab PO SCH (08:31)
--- NOTE | 2018-05-06 10:56 | PN ---
DATE: 05/06/2018 SUBJECTIVE: The patient is seen and examined. Interim events noted. Consults noted and appreciated. The patient remains in progressive care unit on telemetry monitoring. Feels okay. Pain is adequately controlled. No chest pain or shortness of breath. PHYSICAL EXAMINATION: GENERAL: The patient is in no acute distress. VITAL SIGNS: Stable. HEART: S1, S2, normal and regular. LUNGS: Good bilateral air exchange. ABDOMEN: Soft and nontender. EXTREMITIES: The patient is status post amputation also has osteomyelitis of the foot, pain is adequately controlled. No sign of acute complications. No edema. No calf swelling. No tenderness. No acute ischemia CERTIFIED MASSAGE THERAPIST: Essentially unchanged. DIAGNOSTIC DATA: Available diagnostic data reviewed. Telemetry monitoring does not show any significant arrhythmias. ASSESSMENT AND PLAN: Overall, the patient's general medical condition is stable. Plan as ordered. Doug Lima MD
--- NOTE | 2018-05-06 15:14 | CP.PCM.PN ---
Subjective - Date & Time of Evaluation Date of Evaluation: 05/06/18 Time of Evaluation: 15:11 - Subjective Subjective: Podiatry progress note for Dr. Dale 67 year old male pt seen and evaluated at bedside for left necrotic TMA stump. Patient is AAO x 3 and NAD, resting comfortably in bed surrounded by family. Patient admits to moderate pain on palpation. Pt denies any acute overnight events. Patient denies of recent F/N/V/C/SOB/CP/headache/diarrhea. No other pedal complains at this time. Objective - Vital Signs/Intake and Output Vital Signs (last 24 hours): Temp Pulse Resp BP Pulse Ox 97.5 F L 69 20 124/75 100 05/06/18 12:34 05/06/18 12:34 05/06/18 12:34 05/06/18 12:34 05/06/18 12:34 - Medications Medications: Current Medications Acetaminophen (Tylenol 325mg Tab) 650 mg PO Q4 PRN PRN Reason: Pain, Mild (1-3) Last Admin: 05/06/18 09:44 Dose: 650 mg Aspirin (Ecotrin) 81 mg PO DAILY [facility] Last Admin: 05/06/18 08:30 Dose: 81 mg Atorvastatin Calcium (Lipitor) 10 mg PO DAILY [facility] Last Admin: 05/06/18 08:30 Dose: 10 mg Clopidogrel Bisulfate (Plavix) 75 mg PO DAILY [facility] Last Admin: 05/06/18 08:29 Dose: 75 mg Ferrous Sulfate (Feosol) 325 mg PO DAILY [facility] Last Admin: 05/06/18 08:30 Dose: 325 mg Meropenem 500 mg/ Sodium (Chloride) 100 mls @ 100 mls/hr IVPB Q8 [facility] PRN Reason: Protocol Last Admin: 05/06/18 08:31 Dose: 100 mls/hr Vancomycin HCl 750 mg/ Sodium (Chloride) 250 mls @ 250 mls/hr IVPB Q12 [facility] PRN Reason: Protocol Last Admin: 05/06/18 08:34 Dose: 250 mls/hr Lisinopril (Zestril) 2.5 mg PO DAILY [facility] Last Admin: 05/06/18 08:31 Dose: 2.5 mg Metformin HCl (Glucophage) 1,000 mg PO BID [facility] Last Admin: 05/06/18 08:29 Dose: 1,000 mg Metoprolol Succinate (Toprol Xl) 50 mg PO DAILY [facility] Last Admin: 05/06/18 08:29 Dose: 50 mg Pantoprazole Sodium (Protonix Ec Tab) 20 mg PO DAILY [facility] Last Admin: 05/06/18 08:31 Dose: 20 mg Pioglitazone HCl (Actos) 15 mg PO DAILY [facility] Last Admin: 05/06/18 08:30 Dose: 15 mg - Labs Labs: 05/05/18 05:20 05/05/18 05:20 - Constitutional Appears: Well, Non-toxic, No Acute Distress - Head Exam Head Exam: ATRAUMATIC, NORMOCEPHALIC - Extremities Exam Additional comments: Left LE Focused Exam VASC: DP/PT non-palpable, CFT >3 secs , no pitting or non-pitting edema noted at this time, no pedal hair noted. DERM: Necrosis noted to the TMA flap with dehiscence of surgical site. Necrotic wound base with black eschar with fibrotic tissue noted on the lateral aspect of the foot, metatarsal shaft 1-5 from the TMA exposed distally from the flap, no purulence expressed from dehisced site. Mild malodor, no fluctuance noted. Liquified necrotic tissue noted to drain from the dehiscent wound site. Tracking and undermining of the wound noted. NEURO: Gross and protective sensation diminished. ORTHO: Moderate pain during palpation of the necrotic TMA flap. 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 Dale Chart, lab, and vitals reviewed; afebrile Wound cx: Klebsiella Oxytoca, Serratia Marcescens Continue IV abx per ID Foot xray: TMA with no signs of OM Abdominal Angiogram: Scattered moderate stenosis of b/l SFA; heavy arterial wall calcification of b/l LE Podiatry plan: surgical intervention pending vasc recs, will f/u with Dr. Bolden Wound dressed with betadine, DSD Patient to continue wearing the multipodus boots in bed at all times Podiatry will continue to follow patient while in-house
[2018-05-06] MEDS ORDERED: Povidone Iodine Topical 10% Sol ONE (15:29)
[2018-05-07] MEDS: Meropenem 500 MG in Sodium Chloride 0.9% 100 ML IVPB SCH ×3 (00:56→16:13)
[2018-05-07] MEDS: Pantoprazole 20 mg EC Tab PO SCH (08:24)
[2018-05-07] MEDS: Metoprolol Succinate 50 mg XL Tab PO SCH (08:25)
[2018-05-07 09:27] LABS: HEMOGLOBIN 8.7 g/dL (12.0-18.0); MEAN CELL VOLUME 70.6 fl (80.0-94.0); MEAN CORPUSCULAR HEMOGLOBIN 23.7 pg (27.0-31.0); MEAN CORPUSCULAR HGB CONC 33.6 g/dL (33.0-37.0); RBC 3.66 Mil/uL (4.40-5.90); RED CELL DISTRIBUTION WIDTH 18.2 % (11.5-14.5); WHITE BLOOD COUNT 11.5 K/uL (4.8-10.8)
[2018-05-07 09:44] LABS: ALB/GLOB RATIO 0.9 (1.0-2.1); ALBUMIN 3.6 g/dL (3.5-5.0); ALT/SGPT 20 U/L (21-72); AST/SGOT 46 U/L (17-59); BLOOD UREA NITROGEN 15 mg/dl (9-20); CALCIUM 8.9 mg/dL (8.4-10.2); GFR AFRICAN-AMERICAN > 60; GFR NON-AFRICAN AMERICAN > 60
--- NOTE | 2018-05-07 10:43 | CP.PCM.PN ---
Subjective - Date & Time of Evaluation Date of Evaluation: 05/07/18 Time of Evaluation: 10:40 - Subjective Subjective: Podiatry progress note for Dr. Dale 67 y/o male pt seen and evaluated at bedside for left necrotic TMA stump. Patient is AAO x 3 and NAD, resting comfortably in bed. Patietn dressing is clean/dry/intact. Patient admits to moderate pain on palpation. Pt denies any acute overnight events. Patient instructed to be NPO post midnight for possible surgery on Tuesday05/08/[address] Dale. Patient denies recent F/N/V/C/SOB/ CP/headache/diarrhea. No other pedal complains at this time. Objective - Vital Signs/Intake and Output Vital Signs (last 24 hours): Temp Pulse Resp BP Pulse Ox 98.1 F 72 20 110/69 100 05/07/18 08:03 05/07/18 08:25 05/07/18 08:03 05/07/18 08:25 05/07/18 08:03 - Medications Medications: Current Medications Acetaminophen (Tylenol 325mg Tab) 650 mg PO Q4 PRN PRN Reason: Pain, Mild (1-3) Last Admin: 05/07/18 07:10 Dose: 650 mg Aspirin (Ecotrin) 81 mg PO DAILY [facility] Last Admin: 05/07/18 08:24 Dose: 81 mg Atorvastatin Calcium (Lipitor) 10 mg PO DAILY [facility] Last Admin: 05/07/18 09:04 Dose: 10 mg Clopidogrel Bisulfate (Plavix) 75 mg PO DAILY [facility] Last Admin: 05/07/18 08:26 Dose: 75 mg Ferrous Sulfate (Feosol) 325 mg PO DAILY [facility] Last Admin: 05/07/18 08:24 Dose: 325 mg Meropenem 500 mg/ Sodium (Chloride) 100 mls @ 100 mls/hr IVPB Q8 [facility] PRN Reason: Protocol Last Admin: 05/07/18 09:04 Dose: 100 mls/hr Vancomycin HCl 750 mg/ Sodium (Chloride) 250 mls @ 250 mls/hr IVPB Q12 [facility] PRN Reason: Protocol Last Admin: 05/07/18 09:04 Dose: 250 mls/hr Lisinopril (Zestril) 2.5 mg PO DAILY [facility] Last Admin: 05/07/18 08:25 Dose: 2.5 mg Metformin HCl (Glucophage) 1,000 mg PO BID [facility] Last Admin: 05/07/18 08:25 Dose: 1,000 mg Metoprolol Succinate (Toprol Xl) 50 mg PO DAILY [facility] Last Admin: 05/07/18 08:25 Dose: 50 mg Pantoprazole Sodium (Protonix Ec Tab) 20 mg PO DAILY [facility] Last Admin: 05/07/18 08:24 Dose: 20 mg Pioglitazone HCl (Actos) 15 mg PO DAILY [facility] Last Admin: 05/07/18 08:24 Dose: 15 mg - Labs Labs: 05/07/18 09:07 05/07/18 09:07 - Constitutional Appears: Well, Non-toxic, No Acute Distress - Head Exam Head Exam: ATRAUMATIC, NORMOCEPHALIC - Extremities Exam Additional comments: Left lower Extremity Focused Exam VASC: DP and PT non-palpable, TG warm to cool proximal to distal , no pitting or non-pitting edema noted at this time, no pedal hair noted. DERM: Necrosis noted to the TMA flap with dehiscence of surgical site. Necrotic wound base with black eschar with fibrotic tissue noted on the lateral aspect of the foot, metatarsal shaft 1-5 from the TMA exposed distally from the flap, no purulence expressed from dehisced site. Mild malodor, no fluctuance noted. Liquified necrotic tissue noted to drain from the dehiscent wound site. Tracking and undermining of the wound noted. NEURO: Gross and protective sensation diminished. 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 Dale Chart, lab, and vitals reviewed; afebrile WBC 11.5 (05/07/18) Wound dressed with betadine, DSD Wound cx: Klebsiella Oxytoca, Serratia Marcescens Continue IV abx per ID Foot xray: TMA with no signs of OM Abdominal Angiogram: Scattered moderate stenosis of b/l SFA; heavy arterial wall calcification of b/l LE Patient to continue wearing the multipodus boots in bed at all times Per Dr. Bolden, patient eligible for podiatric surgical intervention with adequate healing potential Podiatry plan: surgical intervention with Dr. Dale on 05/08/18 pending OR availability Discussed with Dr. Lima who states that patient is medically optimized for surgery Patient instructed to be NPO after midnight and told he cannot eat or drink Podiatry will continue to follow patient while in-house
--- NOTE | 2018-05-07 11:47 | CP.PCM.PN ---
Subjective - Date & Time of Evaluation Date of Evaluation: 05/07/18 Time of Evaluation: 07:00 - Subjective Subjective: Patient seen and evaluated remains afebrile Abdominal Angiogram: Scattered moderate stenosis of b/l SFA; heavy arterial wall calcification of b/l LE awaiting vascular clearance for debridement / recision of TMA would consider MRI foot at some point vs empiric 6 weeks rx as proximal OM cant be ruled out Objective - Vital Signs/Intake and Output Vital Signs (last 24 hours): Temp Pulse Resp BP Pulse Ox 98.1 F 72 20 110/69 100 05/07/18 08:03 05/07/18 08:25 05/07/18 08:03 05/07/18 08:25 05/07/18 08:03 - Medications Medications: Current Medications Acetaminophen (Tylenol 325mg Tab) 650 mg PO Q4 PRN PRN Reason: Pain, Mild (1-3) Last Admin: 05/07/18 07:10 Dose: 650 mg Aspirin (Ecotrin) 81 mg PO DAILY [facility] Last Admin: 05/07/18 08:24 Dose: 81 mg Atorvastatin Calcium (Lipitor) 10 mg PO DAILY [facility] Last Admin: 05/07/18 09:04 Dose: 10 mg Clopidogrel Bisulfate (Plavix) 75 mg PO DAILY [facility] Last Admin: 05/07/18 08:26 Dose: 75 mg Ferrous Sulfate (Feosol) 325 mg PO DAILY [facility] Last Admin: 05/07/18 08:24 Dose: 325 mg Meropenem 500 mg/ Sodium (Chloride) 100 mls @ 100 mls/hr IVPB Q8 [facility] PRN Reason: Protocol Last Admin: 05/07/18 09:04 Dose: 100 mls/hr Vancomycin HCl 750 mg/ Sodium (Chloride) 250 mls @ 250 mls/hr IVPB Q12 [facility] PRN Reason: Protocol Last Admin: 05/07/18 09:04 Dose: 250 mls/hr Lisinopril (Zestril) 2.5 mg PO DAILY [facility] Last Admin: 05/07/18 08:25 Dose: 2.5 mg Metformin HCl (Glucophage) 1,000 mg PO BID [facility] Last Admin: 05/07/18 08:25 Dose: 1,000 mg Metoprolol Succinate (Toprol Xl) 50 mg PO DAILY [facility] Last Admin: 05/07/18 08:25 Dose: 50 mg Pantoprazole Sodium (Protonix Ec Tab) 20 mg PO DAILY [facility] Last Admin: 05/07/18 08:24 Dose: 20 mg Pioglitazone HCl (Actos) 15 mg PO DAILY [facility] Last Admin: 05/07/18 08:24 Dose: 15 mg - Labs Labs: 05/07/18 09:07 05/07/18 09:07 - Constitutional Appears: Chronically Ill - Head Exam Head Exam: ATRAUMATIC, NORMOCEPHALIC - Eye Exam Eye Exam: Scleral icterus - ENT Exam ENT Exam: Mucous Membranes Dry - Neck Exam Neck Exam: absent: Lymphadenopathy - Respiratory Exam Respiratory Exam: Decreased Breath Sounds - Cardiovascular Exam Cardiovascular Exam: REGULAR RHYTHM - GI/Abdominal Exam GI & Abdominal Exam: Distended, Soft - Rectal Exam Rectal Exam: Deferred - Exam Exam: NORMAL INSPECTION - Extremities Exam Extremities Exam: Pedal Edema. absent: Normal Capillary Refill - Back Exam Back Exam: absent: CVA tenderness (L), CVA tenderness (R) - Neurological Exam Neurological Exam: Alert, Awake, Oriented x3 Neuro motor strength exam: Left Upper Extremity: 4, Right Upper Extremity: 4, Left Lower Extremity: 4, Right Lower Extremity: 4 - Psychiatric Exam Psychiatric exam: Depressed - Skin Skin Exam: Dry Assessment and Plan (1) Osteomyelitis Status: Acute (2) PVD (peripheral vascular disease) Status: Acute (3) Cellulitis of foot Status: Acute (4) Dehiscence of amputation stump Status: Acute - Assessment and Plan (Free Text) Assessment: consider MRI foot await vascular recommendations for OR/ debridement cont IV antibiotics
--- NOTE | 2018-05-07 12:45 | PN ---
DATE: 05/07/2018 SUBJECTIVE: The patient is seen and examined. Interim events noted. The patient remains in progressive care unit on telemetry monitoring. The patient feels okay. Denies any specific complaint. No chest pain. No shortness of breath. Foot pain is present but adequately controlled. No specific issue reported by nursing staff. PHYSICAL EXAMINATION: GENERAL: The patient is in no acute distress. VITAL SIGNS: Stable. HEART: S1 and S2, normal and regular. LUNGS: Good bilateral air exchange. ABDOMEN: Soft, nontender. EXTREMITIES: The patient's foot is in a surgical dressing. No sign of distal complication. No edema. No calf swelling. No tenderness. No acute ischemia. MANAGER INTERVENTIONAL: Exam is essentially unchanged. DIAGNOSTIC DATA: Available diagnostic data reviewed. Telemetry monitoring does not show significant arrhythmias. ASSESSMENT AND PLAN: Overall, the patient's general medical condition is stable. Plan as ordered. Doug Lima MD
[2018-05-08] MEDS: Meropenem 500 MG in Sodium Chloride 0.9% 100 ML IVPB SCH ×3 (00:21→17:33)
[2018-05-08 05:46] LABS: HEMOGLOBIN 8.3 g/dL (12.0-18.0); MEAN CELL VOLUME 70.7 fl (80.0-94.0); MEAN CORPUSCULAR HEMOGLOBIN 23.5 pg (27.0-31.0); MEAN CORPUSCULAR HGB CONC 33.2 g/dL (33.0-37.0); RBC 3.53 Mil/uL (4.40-5.90); RED CELL DISTRIBUTION WIDTH 17.9 % (11.5-14.5); WHITE BLOOD COUNT 9.3 K/uL (4.8-10.8)
[2018-05-08 06:14] LABS: ALB/GLOB RATIO 0.9 (1.0-2.1); ALBUMIN 3.4 g/dL (3.5-5.0); ALT/SGPT 22 U/L (21-72); AST/SGOT 25 U/L (17-59); BLOOD UREA NITROGEN 14 mg/dl (9-20); CALCIUM 8.8 mg/dL (8.4-10.2); GFR AFRICAN-AMERICAN > 60; GFR NON-AFRICAN AMERICAN > 60
[2018-05-08] MEDS: Pantoprazole 20 mg EC Tab PO SCH (09:06)
[2018-05-08] MEDS: Metoprolol Succinate 50 mg XL Tab PO SCH (09:25)
[2018-05-08] MEDS ORDERED: Propofol 10 mg/ml Inj (20 ML) ONE (09:43)
[2018-05-08] MEDS ORDERED: Midazolam 2 MG/2 ML VIAL ONE (09:43)
[2018-05-08] MEDS ORDERED: Bupivacaine HCl 0.5% PF (10 ml) Inj ONE (10:16)
[2018-05-08] MEDS ORDERED: Vancomycin 750 mg Inj IVPB ONE (11:00)
[2018-05-08] MEDS ORDERED: Sodium Chloride 0.9% 500 ML IV ONE (11:32)
[2018-05-08] MEDS ORDERED: Neostigmine 1:1000 (1 mg/ml) Inj ONE (11:59)
--- NOTE | 2018-05-08 12:29 | PCM.SURG1 ---
Surgeon's Initial Post Op Note - Surgeon's Notes Surgeon: Dr. Niles Dale, DPM [place] Administrator: Michael Cordero, PGY-2; Nelly Bob, PGY-2 Type of Anesthesia: IV Sedation, Local Anesthesia Administered By: Dr. 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 Operative Findings: See Dictation. Wound V.A.C. 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 Operation Performed: Left foot transmetatarsal amputation. Specimen/Specimens Removed: Left foot exposed metatarsals 1-5 Estimated Blood Loss: EBL {In ML}: 250 Blood Products Given: N/A Drains Used: Wound Vac Post-Op Condition: Good Date of Surgery/Procedure: 05/08/18 Time of Surgery/Procedure: 12:29
--- NOTE | 2018-05-08 12:40 | PN ---
DATE: 05/08/2018 SUBJECTIVE: The patient is seen and examined. Interim events noted. Consults noted and appreciated. Podiatry followup and intervention noted and appreciated. Case was discussed with solar energy specialist yesterday. The patient is okay, has pain in the foot, requiring multiple Tylenols overnight. No chest pain. No shortness of breath. PHYSICAL EXAMINATION: GENERAL: The patient is in no acute distress. VITAL SIGNS: Stable. HEART: S1, S2, normal and regular. LUNGS: Good bilateral air exchange. ABDOMEN: Soft and nontender. EXTREMITIES: The patient's foot is under surgical dressing with no distal complication. No edema. No calf swelling. No tenderness. No acute ischemia. CENTRAL NERVOUS SYSTEM: Exam is essentially unchanged. DIAGNOSTIC DATA: Available diagnostic data reviewed. Telemetry monitoring does not reveal significant arrhythmias. ASSESSMENT AND PLAN: Overall, the patient is medically stable and in optimum condition status post surgery. There is no medical contraindication for same. The patient is at moderate surgical risk. Plan as ordered. Doug Lima MD
[2018-05-08 12:53] LABS: HEMOGLOBIN 8.2 g/dL (12.0-18.0)
--- NOTE | 2018-05-08 14:49 | RAD ---
PROCEDURE: Left Foot Radiographs. HISTORY: s/p left foot surgery COMPARISON: 05/04/2018 FINDINGS: BONES: Postoperative findings related to transmetatarsal ectomy. JOINTS: Normal. SOFT TISSUES: Surgical drains identified at the operative site. OTHER FINDINGS: None. IMPRESSION: Satisfactory postoperative status.
[2018-05-08 16:53] LABS: HEMOGLOBIN 8.3 g/dL (12.0-18.0)
[2018-05-08] MEDS: Oxycodone/Acetaminophen 5/325 mg Tab PO PRN (20:33)
[2018-05-09] MEDS: Meropenem 500 MG in Sodium Chloride 0.9% 100 ML IVPB SCH ×3 (00:07→17:32)
[2018-05-09] MEDS: Oxycodone/Acetaminophen 5/325 mg Tab PO PRN ×5 (01:35→20:36)
[2018-05-09 05:39] LABS: HEMOGLOBIN 8.2 g/dL (12.0-18.0); MEAN CELL VOLUME 71.2 fl (80.0-94.0); MEAN CORPUSCULAR HEMOGLOBIN 23.4 pg (27.0-31.0); MEAN CORPUSCULAR HGB CONC 32.9 g/dL (33.0-37.0); RBC 3.51 Mil/uL (4.40-5.90); RED CELL DISTRIBUTION WIDTH 18.1 % (11.5-14.5); WHITE BLOOD COUNT 12.9 K/uL (4.8-10.8)
[2018-05-09 05:45] LABS: ALBUMIN 3.9 g/dL (3.5-5.0); ALT/SGPT 21 U/L (21-72); AST/SGOT 30 U/L (17-59); BLOOD UREA NITROGEN 13 mg/dl (9-20); CALCIUM 8.8 mg/dL (8.4-10.2); GFR AFRICAN-AMERICAN > 60; GFR NON-AFRICAN AMERICAN > 60
[2018-05-09] MEDS: Pantoprazole 20 mg EC Tab PO SCH (09:12)
[2018-05-09] MEDS: Metoprolol Succinate 50 mg XL Tab PO SCH (09:12)
--- NOTE | 2018-05-09 09:23 | CP.PCM.PN ---
Subjective - Date & Time of Evaluation Date of Evaluation: 05/05/18 Time of Evaluation: 16:00 - Subjective Subjective: s/p CTA plan for debridement of gangrenous tissue Objective - Vital Signs/Intake and Output Vital Signs (last 24 hours): Temp Pulse Resp BP Pulse Ox 97.9 F 90 20 127/71 98 05/09/18 08:00 05/09/18 09:12 05/09/18 08:00 05/09/18 09:12 05/09/18 08:00 - Medications Medications: Current Medications Acetaminophen (Tylenol 325mg Tab) 650 mg PO Q4 PRN PRN Reason: Pain, Mild (1-3) Last Admin: 05/08/18 23:07 Dose: 650 mg Aspirin (Ecotrin) 81 mg PO DAILY [facility] Last Admin: 05/09/18 09:12 Dose: 81 mg Atorvastatin Calcium (Lipitor) 10 mg PO DAILY [facility] Last Admin: 05/08/18 09:04 Dose: Not Given Clopidogrel Bisulfate (Plavix) 75 mg PO DAILY [facility] Last Admin: 05/09/18 09:10 Dose: 75 mg Docusate Sodium (Colace) 100 mg PO PRN PRN PRN Reason: Constipation Ferrous Sulfate (Feosol) 325 mg PO DAILY [facility] Last Admin: 05/09/18 09:10 Dose: 325 mg Meropenem 500 mg/ Sodium (Chloride) 100 mls @ 100 mls/hr IVPB Q8 [facility] PRN Reason: Protocol Last Admin: 05/09/18 09:09 Dose: 100 mls/hr Vancomycin HCl 750 mg/ Sodium (Chloride) 250 mls @ 166.667 mls/hr IVPB Q12 [facility] PRN Reason: Protocol Last Admin: 05/08/18 20:58 Dose: 166.667 mls/hr Lisinopril (Zestril) 2.5 mg PO DAILY [facility] Last Admin: 05/09/18 09:10 Dose: 2.5 mg Metformin HCl (Glucophage) 1,000 mg PO BID [facility] Last Admin: 05/09/18 09:10 Dose: 1,000 mg Metoprolol Succinate (Toprol Xl) 50 mg PO DAILY [facility] Last Admin: 05/09/18 09:12 Dose: 50 mg Oxycodone/Acetaminophen (Percocet 5/325 Mg Tab) 1 tab PO Q4 PRN PRN Reason: Pain, moderate (4-7) Stop: 05/11/18 12:26 Last Admin: 05/09/18 01:35 Dose: 1 tab Oxycodone/Acetaminophen (Percocet 5/325 Mg Tab) 2 tab PO Q4 PRN PRN Reason: Pain, severe (8-10) Stop: 05/12/18 09:01 Last Admin: 05/09/18 09:08 Dose: 2 tab Pantoprazole Sodium (Protonix Ec Tab) 20 mg PO DAILY [facility] Last Admin: 05/09/18 09:12 Dose: 20 mg Pioglitazone HCl (Actos) 15 mg PO DAILY [facility] Last Admin: 05/09/18 09:11 Dose: 15 mg - Labs Labs: 05/09/18 05:05 05/09/18 05:05 - Constitutional Appears: Well - Head Exam Head Exam: ATRAUMATIC, NORMAL INSPECTION, NORMOCEPHALIC - Eye Exam Eye Exam: EOMI, Normal appearance, PERRL Pupil Exam: NORMAL ACCOMODATION, PERRL - ENT Exam ENT Exam: Mucous Membranes Moist, Normal Exam - Neck Exam Neck Exam: Full ROM, Normal Inspection. absent: Lymphadenopathy - Respiratory Exam Respiratory Exam: Clear to Ausculation Bilateral, NORMAL BREATHING PATTERN - Cardiovascular Exam Cardiovascular Exam: REGULAR RHYTHM, +S1, +S2. absent: Murmur - GI/Abdominal Exam GI & Abdominal Exam: Soft, Normal Bowel Sounds. absent: Tenderness - Extremities Exam Extremities Exam: Full ROM. absent: Joint Swelling, Pedal Edema Additional comments: dsg on feet - Back Exam Back Exam: NORMAL INSPECTION - Neurological Exam Neurological Exam: Alert, Awake, CN II-XII Intact, Oriented x3 - Psychiatric Exam Psychiatric exam: Normal Affect, Normal Mood - Skin Skin Exam: Dry, Intact, Normal Color, Warm Assessment and Plan (1) PVD (peripheral vascular disease) Assessment & Plan: s/p CTA showing patent macrocirculation ok to proceed with debridement keep pt on DAPT statins nitrates Status: Acute (2) Dehiscence of amputation stump Status: Acute (3) Gangrene of toe of left foot Assessment & Plan: ok to proceed with debridement with no further vascular intervention at this time Status: Acute (4) Hyperlipidemia Status: Acute (5) Coronary artery disease Status: Chronic (6) Diabetes Status: Chronic
--- NOTE | 2018-05-09 09:28 | CP.PCM.PN ---
Subjective - Date & Time of Evaluation Date of Evaluation: 05/08/18 Time of Evaluation: 17:00 - Subjective Subjective: cta patent macrocirculation moderate SFA disease Objective - Vital Signs/Intake and Output Vital Signs (last 24 hours): Temp Pulse Resp BP Pulse Ox 97.9 F 90 20 127/71 98 05/09/18 08:00 05/09/18 09:12 05/09/18 08:00 05/09/18 09:12 05/09/18 08:00 - Medications Medications: Current Medications Acetaminophen (Tylenol 325mg Tab) 650 mg PO Q4 PRN PRN Reason: Pain, Mild (1-3) Last Admin: 05/08/18 23:07 Dose: 650 mg Aspirin (Ecotrin) 81 mg PO DAILY [facility] Last Admin: 05/09/18 09:12 Dose: 81 mg Atorvastatin Calcium (Lipitor) 10 mg PO DAILY [facility] Last Admin: 05/08/18 09:04 Dose: Not Given Clopidogrel Bisulfate (Plavix) 75 mg PO DAILY [facility] Last Admin: 05/09/18 09:10 Dose: 75 mg Docusate Sodium (Colace) 100 mg PO PRN PRN PRN Reason: Constipation Ferrous Sulfate (Feosol) 325 mg PO DAILY [facility] Last Admin: 05/09/18 09:10 Dose: 325 mg Meropenem 500 mg/ Sodium (Chloride) 100 mls @ 100 mls/hr IVPB Q8 [facility] PRN Reason: Protocol Last Admin: 05/09/18 09:09 Dose: 100 mls/hr Vancomycin HCl 750 mg/ Sodium (Chloride) 250 mls @ 166.667 mls/hr IVPB Q12 [facility] PRN Reason: Protocol Last Admin: 05/08/18 20:58 Dose: 166.667 mls/hr Lisinopril (Zestril) 2.5 mg PO DAILY [facility] Last Admin: 05/09/18 09:10 Dose: 2.5 mg Metformin HCl (Glucophage) 1,000 mg PO BID [facility] Last Admin: 05/09/18 09:10 Dose: 1,000 mg Metoprolol Succinate (Toprol Xl) 50 mg PO DAILY [facility] Last Admin: 05/09/18 09:12 Dose: 50 mg Oxycodone/Acetaminophen (Percocet 5/325 Mg Tab) 1 tab PO Q4 PRN PRN Reason: Pain, moderate (4-7) Stop: 05/11/18 12:26 Last Admin: 05/09/18 01:35 Dose: 1 tab Oxycodone/Acetaminophen (Percocet 5/325 Mg Tab) 2 tab PO Q4 PRN PRN Reason: Pain, severe (8-10) Stop: 05/12/18 09:01 Last Admin: 05/09/18 09:08 Dose: 2 tab Pantoprazole Sodium (Protonix Ec Tab) 20 mg PO DAILY [facility] Last Admin: 05/09/18 09:12 Dose: 20 mg Pioglitazone HCl (Actos) 15 mg PO DAILY [facility] Last Admin: 05/09/18 09:11 Dose: 15 mg - Labs Labs: 05/09/18 05:05 05/09/18 05:05 - Constitutional Appears: Well - Head Exam Head Exam: ATRAUMATIC, NORMAL INSPECTION, NORMOCEPHALIC - Eye Exam Eye Exam: EOMI, Normal appearance, PERRL Pupil Exam: NORMAL ACCOMODATION, PERRL - ENT Exam ENT Exam: Mucous Membranes Moist, Normal Exam - Neck Exam Neck Exam: Full ROM, Normal Inspection. absent: Lymphadenopathy - Respiratory Exam Respiratory Exam: Clear to Ausculation Bilateral, NORMAL BREATHING PATTERN - Cardiovascular Exam Cardiovascular Exam: REGULAR RHYTHM, +S1, +S2. absent: Murmur - GI/Abdominal Exam GI & Abdominal Exam: Soft, Normal Bowel Sounds. absent: Tenderness - Extremities Exam Extremities Exam: Full ROM. absent: Joint Swelling, Pedal Edema Additional comments: gangrenous toes - Back Exam Back Exam: NORMAL INSPECTION - Neurological Exam Neurological Exam: Alert, Awake, CN II-XII Intact, Normal Gait, Oriented x3 - Psychiatric Exam Psychiatric exam: Normal Affect, Normal Mood - Skin Skin Exam: Dry, Intact, Normal Color, Warm Assessment and Plan (1) PVD (peripheral vascular disease) Assessment & Plan: patent macrocirculation ok to proceed with wound debridement dapt statins nitrates Status: Acute (2) Dehiscence of amputation stump Status: Acute (3) Gangrene of toe of left foot Status: Acute (4) Hyperlipidemia Status: Acute (5) Coronary artery disease Status: Chronic (6) Diabetes Status: Chronic
--- NOTE | 2018-05-09 11:58 | CP.PCM.PN ---
Subjective - Date & Time of Evaluation Date of Evaluation: 05/09/18 Time of Evaluation: 11:51 - Subjective Subjective: Podiatry Progress Note for Dr. Dale 67 yo male seen by bedside 1 day s/p revisional TMA of left foot (DOS: 05/08/18) . Patient is in NAD and AAO x3. Patient is seen resting comfortably in bed. Dressing is noted to be dry, clean and intact. Wound vac is working with good seal noted. Patient admits to moderate pain in the left foot. Patient denies any acute overnight events. Patient denies N/V/SOB/D/F/CP. Objective - Vital Signs/Intake and Output Vital Signs (last 24 hours): Temp Pulse Resp BP Pulse Ox 97.9 F 90 20 127/71 98 05/09/18 08:00 05/09/18 09:12 05/09/18 08:00 05/09/18 09:12 05/09/18 08:00 - Medications Medications: Current Medications Acetaminophen (Tylenol 325mg Tab) 650 mg PO Q4 PRN PRN Reason: Pain, Mild (1-3) Last Admin: 05/08/18 23:07 Dose: 650 mg Aspirin (Ecotrin) 81 mg PO DAILY [facility] Last Admin: 05/09/18 09:12 Dose: 81 mg Atorvastatin Calcium (Lipitor) 10 mg PO DAILY [facility] Last Admin: 05/08/18 09:04 Dose: Not Given Clopidogrel Bisulfate (Plavix) 75 mg PO DAILY [facility] Last Admin: 05/09/18 09:10 Dose: 75 mg Docusate Sodium (Colace) 100 mg PO PRN PRN PRN Reason: Constipation Ferrous Sulfate (Feosol) 325 mg PO DAILY [facility] Last Admin: 05/09/18 09:10 Dose: 325 mg Meropenem 500 mg/ Sodium (Chloride) 100 mls @ 100 mls/hr IVPB Q8 [facility] PRN Reason: Protocol Last Admin: 05/09/18 09:09 Dose: 100 mls/hr Vancomycin HCl 750 mg/ Sodium (Chloride) 250 mls @ 166.667 mls/hr IVPB Q12 [facility] PRN Reason: Protocol Last Admin: 05/09/18 11:01 Dose: 166.667 mls/hr Lisinopril (Zestril) 2.5 mg PO DAILY [facility] Last Admin: 05/09/18 09:10 Dose: 2.5 mg Metformin HCl (Glucophage) 1,000 mg PO BID [facility] Last Admin: 05/09/18 09:10 Dose: 1,000 mg Metoprolol Succinate (Toprol Xl) 50 mg PO DAILY [facility] Last Admin: 05/09/18 09:12 Dose: 50 mg Oxycodone/Acetaminophen (Percocet 5/325 Mg Tab) 1 tab PO Q4 PRN PRN Reason: Pain, moderate (4-7) Stop: 05/11/18 12:26 Last Admin: 05/09/18 01:35 Dose: 1 tab Oxycodone/Acetaminophen (Percocet 5/325 Mg Tab) 2 tab PO Q4 PRN PRN Reason: Pain, severe (8-10) Stop: 05/12/18 09:01 Last Admin: 05/09/18 09:08 Dose: 2 tab Pantoprazole Sodium (Protonix Ec Tab) 20 mg PO DAILY [facility] Last Admin: 05/09/18 09:12 Dose: 20 mg Pioglitazone HCl (Actos) 15 mg PO DAILY [facility] Last Admin: 05/09/18 09:11 Dose: 15 mg - Labs Labs: 05/09/18 05:05 05/09/18 05:05 - Constitutional Appears: Well, Non-toxic, No Acute Distress - Head Exam Head Exam: ATRAUMATIC, NORMOCEPHALIC - Extremities Exam Additional comments: Left lower Extremity Focused Exam VASC: DP and PT non-palpable, TG warm to cool proximal to distal , no edema noted at this time, no pedal hair noted, mild erythema noted around the surgical site. DERM: Sanguinous drainage noted on the dressing, 100% Granular tissue noted with exposed metatarsals at the surgical site, active sanguineous drainage, no malodor, no purulence, erythema noted terri wound normal given postoperative stage, no tracking or undermining noted of the wound, no other clinical signs of infection NEURO: Protective sensation grossly diminished ORTHO: pain on palpation to the surgical site, s/p TMA - Neurological Exam Neurological Exam: Alert, Awake, Oriented x3 - Psychiatric Exam Psychiatric exam: Normal Affect - Skin Skin Exam: Normal Color Assessment and Plan - Assessment and Plan (Free Text) Assessment: 67 YO male with 1 day s/p TMA with application of wound vac to the surgical site Plan: Patient seen and evaluated DIscussed patient status and plan with attending, Dr. Dale Chart, labs, and vitals reviewed; Afebrile WBC 12.9 Hgb 8.2 Intra-op wound culture and bone pathology pending Postop x-rays: satisfactory post-op results. New Wound vac applied continuous flow 120 mmhg; dressed with DSD, ABD and BRYANT Nurse called regarding the patient; sanguineous strike through noted on the dressing, wound vac checked and properly sealed, new dressing applied without incident. Continue IV abx per ID Podiatry will continue to follow the patient
[2018-05-10] MEDS: Meropenem 500 MG in Sodium Chloride 0.9% 100 ML IVPB SCH ×2 (00:17→09:26)
[2018-05-10 05:41] LABS: HEMOGLOBIN 6.9 g/dL (12.0-18.0); MEAN CORPUSCULAR HEMOGLOBIN 23.9 pg (27.0-31.0); MEAN CORPUSCULAR HGB CONC 33.7 g/dL (33.0-37.0); RBC 2.87 Mil/uL (4.40-5.90); RED CELL DISTRIBUTION WIDTH 17.6 % (11.5-14.5); WHITE BLOOD COUNT 9.4 K/uL (4.8-10.8)
[2018-05-10 05:48] LABS: BLOOD UREA NITROGEN 11 mg/dl (9-20); CALCIUM 8.5 mg/dL (8.4-10.2); GFR AFRICAN-AMERICAN > 60; GFR NON-AFRICAN AMERICAN > 60
--- NOTE | 2018-05-10 06:16 | CP.PCM.PN ---
Subjective - Date & Time of Evaluation Date of Evaluation: 05/09/18 Time of Evaluation: 22:00 - Subjective Subjective: sanguinoeus dc post tma Objective - Vital Signs/Intake and Output Vital Signs (last 24 hours): Temp Pulse Resp BP Pulse Ox 98.3 F 93 H 18 96/59 L 100 05/10/18 05:04 05/10/18 05:04 05/10/18 05:04 05/10/18 05:04 05/10/18 05:04 Intake and Output: 05/09/18 05/10/18 18:59 06:59 Intake Total 1350 Output Total 250 Balance 1100 - Medications Medications: Current Medications Acetaminophen (Tylenol 325mg Tab) 650 mg PO Q4 PRN PRN Reason: Pain, Mild (1-3) Last Admin: 05/08/18 23:07 Dose: 650 mg Aspirin (Ecotrin) 81 mg PO DAILY [facility] Last Admin: 05/09/18 09:12 Dose: 81 mg Atorvastatin Calcium (Lipitor) 10 mg PO DAILY@2200 [facility] Last Admin: 05/09/18 21:46 Dose: 10 mg Clopidogrel Bisulfate (Plavix) 75 mg PO DAILY [facility] Last Admin: 05/09/18 09:10 Dose: 75 mg Docusate Sodium (Colace) 100 mg PO PRN PRN PRN Reason: Constipation Ferrous Sulfate (Feosol) 325 mg PO DAILY [facility] Last Admin: 05/09/18 09:10 Dose: 325 mg Meropenem 500 mg/ Sodium (Chloride) 100 mls @ 100 mls/hr IVPB Q8 [facility] PRN Reason: Protocol Last Admin: 05/10/18 00:17 Dose: 100 mls/hr Vancomycin HCl 750 mg/ Sodium (Chloride) 250 mls @ 166.667 mls/hr IVPB Q12 [facility] PRN Reason: Protocol Last Admin: 05/09/18 21:47 Dose: 166.667 mls/hr Lisinopril (Zestril) 2.5 mg PO DAILY [facility] Last Admin: 05/09/18 09:10 Dose: 2.5 mg Metformin HCl (Glucophage) 1,000 mg PO BID [facility] Last Admin: 05/09/18 17:33 Dose: 1,000 mg Metoprolol Succinate (Toprol Xl) 50 mg PO DAILY [facility] Last Admin: 05/09/18 09:12 Dose: 50 mg Oxycodone/Acetaminophen (Percocet 5/325 Mg Tab) 1 tab PO Q4 PRN PRN Reason: Pain, moderate (4-7) Stop: 05/11/18 12:26 Last Admin: 05/09/18 11:56 Dose: 1 tab Oxycodone/Acetaminophen (Percocet 5/325 Mg Tab) 2 tab PO Q4 PRN PRN Reason: Pain, severe (8-10) Stop: 05/12/18 09:01 Last Admin: 05/09/18 20:36 Dose: 2 tab Pantoprazole Sodium (Protonix Ec Tab) 20 mg PO DAILY [facility] Last Admin: 05/09/18 09:12 Dose: 20 mg Pioglitazone HCl (Actos) 15 mg PO DAILY [facility] Last Admin: 05/09/18 09:11 Dose: 15 mg - Labs Labs: 05/10/18 05:00 05/10/18 05:00 - Constitutional Appears: Well - Head Exam Head Exam: ATRAUMATIC, NORMAL INSPECTION, NORMOCEPHALIC - Eye Exam Eye Exam: EOMI, Normal appearance, PERRL Pupil Exam: NORMAL ACCOMODATION, PERRL - ENT Exam ENT Exam: Mucous Membranes Moist, Normal Exam - Neck Exam Neck Exam: Full ROM, Normal Inspection. absent: Lymphadenopathy - Respiratory Exam Respiratory Exam: Clear to Ausculation Bilateral, NORMAL BREATHING PATTERN - Cardiovascular Exam Cardiovascular Exam: REGULAR RHYTHM, +S1, +S2. absent: Murmur - GI/Abdominal Exam GI & Abdominal Exam: Soft, Normal Bowel Sounds. absent: Tenderness - Extremities Exam Extremities Exam: Full ROM, Normal Capillary Refill, Normal Inspection. absent : Joint Swelling, Pedal Edema - Back Exam Back Exam: NORMAL INSPECTION - Neurological Exam Neurological Exam: Alert, Awake, CN II-XII Intact, Normal Gait, Oriented x3 - Psychiatric Exam Psychiatric exam: Normal Affect, Normal Mood - Skin Skin Exam: Dry, Intact, Normal Color, Warm Assessment and Plan (1) PVD (peripheral vascular disease) Assessment & Plan: s/p TMA if wound doesn't heal in 4-6 weeks consider angiography dapt ( ASA + plavix ) statins arbs Status: Acute (2) Dehiscence of amputation stump Status: Acute (3) Gangrene of toe of left foot Status: Acute (4) Hyperlipidemia Status: Acute (5) Coronary artery disease Status: Chronic (6) Diabetes Status: Chronic
[2018-05-10] MEDS: Oxycodone/Acetaminophen 5/325 mg Tab PO PRN ×3 (06:28→21:51)
--- NOTE | 2018-05-10 07:22 | OP ---
PROCEDURE DATE: 05/08/2018 PRIMARY SURGEON: Niles Dale DPM ASSISTANTS: Marky Cordero DPM, PGY-2; and Lola Bob DPM, PGY-2 ANESTHESIOLOGIST: Dr. Cantor. ANESTHESIA TYPE: IV sedation with local. PREOPERATIVE DIAGNOSIS: Left foot ischemic, gangrenous dehisced transmetatarsal amputation wound. POSTOPERATIVE DIAGNOSIS: Left foot ischemic, gangrenous dehisced transmetatarsal amputation wound. PROCEDURE PERFORMED: Left foot revisional transmetatarsal amputation. SPECIMEN: Left foot gangrenous bone and soft tissue at metatarsals 1 through 5, left foot. INDICATIONS: The patient is a 67-year-old male with the above stated diagnoses. The patient has exhausted and failed all conservative outpatient treatment option and is now in need for revisional surgical intervention for the left foot. The patient signed the surgical consent after careful explanation of the risks, benefits, complications, and presented alternatives of the proposed surgical procedure. No guarantees were either given nor implied. All patient's questions were answered to his satisfaction. PREPARATION: The patient's n.p.o. status was confirmed prior to bringing the patient to the operating room. All preoperative clearances were reviewed and filed in chart. The patient was brought into the operating room and placed on the operating room table in a supine position. Once local anesthetic was confirmed to have been achieved, the patient received a total of 30 mL of 0.5% Marcaine plain in an ankle type block of the left lower extremity. Once local anesthetic was confirmed to have been achieved, the patient's left foot was then prepped and draped in the usual sterile manner and the procedure began. DESCRIPTION OF PROCEDURE: Left foot revisional transmetatarsal with wound WAC application: Attention was then directed to the distal stump of the patient's left mid foot where transmetatarsal amputation wound was noted. It was noted that the distal aspect of the previous transmetatarsal amputation flap has dehisced, creating an ischemic necrotic full thickness ulceration, exposing the entirety of the dorsal and distal remaining metatarsal shafts of metatarsals 1 through 4 with partial exposure of the dorsal lateral surface of distal metatarsal site. Malodor was noted. There were no purulence that was expressed. Ischemic margins longitudinally was approximately 1.2 cm from the distal aspect of the stump. It was noted that end of necrotic circumferential zone healthy, well vascularized, epidermal dermal tissue was noted with prompt capillary refill time, proximal to zone of necrosis. At this time, approximately 0.3 cm proximal to end of necrotic zone using #15 blade, full thickness incision was carried out circumferentially down to the level of the bone. All ischemic gangrenous and dry soft tissue distal to this excision site was then freed of its capsular tendons and periosteal attachments and freed and passed to the operative field to be sent for pathology evaluation. At this time, proximal one third of metatarsal were appreciated noted at this time that bases of the metatarsals two through five were not directly visualized though base of the first metatarsal was partially visualized. At this time, sagittal saw was introduced through the operative field and blunt resection perpendicular to one of the axis of the metatarsals was performed through metatarsals 1 through 5. The resected portions of the metatarsals were then excised and passed from the operative field. At this time, visualization was appreciated for metatarsals 2 through 5, proximal two thirds of the metatarsals were made with adequate soft tissue coverage; however, proximal two sixth of third metatarsal base did not provide adequate soft tissue coverage. At this time, partial bands of tibialis posterior tendon were visualized. At this point, intraoperative decision was made to disarticulate first metatarsal base to allow transmetatarsal level to extend proximally to the level of adequate soft tissue coverage. At this time, first metatarsal base was resected using combination of sharp and blunt dissection with sagittal saw, and was passed from the surgical field exposing the medial cuneiform distal articular surface, and an additional 0.5 cm was resected off lesser metatarsal shaft and passed from the operative field. At that time, it was noted that there was adequate amount of plantar soft tissue flap to accommodate partial closure of exposed metatarsal shafts up to plantar 1/3 level of the medullary canals. No excess plantar flap soft tissue remained and debulking was indicated to allow tension free and easy transposition of flap to be secured. At this time, Bovie cautery was assessed of each metatarsal individually and medial cuneiform. All are found to be adequate with medial cuneiform articulate surface looking healthy and free of signs of infection or osteomyelitis or poor bone quality. At this time, using a 0.045 inch K-wire, medial cuneiform subchonrdal bone was trephined to allow subchondral bleeding and increase postoperative vascular perfusion. At this time, it was noted that the entire transmetatarsal amputation site was bleeding helpfully from transmedullary shaft and plantar flap tissue at dorsal structures were bleeding healthily. Redundant tendons were resected proximal to bony margins of resection to avoid nidus of infection. At this time, fourth and third plantar tarsal compartments of the plantar flap were debulked and passed from the operative field. Plantar flap will be adequate and freely movable to freely cover plantar half of the medullary canals and plantar focal bones of the third metatarsals and medial cuneiform. At this time, simple system was introduced and 3 L of sterile saline was used to mechanically debride exposing metatarsal shaft and plantar tissue. Surgical site was then evaluated and continued healthy amount of bleeding is noted throughout exposed area of open transmetatarsal flap. It was noted that flap will not be able to cover the entire site as previously noted. At this time, it was indicated for secondary wound closure via wound VAC to be applied intraoperatively. Tibialis posterior tendons proximal caput to medium cuneiform was intact and were assessed. Tendon power found to be adequate. Styloid process intact. Peroneus brevis attachment found to be adequate. At this time, wound VAC foam was placed. Plantar flap was loosely adhered to avoid deep suture reaction. Dorsal cutaneous sutures were applied. Back tension would allow for reapproximation of the plantar flap margin and infected granulation. At this time, wedge shaped foam was in place into the remaining soft tissue deficit providing coverage of the dorsal half of the metatarsal canal and dorsal quarter of the bone. Using adhesive film, foam was placed in and wound VAC hose was applied. Wound vac was activated. No noted leaks, vacuum well adhered. Surgical site was then dressed with 4 x 4, ABDs, Kerlix, Narendra, and loose BRYANT. POSTOPERATIVE CONDITION: The patient tolerated the anesthesia and procedure well and was escorted to the recovery room with the vital signs stable and neurovascular status intact to the left foot. The patient had no complaints or complications. The patient will be followed in-house. Marky Cordero DPM Niles Dale DPM [email or web address]
--- NOTE | 2018-05-10 07:39 | PQF ---
PROVIDER RESPONSE TEXT: Anemia of chr disease REVIEWER QUERY TEXT: Medication Correlation for Diagnosis Your help is needed in capturing diagnoses for the corresponding medications ordered. Please clarify in the documentation diagnoses for the following medication(s). Medications: Ferrous Sulfate. The patient's Clinical Indicators include: Query created by: Shayy Tucker on 05/05/2018 7:41 AM Electronically signed by: Doug Lima 05/10/2018 7:36 AM
--- NOTE | 2018-05-10 09:00 | PN ---
DATE: 05/09/2018 SUBJECTIVE: The patient is seen and examined. Interim events noted. Consults noted and appreciated. interventions, procedure, and surgery noted and appreciated. The patient is status post surgery. No noted associated events. No acute postop complications. The patient feels okay progressive care unit in telemetry monitoring. Complains of significant pain, pain management. PHYSICAL EXAMINATION: GENERAL: The patient is in no acute distress. VITAL SIGNS: Stable. HEART: S1 and S2, normal and regular. LUNGS: Good bilateral air exchange. ABDOMEN: Soft and nontender. EXTREMITIES: No edema. No calf swelling. No tenderness. No acute ischemia. The patient is status post surgery. 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 DIAGNOSTIC DATA: Available diagnostic data reviewed. IMPRESSION AND PLAN: Overall, the patient's general medical condition is stable. Plan as ordered. Doug Lima MD
[2018-05-10] MEDS: Metoprolol Succinate 50 mg XL Tab PO SCH (09:28)
[2018-05-10] MEDS: Pantoprazole 20 mg EC Tab PO SCH (09:29)
[2018-05-10] MEDS ORDERED: Metoprolol Succinate 50 mg XL Tab PO SCH (09:49)
[2018-05-10 09:55] LABS: IRON < 10 ug/dL (49-181); TOTAL IRON BINDING CAPACITY 293 ug/dL (250-450)
[2018-05-10 10:10] LABS: % IRON SATURATION 3.4 % (20-55)
[2018-05-10 10:13] LABS: FERRITIN 34.5 ng/Ml (17.9-464)
--- NOTE | 2018-05-10 11:45 | CP.PCM.PN ---
Subjective - Date & Time of Evaluation Date of Evaluation: 05/10/18 Time of Evaluation: 11:42 - Subjective Subjective: Podiatry Progress Note for Dr. Dale 67 yo male seen by bedside 2 days s/p revisional TMA of left foot (DOS: 05/08/18) . Patient is in NAD and AAO x3. Patient is seen resting comfortably in bed. Dressing is noted to be dry, clean and intact. Wound vac is working with good seal noted. Patient admits to moderate pain in the left foot. Patient denies any acute overnight events. Patient denies N/V/SOB/D/F/CP. Objective - Vital Signs/Intake and Output Vital Signs (last 24 hours): Temp Pulse Resp BP Pulse Ox 98.9 F 101 H 20 97/59 L 100 05/10/18 08:00 05/10/18 09:28 05/10/18 08:00 05/10/18 09:28 05/10/18 08:00 - Medications Medications: Current Medications Acetaminophen (Tylenol 325mg Tab) 650 mg PO Q4 PRN PRN Reason: Pain, Mild (1-3) Last Admin: 05/08/18 23:07 Dose: 650 mg Aspirin (Ecotrin) 81 mg PO DAILY [facility] Last Admin: 05/10/18 09:28 Dose: 81 mg Atorvastatin Calcium (Lipitor) 10 mg PO DAILY@2200 [facility] Last Admin: 05/09/18 21:46 Dose: 10 mg Clopidogrel Bisulfate (Plavix) 75 mg PO DAILY [facility] Last Admin: 05/10/18 09:29 Dose: 75 mg Docusate Sodium (Colace) 100 mg PO PRN PRN PRN Reason: Constipation Ferrous Sulfate (Feosol) 325 mg PO DAILY [facility] Last Admin: 05/10/18 09:28 Dose: 325 mg Meropenem 500 mg/ Sodium (Chloride) 100 mls @ 100 mls/hr IVPB Q8 [facility] PRN Reason: Protocol Last Admin: 05/10/18 09:26 Dose: 100 mls/hr Vancomycin HCl 750 mg/ Sodium (Chloride) 250 mls @ 166.667 mls/hr IVPB DAILY [facility] PRN Reason: Protocol Lisinopril (Zestril) 2.5 mg PO DAILY [facility] Metformin HCl (Glucophage) 1,000 mg PO BID [facility] Last Admin: 05/10/18 09:28 Dose: 1,000 mg Metoprolol Succinate (Toprol Xl) 50 mg PO DAILY [facility] Oxycodone/Acetaminophen (Percocet 5/325 Mg Tab) 1 tab PO Q4 PRN PRN Reason: Pain, moderate (4-7) Stop: 05/11/18 12:26 Last Admin: 05/09/18 11:56 Dose: 1 tab Oxycodone/Acetaminophen (Percocet 5/325 Mg Tab) 2 tab PO Q4 PRN PRN Reason: Pain, severe (8-10) Stop: 05/12/18 09:01 Last Admin: 05/10/18 11:24 Dose: 2 tab Pantoprazole Sodium (Protonix Ec Tab) 20 mg PO DAILY [facility] Last Admin: 05/10/18 09:29 Dose: 20 mg Pioglitazone HCl (Actos) 15 mg PO DAILY [facility] Last Admin: 05/10/18 09:29 Dose: 15 mg - Labs Labs: 05/10/18 05:00 05/10/18 05:00 - Constitutional Appears: Well, Non-toxic, No Acute Distress - Head Exam Head Exam: ATRAUMATIC, NORMOCEPHALIC - Extremities Exam Additional comments: Left lower Extremity Focused Exam VASC: DP and PT non-palpable, TG warm to cool proximal to distal , no edema noted at this time, no pedal hair noted, mild erythema noted around the surgical site. DERM: Sanguinous drainage noted on the dressing, 100% Granular tissue noted with exposed metatarsals at the surgical site, active sanguineous drainage, no malodor, no purulence, mild erythema noted terri wound normal given postoperative stage, no tracking or undermining noted of the wound, no other clinical signs of infection Wound vac is working, no drainage noted in the canister. NEURO: Protective sensation grossly diminished ORTHO: pain on palpation to the surgical site, s/p TMA - Neurological Exam Neurological Exam: Alert, Awake, Oriented x3 Assessment and Plan - Assessment and Plan (Free Text) Assessment: 67 YO male 2 days s/p TMA with application of wound vac to the surgical site. Plan: Patient seen and evaluated Discussed patient status and plan with attending, Dr. Dale Chart, labs, and vitals reviewed; Afebrile WBC 9.4 Hgb 6.9 2 units of packed RBC ordered; not yet transfused Intra-op wound culture and bone pathology pending Postop x-rays: satisfactory post-op results. Minimal drainage noted in the canister; New Wound vac applied continuous flow 120 mmhg; dressed with DSD, ABD and BRYANT Continue IV abx per ID Podiatry will continue to follow the patient
--- NOTE | 2018-05-10 14:03 | CP.PCM.PN ---
Subjective - Date & Time of Evaluation Date of Evaluation: 05/10/18 Time of Evaluation: 08:00 - Subjective Subjective: s/p revision of TMA secondary to gangrene/ ischemia denies fever + Bloody drainage PRBC's being transfused Objective - Vital Signs/Intake and Output Vital Signs (last 24 hours): Temp Pulse Resp BP Pulse Ox 98.2 F 108 H 20 123/78 99 05/10/18 13:00 05/10/18 13:00 05/10/18 13:00 05/10/18 13:00 05/10/18 13:00 - Medications Medications: Current Medications Acetaminophen (Tylenol 325mg Tab) 650 mg PO Q4 PRN PRN Reason: Pain, Mild (1-3) Last Admin: 05/08/18 23:07 Dose: 650 mg Aspirin (Ecotrin) 81 mg PO DAILY [facility] Last Admin: 05/10/18 09:28 Dose: 81 mg Atorvastatin Calcium (Lipitor) 10 mg PO DAILY@2200 [facility] Last Admin: 05/09/18 21:46 Dose: 10 mg Clopidogrel Bisulfate (Plavix) 75 mg PO DAILY [facility] Last Admin: 05/10/18 09:29 Dose: 75 mg Docusate Sodium (Colace) 100 mg PO PRN PRN PRN Reason: Constipation Ferrous Sulfate (Feosol) 325 mg PO DAILY [facility] Last Admin: 05/10/18 09:28 Dose: 325 mg Meropenem 500 mg/ Sodium (Chloride) 100 mls @ 100 mls/hr IVPB Q8 [facility] PRN Reason: Protocol Last Admin: 05/10/18 09:26 Dose: 100 mls/hr Vancomycin HCl 750 mg/ Sodium (Chloride) 250 mls @ 166.667 mls/hr IVPB DAILY [facility] PRN Reason: Protocol Lisinopril (Zestril) 2.5 mg PO DAILY [facility] Metformin HCl (Glucophage) 1,000 mg PO BID [facility] Last Admin: 05/10/18 09:28 Dose: 1,000 mg Metoprolol Succinate (Toprol Xl) 50 mg PO DAILY [facility] Oxycodone/Acetaminophen (Percocet 5/325 Mg Tab) 1 tab PO Q4 PRN PRN Reason: Pain, moderate (4-7) Stop: 05/11/18 12:26 Last Admin: 05/09/18 11:56 Dose: 1 tab Oxycodone/Acetaminophen (Percocet 5/325 Mg Tab) 2 tab PO Q4 PRN PRN Reason: Pain, severe (8-10) Stop: 05/12/18 09:01 Last Admin: 05/10/18 11:24 Dose: 2 tab Pantoprazole Sodium (Protonix Ec Tab) 20 mg PO DAILY [facility] Last Admin: 05/10/18 09:29 Dose: 20 mg Pioglitazone HCl (Actos) 15 mg PO DAILY [facility] Last Admin: 05/10/18 09:29 Dose: 15 mg - Labs Labs: 05/10/18 05:00 05/10/18 05:00 - Constitutional Appears: Non-toxic, Chronically Ill - Head Exam Head Exam: NORMOCEPHALIC - Eye Exam Eye Exam: absent: Scleral icterus - ENT Exam ENT Exam: Mucous Membranes Dry - Neck Exam Neck Exam: absent: Lymphadenopathy - Respiratory Exam Respiratory Exam: Decreased Breath Sounds - Cardiovascular Exam Cardiovascular Exam: REGULAR RHYTHM - GI/Abdominal Exam GI & Abdominal Exam: Distended, Soft - Rectal Exam Rectal Exam: Deferred - Exam Exam: NORMAL INSPECTION - Extremities Exam Extremities Exam: absent: Pedal Edema Additional comments: TMA + - Back Exam Back Exam: absent: CVA tenderness (L), CVA tenderness (R) - Neurological Exam Neurological Exam: Alert, Awake, Oriented x3 - Psychiatric Exam Psychiatric exam: Normal Mood - Skin Skin Exam: Dry Assessment and Plan (1) Osteomyelitis Status: Acute (2) PVD (peripheral vascular disease) Status: Acute (3) Cellulitis of foot Status: Acute (4) Dehiscence of amputation stump Status: Acute - Assessment and Plan (Free Text) Assessment: s/p revision of TMA vascular gangrene +/- infection may eventually need BKA Cont IV antibiotics for 7 days post op as most of forefoot removed
--- NOTE | 2018-05-10 15:49 | CP.PCM.PN ---
Subjective - Date & Time of Evaluation Date of Evaluation: 05/10/18 Time of Evaluation: 07:40 - Subjective Subjective: Patient seen and examined at bedside with Dr. Lima. Patient is POD #2 s/p TMA of left foot. Patient reports left foot pain is controlled with medication. Patient hemoglobin is 6.9 today, patient agreed to transfusion. Denies chest pain, SOB, weakness or dizziness. Objective - Vital Signs/Intake and Output Vital Signs (last 24 hours): Temp Pulse Resp BP Pulse Ox 98.2 F 108 H 20 123/78 99 05/10/18 13:00 05/10/18 13:00 05/10/18 13:00 05/10/18 13:00 05/10/18 13:00 - Medications Medications: Current Medications Acetaminophen (Tylenol 325mg Tab) 650 mg PO Q4 PRN PRN Reason: Pain, Mild (1-3) Last Admin: 05/08/18 23:07 Dose: 650 mg Aspirin (Ecotrin) 81 mg PO DAILY [facility] Last Admin: 05/10/18 09:28 Dose: 81 mg Atorvastatin Calcium (Lipitor) 10 mg PO DAILY@2200 [facility] Last Admin: 05/09/18 21:46 Dose: 10 mg Clopidogrel Bisulfate (Plavix) 75 mg PO DAILY [facility] Last Admin: 05/10/18 09:29 Dose: 75 mg Docusate Sodium (Colace) 100 mg PO PRN PRN PRN Reason: Constipation Ferrous Sulfate (Feosol) 325 mg PO DAILY [facility] Last Admin: 05/10/18 09:28 Dose: 325 mg Vancomycin HCl 750 mg/ Sodium (Chloride) 250 mls @ 166.667 mls/hr IVPB DAILY [facility] PRN Reason: Protocol Cefepime HCl 1 gm/ Sodium (Chloride) 100 mls @ 100 mls/hr IVPB Q12 [facility] PRN Reason: Protocol Lisinopril (Zestril) 2.5 mg PO DAILY [facility] Metformin HCl (Glucophage) 1,000 mg PO BID [facility] Last Admin: 05/10/18 09:28 Dose: 1,000 mg Metoprolol Succinate (Toprol Xl) 50 mg PO DAILY [facility] Oxycodone/Acetaminophen (Percocet 5/325 Mg Tab) 1 tab PO Q4 PRN PRN Reason: Pain, moderate (4-7) Stop: 05/11/18 12:26 Last Admin: 05/09/18 11:56 Dose: 1 tab Oxycodone/Acetaminophen (Percocet 5/325 Mg Tab) 2 tab PO Q4 PRN PRN Reason: Pain, severe (8-10) Stop: 05/12/18 09:01 Last Admin: 05/10/18 11:24 Dose: 2 tab Pantoprazole Sodium (Protonix Ec Tab) 20 mg PO DAILY [facility] Last Admin: 05/10/18 09:29 Dose: 20 mg Pioglitazone HCl (Actos) 15 mg PO DAILY [facility] Last Admin: 05/10/18 09:29 Dose: 15 mg - Labs Labs: 05/10/18 05:00 05/10/18 05:00 - Constitutional Appears: No Acute Distress - Head Exam Head Exam: NORMAL INSPECTION - ENT Exam ENT Exam: Mucous Membranes Moist - Respiratory Exam Respiratory Exam: NORMAL BREATHING PATTERN - Cardiovascular Exam Cardiovascular Exam: REGULAR RHYTHM - GI/Abdominal Exam GI & Abdominal Exam: Normal Bowel Sounds - Extremities Exam Additional comments: left foot dressing clean/dry/intact - Neurological Exam Neurological Exam: Alert, Awake, Oriented x3 - Psychiatric Exam Psychiatric exam: Normal Affect, Normal Mood - Skin Skin Exam: Dry, Normal Color, Warm Assessment and Plan - Assessment and Plan (Free Text) Assessment: 67 yr old M POD # 2 s/p left foot TMA for worsening left forefoot gangrene now with anemia (hemoglobin 6.9). Plan: -transfuse 2 units leukocyte reduced pRBC's -post-transfusion CBC -Podiatry on board -ID on board -Vascular on board
[2018-05-10 17:07] LABS: FOLATE 8.3 ng/mL
[2018-05-10] MEDS: Cefepime 1 GM in Sodium Chloride 0.9% 100 ML IVPB SCH (21:29)
--- NOTE | 2018-05-11 01:10 | CP.PCM.PN ---
Subjective - Date & Time of Evaluation Date of Evaluation: 05/10/18 Time of Evaluation: 21:00 - Subjective Subjective: wound vac in place pain at tma site Objective - Vital Signs/Intake and Output Vital Signs (last 24 hours): Temp Pulse Resp BP Pulse Ox 98.2 F 85 18 120/77 100 05/11/18 00:34 05/11/18 00:34 05/11/18 00:34 05/11/18 00:34 05/11/18 00:34 Intake and Output: 05/10/18 05/11/18 18:59 06:59 Intake Total 1850 Output Total 50 Balance 1800 - Medications Medications: Current Medications Acetaminophen (Tylenol 325mg Tab) 650 mg PO Q4 PRN PRN Reason: Pain, Mild (1-3) Last Admin: 05/08/18 23:07 Dose: 650 mg Aspirin (Ecotrin) 81 mg PO DAILY [facility] Last Admin: 05/10/18 09:28 Dose: 81 mg Atorvastatin Calcium (Lipitor) 10 mg PO DAILY@2200 [facility] Last Admin: 05/10/18 21:34 Dose: 10 mg Clopidogrel Bisulfate (Plavix) 75 mg PO DAILY [facility] Last Admin: 05/10/18 09:29 Dose: 75 mg Docusate Sodium (Colace) 100 mg PO PRN PRN PRN Reason: Constipation Ferrous Sulfate (Feosol) 325 mg PO DAILY [facility] Last Admin: 05/10/18 09:28 Dose: 325 mg Vancomycin HCl 750 mg/ Sodium (Chloride) 250 mls @ 166.667 mls/hr IVPB DAILY [facility] PRN Reason: Protocol Last Admin: 05/10/18 21:33 Dose: 166.667 mls/hr Cefepime HCl 1 gm/ Sodium (Chloride) 100 mls @ 100 mls/hr IVPB Q12 [facility] PRN Reason: Protocol Last Admin: 05/10/18 21:29 Dose: 100 mls/hr Lisinopril (Zestril) 2.5 mg PO DAILY [facility] Metformin HCl (Glucophage) 1,000 mg PO BID [facility] Last Admin: 05/10/18 16:27 Dose: 1,000 mg Metoprolol Succinate (Toprol Xl) 50 mg PO DAILY [facility] Oxycodone/Acetaminophen (Percocet 5/325 Mg Tab) 1 tab PO Q4 PRN PRN Reason: Pain, moderate (4-7) Stop: 05/11/18 12:26 Last Admin: 05/09/18 11:56 Dose: 1 tab Oxycodone/Acetaminophen (Percocet 5/325 Mg Tab) 2 tab PO Q4 PRN PRN Reason: Pain, severe (8-10) Stop: 05/12/18 09:01 Last Admin: 05/10/18 21:51 Dose: 2 tab Pantoprazole Sodium (Protonix Ec Tab) 20 mg PO DAILY [facility] Last Admin: 05/10/18 09:29 Dose: 20 mg Pioglitazone HCl (Actos) 15 mg PO DAILY [facility] Last Admin: 05/10/18 09:29 Dose: 15 mg - Labs Labs: 05/10/18 05:00 05/10/18 05:00 - Constitutional Appears: Well - Head Exam Head Exam: ATRAUMATIC, NORMAL INSPECTION, NORMOCEPHALIC - Eye Exam Eye Exam: EOMI, Normal appearance, PERRL Pupil Exam: NORMAL ACCOMODATION, PERRL - ENT Exam ENT Exam: Mucous Membranes Moist, Normal Exam - Neck Exam Neck Exam: Full ROM, Normal Inspection. absent: Lymphadenopathy - Respiratory Exam Respiratory Exam: Clear to Ausculation Bilateral, NORMAL BREATHING PATTERN - Cardiovascular Exam Cardiovascular Exam: REGULAR RHYTHM, +S1, +S2, Murmur - GI/Abdominal Exam GI & Abdominal Exam: Soft, Normal Bowel Sounds. absent: Tenderness - Extremities Exam Extremities Exam: Full ROM, Normal Capillary Refill, Normal Inspection. absent : Joint Swelling, Pedal Edema - Back Exam Back Exam: NORMAL INSPECTION - Neurological Exam Neurological Exam: Alert, Awake, CN II-XII Intact, Normal Gait, Oriented x3 - Psychiatric Exam Psychiatric exam: Normal Affect, Normal Mood - Skin Skin Exam: Dry, Intact, Normal Color, Warm Assessment and Plan (1) PVD (peripheral vascular disease) Assessment & Plan: s/p tma wound vac in place cont dapt statins acei transfuse to keep hgb > 9 Status: Acute (2) Dehiscence of amputation stump Status: Acute (3) Gangrene of toe of left foot Status: Acute (4) Hyperlipidemia Status: Acute (5) Coronary artery disease Status: Chronic (6) Diabetes Status: Chronic
[2018-05-11] MEDS: Oxycodone/Acetaminophen 5/325 mg Tab PO PRN ×2 (04:31→08:42)
[2018-05-11 05:34] LABS: HEMOGLOBIN 9.3 g/dL (12.0-18.0); MEAN CELL VOLUME 74.5 fl (80.0-94.0); MEAN CORPUSCULAR HEMOGLOBIN 24.9 pg (27.0-31.0); MEAN CORPUSCULAR HGB CONC 33.4 g/dL (33.0-37.0); RBC 3.73 Mil/uL (4.40-5.90); WHITE BLOOD COUNT 10.3 K/uL (4.8-10.8)
[2018-05-11 05:46] LABS: BLOOD UREA NITROGEN 10 mg/dl (9-20); CALCIUM 8.9 mg/dL (8.4-10.2); GFR AFRICAN-AMERICAN > 60; GFR NON-AFRICAN AMERICAN > 60
[2018-05-11] MEDS: Pantoprazole 20 mg EC Tab PO SCH (08:45)
[2018-05-11] MEDS: Cefepime 1 GM in Sodium Chloride 0.9% 100 ML IVPB SCH (08:53)
--- NOTE | 2018-05-11 09:45 | CP.PCM.PN ---
Subjective - Date & Time of Evaluation Date of Evaluation: 05/11/18 Time of Evaluation: 09:43 - Subjective Subjective: Podiatry Progress Note for Dr. Dale 67 yo male seen by bedside 3 days s/p revisional TMA of left foot (DOS: 05/08/18) . Patient is in NAD and AAO x3. Patient is seen resting comfortably in bed. Dressing is noted to be dry, clean and intact. Wound vac is working with good seal noted. Patient admits to severe pain in the left foot. Patient denies any acute overnight events. Patient denies N/V/SOB/D/F/CP. Objective - Vital Signs/Intake and Output Vital Signs (last 24 hours): Temp Pulse Resp BP Pulse Ox 98 F 99 H 20 122/74 98 05/11/18 08:00 05/11/18 08:55 05/11/18 08:00 05/11/18 08:55 05/11/18 08:00 Intake and Output: 05/11/18 05/11/18 06:59 18:59 Intake Total 900 Output Total 1230 Balance -330 - Medications Medications: Current Medications Acetaminophen (Tylenol 325mg Tab) 650 mg PO Q4 PRN PRN Reason: Pain, Mild (1-3) Last Admin: 05/08/18 23:07 Dose: 650 mg Aspirin (Ecotrin) 81 mg PO DAILY [facility] Last Admin: 05/11/18 08:44 Dose: 81 mg Atorvastatin Calcium (Lipitor) 10 mg PO DAILY@2200 [facility] Last Admin: 05/10/18 21:34 Dose: 10 mg Clopidogrel Bisulfate (Plavix) 75 mg PO DAILY [facility] Last Admin: 05/11/18 08:45 Dose: 75 mg Docusate Sodium (Colace) 100 mg PO PRN PRN PRN Reason: Constipation Ferrous Sulfate (Feosol) 325 mg PO DAILY [facility] Last Admin: 05/11/18 08:45 Dose: 325 mg Vancomycin HCl 750 mg/ Sodium (Chloride) 250 mls @ 166.667 mls/hr IVPB DAILY [facility] PRN Reason: Protocol Last Admin: 05/11/18 08:52 Dose: 166.667 mls/hr Cefepime HCl 1 gm/ Sodium (Chloride) 100 mls @ 100 mls/hr IVPB Q12 [facility] PRN Reason: Protocol Last Admin: 05/11/18 08:53 Dose: 100 mls/hr Lisinopril (Zestril) 2.5 mg PO DAILY [facility] Last Admin: 05/11/18 08:45 Dose: 2.5 mg Metformin HCl (Glucophage) 1,000 mg PO BID [facility] Last Admin: 05/11/18 08:44 Dose: 1,000 mg Metoprolol Succinate (Toprol Xl) 50 mg PO DAILY [facility] Last Admin: 05/11/18 08:55 Dose: 50 mg Oxycodone/Acetaminophen (Percocet 5/325 Mg Tab) 1 tab PO Q4 PRN PRN Reason: Pain, moderate (4-7) Stop: 05/11/18 12:26 Last Admin: 05/09/18 11:56 Dose: 1 tab Oxycodone/Acetaminophen (Percocet 5/325 Mg Tab) 2 tab PO Q4 PRN PRN Reason: Pain, severe (8-10) Stop: 05/12/18 09:01 Last Admin: 05/11/18 08:42 Dose: 2 tab Pantoprazole Sodium (Protonix Ec Tab) 20 mg PO DAILY [facility] Last Admin: 05/11/18 08:45 Dose: 20 mg Pioglitazone HCl (Actos) 15 mg PO DAILY [facility] Last Admin: 05/11/18 08:46 Dose: 15 mg - Labs Labs: 05/11/18 05:15 05/11/18 05:15 - Constitutional Appears: Well, Non-toxic, No Acute Distress - Head Exam Head Exam: ATRAUMATIC, NORMOCEPHALIC - Extremities Exam Additional comments: Left lower Extremity Focused Exam VASC: DP and PT mildly palpable, TG warm to cool proximal to distal , no edema noted at this time, no pedal hair noted, mild erythema noted around the surgical site. DERM: Sanguinous drainage noted on the dressing, 100% Granular tissue noted with exposed metatarsals at the surgical site, active sanguineous drainage, no malodor, no purulence, mild erythema noted terri wound normal given postoperative stage, no tracking or undermining noted of the wound, no other clinical signs of infection Wound vac is working, minimal sanguinous drainage noted in the canister. NEURO: Protective sensation grossly diminished ORTHO: pain on palpation to the surgical site, s/p TMA - Neurological Exam Neurological Exam: Alert, Awake, Oriented x3 - Psychiatric Exam Psychiatric exam: Normal Affect, Normal Mood Assessment and Plan - Assessment and Plan (Free Text) Assessment: 67 y/o male 3 days s/p TMA with application of wound vac to the surgical site. Plan: Patient seen and evaluted at bedside Discussed patient plan with attending, Dr. Dale Charts, Labs and vitals reviewed: Afebrile, WBC 10.3 2 units of PRBC tranfused on 05/10/18, Hgb 9.3 Bone Pathology: focal acute osteomyelitis Postop x-rays: satisfactory post-op results. Minimal sanguinous drainage noted in the canister; New Wound vac applied continuous flow 120 mmHg; dressed with DSD, ABD and BRYANT Patient will be transferred to TCU, for 7 days of IV Abx as per ID recommendation Podiatry will continue to follow patient while in-house
[2018-05-11 12:10] VITALS: BP 123/74; PULSE 97; RESP 18; TEMP 98.5; O2SAT 100
--- NOTE | 2018-05-11 17:31 | CP.PCM.PN ---
Subjective - Date & Time of Evaluation Date of Evaluation: 05/11/18 Time of Evaluation: 07:35 - Subjective Subjective: Patient seen and examined at bedside with Dr. Lima. Patient is POD # 3 s/p TMA of left foot, reports left foot pain persists, controlled with medication. Denies fevers, chills, chest pain, SOB, weakness or dizziness. Tolerating PO diet. Objective - Vital Signs/Intake and Output Vital Signs (last 24 hours): Temp Pulse Resp BP Pulse Ox 98.5 F 97 H 18 123/74 100 05/11/18 12:00 05/11/18 12:00 05/11/18 12:00 05/11/18 12:00 05/11/18 12:00 Intake and Output: 05/11/18 05/11/18 06:59 18:59 Intake Total 900 Output Total 1230 Balance -330 - Labs Labs: 05/11/18 05:15 05/11/18 05:15 - Constitutional Appears: No Acute Distress - Head Exam Head Exam: NORMAL INSPECTION - Eye Exam Eye Exam: EOMI - ENT Exam ENT Exam: Mucous Membranes Moist - Neck Exam Neck Exam: Full ROM - Respiratory Exam Respiratory Exam: NORMAL BREATHING PATTERN - Cardiovascular Exam Cardiovascular Exam: REGULAR RHYTHM - GI/Abdominal Exam GI & Abdominal Exam: Normal Bowel Sounds - Extremities Exam Extremities Exam: absent: Normal Inspection Additional comments: left foot dressing clean/dry/intact - Neurological Exam Neurological Exam: Alert, Awake, Oriented x3 - Psychiatric Exam Psychiatric exam: Normal Affect, Normal Mood - Skin Skin Exam: Dry, Warm Assessment and Plan - Assessment and Plan (Free Text) Assessment: 67 yr old M POD # 3 s/p left foot TMA for worsening left forefoot gangrene, iron deficiency anemia due to acute blood loss improved with Hgb of 9.3 today s/ p transfusion of 2 units pRBC's yesterday. Plan: -Podiatry on board -ID on board: continue IV antibiotics for 7 days post op -Vascular on board -transfer to TCU for PT/OT and IV antibiotics
--- NOTE | 2018-05-12 14:17 | VASCLAB ---
STUDY DESCRIPTION: HISTORY: ischemic left distal TMA stump with no pulses PRIORS: None. TECHNIQUE: Pulse volume recording waveforms and segmental pressures of bilateral lower extremities at multiple levels were obtained. Ankle Brachial Indices (ABIs) were calculated. Report prepared by Esdras Post medical technologist hematology. RIGHT LOWER EXTREMITY: * Brachial artery: Pressure - 126 mmHg. * High thigh: Pressure - >240 mmHg: Ratio -: PVR waveform - Pulsatile * Low thigh: Pressure - mmHg: Ratio - PVR waveform: Pulsatile * Calf: Pressure - 190 mmHg: Ratio - 1.48 PVR waveform: Pulsatile * Posterior tibial Artery: Pressure - >240 mmHg: Ratio - PVR waveform: Reduced * Dorsalis pedis Artery: Pressure - >240 mmHg: Ratio - PVR waveform: Reduced * Great toe: Pressure - mmHg: Ratio - PVR waveform: Pulsatile Ankle brachial index (LYRIC): LEFT LOWER EXTREMITY: * Brachial artery: Pressure - 128 mmHg. * High thigh: Pressure - >240 mmHg: Ratio - : PVR waveform - Pulsatile * Low thigh: Pressure - mmHg: Ratio - PVR waveform: Pulsatile * Calf: Pressure - 176 mmHg: Ratio - 1.38 PVR waveform: Pulsatile * Posterior tibial Artery: Pressure - >240 mmHg: Ratio - PVR waveform: Reduced * Dorsalis pedis Artery: Pressure - mmHg: Ratio - PVR waveform: Pulsatile * Great toe: Pressure - mmHg: Ratio - PVR waveform: Pulsatile Ankle brachial index (LYRIC): OTHER FINDINGS: IMPRESSION: Right: There was no evidence of hemodynamically significant arterial insufficiency in the right lower extremity.LYRIC could not be calculated due to High pressures and calcified vessel cardenas. Left: There was no evidence of hemodynamically significant arterial insufficiency in the left lower extremity.LYRIC could not be calculated due to High pressures and calcified vessel cardenas
== END 2018-05-11 14:33 | DRG 475 ==
LOC: H.ER 22:55 → H.ERHOLD 05-04 01:56 → H.TEL 05-04 06:11
PROVIDERS: ADMIT Internal Medicine; ATTEND Internal Medicine
PROC: 0Y6N0Z9 Detachment at Left Foot, Partial 1st Ray, Open Approach (ICD-10-PCS; 2018-05-08)
PROC: 0Y6N0ZC Detachment at Left Foot, Partial 3rd Ray, Open Approach (ICD-10-PCS; 2018-05-08)
PROC: 0Y6N0ZF Detachment at Left Foot, Partial 5th Ray, Open Approach (ICD-10-PCS; 2018-05-08)
PROC: 0Y6N0ZD Detachment at Left Foot, Partial 4th Ray, Open Approach (ICD-10-PCS; 2018-05-08)
PROC: 0Y6N0ZB Detachment at Left Foot, Partial 2nd Ray, Open Approach (ICD-10-PCS; principal; 2018-05-08 09:00)
PROC: 30233N1 Transfusion of Nonautologous Red Blood Cells into Peripheral Vein, Percutaneous Approach (ICD-10-PCS; 2018-05-10)
DX: T87.54 Necrosis of amputation stump, left lower extremity (principal); E11.52 Type 2 diabetes mellitus with diabetic peripheral angiopathy with gangrene; I96 Gangrene, not elsewhere classified; M86.9 Osteomyelitis, unspecified; L03.116 Cellulitis of left lower limb; D62 Acute posthemorrhagic anemia; T87.81 Dehiscence of amputation stump; Y83.5 Amputation of limb(s) as the cause of abnormal reaction of the patient, or of later complication, without mention of misadventure at the time of the procedure; I25.10 Atherosclerotic heart disease of native coronary artery without angina pectoris; Z95.1 Presence of aortocoronary bypass graft; Z95.5 Presence of coronary angioplasty implant and graft; Z89.432 Acquired absence of left foot; E78.5 Hyperlipidemia, unspecified; E78.00 Pure hypercholesterolemia, unspecified; D63.8 Anemia in other chronic diseases classified elsewhere; I70.203 Unspecified atherosclerosis of native arteries of extremities, bilateral legs; E11.69 Type 2 diabetes mellitus with other specified complication; B96.89 Other specified bacterial agents as the cause of diseases classified elsewhere; E11.22 Type 2 diabetes mellitus with diabetic chronic kidney disease; I12.9 Hypertensive chronic kidney disease with stage 1 through stage 4 chronic kidney disease, or unspecified chronic kidney disease; N18.9 Chronic kidney disease, unspecified

== ENCOUNTER 2018-05-11 14:00 | Inpatient (IN) | payer OTHER ==
[2018-05-11 14:50] VITALS: BMI 26.9
[2018-05-11] MEDS ORDERED: Oxycodone/Acetaminophen 5/325 mg Tab PO PRN (15:04)
[2018-05-11] MEDS: Oxycodone/Acetaminophen 5/325 mg Tab PO PRN (16:53)
[2018-05-11] MEDS ORDERED: Cefepime 1 GM in Sodium Chloride 0.9% 100 ML IVPB SCH (21:00)
[2018-05-11] MEDS ORDERED: Patient's Own Med (Cefepime 1gm In Ns 100ml [Maxipime 1gm] 1 GM) IVPB SCH (21:00)
[2018-05-11] MEDS: Meropenem 1 GM in Sodium Chloride 0.9% 100 ML IVPB SCH (21:50)
[2018-05-12] MEDS: Cefepime 1 GM in Sodium Chloride 0.9% 100 ML IVPB SCH ×2 (04:25→16:39)
[2018-05-12] MEDS: Oxycodone/Acetaminophen 5/325 mg Tab PO PRN ×3 (05:11→18:57)
[2018-05-12] MEDS: Meropenem 1 GM in Sodium Chloride 0.9% 100 ML IVPB SCH ×3 (05:38→21:10)
--- NOTE | 2018-05-12 07:50 | CP.PCM.HP ---
<Jesusita Mattson - Last Filed: 05/12/18 09:27> History of Present Illness - History of Present Illness History of Present Illness: 67 yr old M admitted to TCU for IV antibiotics and PT/OT. Patient is POD # 4 s/ p revisional TMA of left foot. PMHx includes Left foot osteomyelitis with transmetatarsal amputation, hypertension, NIDDM type 2, CAD s/p CABG 2006, HLD. Denies fevers, chills, LE pain, chest pain, nausea, vomiting or diarrhea. PMD: Dr. Tom Leo Specialists: Dr. Dale-podiatry PMHx: Left foot osteomyelitis with transmetatarsal amputation 02/06/18, hypertension, NIDDM type 2, CAD s/p CABG 2006, HLD SurgHx: CABG 2006, left TMA FMHx: noncontributory SocHx: denies tobacco/Etoh or drugs Medications: Aspirin 81 mg PO QD, Atorvastatin 10mg PO QD, Plavix 75mg PO QD, Lisinopril 10mg PO QD, Metformin 1,000mg PO BID, Metoprolol Succinate XL 25mg PO QD, Pioglitazone 15 mg PO QD Allergies: NKDA Present on Admission - Present on Admission Any Indicators Present on Admission: Yes History of DVT/PE: No History of Uncontrolled Diabetes: Yes Urinary Catheter: No Decubitus Ulcer Present: No History Surgical Site Infection Following: None Review of Systems - Constitutional Constitutional: absent: Chills, Fever - EENT Eyes: absent: Change in Vision Ears: absent: Dizziness Nose/Mouth/Throat: absent: Sore Throat - Cardiovascular Cardiovascular: absent: Chest Pain, Dyspnea - Respiratory Respiratory: absent: Cough, Hemoptysis - Gastrointestinal Gastrointestinal: absent: Abdominal Pain, Diarrhea, Nausea, Vomiting - Genitourinary Genitourinary: absent: Difficulty Urinating, Dysuria - Neurological Neurological: absent: Confusion, Weakness - Psychiatric Psychiatric: absent: Anxiety - Hematologic/Lymphatic Hematologic: absent: Easy Bleeding, Easy Bruising Past Patient History - Infectious Disease Hx of Infectious Diseases: None - Past Medical History & Family History Past Medical History?: Yes - Past Social History Smoking Status: Never Smoked - CARDIAC Hx Hypercholesterolemia: Yes Hx Hypertension: Yes - PULMONARY Hx Respiratory Disorders: No - NEUROLOGICAL Hx Neurological Disorder: No - HEENT Hx HEENT Problems: No - RENAL Hx Chronic Kidney Disease: Yes - ENDOCRINE/METABOLIC Hx Endocrine Disorders: Yes - HEMATOLOGICAL/ONCOLOGICAL Hx AIDS: No Hx Human Immunodeficiency Virus (HIV): No - INTEGUMENTARY Hx Dermatological Problems: Yes - MUSCULOSKELETAL/RHEUMATOLOGICAL Hx Musculoskeletal Disorders: No Hx Falls: No Hx Osteomyelitis: Yes - GASTROINTESTINAL Hx Gastrointestinal Disorders: No - GENITOURINARY/GYNECOLOGICAL Hx Genitourinary Disorders: No - PSYCHIATRIC Hx Psychophysiologic Disorder: No Hx Substance Use: No - SURGICAL HISTORY Hx Coronary Artery Bypass Graft: Yes Other/Comment: left foot TMA-01/17/18. revision of left foot TMA-05/08/18. CABG 2006 - ANESTHESIA Hx Anesthesia: Yes Hx Anesthesia Reactions: No Meds Allergies/Adverse Reactions: Allergies Allergy/AdvReac Type Severity Reaction Status Date / Time No Known Allergies Allergy Verified 05/11/18 14:52 Physical Exam - Constitutional Appears: No Acute Distress - Head Exam Head Exam: ATRAUMATIC, NORMOCEPHALIC - Eye Exam Eye Exam: EOMI - ENT Exam ENT Exam: Mucous Membranes Moist - Neck Exam Neck exam: Positive for: Full Rom. Negative for: Lymphadenopathy - Respiratory Exam Respiratory Exam: Clear to Auscultation Bilateral, NORMAL BREATHING PATTERN - Cardiovascular Exam Cardiovascular Exam: REGULAR RHYTHM, +S1, +S2 - GI/Abdominal Exam GI & Abdominal Exam: Normal Bowel Sounds, Soft. absent: Tenderness - Extremities Exam Additional comments: left foot dressing clean/dry/intact - Back Exam Back exam: FULL ROM - Neurological Exam Neurological exam: Alert, Oriented x3 - Psychiatric Exam Psychiatric exam: Normal Affect, Normal Mood - Skin Skin Exam: Dry, Warm Results - Vital Signs Recent Vital Signs: Last Vital Signs Temp 98.1 F 05/11/18 20:09 Pulse 80 05/11/18 20:09 Resp 20 05/11/18 20:09 BP 123/73 05/11/18 20:09 Pulse Ox 100 05/11/18 20:09 - Labs Labs: Laboratory Results - last 24 hr 05/11/18 05/12/18 20:37 05:52 POC Glucose (mg/dL) 137 H 120 H Assessment & Plan - Assessment and Plan (Free Text) Assessment: 67 yr old M admitted to TCU for IV antibiotics and PT/OT. Patient is POD # 4 s/ p revisional TMA of left foot. Plan: -Podiatry on board -ID on board: continue IV antibiotics for 7 days post op -pain management -Heart Healthy diet -continue home medications -PT/OT - Date & Time Date: 05/12/18 Time: 07:49 <LimaDoug - Last Filed: 05/13/18 12:50> Results - Vital Signs Recent Vital Signs: Last Vital Signs Temp 97.9 F 05/13/18 08:25 Pulse 83 05/13/18 08:34 Resp 20 05/13/18 08:25 BP 105/70 05/13/18 08:34 Pulse Ox 99 05/13/18 08:25 - Labs Result Diagrams: 05/13/18 05:30 05/13/18 05:30 Labs: Laboratory Results - last 24 hr 05/12/18 05/12/18 05/13/18 16:17 20:50 05:30 WBC RBC Hgb Hct MCV MCH MCHC RDW Plt Count MPV Neut % (Auto) Lymph % (Auto) [place] % (Auto) Eos % (Auto) Baso % (Auto) Neut # (Auto) Lymph # (Auto) [place] # (Auto) Eos # (Auto) Baso # (Auto) Sodium Potassium Chloride Carbon Dioxide Anion Gap BUN Creatinine Est GFR ( Amer) Est GFR (Non-Af Amer) POC Glucose (mg/dL) 145 H 94 Random Glucose Calcium Total Bilirubin AST ALT Alkaline Phosphatase Total Protein Albumin Globulin Albumin/Globulin Ratio Vancomycin Trough 10.7 H 05/13/18 05/13/18 05/13/18 05:30 05:30 06:11 WBC 9.7 RBC 3.48 L Hgb 8.9 L Hct 25.5 L MCV 73.3 L MCH 25.6 L MCHC 34.9 RDW 19.6 H Plt Count 306 MPV 7.7 Neut % (Auto) 68.9 Lymph % (Auto) 12.0 L [place] % (Auto) 7.3 Eos % (Auto) 11.2 H Baso % (Auto) 0.6 Neut # (Auto) 6.7 Lymph # (Auto) 1.2 [place] # (Auto) 0.7 Eos # (Auto) 1.1 H Baso # (Auto) 0.1 Sodium 139 Potassium 4.5 Chloride 103 Carbon Dioxide 25 Anion Gap 16 BUN 15 Creatinine 1.1 Est GFR ( Amer) > 60 Est GFR (Non-Af Amer) > 60 POC Glucose (mg/dL) 100 Random Glucose 111 H Calcium 8.8 Total Bilirubin 0.4 AST 21 ALT 21 Alkaline Phosphatase 92 Total Protein 7.1 Albumin 3.5 Globulin 3.5 Albumin/Globulin Ratio 1.0 Vancomycin Trough 05/13/18 10:49 WBC RBC Hgb Hct MCV MCH MCHC RDW Plt Count MPV Neut % (Auto) Lymph % (Auto) [place] % (Auto) Eos % (Auto) Baso % (Auto) Neut # (Auto) Lymph # (Auto) [place] # (Auto) Eos # (Auto) Baso # (Auto) Sodium Potassium Chloride Carbon Dioxide Anion Gap BUN Creatinine Est GFR ( Amer) Est GFR (Non-Af Amer) POC Glucose (mg/dL) 212 H Random Glucose Calcium Total Bilirubin AST ALT Alkaline Phosphatase Total Protein Albumin Globulin Albumin/Globulin Ratio Vancomycin Trough Assessment & Plan - Assessment and Plan (Free Text) Assessment: Patient was personally seen and examined by me in rounds with residents. Available labs and diagnostic data reviewed. Case, Patient's condition and management plan discussed with residents in rounds. Agree with resident's progress note. Plan: As ordered.
[2018-05-12] MEDS: Pantoprazole 20 mg EC Tab PO SCH (08:28)
[2018-05-12] MEDS: Metoprolol Succinate 50 mg XL Tab PO SCH (08:29)
[2018-05-12] MEDS ORDERED: Patient's Own Med (Vancomycin 750mg [Vancomycin 750 Mg In Ns] 750 MG) IVPB SCH (09:00)
--- NOTE | 2018-05-12 12:26 | CP.PCM.CON ---
History of Present Illness - History of Present Illness History of Present Illness: 67 yr old M admitted to TCU for IV antibiotics and PT/OT. Patient is POD # 4 s/ p revisional TMA of left foot. PMHx includes Left foot osteomyelitis with transmetatarsal amputation, hypertension, NIDDM type 2, CAD s/p CABG 2006, HLD. Denies fevers, chills, LE pain, chest pain, nausea, vomiting or diarrhea. ID consulted for antibiotic management PMHx: Left foot osteomyelitis with transmetatarsal amputation 02/06/18, hypertension, NIDDM type 2, CAD s/p CABG 2006, HLD SurgHx: CABG 2006, left TMA FMHx: noncontributory SocHx: denies tobacco/Etoh or drugs Medications: Aspirin 81 mg PO QD, Atorvastatin 10mg PO QD, Plavix 75mg PO QD, Lisinopril 10mg PO QD, Metformin 1,000mg PO BID, Metoprolol Succinate XL 25mg PO QD, Pioglitazone 15 mg PO QD Allergies: NKDA Review of Systems - Review of Systems All systems: reviewed and no additional remarkable complaints except - Constitutional Constitutional: As Per HPI - EENT Eyes: absent: As Per HPI, Blind Spots, Blurred Vision, Change in Vision, Decreased Night Vision, Diplopia, Discharge, Dry Eye, Exophthalmos, Floaters, Irritation, Itchy Eyes, Loss of Peripheral Vision, Pain, Photophobia, Requires Corrective Lenses, Sees Flashes, Spots in Vision, Tunnel Vision, Other Visual Disturbances, Loss of Vision, Other Ears: absent: As Per HPI, Decreased Hearing, Ear Discharge, Ear Pain, Tinnitus, Abnormal Hearing, Disequilibrium, Dizziness, Other Nose/Mouth/Throat: absent: As Per HPI, Epistaxis, Nasal Congestion, Nasal Discharge, Nasal Obstruction, Nasal Trauma, Nose Pain, Post Nasal Drip, Sinus Pain, Sinus Pressure, Bleeding Gums, Change in Voice, Dental Pain, Dry Mouth, Dysphagia, Halitosis, Hoarsness, Lip Swelling, Mouth Lesions, Mouth Pain, Odynophagia, Sore Throat, Throat Swelling, Tongue Swelling, Facial Pain, Neck Pain, Neck Mass, Other - Cardiovascular Cardiovascular: absent: As Per HPI, Acrocyanosis, Chest Pain, Chest Pain at Rest , Chest Pain with Activity, Claudication, Diaphoresis, Dyspnea, Dyspnea on Exertion, Edema, Irregular Heart Rhythm, Pain Radiating to Arm/Neck/Jaw, Leg Edema, Leg Ulcers, Lightheadedness, Orthopnea, Palpitations, Paroxysmal Nocturnal Dyspnea, Pedal Edema, Radiating Pain, Rapid Heart Rate, Slow Heart Rate, Syncope, Other - Respiratory Respiratory: absent: As Per HPI, Cough, Dyspnea, Hemoptysis, Dyspnea on Exertion , Wheezing, Snoring, Stridor, Pain on Inspiration, Chest Congestion, Excessive Mucous Production, Change in Mucous Color, Pain with Coughing, Other - Gastrointestinal Gastrointestinal: absent: As Per HPI, Abdominal Pain, Belching, Bloating, Change in Bowel Habits, Change in Stool Character, Coffee Ground Emesis, Constipation, Cramping, Diarrhea, Dyspepsia, Dysphagia, Early Satiety, Excessive Flatus, Fecal Incontinence, Heartburn, Hematemesis, Hematochezia, Loose Stools, Melena, Nausea, Odynophagia, Temesmus, Vomiting, Other - Genitourinary Genitourinary: absent: As Per HPI, Change in Urinary Stream, Difficulty Urinating, Dysuria, Flank Pain, Hematuria, Pyuria, Nocturia, Urinary Incontinence, Urinary Frequency, Urinary Hesitance, Urinary Urgency, Voiding Freq/Small Amts, Freq UTI, Hx Renal/Bladder Calculi, Hx /Renal Surgery, Bladder Distension, Other - Musculoskeletal Musculoskeletal: As Per HPI - Integumentary Integumentary: As Per HPI - Neurological Neurological: absent: As Per HPI, Abnormal Gait, Abnormal Hearing, Abnormal Movements, Abnormal Speech, Behavioral Changes, Burning Sensations, Confusion, Convulsions, Disequilibrium, Dizziness, Numbness, Focal Weakness, Frequent Falls , Headaches, Lack of Coordination, Loss of Vision, Memory Loss, Paresthesias, Radicular Pain, Restless Legs, Sensory Deficit, Syncope, Tingling, Tremor, Vertigo, Weakness, Other Visual Disturbances, Other - Psychiatric Psychiatric: absent: As Per HPI, Abnormal Sleep Pattern, Anhedonia, Anxiety, Auditory Hallucinations, Behavioral Changes, Change in Appetite, Change in Libido, Confusion, Depression, Difficulty Concentrating, Hallucinations, Homicidal Ideation, Hopelessness, Irritability, Memory Loss, Mood Swings, Panic Attacks, Paranoia, Suicidal Ideation, Visual Hallucinations, Tactile Hallucinations, Other - Endocrine Endocrine: As Per HPI - Hematologic/Lymphatic Hematologic: absent: As Per HPI, Easy Bleeding, Easy Bruising, Lymphadenopathy, Other Past Patient History - Infectious Disease Hx of Infectious Diseases: None - Past Medical History & Family History Past Medical History?: Yes - Past Social History Smoking Status: Never Smoked - CARDIAC Hx Hypercholesterolemia: Yes Hx Hypertension: Yes - PULMONARY Hx Respiratory Disorders: No - NEUROLOGICAL Hx Neurological Disorder: No - HEENT Hx HEENT Problems: No - RENAL Hx Chronic Kidney Disease: Yes - ENDOCRINE/METABOLIC Hx Endocrine Disorders: Yes - HEMATOLOGICAL/ONCOLOGICAL Hx AIDS: No Hx Human Immunodeficiency Virus (HIV): No - INTEGUMENTARY Hx Dermatological Problems: Yes - MUSCULOSKELETAL/RHEUMATOLOGICAL Hx Musculoskeletal Disorders: No Hx Falls: No Hx Osteomyelitis: Yes - GASTROINTESTINAL Hx Gastrointestinal Disorders: No - GENITOURINARY/GYNECOLOGICAL Hx Genitourinary Disorders: No - PSYCHIATRIC Hx Psychophysiologic Disorder: No Hx Substance Use: No - SURGICAL HISTORY Hx Coronary Artery Bypass Graft: Yes Other/Comment: left foot TMA-01/17/18. revision of left foot REPLACED BY [facility]-05/08/18. CABG 2006 - ANESTHESIA Hx Anesthesia: Yes Hx Anesthesia Reactions: No Meds Allergies/Adverse Reactions: Allergies Allergy/AdvReac Type Severity Reaction Status Date / Time No Known Allergies Allergy Verified 05/11/18 14:52 - Medications Medications: Current Medications Acetaminophen (Tylenol 325mg Tab) 650 mg PO Q4 PRN PRN Reason: Pain, Mild (1-3) Aspirin (Ecotrin) 81 mg PO DAILY [facility] Last Admin: 05/12/18 08:28 Dose: 81 mg Atorvastatin Calcium (Lipitor) 10 mg PO HS [facility] Last Admin: 05/11/18 21:50 Dose: 10 mg Clopidogrel Bisulfate (Plavix) 75 mg PO DAILY [facility] Last Admin: 05/12/18 08:28 Dose: 75 mg Docusate Sodium (Colace) 100 mg PO DAILY PRN PRN Reason: Constipation Last Admin: 05/11/18 22:07 Dose: 100 mg Ferrous Sulfate (Feosol) 325 mg PO DAILY [facility] Last Admin: 05/12/18 08:28 Dose: 325 mg Gabapentin (Neurontin) 100 mg PO DAILY [facility] Last Admin: 05/12/18 08:28 Dose: 100 mg Meropenem 1 gm/ Sodium (Chloride) 100 mls @ 100 mls/hr IVPB Q8@0500,1300,2100 [facility] PRN Reason: Protocol Last Admin: 05/12/18 05:38 Dose: 100 mls/hr Vancomycin HCl 750 mg/ Sodium (Chloride) 250 mls @ 250 mls/hr IVPB DAILY@1700 [facility] PRN Reason: Protocol Cefepime HCl 1 gm/ Sodium (Chloride) 100 mls @ 100 mls/hr IVPB Q12@0500,1700 [facility] Last Admin: 05/12/18 04:25 Dose: 100 mls/hr Lisinopril (Zestril) 2.5 mg PO DAILY [facility] Last Admin: 05/12/18 08:29 Dose: 2.5 mg Metformin HCl (Glucophage) 1,000 mg PO BID [facility] Last Admin: 05/12/18 08:28 Dose: 1,000 mg Metoprolol Succinate (Toprol Xl) 50 mg PO DAILY [facility] Last Admin: 05/12/18 08:29 Dose: 50 mg Oxycodone/Acetaminophen (Percocet 5/325 Mg Tab) 2 tab PO Q4 PRN PRN Reason: Pain, severe (8-10) Stop: 05/14/18 15:05 Last Admin: 05/12/18 09:39 Dose: 2 tab Oxycodone/Acetaminophen (Percocet 5/325 Mg Tab) 1 tab PO Q4 PRN PRN Reason: Pain, moderate (4-7) Stop: 05/14/18 15:05 Pantoprazole Sodium (Protonix Ec Tab) 20 mg PO DAILY [facility] Last Admin: 05/12/18 08:28 Dose: 20 mg Pioglitazone HCl (Actos) 15 mg PO DAILY [facility] Last Admin: 05/12/18 08:28 Dose: 15 mg Physical Exam - Constitutional Appears: Non-toxic, Chronically Ill - Head Exam Head Exam: ATRAUMATIC, NORMAL INSPECTION, NORMOCEPHALIC - Eye Exam Eye Exam: PERRL. absent: Scleral icterus Pupil Exam: NORMAL ACCOMODATION - ENT Exam ENT Exam: Mucous Membranes Moist - Neck Exam Neck exam: Negative for: Lymphadenopathy - Respiratory Exam Respiratory Exam: Decreased Breath Sounds, Clear to Auscultation Bilateral - Cardiovascular Exam Cardiovascular Exam: REGULAR RHYTHM, +S1, +S2 - GI/Abdominal Exam GI & Abdominal Exam: Diminished Bowel Sounds, Soft. absent: Tenderness - Rectal Exam Rectal Exam: Deferred - Exam Exam: NORMAL INSPECTION - Extremities Exam Extremities exam: Negative for: pedal edema Additional comments: s/p TMA left foot wound dry - Back Exam Back exam: absent: CVA tenderness (L), CVA tenderness (R) - Neurological Exam Neurological exam: Alert, CN II-XII Intact, Oriented x3, Reflexes Normal - Psychiatric Exam Psychiatric exam: Normal Mood - Skin Skin Exam: Dry Results - Vital Signs Recent Vital Signs: Last Vital Signs Temp 97.6 F 05/12/18 08:12 Pulse 89 05/12/18 11:12 Resp 20 05/12/18 08:12 BP 111/65 05/12/18 08:29 Pulse Ox 100 05/12/18 11:12 - Labs Labs: Laboratory Results - last 24 hr 05/11/18 05/12/18 05/12/18 20:37 05:52 10:40 POC Glucose (mg/dL) 137 H 120 H 155 H Assessment & Plan (1) Status post transmetatarsal amputation of left foot Status: Acute (2) Cellulitis of foot Status: Acute (3) Dehiscence of amputation stump Status: Acute - Assessment and Plan (Free Text) Assessment: cont IV rx and wound care
[2018-05-13] MEDS: Cefepime 1 GM in Sodium Chloride 0.9% 100 ML IVPB SCH ×2 (04:20→16:45)
[2018-05-13] MEDS: Meropenem 1 GM in Sodium Chloride 0.9% 100 ML IVPB SCH ×3 (05:18→22:04)
[2018-05-13] MEDS: Oxycodone/Acetaminophen 5/325 mg Tab PO PRN ×4 (06:50→23:12)
[2018-05-13 07:48] LABS: BASO # 0.1 K/uL (0.0-0.2); BASO % 0.6 % (0.0-2.0); EOS # 1.1 K/uL (0.0-0.7); EOS % 11.2 % (0.0-4.0); HEMOGLOBIN 8.9 g/dL (12.0-18.0); LYMPH # 1.2 K/uL (1.0-4.3); MEAN CELL VOLUME 73.3 fl (80.0-94.0); MEAN CORPUSCULAR HEMOGLOBIN 25.6 pg (27.0-31.0); MEAN CORPUSCULAR HGB CONC 34.9 g/dL (33.0-37.0); MEAN PLATELET VOLUME 7.7 fl (7.2-11.7); MONO # 0.7 K/uL (0.0-0.8); MONO % 7.3 % (0.0-10.0); NEUT # 6.7 K/uL (1.8-7.0); NEUT % 68.9 % (50.0-75.0); RBC 3.48 Mil/uL (4.40-5.90); RED CELL DISTRIBUTION WIDTH 19.6 % (11.5-14.5); WHITE BLOOD COUNT 9.7 K/uL (4.8-10.8)
[2018-05-13 08:05] LABS: ALBUMIN 3.5 g/dL (3.5-5.0); ALT/SGPT 21 U/L (21-72); AST/SGOT 21 U/L (17-59); BLOOD UREA NITROGEN 15 mg/dl (9-20); CALCIUM 8.8 mg/dL (8.4-10.2); GFR AFRICAN-AMERICAN > 60; GFR NON-AFRICAN AMERICAN > 60
[2018-05-13] MEDS: Metoprolol Succinate 50 mg XL Tab PO SCH (08:33)
[2018-05-13] MEDS: Pantoprazole 20 mg EC Tab PO SCH (08:34)
--- NOTE | 2018-05-13 11:52 | PN ---
DATE: 05/13/2018 SUBJECTIVE: The patient was seen and examined. Interim events noted. Consults noted and appreciated. Infectious disease followup and interventions noted and appreciated. The patient remains in Transitional Care Unit. Awake, responsive, feels okay. Pain is adequately controlled. No new complaint of chest pain or shortness of breath. OBJECTIVE: GENERAL: The patient is in no acute distress. VITAL SIGNS: Stable. HEART: S1, S2, normal and regular. LUNGS: Good bilateral air exchange. ABDOMEN: Soft, nontender. EXTREMITIES: No edema. No calf swelling. No tenderness. No acute ischemia. CENTRAL NERVOUS SYSTEM: Essentially unchanged. DIAGNOSTICS: Available diagnostic data reviewed. Overall, the patient's general medical condition is stable. Plan as ordered. Doug Lima MD
--- NOTE | 2018-05-13 13:46 | CP.PCM.CON ---
History of Present Illness - History of Present Illness History of Present Illness: Podiatry Consult Note for Dr. Dale 67 yo male with PMHx of DM II, hypertension, CAD, HLD seen in TCU 5 days s/p revisional TMA of left foot (DOS: 05/08/18). Patient is in NAD and AAO x3. Pt recently underwent revisional surgery to his left foot amputation site with Dr. Dale and was transferred from med/surg floors of [facility] to TCU for continuation of IV antibiotic therapy. Patient is seen resting comfortably in bed. Dressing is noted to be dry, clean and intact. Wound vac is working with good seal noted. Patient admits to moderate pain in the left foot, worsened during dressing changes. States his pain is overall well controlled by medications. Patient denies any acute overnight events. Patient denies F/C/N/V/ SOB. PSHx: CABG, left foot TMA and revisional TMA surgeries All: NKDA FamHx: noncontributory SocHx: denies tobacco/EtOH or drug use Past Patient History - Infectious Disease Hx of Infectious Diseases: None - Past Medical History & Family History Past Medical History?: Yes - Past Social History Smoking Status: Never Smoked - CARDIAC Hx Hypercholesterolemia: Yes Hx Hypertension: Yes - PULMONARY Hx Respiratory Disorders: No - NEUROLOGICAL Hx Neurological Disorder: No - HEENT Hx HEENT Problems: No - RENAL Hx Chronic Kidney Disease: Yes - ENDOCRINE/METABOLIC Hx Endocrine Disorders: Yes - HEMATOLOGICAL/ONCOLOGICAL Hx AIDS: No Hx Human Immunodeficiency Virus (HIV): No - INTEGUMENTARY Hx Dermatological Problems: Yes - MUSCULOSKELETAL/RHEUMATOLOGICAL Hx Musculoskeletal Disorders: No Hx Falls: No Hx Osteomyelitis: Yes - GASTROINTESTINAL Hx Gastrointestinal Disorders: No - GENITOURINARY/GYNECOLOGICAL Hx Genitourinary Disorders: No - PSYCHIATRIC Hx Psychophysiologic Disorder: No Hx Substance Use: No - SURGICAL HISTORY Hx Coronary Artery Bypass Graft: Yes Other/Comment: left foot TMA-01/17/18. revision of left foot TMA-05/08/18. CABG 2006 - ANESTHESIA Hx Anesthesia: Yes Hx Anesthesia Reactions: No Meds Allergies/Adverse Reactions: Allergies Allergy/AdvReac Type Severity Reaction Status Date / Time No Known Allergies Allergy Verified 05/11/18 14:52 - Medications Medications: Current Medications Acetaminophen (Tylenol 325mg Tab) 650 mg PO Q4 PRN PRN Reason: Pain, Mild (1-3) Last Admin: 05/13/18 12:52 Dose: 650 mg Aspirin (Ecotrin) 81 mg PO DAILY [facility] Last Admin: 05/13/18 08:33 Dose: 81 mg Atorvastatin Calcium (Lipitor) 10 mg PO HS [facility] Last Admin: 05/12/18 21:11 Dose: 10 mg Clopidogrel Bisulfate (Plavix) 75 mg PO DAILY [facility] Last Admin: 05/13/18 08:33 Dose: 75 mg Docusate Sodium (Colace) 100 mg PO DAILY PRN PRN Reason: Constipation Last Admin: 05/11/18 22:07 Dose: 100 mg Ferrous Sulfate (Feosol) 325 mg PO DAILY [facility] Last Admin: 05/13/18 08:33 Dose: 325 mg Gabapentin (Neurontin) 100 mg PO DAILY [facility] Last Admin: 05/13/18 08:33 Dose: 100 mg Meropenem 1 gm/ Sodium (Chloride) 100 mls @ 100 mls/hr IVPB Q8@0500,1300,2100 [facility] PRN Reason: Protocol Last Admin: 05/13/18 12:52 Dose: 100 mls/hr Vancomycin HCl 750 mg/ Sodium (Chloride) 250 mls @ 250 mls/hr IVPB DAILY@1700 [facility] PRN Reason: Protocol Last Admin: 05/12/18 16:38 Dose: 250 mls/hr Cefepime HCl 1 gm/ Sodium (Chloride) 100 mls @ 100 mls/hr IVPB Q12@0500,1700 [facility] Last Admin: 05/13/18 04:20 Dose: 100 mls/hr Lisinopril (Zestril) 2.5 mg PO DAILY [facility] Last Admin: 05/13/18 08:34 Dose: 2.5 mg Metformin HCl (Glucophage) 1,000 mg PO BID [facility] Last Admin: 05/13/18 08:33 Dose: 1,000 mg Metoprolol Succinate (Toprol Xl) 50 mg PO DAILY [facility] Last Admin: 05/13/18 08:33 Dose: 50 mg Oxycodone/Acetaminophen (Percocet 5/325 Mg Tab) 2 tab PO Q4 PRN PRN Reason: Pain, severe (8-10) Stop: 05/14/18 15:05 Last Admin: 05/13/18 10:25 Dose: 2 tab Oxycodone/Acetaminophen (Percocet 5/325 Mg Tab) 1 tab PO Q4 PRN PRN Reason: Pain, moderate (4-7) Stop: 05/14/18 15:05 Pantoprazole Sodium (Protonix Ec Tab) 20 mg PO DAILY [facility] Last Admin: 05/13/18 08:34 Dose: 20 mg Pioglitazone HCl (Actos) 15 mg PO DAILY [facility] Last Admin: 05/13/18 08:33 Dose: 15 mg Physical Exam - Constitutional Appears: Well, Non-toxic, No Acute Distress - Extremities Exam Additional comments: Left lower Extremity Focused Exam: VASC: DP and PT mildly palpable, TG warm to cool proximal to distal , no edema noted at this time, no pedal hair noted, mild erythema noted around the surgical site. DERM: No strikethrough noted on previous wound vac dressing. Running continuous on 125mmHg with 20-30cc sanguinous drainage in canister. 100% Granular tissue noted with exposed metatarsal shafts at the surgical site, minimal active sanguineous drainage, no malodor, no purulence, mild erythema noted terri wound normal given postoperative stage, no tracking or undermining noted of the wound , no other clinical signs of infection NEURO: Protective sensation grossly diminished ORTHO: Mild-moderate pain on palpation to the surgical site, s/p TMA - Neurological Exam Neurological exam: Alert, Oriented x3 - Psychiatric Exam Psychiatric exam: Normal Affect, Normal Mood Results - Vital Signs Recent Vital Signs: Last Vital Signs Temp 97.9 F 05/13/18 08:25 Pulse 83 05/13/18 08:34 Resp 20 05/13/18 08:25 BP 105/70 05/13/18 08:34 Pulse Ox 99 05/13/18 08:25 - Labs Result Diagrams: 05/13/18 05:30 05/13/18 05:30 Labs: Laboratory Results - last 24 hr 05/12/18 05/12/18 05/13/18 16:17 20:50 05:30 WBC RBC Hgb Hct MCV MCH MCHC RDW Plt Count MPV Neut % (Auto) Lymph % (Auto) [place] % (Auto) Eos % (Auto) Baso % (Auto) Neut # (Auto) Lymph # (Auto) [place] # (Auto) Eos # (Auto) Baso # (Auto) Sodium Potassium Chloride Carbon Dioxide Anion Gap BUN Creatinine Est GFR ( Amer) Est GFR (Non-Af Amer) POC Glucose (mg/dL) 145 H 94 Random Glucose Calcium Total Bilirubin AST ALT Alkaline Phosphatase Total Protein Albumin Globulin Albumin/Globulin Ratio Vancomycin Trough 10.7 H 05/13/18 05/13/18 05/13/18 05:30 05:30 06:11 WBC 9.7 RBC 3.48 L Hgb 8.9 L Hct 25.5 L MCV 73.3 L MCH 25.6 L MCHC 34.9 RDW 19.6 H Plt Count 306 MPV 7.7 Neut % (Auto) 68.9 Lymph % (Auto) 12.0 L [place] % (Auto) 7.3 Eos % (Auto) 11.2 H Baso % (Auto) 0.6 Neut # (Auto) 6.7 Lymph # (Auto) 1.2 Marathon # (Auto) 0.7 Eos # (Auto) 1.1 H Baso # (Auto) 0.1 Sodium 139 Potassium 4.5 Chloride 103 Carbon Dioxide 25 Anion Gap 16 BUN 15 Creatinine 1.1 Est GFR ( Amer) > 60 Est GFR (Non-Af Amer) > 60 POC Glucose (mg/dL) 100 Random Glucose 111 H Calcium 8.8 Total Bilirubin 0.4 AST 21 ALT 21 Alkaline Phosphatase 92 Total Protein 7.1 Albumin 3.5 Globulin 3.5 Albumin/Globulin Ratio 1.0 Vancomycin Trough 05/13/18 10:49 WBC RBC Hgb Hct MCV MCH MCHC RDW Plt Count MPV Neut % (Auto) Lymph % (Auto) Marathon % (Auto) Eos % (Auto) Baso % (Auto) Neut # (Auto) Lymph # (Auto) Marathon # (Auto) Eos # (Auto) Baso # (Auto) Sodium Potassium Chloride Carbon Dioxide Anion Gap BUN Creatinine Est GFR ( Amer) Est GFR (Non-Af Amer) POC Glucose (mg/dL) 212 H Random Glucose Calcium Total Bilirubin AST ALT Alkaline Phosphatase Total Protein Albumin Globulin Albumin/Globulin Ratio Vancomycin Trough Assessment & Plan - Assessment and Plan (Free Text) Assessment: 67 y/o male 5 days s/p TMA with application of wound vac to the surgical site Plan: Patient seen and evaluated at bedside Discussed patient plan with attending, Dr. Dale Charts, Labs and vitals reviewed: afebrile, no leukocytosis Bone Pathology: focal acute osteomyelitis Postop x-rays demonstrate satisfactory post-op results Minimal sanguinous drainage noted in the canister New Wound vac applied to TMA surgical site with continuous flow at 125mmHg; dressed with DSD, ABD and BRYANT Patient will remain in TCU at this time for IV abx therapy Podiatry will continue to follow patient while in-house
[2018-05-14] MEDS: Cefepime 1 GM in Sodium Chloride 0.9% 100 ML IVPB SCH ×2 (04:43→16:58)
[2018-05-14] MEDS: Meropenem 1 GM in Sodium Chloride 0.9% 100 ML IVPB SCH ×3 (05:37→20:18)
[2018-05-14] MEDS: Oxycodone/Acetaminophen 5/325 mg Tab PO PRN ×2 (07:43→15:49)
[2018-05-14] MEDS: Pantoprazole 20 mg EC Tab PO SCH (08:59)
[2018-05-14] MEDS: Metoprolol Succinate 50 mg XL Tab PO SCH (09:00)
[2018-05-14] MEDS ORDERED: Oxycodone/Acetaminophen 5/325 mg Tab PO PRN (15:28)
--- NOTE | 2018-05-14 15:43 | PN ---
DATE: 05/14/2018 SUBJECTIVE: The patient is seen and examined. Interim events noted. Consults noted and appreciated. Podiatry followup and interventions noted and appreciated. The patient remains in Transitional Care Unit. The patient is sleeping, arousable, feels okay. Pain is adequately controlled. No new complaint of chest pain or shortness of breath. PHYSICAL EXAMINATION: GENERAL: The patient is in no acute distress. VITAL SIGNS: Stable. HEART: S1, S2, normal and regular. LUNGS: Good bilateral air exchange. ABDOMEN: Soft, nontender. EXTREMITIES: The foot is under surgical dressing. No edema, no calf swelling. No tenderness. No acute ischemia. CUT PRESSMAN: Exam is essentially unchanged. DIAGNOSTIC DATA: Available diagnostic data reviewed. ASSESSMENT AND PLAN: Overall, the patient's general medical condition is stable. Plan as ordered. Doug Lima MD
[2018-05-15] MEDS: Cefepime 1 GM in Sodium Chloride 0.9% 100 ML IVPB SCH ×2 (04:55→17:12)
[2018-05-15] MEDS: Meropenem 1 GM in Sodium Chloride 0.9% 100 ML IVPB SCH ×3 (04:55→20:54)
[2018-05-15] MEDS: Oxycodone/Acetaminophen 5/325 mg Tab PO PRN ×3 (08:51→21:39)
[2018-05-15] MEDS: Metoprolol Succinate 50 mg XL Tab PO SCH (08:52)
[2018-05-15] MEDS: Pantoprazole 20 mg EC Tab PO SCH (08:52)
--- NOTE | 2018-05-15 09:22 | CP.PCM.PN ---
Subjective - Date & Time of Evaluation Date of Evaluation: 05/15/18 Time of Evaluation: 09:19 - Subjective Subjective: Podiatry progress note for, Dr. Dale 67 yo male seen and evaluated at bedside with Dr. Dale 7 days s/p revisional TMA of left foot (DOS: 05/08/18). Patient is in NAD and AAO x3. Patient is seen resting comfortably in bed. Dressing is noted to be dry, clean and intact. Wound vac is working with good seal noted. Patient admits to moderate pain in the left foot, worsened during dressing changes. States his pain is overall well controlled by medications. Patient denies any acute overnight events. Patient denies F/C/N/V/SOB. Objective - Vital Signs/Intake and Output Vital Signs (last 24 hours): Temp Pulse Resp BP Pulse Ox 98.2 F 75 20 105/53 L 99 05/15/18 08:08 05/15/18 08:52 05/15/18 08:08 05/15/18 08:52 05/15/18 08:08 - Medications Medications: Current Medications Acetaminophen (Tylenol 325mg Tab) 650 mg PO Q4 PRN PRN Reason: Pain, Mild (1-3) Last Admin: 05/15/18 06:46 Dose: 650 mg Aspirin (Ecotrin) 81 mg PO DAILY [facility] Last Admin: 05/15/18 08:51 Dose: 81 mg Atorvastatin Calcium (Lipitor) 10 mg PO HS [facility] Last Admin: 05/14/18 21:46 Dose: 10 mg Clopidogrel Bisulfate (Plavix) 75 mg PO DAILY [facility] Last Admin: 05/15/18 08:52 Dose: 75 mg Docusate Sodium (Colace) 100 mg PO DAILY PRN PRN Reason: Constipation Last Admin: 05/11/18 22:07 Dose: 100 mg Ferrous Sulfate (Feosol) 325 mg PO DAILY [facility] Last Admin: 05/15/18 08:51 Dose: 325 mg Gabapentin (Neurontin) 100 mg PO DAILY [facility] Last Admin: 05/15/18 08:52 Dose: 100 mg Meropenem 1 gm/ Sodium (Chloride) 100 mls @ 100 mls/hr IVPB Q8@0500,1300,2100 [facility] PRN Reason: Protocol Last Admin: 05/15/18 04:55 Dose: 100 mls/hr Vancomycin HCl 750 mg/ Sodium (Chloride) 250 mls @ 250 mls/hr IVPB DAILY@1700 [facility] PRN Reason: Protocol Last Admin: 05/14/18 18:49 Dose: 250 mls/hr Cefepime HCl 1 gm/ Sodium (Chloride) 100 mls @ 100 mls/hr IVPB Q12@0500,1700 [facility] Last Admin: 05/15/18 04:55 Dose: 100 mls/hr Lisinopril (Zestril) 2.5 mg PO DAILY [facility] Last Admin: 05/15/18 08:52 Dose: 2.5 mg Metformin HCl (Glucophage) 1,000 mg PO BID [facility] Last Admin: 05/15/18 08:52 Dose: 1,000 mg Metoprolol Succinate (Toprol Xl) 50 mg PO DAILY [facility] Last Admin: 05/15/18 08:52 Dose: 50 mg Oxycodone/Acetaminophen (Percocet 5/325 Mg Tab) 1 tab PO Q4 PRN PRN Reason: Pain, moderate (4-7) Stop: 05/17/18 15:29 Oxycodone/Acetaminophen (Percocet 5/325 Mg Tab) 2 tab PO Q4 PRN PRN Reason: Pain, severe (8-10) Stop: 05/17/18 15:29 Last Admin: 05/15/18 08:51 Dose: 2 tab Pantoprazole Sodium (Protonix Ec Tab) 20 mg PO DAILY [facility] Last Admin: 05/15/18 08:52 Dose: 20 mg Pioglitazone HCl (Actos) 15 mg PO DAILY [facility] Last Admin: 05/15/18 08:51 Dose: 15 mg - Labs Labs: 05/13/18 05:30 05/13/18 05:30 - Constitutional Appears: Well, Non-toxic, No Acute Distress - Head Exam Head Exam: ATRAUMATIC, NORMOCEPHALIC - Extremities Exam Additional comments: Left lower Extremity Focused Exam: VASC: DP and PT mildly palpable, TG warm to cool proximal to distal , no edema noted at this time, no pedal hair noted, mild erythema noted around the surgical site. DERM: No strike-through noted on previous wound vac dressing. Running continuous on 125mmHg with 10-20cc sanguineous drainage in canister. 100% Granular tissue noted with exposed metatarsal shafts at the surgical site, minimal active sanguineous drainage, no malodor, no purulence, mild erythema noted terri wound normal given postoperative stage, no tracking or undermining noted of the wound, no other clinical signs of infection NEURO: Protective sensation grossly diminished ORTHO: Mild-moderate pain on palpation to the surgical site, s/p TMA - Neurological Exam Neurological Exam: Alert, Awake - Psychiatric Exam Psychiatric exam: Normal Affect, Normal Mood Assessment and Plan - Assessment and Plan (Free Text) Assessment: 67 y/o male seen and evaluated s/p 7 days revisional TMA Plan: Patient seen and evaluated at bedside with attending Dr. Dale Chart, labs and vitals reviewed Afebrile, absent leukocytosis Bone Pathology: focal acute osteomyelitis Postop x-rays demonstrate satisfactory post-op results Minimal sanguinous drainage noted in the canister New Wound vac applied to TMA surgical site with continuous flow at 125mmHg; dressed with DSD, ABD and BRYANT Patient will remain in TCU at this time for IV abx therapy Podiatry will continue to follow patient while in-house
--- NOTE | 2018-05-15 13:21 | PN ---
DATE: 05/15/2018 SUBJECTIVE: The patient is seen and examined. Interim events noted. Consults noted and appreciated. The patient remains in transitional care unit. Complains of occasional pain, controlled with current pain medications, which will be continued. The patient otherwise feels okay. No chest pain. No shortness of breath. PHYSICAL EXAMINATION: GENERAL: The patient is in no acute distress. VITAL SIGNS: Stable. HEART: S1 and S2, normal and regular. LUNGS: Good bilateral air exchange. ABDOMEN: Soft, nontender. EXTREMITIES: Right lower extremity foot is under surgical dressing and wound VAC. Draining minimal amount. No sign of acute complication. No edema. No calf swelling. No tenderness. 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 DIAGNOSTIC DATA: Available diagnostic data reviewed. IMPRESSION AND PLAN: Overall, the patient's general medical condition is stable. Plan as ordered. Doug Lima MD
[2018-05-16] MEDS: Cefepime 1 GM in Sodium Chloride 0.9% 100 ML IVPB SCH ×2 (04:14→16:10)
[2018-05-16] MEDS: Meropenem 1 GM in Sodium Chloride 0.9% 100 ML IVPB SCH ×3 (04:19→21:00)
[2018-05-16] MEDS: Oxycodone/Acetaminophen 5/325 mg Tab PO PRN ×3 (06:15→21:02)
[2018-05-16 08:03] VITALS: RESP 20
[2018-05-16] MEDS: Pantoprazole 20 mg EC Tab PO SCH (08:29)
[2018-05-16] MEDS: Metoprolol Succinate 50 mg XL Tab PO SCH (08:30)
--- NOTE | 2018-05-16 12:34 | CP.PCM.PN ---
Subjective - Date & Time of Evaluation Date of Evaluation: 05/16/18 Time of Evaluation: 12:31 - Subjective Subjective: Podiatry progress note for Dr. Dale 67 y/o male seen and evaluated at bedside 8 days s/p revisional TMA of left foot (DOS: 05/08/18). Patient is in NAD and AAO x3. Patient is seen resting comfortably in bed. Dressing is noted to be dry, clean and intact. Wound vac is working with good seal noted. Patient admits to moderate pain in the left foot, worsened during dressing changes. States his pain is overall well controlled by medications. Patient denies any acute overnight events. Patient denies F/C/N/V/ SOB. Objective - Vital Signs/Intake and Output Vital Signs (last 24 hours): Temp Pulse Resp BP Pulse Ox 98.1 F 80 20 109/70 99 05/16/18 08:02 05/16/18 08:30 05/16/18 08:02 05/16/18 08:30 05/16/18 08:02 - Medications Medications: Current Medications Acetaminophen (Tylenol 325mg Tab) 650 mg PO Q4 PRN PRN Reason: Pain, Mild (1-3) Last Admin: 05/15/18 06:46 Dose: 650 mg Aspirin (Ecotrin) 81 mg PO DAILY [facility] Last Admin: 05/16/18 08:29 Dose: 81 mg Atorvastatin Calcium (Lipitor) 10 mg PO HS [facility] Last Admin: 05/15/18 21:02 Dose: 10 mg Clopidogrel Bisulfate (Plavix) 75 mg PO DAILY [facility] Last Admin: 05/16/18 08:29 Dose: 75 mg Docusate Sodium (Colace) 100 mg PO DAILY PRN PRN Reason: Constipation Last Admin: 05/16/18 08:29 Dose: 100 mg Ferrous Sulfate (Feosol) 325 mg PO DAILY [facility] Last Admin: 05/16/18 08:32 Dose: 325 mg Gabapentin (Neurontin) 100 mg PO DAILY [facility] Last Admin: 05/16/18 08:28 Dose: 100 mg Meropenem 1 gm/ Sodium (Chloride) 100 mls @ 100 mls/hr IVPB Q8@0500,1300,2100 [facility] PRN Reason: Protocol Last Admin: 05/16/18 12:06 Dose: 100 mls/hr Vancomycin HCl 750 mg/ Sodium (Chloride) 250 mls @ 250 mls/hr IVPB DAILY@1700 [facility] PRN Reason: Protocol Last Admin: 05/15/18 17:12 Dose: 250 mls/hr Cefepime HCl 1 gm/ Sodium (Chloride) 100 mls @ 100 mls/hr IVPB Q12@0500,1700 [facility] Last Admin: 05/16/18 04:14 Dose: 100 mls/hr Lisinopril (Zestril) 2.5 mg PO DAILY [facility] Last Admin: 05/16/18 08:28 Dose: 2.5 mg Metformin HCl (Glucophage) 1,000 mg PO BID [facility] Last Admin: 05/16/18 08:28 Dose: 1,000 mg Metoprolol Succinate (Toprol Xl) 50 mg PO DAILY [facility] Last Admin: 05/16/18 08:30 Dose: 50 mg Oxycodone/Acetaminophen (Percocet 5/325 Mg Tab) 1 tab PO Q4 PRN PRN Reason: Pain, moderate (4-7) Stop: 05/17/18 15:29 Oxycodone/Acetaminophen (Percocet 5/325 Mg Tab) 2 tab PO Q4 PRN PRN Reason: Pain, severe (8-10) Stop: 05/17/18 15:29 Last Admin: 05/16/18 10:53 Dose: 2 tab Pantoprazole Sodium (Protonix Ec Tab) 20 mg PO DAILY [facility] Last Admin: 05/16/18 08:29 Dose: 20 mg Pioglitazone HCl (Actos) 15 mg PO DAILY [facility] Last Admin: 05/16/18 08:28 Dose: 15 mg - Labs Labs: 05/13/18 05:30 05/13/18 05:30 - Constitutional Appears: Well, Non-toxic, No Acute Distress - Head Exam Head Exam: ATRAUMATIC, NORMOCEPHALIC - Extremities Exam Additional comments: Left lower Extremity Focused Exam: VASC: DP and PT mildly palpable, TG warm to cool proximal to distal , no edema noted at this time, no pedal hair noted, mild erythema noted around the surgical site. DERM: No strike-through noted on previous wound vac dressing. Running continuous on 125mmHg with 10-20cc sanguineous drainage in canister. 80% Granular tissue noted 20% areas of fibrotic tissue, with exposed metatarsal shafts at the surgical site, minimal active sanguineous drainage, no malodor, no purulence, mild erythema noted terri wound normal given postoperative stage, no tracking or undermining noted of the wound, no other clinical signs of infection NEURO: Protective sensation grossly diminished ORTHO: Mild-moderate pain on palpation to the surgical site, s/p TMA - Neurological Exam Neurological Exam: Alert, Awake, Oriented x3 - Psychiatric Exam Psychiatric exam: Normal Affect, Normal Mood Assessment and Plan - Assessment and Plan (Free Text) Assessment: 67 y/o male seen and evaluated s/p 8 days revisional TMA Plan: Patient seen and evaluated at bedside Plan discussed with attending, Dr. Dale Chart, labs and vitals reviewed Afebrile, absent leukocytosis Bone Pathology: focal acute osteomyelitis Postop x-rays demonstrate satisfactory post-op results Patient given Percocet prior to the dressing change Minimal sanguinous drainage noted in the canister New Wound vac applied to TMA surgical site with continuous flow at 125mmHg; dressed with DSD, ABD and BRYANT Patient will remain in TCU at this time for IV abx therapy Podiatry will continue to follow patient while in-house
--- NOTE | 2018-05-16 12:51 | PN ---
DATE: 05/16/2018 SUBJECTIVE: The patient is seen and examined. Interim events noted. Podiatry followup and intervention noted and appreciated. The patient remains in transitional care unit. The patient feels okay. Pain is adequately controlled. No chest pain. No shortness of breath. PHYSICAL EXAMINATION: GENERAL: The patient is in no acute distress. VITAL SIGNS: Stable. HEART: S1 and S2, normal and regular. LUNGS: Good bilateral air exchange. ABDOMEN: Soft and nontender. EXTREMITIES: The patient has discharge. No sign of acute complication. No edema. No calf swelling. No tenderness. No acute ischemia. 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 DIAGNOSTIC DATA: Available diagnostic data reviewed. ASSESSMENT AND PLAN: Overall, the patient's general medication condition is stable. Plan as ordered. Doug Lima MD
[2018-05-16] MEDS ORDERED: Alum-Mag Hydrox-Simethicone Susp (30 mL) PO ONE (16:30)
[2018-05-17] MEDS: Cefepime 1 GM in Sodium Chloride 0.9% 100 ML IVPB SCH ×2 (04:33→16:27)
[2018-05-17] MEDS: Meropenem 1 GM in Sodium Chloride 0.9% 100 ML IVPB SCH ×3 (04:33→21:55)
[2018-05-17] MEDS: Oxycodone/Acetaminophen 5/325 mg Tab PO PRN ×3 (06:45→18:28)
[2018-05-17] MEDS: Pantoprazole 20 mg EC Tab PO SCH (08:50)
[2018-05-17] MEDS: Metoprolol Succinate 50 mg XL Tab PO SCH (08:50)
--- NOTE | 2018-05-17 14:51 | PN ---
DATE: 05/17/2018 SUBJECTIVE: The patient is seen and examined. Interim events noted. The patient remains in transitional care unit. Podiatry followup and intervention noted and appreciated. The patient feels okay. Pain is adequately controlled. No chest pain. No shortness of breath. PHYSICAL EXAMINATION: GENERAL: The patient is in no acute distress. VITAL SIGNS: Stable. HEART: S1 and S2, normal and regular. LUNGS: Good bilateral air exchange. ABDOMEN: Soft and nontender. EXTREMITIES: The patient has the wound VAC with minimal discharge. No sign of distal complication. No edema. No calf swelling. No tenderness. No acute ischemia. 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 DIAGNOSTIC DATA: Available diagnostic data reviewed. ASSESSMENT AND PLAN: Overall, the patient's general medical condition is stable. Plan as ordered. Doug Lima MD
--- NOTE | 2018-05-17 15:01 | PN ---
DATE: 05/17/2018 SUBJECTIVE: The patient is seen and examined. Interim events noted. Consults noted and appreciated. Podiatry followup and intervention noted and appreciated. The patient remains in transitional care unit, on IV antibiotic. The patient feels okay. Pain is adequately controlled. No new complaint of chest pain or shortness of breath. The patient wants to go home soon. PHYSICAL EXAMINATION: GENERAL: The patient is in no acute distress. VITAL SIGNS: Stable. HEART: S1 and S2, normal and regular. LUNGS: Good bilateral air exchange. ABDOMEN: Soft, nontender. EXTREMITIES: No edema. No calf swelling. No tenderness. No acute ischemia. 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 Surgical site looks pretty clean with wound VAC. DIAGNOSTIC DATA: Available diagnostic data reviewed. ASSESSMENT AND PLAN: Overall, the patient's general medical condition is stable. Plan as ordered. Doug Lima MD
[2018-05-17] MEDS ORDERED: Oxycodone/Acetaminophen 5/325 mg Tab PO ONE (23:27)
[2018-05-17] MEDS ORDERED: Oxycodone/Acetaminophen 5/325 mg Tab PO PRN (23:27)
[2018-05-18] MEDS: Cefepime 1 GM in Sodium Chloride 0.9% 100 ML IVPB SCH ×2 (05:43→16:16)
[2018-05-18] MEDS: Meropenem 1 GM in Sodium Chloride 0.9% 100 ML IVPB SCH ×3 (05:45→21:30)
[2018-05-18 05:58] LABS: BASO # 0.1 K/uL (0.0-0.2); BASO % 0.9 % (0.0-2.0); EOS # 1.4 K/uL (0.0-0.7); EOS % 13.9 % (0.0-4.0); HEMOGLOBIN 8.7 g/dL (12.0-18.0); LYMPH # 1.5 K/uL (1.0-4.3); LYMPH % 14.5 % (20.0-40.0); MEAN CELL VOLUME 73.7 fl (80.0-94.0); MEAN CORPUSCULAR HEMOGLOBIN 24.4 pg (27.0-31.0); MEAN CORPUSCULAR HGB CONC 33.1 g/dL (33.0-37.0); MEAN PLATELET VOLUME 7.1 fl (7.2-11.7); MONO # 0.8 K/uL (0.0-0.8); MONO % 7.9 % (0.0-10.0); NEUT # 6.5 K/uL (1.8-7.0); NEUT % 62.8 % (50.0-75.0); RBC 3.55 Mil/uL (4.40-5.90); RED CELL DISTRIBUTION WIDTH 19.2 % (11.5-14.5); WHITE BLOOD COUNT 10.3 K/uL (4.8-10.8)
[2018-05-18] MEDS: Pantoprazole 20 mg EC Tab PO SCH (08:15)
[2018-05-18] MEDS: Metoprolol Succinate 50 mg XL Tab PO SCH (08:15)
[2018-05-18] MEDS: Oxycodone/Acetaminophen 5/325 mg Tab PO PRN ×2 (08:27→12:49)
--- NOTE | 2018-05-18 09:33 | CP.PCM.PN ---
Subjective - Date & Time of Evaluation Date of Evaluation: 05/18/18 Time of Evaluation: 09:30 - Subjective Subjective: Podiatry progress note for Dr. Dale, 67 y/o male seen and evaluated at bedside 10 days s/p revisional TMA of left foot (DOS: 05/08/18). Patient is in NAD and AAO x3. Patient is seen resting comfortably in bed. Dressing is noted to be dry, clean and intact. Wound vac is working with good seal noted. Patient admits to improving pain in the left foot , worsened during dressing changes. States his pain is overall well controlled by medications. Patient denies any acute overnight events. Patient denies F/C/N/ V/SOB. Objective - Vital Signs/Intake and Output Vital Signs (last 24 hours): Temp Pulse Resp BP Pulse Ox 97.9 F 80 20 130/69 99 05/18/18 09:08 05/18/18 09:08 05/18/18 09:08 05/18/18 09:08 05/18/18 09:08 - Medications Medications: Current Medications Acetaminophen (Tylenol 325mg Tab) 650 mg PO Q4 PRN PRN Reason: Pain, Mild (1-3) Last Admin: 05/15/18 06:46 Dose: 650 mg Aspirin (Ecotrin) 81 mg PO DAILY [facility] Last Admin: 05/18/18 08:15 Dose: 81 mg Atorvastatin Calcium (Lipitor) 10 mg PO HS [facility] Last Admin: 05/17/18 21:59 Dose: 10 mg Clopidogrel Bisulfate (Plavix) 75 mg PO DAILY [facility] Last Admin: 05/18/18 08:15 Dose: 75 mg Docusate Sodium (Colace) 100 mg PO DAILY PRN PRN Reason: Constipation Last Admin: 05/16/18 08:29 Dose: 100 mg Ferrous Sulfate (Feosol) 325 mg PO DAILY [facility] Last Admin: 05/18/18 08:15 Dose: 325 mg Gabapentin (Neurontin) 100 mg PO DAILY [facility] Last Admin: 05/18/18 08:15 Dose: 100 mg Meropenem 1 gm/ Sodium (Chloride) 100 mls @ 100 mls/hr IVPB Q8@0500,1300,2100 [facility] PRN Reason: Protocol Last Admin: 05/18/18 05:45 Dose: 100 mls/hr Vancomycin HCl 750 mg/ Sodium (Chloride) 250 mls @ 250 mls/hr IVPB DAILY@1700 [facility] PRN Reason: Protocol Last Admin: 05/17/18 16:31 Dose: 250 mls/hr Cefepime HCl 1 gm/ Sodium (Chloride) 100 mls @ 100 mls/hr IVPB Q12@0500,1700 [facility] Last Admin: 05/18/18 05:43 Dose: 100 mls/hr Lisinopril (Zestril) 2.5 mg PO DAILY [facility] Last Admin: 05/18/18 08:16 Dose: 2.5 mg Metformin HCl (Glucophage) 1,000 mg PO BID [facility] Last Admin: 05/18/18 08:15 Dose: 1,000 mg Metoprolol Succinate (Toprol Xl) 50 mg PO DAILY [facility] Last Admin: 05/18/18 08:15 Dose: 50 mg Oxycodone/Acetaminophen (Percocet 5/325 Mg Tab) 2 tab PO Q4 PRN PRN Reason: Pain, severe (8-10) Stop: 05/21/18 07:57 Last Admin: 05/18/18 08:27 Dose: 2 tab Pantoprazole Sodium (Protonix Ec Tab) 20 mg PO DAILY [facility] Last Admin: 05/18/18 08:15 Dose: 20 mg Pioglitazone HCl (Actos) 15 mg PO DAILY [facility] Last Admin: 05/18/18 08:15 Dose: 15 mg - Labs Labs: 05/18/18 05:46 05/13/18 05:30 - Constitutional Appears: Well, Non-toxic, No Acute Distress - Head Exam Head Exam: ATRAUMATIC, NORMOCEPHALIC - Extremities Exam Additional comments: Left lower Extremity Focused Exam: VASC: DP and PT mildly palpable, TG warm to cool proximal to distal , no edema noted at this time, no pedal hair noted, mild erythema noted around the surgical site. DERM: No strike-through noted on previous wound vac dressing. Running continuous on 125mmHg with 10-20cc sanguineous drainage in canister. 80% Granular tissue noted 20% areas of fibrotic tissue, with exposed metatarsal shafts at the surgical site, no active sanguineous drainage noted, no malodor, no purulence, mild erythema noted terri wound normal given postoperative stage, no tracking or undermining noted of the wound, no other clinical signs of infection NEURO: Protective sensation grossly diminished ORTHO: Mild-moderate pain on palpation to the surgical site, s/p TMA - Neurological Exam Neurological Exam: Alert, Awake, Oriented x3 - Psychiatric Exam Psychiatric exam: Normal Affect, Normal Mood Assessment and Plan - Assessment and Plan (Free Text) Assessment: 67 y/o male seen and evaluated s/p 9 days revisional TMA Plan: Patient seen and evaluated at bedside Plan discussed with attending, Dr. Dale Chart, labs and vitals reviewed; Afebrile, absent leukocytosis Bone Pathology: focal acute osteomyelitis Post operative Foot X-rays demonstrate satisfactory post-op results Patient given Percocet prior to the dressing change Minimal sanguinous drainage noted in the canister New Wound vac applied to TMA surgical site with continuous flow at 125mmHg; dressed with DSD, ABD and BRYANT Patient will remain in TCU at this time for IV abx therapy Podiatry will continue to follow patient while in-house
--- NOTE | 2018-05-18 12:36 | CP.PCM.PN ---
<Megan Wilder - Last Filed: 05/18/18 12:38> Subjective - Date & Time of Evaluation Date of Evaluation: 05/18/18 Time of Evaluation: 07:45 - Subjective Subjective: Pt seen and examined with Dr. Lima this am; was sitting in bed eating breakfast , does not report any more GI upset. No complaints overnight, no events. LLE in dressing with wound vac in place. Objective - Vital Signs/Intake and Output Vital Signs (last 24 hours): Temp Pulse Resp BP Pulse Ox 97.9 F 80 20 130/69 99 05/18/18 09:08 05/18/18 09:08 05/18/18 09:08 05/18/18 09:08 05/18/18 09:08 - Medications Medications: Current Medications Acetaminophen (Tylenol 325mg Tab) 650 mg PO Q4 PRN PRN Reason: Pain, Mild (1-3) Last Admin: 05/15/18 06:46 Dose: 650 mg Aspirin (Ecotrin) 81 mg PO DAILY [facility] Last Admin: 05/18/18 08:15 Dose: 81 mg Atorvastatin Calcium (Lipitor) 10 mg PO HS [facility] Last Admin: 05/17/18 21:59 Dose: 10 mg Clopidogrel Bisulfate (Plavix) 75 mg PO DAILY [facility] Last Admin: 05/18/18 08:15 Dose: 75 mg Docusate Sodium (Colace) 100 mg PO DAILY PRN PRN Reason: Constipation Last Admin: 05/16/18 08:29 Dose: 100 mg Ferrous Sulfate (Feosol) 325 mg PO DAILY [facility] Last Admin: 05/18/18 08:15 Dose: 325 mg Gabapentin (Neurontin) 100 mg PO DAILY [facility] Last Admin: 05/18/18 08:15 Dose: 100 mg Meropenem 1 gm/ Sodium (Chloride) 100 mls @ 100 mls/hr IVPB Q8@0500,1300,2100 [facility] PRN Reason: Protocol Last Admin: 05/18/18 12:11 Dose: 100 mls/hr Vancomycin HCl 750 mg/ Sodium (Chloride) 250 mls @ 250 mls/hr IVPB DAILY@1700 [facility] PRN Reason: Protocol Last Admin: 05/17/18 16:31 Dose: 250 mls/hr Cefepime HCl 1 gm/ Sodium (Chloride) 100 mls @ 100 mls/hr IVPB Q12@0500,1700 [facility] Last Admin: 05/18/18 05:43 Dose: 100 mls/hr Lisinopril (Zestril) 2.5 mg PO DAILY [facility] Last Admin: 05/18/18 08:16 Dose: 2.5 mg Metformin HCl (Glucophage) 1,000 mg PO BID [facility] Last Admin: 05/18/18 08:15 Dose: 1,000 mg Metoprolol Succinate (Toprol Xl) 50 mg PO DAILY [facility] Last Admin: 05/18/18 08:15 Dose: 50 mg Oxycodone/Acetaminophen (Percocet 5/325 Mg Tab) 2 tab PO Q4 PRN PRN Reason: Pain, severe (8-10) Stop: 05/21/18 07:57 Last Admin: 05/18/18 08:27 Dose: 2 tab Pantoprazole Sodium (Protonix Ec Tab) 20 mg PO DAILY [facility] Last Admin: 05/18/18 08:15 Dose: 20 mg Pioglitazone HCl (Actos) 15 mg PO DAILY [facility] Last Admin: 05/18/18 08:15 Dose: 15 mg - Labs Labs: 05/18/18 05:46 05/13/18 05:30 - Constitutional Appears: No Acute Distress - Head Exam Head Exam: NORMAL INSPECTION - Eye Exam Eye Exam: Normal appearance - ENT Exam ENT Exam: Mucous Membranes Moist - Respiratory Exam Respiratory Exam: Clear to Ausculation Bilateral, NORMAL BREATHING PATTERN - Cardiovascular Exam Cardiovascular Exam: REGULAR RHYTHM - GI/Abdominal Exam GI & Abdominal Exam: Soft, Normal Bowel Sounds - Extremities Exam Additional comments: LLE - in dressing, s/p TMA; wound vac in place - Neurological Exam Neurological Exam: Alert, Awake, Oriented x3 - Skin Skin Exam: Dry, Warm Assessment and Plan - Assessment and Plan (Free Text) Assessment: 67 yr old M admitted to TCU for IV antibiotics and PT/OT. Patient is POD # 10 s/ p revisional TMA of left foot. Plan: -Podiatry on board -ID on board: continue IV antibiotics -pain management -Heart Healthy diet -continue home medications -PT/OT <Doug Lima - Last Filed: 05/18/18 20:36> Objective - Vital Signs/Intake and Output Vital Signs (last 24 hours): Temp Pulse Resp BP Pulse Ox 97.9 F 79 20 101/53 L 99 05/18/18 16:20 05/18/18 16:20 05/18/18 16:20 05/18/18 16:20 05/18/18 16:20 - Medications Medications: Current Medications Acetaminophen (Tylenol 325mg Tab) 650 mg PO Q4 PRN PRN Reason: Pain, Mild (1-3) Last Admin: 05/15/18 06:46 Dose: 650 mg Aspirin (Ecotrin) 81 mg PO DAILY [facility] Last Admin: 05/18/18 08:15 Dose: 81 mg Atorvastatin Calcium (Lipitor) 10 mg PO HS [facility] Last Admin: 05/17/18 21:59 Dose: 10 mg Clopidogrel Bisulfate (Plavix) 75 mg PO DAILY [facility] Last Admin: 05/18/18 08:15 Dose: 75 mg Docusate Sodium (Colace) 100 mg PO DAILY PRN PRN Reason: Constipation Last Admin: 05/16/18 08:29 Dose: 100 mg Ferrous Sulfate (Feosol) 325 mg PO DAILY [facility] Last Admin: 05/18/18 08:15 Dose: 325 mg Gabapentin (Neurontin) 100 mg PO DAILY [facility] Last Admin: 05/18/18 08:15 Dose: 100 mg Meropenem 1 gm/ Sodium (Chloride) 100 mls @ 100 mls/hr IVPB Q8@0500,1300,2100 [facility] PRN Reason: Protocol Last Admin: 05/18/18 12:11 Dose: 100 mls/hr Vancomycin HCl 750 mg/ Sodium (Chloride) 250 mls @ 250 mls/hr IVPB DAILY@1700 [facility] PRN Reason: Protocol Last Admin: 05/18/18 17:34 Dose: 250 mls/hr Cefepime HCl 1 gm/ Sodium (Chloride) 100 mls @ 100 mls/hr IVPB Q12@0500,1700 [facility] Last Admin: 05/18/18 16:16 Dose: 100 mls/hr Lisinopril (Zestril) 2.5 mg PO DAILY [facility] Last Admin: 05/18/18 08:16 Dose: 2.5 mg Metformin HCl (Glucophage) 1,000 mg PO BID [facility] Last Admin: 05/18/18 17:13 Dose: 1,000 mg Metoprolol Succinate (Toprol Xl) 50 mg PO DAILY [facility] Last Admin: 05/18/18 08:15 Dose: 50 mg Oxycodone/Acetaminophen (Percocet 5/325 Mg Tab) 2 tab PO Q4 PRN PRN Reason: Pain, severe (8-10) Stop: 05/21/18 07:57 Last Admin: 05/18/18 12:49 Dose: 2 tab Pantoprazole Sodium (Protonix Ec Tab) 20 mg PO DAILY [facility] Last Admin: 05/18/18 08:15 Dose: 20 mg Pioglitazone HCl (Actos) 15 mg PO DAILY [facility] Last Admin: 05/18/18 08:15 Dose: 15 mg - Labs Labs: 05/18/18 05:46 05/13/18 05:30 Assessment and Plan - Assessment and Plan (Free Text) Plan: Patient was personally seen and examined by me in rounds with residents. Available labs and diagnostic data reviewed. Case, Patient's condition and management plan discussed with residents in rounds. Agree with resident's progress note. Plan: As ordered.
[2018-05-19] MEDS: Meropenem 1 GM in Sodium Chloride 0.9% 100 ML IVPB SCH ×3 (04:35→21:22)
[2018-05-19] MEDS: Cefepime 1 GM in Sodium Chloride 0.9% 100 ML IVPB SCH ×2 (05:42→16:20)
[2018-05-19] MEDS: Oxycodone/Acetaminophen 5/325 mg Tab PO PRN ×2 (07:32→21:38)
[2018-05-19] MEDS: Metoprolol Succinate 50 mg XL Tab PO SCH (09:30)
[2018-05-19] MEDS: Pantoprazole 20 mg EC Tab PO SCH (09:30)
[2018-05-19] MEDS ORDERED: Alum-Mag Hydrox-Simethicone Susp (30 mL) PO PRN (11:29)
--- NOTE | 2018-05-19 13:39 | CP.PCM.PN ---
Subjective - Date & Time of Evaluation Date of Evaluation: 05/19/18 Time of Evaluation: 09:00 - Subjective Subjective: events noted wound vac in place has exposed bone bx shows OM needs 6 weeks IV rx Objective - Vital Signs/Intake and Output Vital Signs (last 24 hours): Temp Pulse Resp BP Pulse Ox 97.7 F 84 20 118/64 100 05/19/18 08:42 05/19/18 09:31 05/19/18 08:42 05/19/18 09:31 05/19/18 08:42 - Medications Medications: Current Medications Acetaminophen (Tylenol 325mg Tab) 650 mg PO Q4 PRN PRN Reason: Pain, Mild (1-3) Last Admin: 05/15/18 06:46 Dose: 650 mg Al Hydrox/Mg Hydrox/Simethicone (Maalox Plus 30 Ml) 30 ml PO Q6 PRN PRN Reason: Indigestion / Heartburn Aspirin (Ecotrin) 81 mg PO DAILY [facility] Last Admin: 05/19/18 09:29 Dose: 81 mg Atorvastatin Calcium (Lipitor) 10 mg PO HS [facility] Last Admin: 05/18/18 22:08 Dose: 10 mg Clopidogrel Bisulfate (Plavix) 75 mg PO DAILY [facility] Last Admin: 05/19/18 09:30 Dose: 75 mg Docusate Sodium (Colace) 100 mg PO DAILY PRN PRN Reason: Constipation Last Admin: 05/16/18 08:29 Dose: 100 mg Ferrous Sulfate (Feosol) 325 mg PO DAILY [facility] Last Admin: 05/19/18 09:30 Dose: 325 mg Gabapentin (Neurontin) 100 mg PO DAILY [facility] Last Admin: 05/19/18 09:30 Dose: 100 mg Meropenem 1 gm/ Sodium (Chloride) 100 mls @ 100 mls/hr IVPB Q8@0500,1300,2100 [facility] PRN Reason: Protocol Last Admin: 05/19/18 12:54 Dose: 100 mls/hr Vancomycin HCl 750 mg/ Sodium (Chloride) 250 mls @ 250 mls/hr IVPB DAILY@1700 [facility] PRN Reason: Protocol Last Admin: 05/18/18 17:34 Dose: 250 mls/hr Cefepime HCl 1 gm/ Sodium (Chloride) 100 mls @ 100 mls/hr IVPB Q12@0500,1700 [facility] Last Admin: 05/19/18 05:42 Dose: 100 mls/hr Lisinopril (Zestril) 2.5 mg PO DAILY [facility] Last Admin: 05/19/18 09:31 Dose: 2.5 mg Metformin HCl (Glucophage) 1,000 mg PO BID [facility] Last Admin: 05/19/18 09:29 Dose: 1,000 mg Metoprolol Succinate (Toprol Xl) 50 mg PO DAILY [facility] Last Admin: 05/19/18 09:30 Dose: 50 mg Oxycodone/Acetaminophen (Percocet 5/325 Mg Tab) 2 tab PO Q4 PRN PRN Reason: Pain, severe (8-10) Stop: 05/21/18 07:57 Last Admin: 05/19/18 07:32 Dose: 2 tab Pantoprazole Sodium (Protonix Ec Tab) 20 mg PO DAILY [facility] Last Admin: 05/19/18 09:30 Dose: 20 mg Pioglitazone HCl (Actos) 15 mg PO DAILY [facility] Last Admin: 05/19/18 09:27 Dose: 15 mg - Labs Labs: 05/18/18 05:46 05/13/18 05:30 - Constitutional Appears: Non-toxic, Chronically Ill - Head Exam Head Exam: NORMOCEPHALIC - Eye Exam Eye Exam: absent: Scleral icterus - ENT Exam ENT Exam: Mucous Membranes Dry - Neck Exam Neck Exam: absent: Lymphadenopathy - Respiratory Exam Respiratory Exam: Decreased Breath Sounds - Cardiovascular Exam Cardiovascular Exam: REGULAR RHYTHM Assessment and Plan (1) Status post transmetatarsal amputation of left foot Status: Acute (2) Cellulitis of foot Status: Acute (3) Dehiscence of amputation stump Status: Acute
[2018-05-20] MEDS: Cefepime 1 GM in Sodium Chloride 0.9% 100 ML IVPB SCH ×2 (04:50→16:44)
[2018-05-20] MEDS: Meropenem 1 GM in Sodium Chloride 0.9% 100 ML IVPB SCH ×3 (04:56→20:29)
[2018-05-20] MEDS: Pantoprazole 20 mg EC Tab PO SCH (08:12)
[2018-05-20] MEDS: Metoprolol Succinate 50 mg XL Tab PO SCH (08:13)
[2018-05-20] MEDS: Oxycodone/Acetaminophen 5/325 mg Tab PO PRN ×3 (10:34→20:28)
--- NOTE | 2018-05-20 15:41 | CP.PCM.PN ---
Subjective - Date & Time of Evaluation Date of Evaluation: 05/20/18 Time of Evaluation: 15:38 - Subjective Subjective: Podiatry progress note for attending Dr. Dale, 67 y/o male patient seen and evaluated at bedside 12 days s/p revisional TMA of left foot (DOS: 05/08/18). Patient is AAO x3 and is not in acute distress. Patient is seen resting comfortably in bed. Dressing is noted to be D/C/I. Wound vac was disconnected when I saw the patient. Patient states that the pain in the left foot is improving and well controlled by medications. Patient denies any acute overnight events. Patient denies F/C/N/V/SOB. Patient denies any other pedal complaint. Objective - Vital Signs/Intake and Output Vital Signs (last 24 hours): Temp Pulse Resp BP Pulse Ox 97.9 F 83 20 122/66 100 05/20/18 08:16 05/20/18 08:16 05/20/18 08:16 05/20/18 08:16 05/20/18 08:16 - Medications Medications: Current Medications Acetaminophen (Tylenol 325mg Tab) 650 mg PO Q4 PRN PRN Reason: Pain, Mild (1-3) Last Admin: 05/15/18 06:46 Dose: 650 mg Al Hydrox/Mg Hydrox/Simethicone (Maalox Plus 30 Ml) 30 ml PO Q6 PRN PRN Reason: Indigestion / Heartburn Aspirin (Ecotrin) 81 mg PO DAILY [facility] Last Admin: 05/20/18 08:12 Dose: 81 mg Atorvastatin Calcium (Lipitor) 10 mg PO HS [facility] Last Admin: 05/19/18 21:21 Dose: 10 mg Clopidogrel Bisulfate (Plavix) 75 mg PO DAILY [facility] Last Admin: 05/20/18 08:12 Dose: 75 mg Docusate Sodium (Colace) 100 mg PO DAILY PRN PRN Reason: Constipation Last Admin: 05/16/18 08:29 Dose: 100 mg Ferrous Sulfate (Feosol) 325 mg PO DAILY [facility] Last Admin: 05/20/18 08:12 Dose: 325 mg Gabapentin (Neurontin) 100 mg PO DAILY [facility] Last Admin: 05/20/18 08:12 Dose: 100 mg Meropenem 1 gm/ Sodium (Chloride) 100 mls @ 100 mls/hr IVPB Q8@0500,1300,2100 [facility] PRN Reason: Protocol Last Admin: 05/20/18 12:01 Dose: 100 mls/hr Vancomycin HCl 750 mg/ Sodium (Chloride) 250 mls @ 250 mls/hr IVPB DAILY@1700 [facility] PRN Reason: Protocol Last Admin: 05/19/18 18:20 Dose: 250 mls/hr Cefepime HCl 1 gm/ Sodium (Chloride) 100 mls @ 100 mls/hr IVPB Q12@0500,1700 [facility] Last Admin: 05/20/18 04:50 Dose: 100 mls/hr Lisinopril (Zestril) 2.5 mg PO DAILY [facility] Last Admin: 05/20/18 08:13 Dose: 2.5 mg Metformin HCl (Glucophage) 1,000 mg PO BID [facility] Last Admin: 05/20/18 08:12 Dose: 1,000 mg Metoprolol Succinate (Toprol Xl) 50 mg PO DAILY [facility] Last Admin: 05/20/18 08:13 Dose: 50 mg Oxycodone/Acetaminophen (Percocet 5/325 Mg Tab) 2 tab PO Q4 PRN PRN Reason: Pain, severe (8-10) Stop: 05/21/18 07:57 Last Admin: 05/20/18 15:37 Dose: 2 tab Pantoprazole Sodium (Protonix Ec Tab) 20 mg PO DAILY [facility] Last Admin: 05/20/18 08:12 Dose: 20 mg Pioglitazone HCl (Actos) 15 mg PO DAILY [facility] Last Admin: 05/20/18 08:12 Dose: 15 mg - Labs Labs: 05/18/18 05:46 05/13/18 05:30 - Constitutional Appears: Well, Non-toxic, No Acute Distress - Head Exam Head Exam: ATRAUMATIC, NORMOCEPHALIC - Extremities Exam Additional comments: Left lower Extremity Focused Exam: Vasc: DP/PT mildly palpable, Temp gradient warm to cool proximal to distal , No edema noted at this time, pedal hair absent. NEURO: Protective sensation grossly diminished. Gross sensation intact. DERM: No strike-through noted on previous wound vac dressing. Running continuous on 125mmHg with 10-20cc sanguineous drainage in canister. Wound base is 80% granular, 20% fibrous, with exposed metatarsal shafts at the surgical site, no active drainage noted, no malodor, no purulence, No erythema, no tracking or undermining noted of the wound, no other clinical signs of active bacterial infection MSK: Mild pain on palpation at the surgical site. - Neurological Exam Neurological Exam: Alert, Awake, Oriented x3 - Psychiatric Exam Psychiatric exam: Normal Affect, Normal Mood Assessment and Plan - Assessment and Plan (Free Text) Assessment: 67 y/o male seen and evaluated 12 days s/p revision of TMA Plan: Patient seen and evaluated at bedside Plan discussed with attending, Dr. Dale Chart, labs and vitals reviewed; Afebrile, absent leukocytosis Bone Pathology: focal acute osteomyelitis Post operative Foot X-rays demonstrate satisfactory post-op results New Wound vac applied to TMA surgical site with continuous flow at 125mmHg; dressed with DSD, ABD and BRYANT bandage. Patient tolerated the VAC change well with no complications. Continue the VAC change every other day. Podiatry will continue to follow patient while in-house
[2018-05-21] MEDS: Oxycodone/Acetaminophen 5/325 mg Tab PO PRN ×3 (00:44→20:21)
[2018-05-21] MEDS: Meropenem 1 GM in Sodium Chloride 0.9% 100 ML IVPB SCH ×3 (04:38→21:44)
[2018-05-21] MEDS: Cefepime 1 GM in Sodium Chloride 0.9% 100 ML IVPB SCH (05:42)
[2018-05-21] MEDS: Pantoprazole 20 mg EC Tab PO SCH (08:45)
[2018-05-21] MEDS: Metoprolol Succinate 50 mg XL Tab PO SCH (08:45)
--- NOTE | 2018-05-21 12:43 | CP.PCM.PN ---
Subjective - Date & Time of Evaluation Date of Evaluation: 05/21/18 Time of Evaluation: 07:00 - Subjective Subjective: discussed on rounds rx to cont for 6 weeks Objective - Vital Signs/Intake and Output Vital Signs (last 24 hours): Temp Pulse Resp BP Pulse Ox 97.9 F 78 20 119/62 100 05/21/18 08:14 05/21/18 08:45 05/21/18 08:14 05/21/18 08:45 05/21/18 08:14 - Medications Medications: Current Medications Acetaminophen (Tylenol 325mg Tab) 650 mg PO Q4 PRN PRN Reason: Pain, Mild (1-3) Last Admin: 05/21/18 08:53 Dose: 650 mg Al Hydrox/Mg Hydrox/Simethicone (Maalox Plus 30 Ml) 30 ml PO Q6 PRN PRN Reason: Indigestion / Heartburn Aspirin (Ecotrin) 81 mg PO DAILY [facility] Last Admin: 05/21/18 08:44 Dose: 81 mg Atorvastatin Calcium (Lipitor) 10 mg PO HS [facility] Last Admin: 05/20/18 21:13 Dose: 10 mg Clopidogrel Bisulfate (Plavix) 75 mg PO DAILY [facility] Last Admin: 05/21/18 08:45 Dose: 75 mg Docusate Sodium (Colace) 100 mg PO DAILY PRN PRN Reason: Constipation Last Admin: 05/16/18 08:29 Dose: 100 mg Ferrous Sulfate (Feosol) 325 mg PO DAILY [facility] Last Admin: 05/21/18 08:50 Dose: 325 mg Gabapentin (Neurontin) 100 mg PO DAILY [facility] Last Admin: 05/21/18 08:45 Dose: 100 mg Meropenem 1 gm/ Sodium (Chloride) 100 mls @ 100 mls/hr IVPB Q8@0500,1300,2100 [facility] PRN Reason: Protocol Last Admin: 05/21/18 12:26 Dose: 100 mls/hr Vancomycin HCl 750 mg/ Sodium (Chloride) 250 mls @ 250 mls/hr IVPB DAILY@1700 [facility] PRN Reason: Protocol Last Admin: 05/20/18 16:45 Dose: 250 mls/hr Lisinopril (Zestril) 2.5 mg PO DAILY [facility] Last Admin: 05/21/18 08:44 Dose: 2.5 mg Metformin HCl (Glucophage) 1,000 mg PO BID [facility] Last Admin: 05/21/18 08:45 Dose: 1,000 mg Metoprolol Succinate (Toprol Xl) 50 mg PO DAILY [facility] Last Admin: 05/21/18 08:45 Dose: 50 mg Oxycodone/Acetaminophen (Percocet 5/325 Mg Tab) 2 tab PO Q4 PRN PRN Reason: Pain, severe (8-10) Stop: 05/24/18 10:49 Last Admin: 05/21/18 11:36 Dose: 2 tab Pantoprazole Sodium (Protonix Ec Tab) 20 mg PO DAILY [facility] Last Admin: 05/21/18 08:45 Dose: 20 mg Pioglitazone HCl (Actos) 15 mg PO DAILY [facility] Last Admin: 05/21/18 08:45 Dose: 15 mg - Labs Labs: 05/18/18 05:46 05/13/18 05:30 - Constitutional Appears: Non-toxic, Chronically Ill - Head Exam Head Exam: NORMOCEPHALIC - Eye Exam Eye Exam: PERRL - ENT Exam ENT Exam: Mucous Membranes Dry - Neck Exam Neck Exam: absent: Lymphadenopathy - Respiratory Exam Respiratory Exam: Decreased Breath Sounds - Cardiovascular Exam Cardiovascular Exam: REGULAR RHYTHM - GI/Abdominal Exam GI & Abdominal Exam: Distended - Rectal Exam Rectal Exam: Deferred Assessment and Plan (1) Status post transmetatarsal amputation of left foot Status: Acute (2) Cellulitis of foot Status: Acute (3) Dehiscence of amputation stump Status: Acute
--- NOTE | 2018-05-21 13:01 | PN ---
DATE: 05/21/2018 SUBJECTIVE: The patient seen and examined. Interim events noted. The patient's consults noted and appreciated. The patient remains in transitional care unit. The patient is sleepy, arousable. Feels okay. The pain is adequately controlled and wants to go home. Nursing reported patient with difficult IV access and may need PICC line. PHYSICAL EXAMINATION: GENERAL: The patient is in no acute distress. VITAL SIGNS: Stable. HEART: S1 and S2, normal and regular. LUNGS: Good bilateral air exchange. ABDOMEN: Soft and nontender. EXTREMITIES: The patient is status post wound VAC change and amputation. No edema. No calf swelling. No tenderness. No acute ischemia. CLOTH FOLDER HAND: Exam is essentially unchanged. DIAGNOSTIC DATA: Available diagnostic data reviewed. ASSESSMENT AND PLAN: Overall, the patient's general medical condition is stable. Plan as ordered. Doug Lima MD
[2018-05-22] MEDS: Meropenem 1 GM in Sodium Chloride 0.9% 100 ML IVPB SCH ×3 (04:25→21:16)
[2018-05-22] MEDS: Oxycodone/Acetaminophen 5/325 mg Tab PO PRN ×3 (06:59→21:29)
[2018-05-22] MEDS: Metoprolol Succinate 50 mg XL Tab PO SCH (08:49)
[2018-05-22] MEDS: Pantoprazole 20 mg EC Tab PO SCH (08:49)
--- NOTE | 2018-05-22 11:42 | PN ---
DATE: 05/20/2018 SUBJECTIVE: The patient is seen and examined. Interim events noted. Consults noted and appreciated. Infectious Disease followup and interventions noted and appreciated. The patient remains in transitional care unit IV antibiotics. The patient feels okay, pain is adequately controlled. No new complaint of chest pain or shortness of breath. PHYSICAL EXAMINATION: GENERAL: The patient is in no acute distress. VITAL SIGNS: Stable. HEART: S1, S2. Normal and regular. LUNGS: Good bilateral air exchange. ABDOMEN: Soft and nontender. EXTREMITIES: The patient is status post amputation and has wound VAC, which is draining. No sign of acute complication. No edema. No calf swelling. No tenderness. No acute ischemia. FIRST COOK: Essentially unchanged. ASSESSMENT AND PLAN: Overall, the patient's general medical condition is stable. Infectious Disease recommendations reviewed with the patient. The patient will go along with some antibiotics. Plan as ordered. Doug Lima MD
--- NOTE | 2018-05-22 11:52 | PN ---
DATE: 05/19/2018 SUBJECTIVE: The patient is seen and examined. Interim events noted. Consults noted and appreciated. Podiatry followup and intervention noted and appreciated. The patient remains in transitional care unit. The patient feels okay. Still gets occasional pain, controlled with current pain medication. No chest pain. No shortness of breath. PHYSICAL EXAMINATION: GENERAL: The patient is in no acute distress. VITAL SIGNS: Stable. HEART: S1 and S2, normal and regular. LUNGS: Good bilateral air exchange. ABDOMEN: Soft and nontender. EXTREMITIES: The patient still has wound VAC, which was placed yesterday by electric motor winder and is still draining. No sign of acute complication. INTERIOR DECORATOR: Exam is essentially unchanged. DIAGNOSTIC DATA: Available diagnostic data reviewed. ASSESSMENT AND PLAN: Overall, the patient's general medical condition is stable. Plan as ordered. Doug Lima MD
[2018-05-22 12:44] LABS: HEMOGLOBIN 9.9 g/dL (12.0-18.0); MEAN CELL VOLUME 73.3 fl (80.0-94.0); MEAN CORPUSCULAR HEMOGLOBIN 24.6 pg (27.0-31.0); MEAN CORPUSCULAR HGB CONC 33.6 g/dL (33.0-37.0); RBC 4.02 Mil/uL (4.40-5.90); RED CELL DISTRIBUTION WIDTH 19.3 % (11.5-14.5); WHITE BLOOD COUNT 11.4 K/uL (4.8-10.8)
[2018-05-22 12:55] LABS: INR 1.2 (0.9-1.2); PROTHROMBIN TIME 13.2 Seconds (9.8-13.1)
[2018-05-22 12:57] LABS: BLOOD UREA NITROGEN 17 mg/dl (9-20); CALCIUM 9.3 mg/dL (8.4-10.2); GFR AFRICAN-AMERICAN > 60; GFR NON-AFRICAN AMERICAN > 60
--- NOTE | 2018-05-22 14:58 | PN ---
DATE: 05/22/2018 SUBJECTIVE: The patient seen and examined. Interim events noted. The patient remains in transitional care unit. Awake, responsive, feels okay. Denies any specific medical complaint. No specific issue reported by nursing staff. PHYSICAL EXAMINATION: GENERAL: The patient is in no acute distress. VITAL SIGNS: Stable. HEART: S1 and S2, normal and regular. LUNGS: Good bilateral air exchange. ABDOMEN: Soft, nontender. EXTREMITIES: The patient is status post amputation and has wound VAC. No edema. No calf swelling. No tenderness. ASSISTANT PROFESSOR OF ART: Exam is essentially unchanged. Diagnostic data: Available diagnostic data reviewed. ASSESSMENT AND PLAN: Overall, the patient's general medical condition is stable. Plan as ordered. Doug Lima MD
--- NOTE | 2018-05-22 17:56 | CP.PCM.PN ---
Subjective - Date & Time of Evaluation Date of Evaluation: 05/22/18 Time of Evaluation: 17:54 - Subjective Subjective: Podiatry progress note for attending Dr. Dale, 67 y/o male patient seen and evaluated at bedside 14 days s/p revisional TMA of left foot (DOS: 05/08/18). Patient is AAO x3. Patient is resting comfortably in bed and not in acute distress. Dressing is is C/D/I. Patient states that he has some pain in his left foot yesterday. Patient denies any acute overnight events. Patient denies F/C/N/V/SOB. Patient denies any other pedal complaint. Objective - Vital Signs/Intake and Output Vital Signs (last 24 hours): Temp Pulse Resp BP Pulse Ox 97.7 F 74 20 101/54 L 100 05/22/18 15:57 05/22/18 15:57 05/22/18 15:57 05/22/18 15:57 05/22/18 15:57 - Medications Medications: Current Medications Acetaminophen (Tylenol 325mg Tab) 650 mg PO Q4 PRN PRN Reason: Pain, Mild (1-3) Last Admin: 05/21/18 08:53 Dose: 650 mg Al Hydrox/Mg Hydrox/Simethicone (Maalox Plus 30 Ml) 30 ml PO Q6 PRN PRN Reason: Indigestion / Heartburn Aspirin (Ecotrin) 81 mg PO DAILY [facility] Last Admin: 05/22/18 08:48 Dose: 81 mg Atorvastatin Calcium (Lipitor) 10 mg PO HS [facility] Last Admin: 05/21/18 21:44 Dose: 10 mg Clopidogrel Bisulfate (Plavix) 75 mg PO DAILY [facility] Last Admin: 05/22/18 08:49 Dose: 75 mg Docusate Sodium (Colace) 100 mg PO DAILY PRN PRN Reason: Constipation Last Admin: 05/16/18 08:29 Dose: 100 mg Ferrous Sulfate (Feosol) 325 mg PO DAILY [facility] Last Admin: 05/22/18 08:50 Dose: 325 mg Gabapentin (Neurontin) 100 mg PO DAILY [facility] Last Admin: 05/22/18 08:50 Dose: 100 mg Meropenem 1 gm/ Sodium (Chloride) 100 mls @ 100 mls/hr IVPB Q8@0500,1300,2100 [facility] PRN Reason: Protocol Last Admin: 05/22/18 12:40 Dose: 100 mls/hr Vancomycin HCl 750 mg/ Sodium (Chloride) 250 mls @ 166.667 mls/hr IVPB DAILY@ 1700 [facility] PRN Reason: Protocol Last Admin: 05/22/18 16:34 Dose: 166.667 mls/hr Lisinopril (Zestril) 2.5 mg PO DAILY [facility] Last Admin: 05/22/18 08:50 Dose: 2.5 mg Metformin HCl (Glucophage) 1,000 mg PO BID@0800,1700 [facility] Last Admin: 05/22/18 17:47 Dose: 1,000 mg Metoprolol Succinate (Toprol Xl) 50 mg PO DAILY [facility] Last Admin: 05/22/18 08:49 Dose: 50 mg Oxycodone/Acetaminophen (Percocet 5/325 Mg Tab) 2 tab PO Q4 PRN PRN Reason: Pain, severe (8-10) Stop: 05/24/18 10:49 Last Admin: 05/22/18 16:05 Dose: 2 tab Pantoprazole Sodium (Protonix Ec Tab) 20 mg PO DAILY [facility] Last Admin: 05/22/18 08:49 Dose: 20 mg Pioglitazone HCl (Actos) 15 mg PO DAILY [facility] Last Admin: 05/22/18 08:47 Dose: 15 mg - Labs Labs: 05/22/18 12:12 05/22/18 12:12 PT 13.2 Seconds (9.8-13.1) H 05/22/18 12:12 INR 1.2 (0.9-1.2) 05/22/18 12:12 - Constitutional Appears: Well, Non-toxic, No Acute Distress - Head Exam Head Exam: ATRAUMATIC, NORMOCEPHALIC - Back Exam Additional comments: Left lower Extremity Focused Exam: Vasc: DP/PT mildly palpable, Temp gradient warm to cool proximal to distal , No edema noted at this time, pedal hair absent. Neuro: Protective sensation grossly diminished. Gross sensation intact. Derm: No strike-through noted on previous wound vac dressing. Running continuous on 125mmHg with 10-20cc sanguineous drainage in canister. Wound base is 90% granular, 10% fibrous, with exposed metatarsal shafts at the surgical site, no active drainage noted, no malodor, no purulence, No erythema, no tracking or undermining noted of the wound, no other clinical signs of active bacterial infection. Slight maceration noted in the plantar aspect of the periwound area. MSK: Mild pain on palpation at the surgical site. - Neurological Exam Neurological Exam: Alert, Awake, Oriented x3 - Psychiatric Exam Psychiatric exam: Normal Affect, Normal Mood Assessment and Plan - Assessment and Plan (Free Text) Assessment: 67 y/o male seen and evaluated 14 days s/p revision of TMA Plan: Patient seen and evaluated at bedside Plan discussed with attending, Dr. Dale Chart, labs and vitals reviewed; Afebrile, WBCs 11.4 Bone Pathology: focal acute osteomyelitis Post operative Foot X-rays demonstrate satisfactory post-op results New Wound vac applied to TMA surgical site with continuous flow at 125mmHg; Periwound area swapped with betadine. dressed with DSD, ABD and BRYANT bandage. Patient tolerated the VAC change well with no complications. Continue the VAC change every other day. Infectious disease recommended 6 weeks of antibiotics, PICC line to be inserted tomorrow. Podiatry will continue to follow patient while in-house
[2018-05-23] MEDS: Meropenem 1 GM in Sodium Chloride 0.9% 100 ML IVPB SCH ×3 (04:58→21:05)
[2018-05-23] MEDS: Oxycodone/Acetaminophen 5/325 mg Tab PO PRN ×2 (08:45→19:37)
[2018-05-23] MEDS: Pantoprazole 20 mg EC Tab PO SCH (08:46)
[2018-05-23] MEDS: Metoprolol Succinate 50 mg XL Tab PO SCH (08:48)
--- NOTE | 2018-05-23 13:44 | PN ---
DATE: 05/23/2018 SUBJECTIVE: The patient seen and examined. Interim events noted. The patient is for a PICC line. The patient feels okay. Pain is adequately controlled. No vomiting. PHYSICAL EXAMINATION: GENERAL: The patient is in no acute distress. VITAL SIGNS: Stable. HEART: S1 and S2, normal and regular. LUNGS: Good bilateral air exchange. ABDOMEN: Soft, nontender. EXTREMITIES: No edema. No calf swelling. No tenderness. No acute ischemia. The patient has a wound VAC in place in place. ASSET MANAGEMENT ANALYST: Exam is essentially unchanged. DIAGNOSTIC DATA: Available diagnostic data reviewed. ASSESSMENT AND PLAN: Overall, the patient's general medical condition is stable. The patient is for a peripherally inserted central catheter today. Plan as ordered. Case and plan discussed with the patient. Doug Lima MD
[2018-05-24] MEDS: Meropenem 1 GM in Sodium Chloride 0.9% 100 ML IVPB SCH ×3 (05:29→22:32)
[2018-05-24] MEDS: Oxycodone/Acetaminophen 5/325 mg Tab PO PRN ×3 (07:11→23:13)
[2018-05-24] MEDS: Metoprolol Succinate 50 mg XL Tab PO SCH (08:20)
[2018-05-24] MEDS: Pantoprazole 20 mg EC Tab PO SCH (08:20)
--- NOTE | 2018-05-24 08:33 | CP.PCM.PN ---
<Megan Wilder - Last Filed: 05/24/18 13:06> Subjective - Date & Time of Evaluation Date of Evaluation: 05/24/18 Time of Evaluation: 08:05 - Subjective Subjective: Pt seen/evaluated with Dr. Lima this am. Sitting up in bed, eating breakfast. No acute events, no complaints overnight. Objective - Vital Signs/Intake and Output Vital Signs (last 24 hours): Temp Pulse Resp BP Pulse Ox 98.2 F 79 20 131/69 99 05/24/18 07:58 05/24/18 08:20 05/24/18 07:58 05/24/18 08:20 05/24/18 07:58 - Medications Medications: Current Medications Acetaminophen (Tylenol 325mg Tab) 650 mg PO Q4 PRN PRN Reason: Pain, Mild (1-3) Last Admin: 05/22/18 19:05 Dose: 650 mg Al Hydrox/Mg Hydrox/Simethicone (Maalox Plus 30 Ml) 30 ml PO Q6 PRN PRN Reason: Indigestion / Heartburn Aspirin (Ecotrin) 81 mg PO DAILY [facility] Last Admin: 05/24/18 08:19 Dose: 81 mg Atorvastatin Calcium (Lipitor) 10 mg PO HS [facility] Last Admin: 05/23/18 21:03 Dose: 10 mg Clopidogrel Bisulfate (Plavix) 75 mg PO DAILY [facility] Last Admin: 05/24/18 08:20 Dose: 75 mg Docusate Sodium (Colace) 100 mg PO DAILY PRN PRN Reason: Constipation Last Admin: 05/23/18 08:46 Dose: 100 mg Ferrous Sulfate (Feosol) 325 mg PO DAILY [facility] Last Admin: 05/24/18 08:19 Dose: 325 mg Gabapentin (Neurontin) 100 mg PO DAILY [facility] Last Admin: 05/24/18 08:20 Dose: 100 mg Meropenem 1 gm/ Sodium (Chloride) 100 mls @ 100 mls/hr IVPB Q8@0500,1300,2100 [facility] PRN Reason: Protocol Last Admin: 05/24/18 05:29 Dose: 100 mls/hr Vancomycin HCl 750 mg/ Sodium (Chloride) 250 mls @ 166.667 mls/hr IVPB DAILY@ 1700 [facility] PRN Reason: Protocol Last Admin: 05/23/18 16:29 Dose: 166.667 mls/hr Lisinopril (Zestril) 2.5 mg PO DAILY [facility] Last Admin: 05/24/18 08:21 Dose: 2.5 mg Metformin HCl (Glucophage) 1,000 mg PO BID@0800,1700 [facility] Last Admin: 05/24/18 08:19 Dose: 1,000 mg Metoprolol Succinate (Toprol Xl) 50 mg PO DAILY [facility] Last Admin: 05/24/18 08:20 Dose: 50 mg Oxycodone/Acetaminophen (Percocet 5/325 Mg Tab) 2 tab PO Q4 PRN PRN Reason: Pain, severe (8-10) Stop: 05/24/18 10:49 Last Admin: 05/24/18 07:11 Dose: 2 tab Pantoprazole Sodium (Protonix Ec Tab) 20 mg PO DAILY [facility] Last Admin: 05/24/18 08:20 Dose: 20 mg Pioglitazone HCl (Actos) 15 mg PO DAILY [facility] Last Admin: 05/24/18 08:19 Dose: 15 mg - Labs Labs: 05/22/18 12:12 05/22/18 12:12 PT 13.2 Seconds (9.8-13.1) H 05/22/18 12:12 INR 1.2 (0.9-1.2) 05/22/18 12:12 - Constitutional Appears: No Acute Distress - ENT Exam ENT Exam: Mucous Membranes Moist - Respiratory Exam Respiratory Exam: Clear to Ausculation Bilateral, NORMAL BREATHING PATTERN - Cardiovascular Exam Cardiovascular Exam: REGULAR RHYTHM - GI/Abdominal Exam GI & Abdominal Exam: Soft - Extremities Exam Extremities Exam: absent: Calf Tenderness Additional comments: LLE s/p TMA; bandages clean/dry/intact. Wound vac in place - Neurological Exam Neurological Exam: Alert, Awake - Psychiatric Exam Psychiatric exam: Normal Affect, Normal Mood Assessment and Plan - Assessment and Plan (Free Text) Assessment: 67 yr old M admitted to TCU for IV antibiotics and PT/OT. 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 Plan: - Continue IV abx; will need 6 weeks as per ID. PICC line in place. - Podiatry on board - wound vac change every other day - Pain management - Heart Healthy diet - Continue home medications - PT/OT - SCD - Dispo planning w/ SW/case management <Doug Lima - Last Filed: 05/25/18 20:12> Objective - Vital Signs/Intake and Output Vital Signs (last 24 hours): Temp Pulse Resp BP Pulse Ox 98.2 F 69 20 97/47 L 98 05/25/18 16:12 05/25/18 16:17 05/25/18 16:17 05/25/18 16:17 05/25/18 16:17 - Labs Labs: 05/22/18 12:12 05/22/18 12:12 PT 13.2 Seconds (9.8-13.1) H 05/22/18 12:12 INR 1.2 (0.9-1.2) 05/22/18 12:12 Assessment and Plan - Assessment and Plan (Free Text) Plan: Patient was personally seen and examined by me in rounds with residents. Available labs and diagnostic data reviewed. Case, Patient's condition and management plan discussed with residents in rounds. Agree with resident's progress note. Plan: As ordered.
--- NOTE | 2018-05-24 09:06 | CP.PCM.PN ---
Subjective - Date & Time of Evaluation Date of Evaluation: 05/24/18 Time of Evaluation: 09:01 - Subjective Subjective: Podiatry progress note for attending Dr. Dale, 67 y/o male patient seen and evaluated at bedside 15 days s/p revisional TMA of left foot (DOS: 05/08/18). Patient is AAO x3. Patient is resting comfortably in bed and not in acute distress. Dressing is is C/D/I. Patient states that he has some pain in his left foot yesterday. Patient denies any acute overnight events. Patient denies F/C/N/V/SOB. Patient denies any other pedal complaint. Objective - Vital Signs/Intake and Output Vital Signs (last 24 hours): Temp Pulse Resp BP Pulse Ox 98.2 F 79 20 131/69 99 05/24/18 07:58 05/24/18 08:20 05/24/18 07:58 05/24/18 08:20 05/24/18 07:58 - Medications Medications: Current Medications Acetaminophen (Tylenol 325mg Tab) 650 mg PO Q4 PRN PRN Reason: Pain, Mild (1-3) Last Admin: 05/22/18 19:05 Dose: 650 mg Al Hydrox/Mg Hydrox/Simethicone (Maalox Plus 30 Ml) 30 ml PO Q6 PRN PRN Reason: Indigestion / Heartburn Aspirin (Ecotrin) 81 mg PO DAILY [facility] Last Admin: 05/24/18 08:19 Dose: 81 mg Atorvastatin Calcium (Lipitor) 10 mg PO HS [facility] Last Admin: 05/23/18 21:03 Dose: 10 mg Clopidogrel Bisulfate (Plavix) 75 mg PO DAILY [facility] Last Admin: 05/24/18 08:20 Dose: 75 mg Docusate Sodium (Colace) 100 mg PO DAILY PRN PRN Reason: Constipation Last Admin: 05/23/18 08:46 Dose: 100 mg Ferrous Sulfate (Feosol) 325 mg PO DAILY [facility] Last Admin: 05/24/18 08:19 Dose: 325 mg Gabapentin (Neurontin) 100 mg PO DAILY [facility] Last Admin: 05/24/18 08:20 Dose: 100 mg Meropenem 1 gm/ Sodium (Chloride) 100 mls @ 100 mls/hr IVPB Q8@0500,1300,2100 [facility] PRN Reason: Protocol Last Admin: 05/24/18 05:29 Dose: 100 mls/hr Vancomycin HCl 750 mg/ Sodium (Chloride) 250 mls @ 166.667 mls/hr IVPB DAILY@ 1700 [facility] PRN Reason: Protocol Last Admin: 05/23/18 16:29 Dose: 166.667 mls/hr Lisinopril (Zestril) 2.5 mg PO DAILY [facility] Last Admin: 05/24/18 08:21 Dose: 2.5 mg Metformin HCl (Glucophage) 1,000 mg PO BID@0800,1700 [facility] Last Admin: 05/24/18 08:19 Dose: 1,000 mg Metoprolol Succinate (Toprol Xl) 50 mg PO DAILY [facility] Last Admin: 05/24/18 08:20 Dose: 50 mg Oxycodone/Acetaminophen (Percocet 5/325 Mg Tab) 2 tab PO Q4 PRN PRN Reason: Pain, severe (8-10) Stop: 05/24/18 10:49 Last Admin: 05/24/18 07:11 Dose: 2 tab Pantoprazole Sodium (Protonix Ec Tab) 20 mg PO DAILY [facility] Last Admin: 05/24/18 08:20 Dose: 20 mg Pioglitazone HCl (Actos) 15 mg PO DAILY [facility] Last Admin: 05/24/18 08:19 Dose: 15 mg - Labs Labs: 05/22/18 12:12 05/22/18 12:12 PT 13.2 Seconds (9.8-13.1) H 05/22/18 12:12 INR 1.2 (0.9-1.2) 05/22/18 12:12 - Constitutional Appears: Well, Non-toxic, No Acute Distress - Head Exam Head Exam: ATRAUMATIC, NORMOCEPHALIC - Extremities Exam Additional comments: Left lower Extremity Focused Exam: Vasc: DP/PT mildly palpable, Temp gradient warm to cool proximal to distal , No edema noted at this time, pedal hair absent. Neuro: Protective sensation grossly diminished. Gross sensation intact. Derm: No strike-through noted on previous wound vac dressing. Running continuous on 125mmHg with 10-20cc sanguineous drainage in canister. Wound base is 30% granular, 10% fibrous, with exposed metatarsal shafts at the surgical site, no active drainage noted, no malodor, no purulence, No erythema, no tracking or undermining noted of the wound, no other clinical signs of active bacterial infection. Slight maceration noted in the plantar aspect of the periwound area. MSK: Mild pain on palpation at the surgical site. - Neurological Exam Neurological Exam: Alert, Awake, Oriented x3 Assessment and Plan - Assessment and Plan (Free Text) Assessment: 67 y/o male seen and evaluated 15 days s/p revision of TMA Plan: Patient seen and evaluated at bedside Plan discussed with attending, Dr. Dale Chart, labs and vitals reviewed; Afebrile, WBCs 11.4 Bone Pathology: focal acute osteomyelitis Post operative Foot X-rays demonstrate satisfactory post-op results New Wound vac applied to TMA surgical site with continuous flow at 125mmHg; Periwound area swapped with betadine. dressed with DSD, ABD and BRYANT bandage. Patient tolerated the VAC change well with no complications. Continue the VAC change every other day. Infectious disease recommended 6 weeks of antibiotics, PICC line placed on Podiatry will continue to follow patient while in-house
[2018-05-24] MEDS ORDERED: Oxycodone/Acetaminophen 5/325 mg Tab PO PRN (12:04)
--- NOTE | 2018-05-24 12:44 | CP.PCM.PN ---
Subjective - Date & Time of Evaluation Date of Evaluation: 05/24/18 Time of Evaluation: 08:00 - Subjective Subjective: 67 y/o male patient seen and evaluated at bedside 15 days s/p revisional TMA of left foot (DOS: 05/08/18) Objective - Vital Signs/Intake and Output Vital Signs (last 24 hours): Temp Pulse Resp BP Pulse Ox 98.2 F 79 20 131/69 99 05/24/18 07:58 05/24/18 08:20 05/24/18 07:58 05/24/18 08:20 05/24/18 07:58 - Medications Medications: Current Medications Acetaminophen (Tylenol 325mg Tab) 650 mg PO Q4 PRN PRN Reason: Pain, Mild (1-3) Last Admin: 05/22/18 19:05 Dose: 650 mg Al Hydrox/Mg Hydrox/Simethicone (Maalox Plus 30 Ml) 30 ml PO Q6 PRN PRN Reason: Indigestion / Heartburn Aspirin (Ecotrin) 81 mg PO DAILY [facility] Last Admin: 05/24/18 08:19 Dose: 81 mg Atorvastatin Calcium (Lipitor) 10 mg PO HS [facility] Last Admin: 05/23/18 21:03 Dose: 10 mg Clopidogrel Bisulfate (Plavix) 75 mg PO DAILY [facility] Last Admin: 05/24/18 08:20 Dose: 75 mg Docusate Sodium (Colace) 100 mg PO DAILY PRN PRN Reason: Constipation Last Admin: 05/23/18 08:46 Dose: 100 mg Ferrous Sulfate (Feosol) 325 mg PO DAILY [facility] Last Admin: 05/24/18 08:19 Dose: 325 mg Gabapentin (Neurontin) 100 mg PO DAILY [facility] Last Admin: 05/24/18 08:20 Dose: 100 mg Meropenem 1 gm/ Sodium (Chloride) 100 mls @ 100 mls/hr IVPB Q8@0500,1300,2100 [facility] PRN Reason: Protocol Last Admin: 05/24/18 12:18 Dose: 100 mls/hr Vancomycin HCl 750 mg/ Sodium (Chloride) 250 mls @ 166.667 mls/hr IVPB DAILY@ 1700 [facility] PRN Reason: Protocol Last Admin: 05/23/18 16:29 Dose: 166.667 mls/hr Lisinopril (Zestril) 2.5 mg PO DAILY [facility] Last Admin: 05/24/18 08:21 Dose: 2.5 mg Metformin HCl (Glucophage) 1,000 mg PO BID@0800,1700 [facility] Last Admin: 05/24/18 08:19 Dose: 1,000 mg Metoprolol Succinate (Toprol Xl) 50 mg PO DAILY [facility] Last Admin: 05/24/18 08:20 Dose: 50 mg Oxycodone/Acetaminophen (Percocet 5/325 Mg Tab) 2 tab PO Q4 PRN PRN Reason: Pain, severe (8-10) Stop: 05/27/18 12:04 Oxycodone/Acetaminophen (Percocet 5/325 Mg Tab) 1 tab PO Q4 PRN PRN Reason: Pain, moderate (4-7) Stop: 05/27/18 12:05 Pantoprazole Sodium (Protonix Ec Tab) 20 mg PO DAILY [facility] Last Admin: 05/24/18 08:20 Dose: 20 mg Pioglitazone HCl (Actos) 15 mg PO DAILY [facility] Last Admin: 05/24/18 08:19 Dose: 15 mg - Labs Labs: 05/22/18 12:12 05/22/18 12:12 PT 13.2 Seconds (9.8-13.1) H 05/22/18 12:12 INR 1.2 (0.9-1.2) 05/22/18 12:12 - Constitutional Appears: Non-toxic, Chronically Ill - Head Exam Head Exam: NORMOCEPHALIC - Eye Exam Eye Exam: absent: Scleral icterus - ENT Exam ENT Exam: Mucous Membranes Dry - Neck Exam Neck Exam: absent: Lymphadenopathy - Respiratory Exam Respiratory Exam: Decreased Breath Sounds - Cardiovascular Exam Cardiovascular Exam: REGULAR RHYTHM - GI/Abdominal Exam GI & Abdominal Exam: Distended, Soft Assessment and Plan (1) Status post transmetatarsal amputation of left foot Status: Acute (2) Cellulitis of foot Status: Acute (3) Dehiscence of amputation stump Status: Acute - Assessment and Plan (Free Text) Assessment: 67 y/o male patient seen and evaluated at bedside 15 days s/p revisional TMA of left foot (DOS: 05/08/18) iv vanco/ merrem to cont for 6 weeks
--- NOTE | 2018-05-24 12:48 | CP.PCM.PN ---
Subjective - Date & Time of Evaluation Date of Evaluation: 05/24/18 Time of Evaluation: 08:05 - Subjective Subjective: Pt seen/evaluated with Dr. Lima this am. Sitting up in bed, eating breakfast. No acute events, no complaints overnight. Objective - Vital Signs/Intake and Output Vital Signs (last 24 hours): Temp Pulse Resp BP Pulse Ox 98.2 F 79 20 131/69 99 05/24/18 07:58 05/24/18 08:20 05/24/18 07:58 05/24/18 08:20 05/24/18 07:58 - Medications Medications: Current Medications Acetaminophen (Tylenol 325mg Tab) 650 mg PO Q4 PRN PRN Reason: Pain, Mild (1-3) Last Admin: 05/22/18 19:05 Dose: 650 mg Al Hydrox/Mg Hydrox/Simethicone (Maalox Plus 30 Ml) 30 ml PO Q6 PRN PRN Reason: Indigestion / Heartburn Aspirin (Ecotrin) 81 mg PO DAILY [facility] Last Admin: 05/24/18 08:19 Dose: 81 mg Atorvastatin Calcium (Lipitor) 10 mg PO HS [facility] Last Admin: 05/23/18 21:03 Dose: 10 mg Clopidogrel Bisulfate (Plavix) 75 mg PO DAILY [facility] Last Admin: 05/24/18 08:20 Dose: 75 mg Docusate Sodium (Colace) 100 mg PO DAILY PRN PRN Reason: Constipation Last Admin: 05/23/18 08:46 Dose: 100 mg Ferrous Sulfate (Feosol) 325 mg PO DAILY [facility] Last Admin: 05/24/18 08:19 Dose: 325 mg Gabapentin (Neurontin) 100 mg PO DAILY [facility] Last Admin: 05/24/18 08:20 Dose: 100 mg Meropenem 1 gm/ Sodium (Chloride) 100 mls @ 100 mls/hr IVPB Q8@0500,1300,2100 [facility] PRN Reason: Protocol Last Admin: 05/24/18 12:18 Dose: 100 mls/hr Vancomycin HCl 750 mg/ Sodium (Chloride) 250 mls @ 166.667 mls/hr IVPB DAILY@ 1700 [facility] PRN Reason: Protocol Last Admin: 05/23/18 16:29 Dose: 166.667 mls/hr Lisinopril (Zestril) 2.5 mg PO DAILY [facility] Last Admin: 05/24/18 08:21 Dose: 2.5 mg Metformin HCl (Glucophage) 1,000 mg PO BID@0800,1700 [facility] Last Admin: 05/24/18 08:19 Dose: 1,000 mg Metoprolol Succinate (Toprol Xl) 50 mg PO DAILY [facility] Last Admin: 05/24/18 08:20 Dose: 50 mg Oxycodone/Acetaminophen (Percocet 5/325 Mg Tab) 2 tab PO Q4 PRN PRN Reason: Pain, severe (8-10) Stop: 05/27/18 12:04 Oxycodone/Acetaminophen (Percocet 5/325 Mg Tab) 1 tab PO Q4 PRN PRN Reason: Pain, moderate (4-7) Stop: 05/27/18 12:05 Pantoprazole Sodium (Protonix Ec Tab) 20 mg PO DAILY [facility] Last Admin: 05/24/18 08:20 Dose: 20 mg Pioglitazone HCl (Actos) 15 mg PO DAILY [facility] Last Admin: 05/24/18 08:19 Dose: 15 mg - Labs Labs: 05/22/18 12:12 05/22/18 12:12 PT 13.2 Seconds (9.8-13.1) H 05/22/18 12:12 INR 1.2 (0.9-1.2) 05/22/18 12:12 - Constitutional Appears: No Acute Distress - Eye Exam Eye Exam: Normal appearance - Respiratory Exam Respiratory Exam: NORMAL BREATHING PATTERN. absent: Respiratory Distress Additional comments: good air entry - Cardiovascular Exam Cardiovascular Exam: REGULAR RHYTHM - GI/Abdominal Exam GI & Abdominal Exam: Soft - Extremities Exam Additional comments: LLE s/p TMA; wound vac in place - Neurological Exam Neurological Exam: Alert, Awake, Oriented x3
[2018-05-25] MEDS: Meropenem 1 GM in Sodium Chloride 0.9% 100 ML IVPB SCH ×2 (05:40→12:13)
[2018-05-25] MEDS: Metoprolol Succinate 50 mg XL Tab PO SCH (08:20)
[2018-05-25] MEDS: Pantoprazole 20 mg EC Tab PO SCH (08:20)
--- NOTE | 2018-05-25 13:26 | CP.PCM.PN ---
Subjective - Date & Time of Evaluation Date of Evaluation: 05/25/18 Time of Evaluation: 13:24 - Subjective Subjective: Podiatry progress note for Dr. Dale 67 y/o male patient seen and evaluated at bedside 6 days s/p Right foot TMA. Patient was AAOX3. Patient was seen resting comfortably in bed and in no acute distress. Patient states he will be going to [place] (Subacute rehab) for 3 more weeks of IV Abx. Patient denies any new pedal complaints. Patients denies N /F/V/SOB/calf pain Objective - Vital Signs/Intake and Output Vital Signs (last 24 hours): Temp Pulse Resp BP Pulse Ox 97.7 F 70 20 108/54 L 100 05/25/18 10:00 05/25/18 10:00 05/25/18 10:00 05/25/18 10:00 05/25/18 10:00 - Medications Medications: Current Medications Acetaminophen (Tylenol 325mg Tab) 650 mg PO Q4 PRN PRN Reason: Pain, Mild (1-3) Last Admin: 05/22/18 19:05 Dose: 650 mg Al Hydrox/Mg Hydrox/Simethicone (Maalox Plus 30 Ml) 30 ml PO Q6 PRN PRN Reason: Indigestion / Heartburn Aspirin (Ecotrin) 81 mg PO DAILY [facility] Last Admin: 05/25/18 08:21 Dose: 81 mg Atorvastatin Calcium (Lipitor) 10 mg PO HS [facility] Last Admin: 05/24/18 22:34 Dose: 10 mg Clopidogrel Bisulfate (Plavix) 75 mg PO DAILY [facility] Last Admin: 05/25/18 08:19 Dose: 75 mg Docusate Sodium (Colace) 100 mg PO DAILY PRN PRN Reason: Constipation Last Admin: 05/23/18 08:46 Dose: 100 mg Ferrous Sulfate (Feosol) 325 mg PO DAILY [facility] Last Admin: 05/25/18 08:25 Dose: 325 mg Gabapentin (Neurontin) 100 mg PO DAILY [facility] Last Admin: 05/25/18 08:19 Dose: 100 mg Meropenem 1 gm/ Sodium (Chloride) 100 mls @ 100 mls/hr IVPB Q8@0500,1300,2100 [facility] PRN Reason: Protocol Last Admin: 05/25/18 12:13 Dose: 100 mls/hr Vancomycin HCl 750 mg/ Sodium (Chloride) 250 mls @ 166.667 mls/hr IVPB DAILY@ 1700 [facility] PRN Reason: Protocol Last Admin: 05/24/18 18:04 Dose: 166.667 mls/hr Lisinopril (Zestril) 2.5 mg PO DAILY [facility] Last Admin: 05/25/18 08:20 Dose: 2.5 mg Metformin HCl (Glucophage) 1,000 mg PO BID@0800,1700 [facility] Last Admin: 05/25/18 08:19 Dose: 1,000 mg Metoprolol Succinate (Toprol Xl) 50 mg PO DAILY [facility] Last Admin: 05/25/18 08:20 Dose: 50 mg Oxycodone/Acetaminophen (Percocet 5/325 Mg Tab) 2 tab PO Q4 PRN PRN Reason: Pain, severe (8-10) Stop: 05/27/18 12:04 Last Admin: 05/24/18 23:13 Dose: 2 tab Oxycodone/Acetaminophen (Percocet 5/325 Mg Tab) 1 tab PO Q4 PRN PRN Reason: Pain, moderate (4-7) Stop: 05/27/18 12:05 Pantoprazole Sodium (Protonix Ec Tab) 20 mg PO DAILY [facility] Last Admin: 05/25/18 08:20 Dose: 20 mg Pioglitazone HCl (Actos) 15 mg PO DAILY [facility] Last Admin: 05/25/18 08:21 Dose: 15 mg - Labs Labs: 05/22/18 12:12 05/22/18 12:12 PT 13.2 Seconds (9.8-13.1) H 05/22/18 12:12 INR 1.2 (0.9-1.2) 05/22/18 12:12 - Constitutional Appears: Well, Non-toxic, No Acute Distress - Head Exam Head Exam: ATRAUMATIC, NORMOCEPHALIC - Extremities Exam Additional comments: Left lower Extremity Focused Exam: Vasc: DP/PT mildly palpable, Temp gradient warm to cool proximal to distal , No edema noted at this time, pedal hair absent. Neuro: Protective sensation grossly diminished. Gross sensation intact. Derm: No strike-through noted on previous wound vac dressing. Running continuous on 125mmHg with 10-20cc sanguineous drainage in canister. Wound base is 30% granular, 10% fibrous, with exposed metatarsal shafts at the surgical site, minimal maceration noted terri-wound, no active drainage noted, no malodor , no purulence, no erythema, no tracking or undermining noted of the wound, no other clinical signs of active bacterial infection. MSK: Minimal pain on palpation at the surgical site. - Neurological Exam Neurological Exam: Alert, Awake, Oriented x3 - Psychiatric Exam Psychiatric exam: Normal Affect, Normal Mood Assessment and Plan - Assessment and Plan (Free Text) Assessment: 67 y/o male seen and evaluated 16 days s/p revisional TMA Right Foot (05/08/18) Plan: Patient seen and evaluated at bedside Plan discussed with attending, Dr. Dale Chart, labs and vitals reviewed; Afebrile, WBCs 11.4 Bone Pathology: focal acute osteomyelitis Post operative Foot X-rays (05/08/18): demonstrate satisfactory post-op results As per case management, patient will be going to [facility] for subacute Rehab Patient will have a wound vac placed at the Rehab facility, and it will be changed QOD Patient will come to Dr. Dale's Podiatry clinic on Tuesday05/29/18 Rehab facility will send Wound Vac supplies for Podiatry to change the vac in clinic Patient's current wound vac was removed without complications and a new dressing was applied Patient's TMA site was dressed with adaptic, ABD, DSD and BRYANT Patient demonstrated verbal understanding and all patient questions were answered Patient will finish his course of IV Abx at the Rehab facility Podiatry will now see patient on 05/29/18
--- NOTE | 2018-05-25 15:13 | PN ---
DATE: 05/25/2018 SUBJECTIVE: The patient is seen and examined. Interim events noted. Consult noted and appreciated. The patient remains in transitional care unit for possible discharge to Subacute Rehab for completion of six weeks of antibiotics. The patient feels okay. Denies any chest pain or shortness of breath. Foot pain is adequately controlled. No new complaints. PHYSICAL EXAMINATION: GENERAL: The patient is in no acute distress. VITAL SIGNS: Stable. HEART: S1 and S2, normal and regular. LUNGS: Good bilateral air exchange. ABDOMEN: Soft and nontender. EXTREMITIES: The patient has podiatric dressing and wound VAC in place, which is draining. No sign of acute complication. No edema. No calf swelling. No tenderness. MUSIC DIRECTOR: Exam is essentially unchanged. DIAGNOSTIC DATA: Available diagnostic data reviewed. ASSESSMENT AND PLAN: Overall, the patient's general medical condition is stable. Plan as ordered. Doug Lima MD
[2018-05-25 16:12] VITALS: BP 97/47; PULSE 69; TEMP 98.2; O2SAT 98
== END 2018-05-25 15:50 | DRG 560 ==
LOC: H.TCU 14:50
PROVIDERS: ADMIT Internal Medicine; ATTEND Internal Medicine
PROC: F07Z9FZ Gait Training/Functional Ambulation Treatment using Assistive, Adaptive, Supportive or Protective Equipment (ICD-10-PCS; principal; 2018-05-11)
PROC: F07K6ZZ Therapeutic Exercise Treatment of Musculoskeletal System - Upper Back / Upper Extremity (ICD-10-PCS; 2018-05-11)
PROC: F07L6FZ Therapeutic Exercise Treatment of Musculoskeletal System - Lower Back / Lower Extremity using Assistive, Adaptive, Supportive or Protective Equipment (ICD-10-PCS; 2018-05-11)
DX: Z47.81 Encounter for orthopedic aftercare following surgical amputation (principal); M86.172 Other acute osteomyelitis, left ankle and foot; Z89.432 Acquired absence of left foot; I12.9 Hypertensive chronic kidney disease with stage 1 through stage 4 chronic kidney disease, or unspecified chronic kidney disease; N18.9 Chronic kidney disease, unspecified; E11.22 Type 2 diabetes mellitus with diabetic chronic kidney disease; I25.10 Atherosclerotic heart disease of native coronary artery without angina pectoris; Z95.1 Presence of aortocoronary bypass graft; E78.5 Hyperlipidemia, unspecified

== ENCOUNTER 2018-05-23 10:32 | Day surgery (SDC) | payer MEDICARE ==
[2018-05-23 11:07] VITALS: BMI 26.6
[2018-05-23 11:33] VITALS: RESP 20
[2018-05-23 12:16] VITALS: PULSE 70
[2018-05-23] MEDS ORDERED: Lidocaine 1% Inj (20ml) ONE (12:19)
--- NOTE | 2018-05-23 13:09 | CP.SDSHP ---
Same Day Surgery H & P - History Proposed Procedure: PICC placement Pre-Op Diagnosis: Infection - Allergies Allergies: Allergies No Known Allergies Allergy (Verified 05/23/18 11:02) - Physical Exam Vital Signs: Vital Signs 05/23/18 05/23/18 11:31 12:15 Temperature 98.5 F 97.3 F L Pulse Rate 73 70 Respiratory 20 Rate Blood Pressure 107/58 L 117/62 O2 Sat by Pulse 99 Oximetry Mental Status: Alert & Oriented x3 - Impression Impression: Pt with infection requiring PICC for IV abx. Plan right arm PICC. Pt. Evaluated Today:Candidate for Anesthesia & Procedure: No - Date & Time Date: 05/23/18 Time: 12:50 Short Stay Discharge - Short Stay Discharge Admitting Diagnosis/Reason for Visit: ABX TREATMENT/M86.9 Disposition: REHAB FACILITY/REHAB UNIT Referrals: Tom Leo MD [Primary Care Provider] -
--- NOTE | 2018-05-23 13:11 | PCM.SURG1 ---
Surgeon's Initial Post Op Note - Surgeon's Notes Surgeon: Nabeel Méndez MD Eyewear Consultant: NONE Type of Anesthesia: Local Pre-Operative Diagnosis: Infection Operative Findings: US showed patent right basilic vein Post-Operative Diagnosis: Infection Operation Performed: Single lumen picc right arm, 37 CM. Tip is in the SVC. Specimen/Specimens Removed: None Estimated Blood Loss: EBL {In ML}: 2 Blood Products Given: N/A Drains Used: No Drains Post-Op Condition: Good Date of Surgery/Procedure: 05/23/18 Time of Surgery/Procedure: 13:00
[2018-05-23 13:29] VITALS: BP 119/62; TEMP 98; O2SAT 100
--- NOTE | 2018-05-23 14:12 | VASCULAR ---
PROCEDURE: Date of procedure: 05/23/2018 Procedure: 1. Placement of a right arm PICC with ultrasound and fluoroscopic guidance, CPT 17494 2. PICC tip confirmation with spot radiograph and is in the superior vena cava Medications: 1 percent lidocaine Total Fluoro time: 2.5 seconds Radiation: 03 mGy EBL: 2 cc HISTORY: Infection requiring long-term IV antibiotics TECHNIQUE: Following informed consent and procedure time-out, the patient was placed supine on the interventional table and the right arm prepped and draped in the usual sterile fashion. Ultrasound showed a patent and compressible right basilic vein. After the skin was anesthetized with lidocaine, the basilic vein was accessed with micro micropuncture technique using ultrasound guidance. A guidewire was then advanced under fluoroscopic guidance into the superior vena cava. An image documenting ultrasound guidance for vascular access was permanently saved. The length of the single-lumen 4 [place] PICC was trimmed to 37 centimeters and advanced through a peel-away sheath. The PICC was position with tip of PICC confirm a spot radiograph the superior vena cava. The PICC was secured to the patient's skin. The PICC was flushed. A biopatch and sterile dressing was applied. IMPRESSION: Placement of a single-lumen 4 [place] PICC trimmed to 37 centimeters via right basilic vein. The tip of the PICC is confirmed with spot radiograph and is in the superior vena cava.
== END 2018-05-23 13:30 | disposition home or self-care (01) ==
LOC: H.OPSURG 10:32
PROVIDERS: ATTEND Internal Medicine
DX: M86.9 Osteomyelitis, unspecified (principal)
CPT/HCPCS: 36569; 76937; 77001; 82948; A4310; C1751

== ENCOUNTER 2018-08-13 20:59 | Inpatient (IN) | payer MEDICARE ==
[2018-08-13 20:59] VITALS: BMI 26.6
--- NOTE | 2018-08-13 21:59 | ED PDOC ---
HPI: Chest Pain Time Seen by Provider: 08/13/18 21:18 Chief Complaint (Nursing): Chest Pain History Per: Patient History/Exam Limitations: no limitations Onset/Duration Of Symptoms: Hrs, Intermittent Episodes Current Symptoms Are (Timing): Better Quality: Pressure Associated Symptoms: Nausea Additional Complaint(s): Hx of CAD, CABG, HTN, DM, Osteomyelitis presenting with chest pain that started last night. Occurred at rest, was associated with shortness of breath and L shoulder pain, although patient relates that he had a fracture of his L shoulder 1 month prior. He states that he had nausea as well and two episodes of vomiting. States he never had abdominal pain. No cough, fevers, chills. PMD: Dr. Tom Leo Past Medical History Reviewed: Historical Data, Nursing Documentation, Vital Signs Vital Signs: Last Vital Signs Temp 97.6 F 08/13/18 21:06 Pulse 84 08/13/18 21:06 Resp 18 08/13/18 21:06 BP 141/76 08/13/18 21:06 Pulse Ox 98 08/13/18 21:06 - Medical History PMH: CAD, Diabetes, HTN, Hypercholesterolemia, Hyperlipidemia, Peripheral Edema, Chronic Kidney Disease Denies: HIV - Surgical History Surgical History: CABG - Family History Family History: States: Unknown Family Hx - Home Medications Home Medications: Ambulatory Orders Medication Instructions Recorded Acetaminophen [Tylenol 325mg tab] 650 mg PO Q4 PRN tab 05/25/18 Aluminum Hydroxide/Magnesium 30 ml PO Q6 PRN udc 05/25/18 [Maalox Plus 30 ml] Aspirin [Ecotrin] 81 mg PO DAILY [facility] 05/25/18 Atorvastatin [Lipitor] 10 mg PO HS tab 05/25/18 Clopidogrel [Plavix] 75 mg PO DAILY tab 05/25/18 Docusate [Colace] 100 mg PO DAILY PRN cap 05/25/18 Ferrous Sulfate [Feosol] 325 mg PO DAILY tab 05/25/18 Gabapentin [Neurontin] 100 mg PO DAILY cap 05/25/18 Meropenem IV 1 gm in NS [Merrem IV 1 gm IVPB Q8 21 Days bag 05/25/18 1 gm Premix] MetFORMIN [glucoPHAGE] 1,000 mg PO BID@0800,1700 tab 05/25/18 Metoprolol Succinate XL [Toprol XL] 50 mg PO DAILY tab 05/25/18 Pantoprazole [Protonix EC Tab] 20 mg PO DAILY ect 05/25/18 Pioglitazone [Actos] 15 mg PO DAILY tab 05/25/18 Vancomycin 750mg [Vancomycin 750 750 mg IVPB DAILY 21 Days bag 05/25/18 mg in NS] Lisinopril [Zestril] 5 mg PO DAILY 08/14/18 - Allergies Allergies/Adverse Reactions: Allergies Allergy/AdvReac Type Severity Reaction Status Date / Time No Known Allergies Allergy Verified 05/23/18 11:02 LUCIA Risk Score for UA/NSTEMI - LUCIA Risk Score Age > 64: YES 3 or more CAD Risk Factors: YES LUCIA Score: 2 Risk %: 8% Curb-65 Severity Score - CURB-65 Severity Score Confusion: No Bun >19mg/dl (>7mmol/L): No Respiratory Rate greater than/equal to 30: No Systolic BP <90 or Diastolic BP less than/equal 60mmHg: No Age >64: No Curb-65 Score: 0 Percentage 30-day mortality: 0.6% Review of Systems ROS Statement: Except As Marked, All Systems Reviewed And Found Negative Cardiovascular: Positive for: Chest Pain Respiratory: Positive for: Shortness of Breath Gastrointestinal: Positive for: Nausea, Vomiting Physical Exam - Reviewed Nursing Documentation Reviewed: Yes Vital Signs Reviewed: Yes - Physical Exam Appears: Positive for: Well, Non-toxic, No Acute Distress Head Exam: Positive for: ATRAUMATIC, NORMAL INSPECTION, NORMOCEPHALIC Skin: Positive for: Normal Color, Warm, DRY Eye Exam: Positive for: EOMI, Normal appearance, PERRL ENT: Positive for: Normal ENT Inspection Neck: Positive for: Normal, Painless ROM Cardiovascular/Chest: Positive for: Regular Rate, Rhythm, Other (Midline sternotomy scar) Respiratory: Positive for: Normal Breath Sounds. Negative for: Decreased Breath Sounds, Accessory Muscle Use, Crackles, Rales, Rhonchi, Stridor, Wheezing, Respiratory Distress Gastrointestinal/Abdominal: Positive for: Normal Exam, Soft. Negative for: Tenderness, Organomegaly, Mass, Distended, Guarding, Rebound Back: Positive for: Normal Inspection Extremity: Positive for: Normal ROM, Other (Partial amuptation of L foot). Negative for: Tenderness Neurologic/Psych: Positive for: Alert, Oriented - Laboratory Results Result Diagrams: 08/13/18 21:56 08/13/18 21:56 - ECG ECG: Positive for: Interpreted By Me ECG Rhythm: Positive for: Sinus Rhythm, Right Bundle Branch Block, Nonspecific Changes Rate: 78 O2 Sat by Pulse Oximetry: 98 Pulse Ox Interpretation: Normal - Critical Care Total Time (In Min): 60 Documented Critical Care: Time excludes all time spent performint seperately billable procedures Medical Decision Making Medical Decision MakinPM Hx of multiple of medical issues with significant cardiac disease presenting with chest pain, vomiting --Currently patient is well appearing, no vomiting, although vomited in triage --Concerned for ACS given cardiac history and chest pain --Currently no abdominal pain, not concerned for acute intra-abdominal pathology --Will get cardiac labs, EKG, CXR --Will require OBS for continuous cardiac monitoring and serial troponins 2230 --Patient has elevated troponin, however patient has no chest pain at this time --Case discussed with Dr. Rodriguez who agrees with management --Dr. Lopez aware of case Disposition - Clinical Impression Clinical Impression: NSTEMI (non-ST elevated myocardial infarction) - Disposition Disposition Time: 22:30 Condition: SERIOUS
[2018-08-13 22:00] LABS: BASO % 0.3 % (0.0-2.0); EOS # 0.5 K/uL (0.0-0.7); EOS % 4.9 % (0.0-4.0); HEMOGLOBIN 10.3 g/dL (12.0-18.0); LYMPH # 0.9 K/uL (1.0-4.3); MEAN CELL VOLUME 74.2 fl (80.0-94.0); MEAN CORPUSCULAR HEMOGLOBIN 24.6 pg (27.0-31.0); MEAN CORPUSCULAR HGB CONC 33.2 g/dL (33.0-37.0); MEAN PLATELET VOLUME 7.5 fl (7.2-11.7); MONO # 0.4 K/uL (0.0-0.8); MONO % 3.6 % (0.0-10.0); NEUT % 83.2 % (50.0-75.0); PLATELET COUNT 264 K/uL (130-400); RED CELL DISTRIBUTION WIDTH 16.2 % (11.5-14.5); WHITE BLOOD COUNT 10.8 K/uL (4.8-10.8)
[2018-08-13 22:03] LABS: INR 1.2; PROTHROMBIN TIME 12.8 Seconds (9.8-13.1)
[2018-08-13 22:06] LABS: PARTIAL THROMBOPLASTIN TIME 30.5 Seconds (25.6-37.1)
[2018-08-13 22:14] LABS: BLOOD UREA NITROGEN 19 mg/dl (9-20); CALCIUM 9.3 mg/dL (8.4-10.2); GFR NON-AFRICAN AMERICAN > 60
[2018-08-13 22:54] LABS: BASOPHIL 1 % (0-2); LYMPHOCYTE 6 % (20-50); MONOCYTE 3 % (0-10); NEUTROPHIL 90 % (42-75); TOTAL CELLS COUNTED 100
[2018-08-13 22:55] LABS: PLATELET ESTIMATE NORMAL (NORMAL)
[2018-08-13 22:56] LABS: ANISOCYTOSIS SLIGHT; LARGE PLATELETS PRESENT; OVALOCYTES SLIGHT; POIKILOCYTOSIS SLIGHT; TEARDROP CELLS SLIGHT
[2018-08-13] MEDS ORDERED: Heparin 25,000units in D5W 25,000 UNITS/250 ML BAG IV SCH (23:30)
[2018-08-14] MEDS ORDERED: Dextrose 50% SYRINGE Inj (50 ml) IV PRN (03:19)
[2018-08-14] MEDS ORDERED: Glucagon Recombinant 1 mg Inj IM PRN (03:19)
--- NOTE | 2018-08-14 03:23 | CP.PCM.HP ---
Addendum entered by Cynthia Givens MD 08/14/18 16:31: NSTEMI -ASA,Plavix, Statin, BB, BRYANT , Heparin drip started started - Troponin elevated up to 14 - discussed case with Dr Rodriguez rec [facility]- consulted Dr Bolden , case discussed - he recomended transfer to [facility] for Cardiac cath. -Pt transferred to [facility] via [facility] Addendum entered and electronically signed by Pancho Beltran DPM 08/14/18 10:57: Patient 2nd troponin 14.4, Dr. Bolden will take patient for Cardiac Cath, NPO ordered placed Addendum entered and electronically signed by Pancho Beltran DPM 08/14/18 10:29: 67 y/o male seen and evaluated in the ED. Patient's son was present at bedside. Patient still complains of some left-sided chest discomfort. Patient denies any nausea or vomiting and states the last episode was upon arrival to the ED. Patient also denies headaches, dizziness, dyspnea, abdominal pain, diarrhea, or fever. Patient states his multicraft operator is Dr. Tom Leo. Patient's son does not recall when the last catheterization was. PMH: Left foot osteomyelitis with transmetatarsal amputation 02/06/18, hypert ension, NIDDM type 2, CAD s/p CABG 2006, HLD Medications: see med list Allergies: NKDA PSH: CABG 2007, left TMA Vitals: 98.4, 70 beats/min, 103/53 mmHg, resp 14, O2 100% room air CBC: 11.8>10.2/30.5<279 coags: PT 12.8, INR 1.2, aPTT 30.5 Exam: Constitutional- non-toxic, no acute distress Head exam- atraumatic, normal inspection, normocephalic Eyes- normal appearance Respiratory exam- clear to auscultation, no rales, rhonchi, wheezes or respiratory distress noted Cardiovascular exam- regular, healed scar noted to sternum Abdomen exam- normal bowel sounds, soft, non-distended Extremity- L TMA noted with gangrenous changes, no calf pain, no pedal edema Neuro- AAOx3 Skin- normal color, warm to touch Plan: 2nd Troponin- ordered, STAT Consult for Dr. Bolden- cardiology, NSTEMI Consult for Dr. Dale- Podiatry L TMA Original Note: <Lukas Blas - Last Filed: 08/14/18 03:13> History of Present Illness - History of Present Illness History of Present Illness: CC: Chest pain HPI: 67 y/o man w/ pmh of HTN, NIDDM2, CAD s/p CABG, HLD presents to the ED w/ chest pain. Patient reports pain started last night, is left sided, occurred at rest, sharp in nature, and radiating to left shoulder. Patient reports recent left shoulder fracture. Patient took tylenol w/o relief. Patient had 1 episode of non-bilious/non-bloody vomit in triage but none since. Patient reports improvement. Patient currently denies headaches, dizziness, dyspnea, abdominal pain, nausea, vomiting, diarrhea, dysuria, or fever. ED course: vitals: 97.6 F, 71 beats/min, 99/60 mm hg, resp 18, O2 99% room air CBC: 10.8>10.3/31.2<264 coags: PT 12.8, INR 1.2, aPTT 30.5 BMP: 138/5.1, 102/26, 19/1.2, glucose 207 troponin: 0.3060 EKG: NSR, T wave inversion in leads V1-V3, T wave flattening in V4 CXR: (preliminary) no active disease ASA 162 mg PO once Heparin 4000 units IV once Heparin 98544 units IV 9mL/hr zofran 4 mg IV once PMD: Dr. Tom Leo Podiatry: Dr. Dale-podiatry PMH: Left foot osteomyelitis with transmetatarsal amputation 02/06/18, hypertension, NIDDM type 2, CAD s/p CABG 2007, HLD Medications: see med list Allergies: NKDA PSH: CABG 2007, left TMA Fam: noncontributory SOC: denies tobacco/Etoh or drugs ROS: 12 points assessed and negative unless otherwise reported in HPI Present on Admission - Present on Admission Any Indicators Present on Admission: No History of DVT/PE: No History of Uncontrolled Diabetes: No Urinary Catheter: No Decubitus Ulcer Present: No Review of Systems - Review of Systems All systems: reviewed and no additional remarkable complaints except - Constitutional Constitutional: absent: Chills, Fever, Headache - EENT Eyes: absent: Change in Vision - Cardiovascular Cardiovascular: As Per HPI, Chest Pain. absent: Leg Edema, Palpitations - Respiratory Respiratory: absent: Dyspnea - Gastrointestinal Gastrointestinal: absent: Abdominal Pain, Diarrhea, Nausea, Vomiting - Genitourinary Genitourinary: absent: Dysuria - Integumentary Integumentary: absent: Rash Past Patient History - Infectious Disease Hx of Infectious Diseases: None - Past Medical History & Family History Past Medical History?: Yes - Past Social History Smoking Status: Never Smoked - CARDIAC Hx Hypercholesterolemia: Yes Hx Hypertension: Yes Hx Peripheral Edema: Yes - PULMONARY Hx Respiratory Disorders: No - NEUROLOGICAL Hx Neurological Disorder: No - HEENT Hx HEENT Problems: No - RENAL Hx Chronic Kidney Disease: Yes - ENDOCRINE/METABOLIC Hx Endocrine Disorders: Yes Hx Diabetes Mellitus Type 2: Yes - HEMATOLOGICAL/ONCOLOGICAL Hx Human Immunodeficiency Virus (HIV): No - INTEGUMENTARY Hx Dermatological Problems: Yes - MUSCULOSKELETAL/RHEUMATOLOGICAL Hx Falls: No - GASTROINTESTINAL Hx Gastrointestinal Disorders: No - GENITOURINARY/GYNECOLOGICAL Hx Genitourinary Disorders: No - PSYCHIATRIC Hx Psychophysiologic Disorder: No Hx Substance Use: No - SURGICAL HISTORY Hx Coronary Artery Bypass Graft: Yes - ANESTHESIA Hx Anesthesia: Yes Hx Anesthesia Reactions: No Meds Allergies/Adverse Reactions: Allergies Allergy/AdvReac Type Severity Reaction Status Date / Time No Known Allergies Allergy Verified 05/23/18 11:02 Physical Exam - Constitutional Appears: Non-toxic, No Acute Distress - Head Exam Head Exam: ATRAUMATIC, NORMAL INSPECTION, NORMOCEPHALIC - Eye Exam Eye Exam: Normal appearance - ENT Exam ENT Exam: Mucous Membranes Moist - Neck Exam Neck exam: Positive for: Full Rom. Negative for: Tenderness - Respiratory Exam Respiratory Exam: Clear to Auscultation Bilateral. absent: Accessory Muscle Use, Decreased Breath Sounds, Rales, Rhonchi, Wheezes, Respiratory Distress - Cardiovascular Exam Cardiovascular Exam: REGULAR RHYTHM, RRR. absent: Tachycardia Additional comments: healed sternotomy scar - GI/Abdominal Exam GI & Abdominal Exam: Normal Bowel Sounds, Soft. absent: Distended, Tenderness - Extremities Exam Extremities exam: Positive for: normal inspection. Negative for: calf tenderness, pedal edema, tenderness - Neurological Exam Neurological exam: Alert, Oriented x3 - Skin Skin Exam: Dry, Normal Color, Warm Results - Vital Signs Recent Vital Signs: Last Vital Signs Temp 97.6 F 08/13/18 21:06 Pulse 71 08/14/18 00:14 Resp 18 08/14/18 00:14 BP 99/60 L 08/14/18 00:14 Pulse Ox 99 08/14/18 00:14 - Labs Result Diagrams: 08/13/18 21:56 08/13/18 21:56 Labs: Laboratory Results - last 24 hr 08/13/18 08/13/18 08/13/18 21:56 21:56 21:56 WBC 10.8 RBC 4.20 L Hgb 10.3 L Hct 31.2 L MCV 74.2 L MCH 24.6 L MCHC 33.2 RDW 16.2 H Plt Count 264 D MPV 7.5 Neut % (Auto) 83.2 H Lymph % (Auto) 8.0 L Kings % (Auto) 3.6 Eos % (Auto) 4.9 H Baso % (Auto) 0.3 Neut # (Auto) 9.0 H Lymph # (Auto) 0.9 L [place] # (Auto) 0.4 Eos # (Auto) 0.5 Baso # (Auto) 0.0 Neutrophils % (Manual) 90 H Lymphocytes % (Manual) 6 L Monocytes % (Manual) 3 Basophils % (Manual) 1 Platelet Estimate Normal Large Platelets Present Poikilocytosis (manual Slight Anisocytosis (manual) Slight Tear Drop Cells Slight Ovalocytes Slight PT 12.8 INR 1.2 APTT 30.5 Sodium 138 Potassium 5.1 H Chloride 102 Carbon Dioxide 26 Anion Gap 15 BUN 19 Creatinine 1.2 Est GFR ( Amer) > 60 Est GFR (Non-Af Amer) > 60 Random Glucose 207 H Calcium 9.3 Troponin I 0.3060 H* Assessment & Plan (1) Chest pain Status: Acute (2) HTN (hypertension) Status: Chronic (3) DM2 (diabetes mellitus, type 2) Status: Chronic (4) Coronary artery disease Status: Chronic - Assessment and Plan (Free Text) Assessment: 67 y/o man w/ pmh of HTN, NIDDM2, CAD s/p CABG, HLD presents to the ED w/ chest pain. Plan: Chest pain - NSTEMI - vital signs stable - CBC: 10.8>10.3/31.2<264 - coags: PT 12.8, INR 1.2, aPTT 30.5 - BMP: 138/5.1, 102/26, 19/1.2, glucose 207 - troponin: 0.3060 - EKG: NSR, T wave inversion in leads V1-V3, T wave flattening in V4 - CXR: (preliminary) no active disease - cardiology consult ordered - ASA 162 mg PO once - Heparin 4000 units IV once - Heparin 30703 units IV 9mL/hr - zofran 4 mg IV once - f/u CBC, CMP - f/u troponin - f/u CK isoenzymes - f/u repeat EKG - monitor for acute changes - admit to Tele CAD - Hx of CABG 2006 - c/w ASA, lipitor, plavix, metoprolol HTN - BP stable - c/w lisinopril NIDDM2 - controlled w/ medication - c/w actos, gabapentin - hold metformin for now - insulin correction scale - hypoglycemic protocol Prophylactic measures - DVT: on therapeutic heparin to treat NSTEMI <Fidel Lopez - Last Filed: 08/14/18 09:45> Results - Vital Signs Recent Vital Signs: Last Vital Signs Temp 98.4 F 08/14/18 07:30 Pulse 70 08/14/18 07:30 Resp 14 08/14/18 07:30 BP 103/53 L 08/14/18 07:30 Pulse Ox 100 08/14/18 07:30 - Labs Result Diagrams: 08/14/18 05:35 08/14/18 05:35 Labs: Laboratory Results - last 24 hr 08/13/18 08/13/18 08/13/18 21:56 21:56 21:56 WBC 10.8 RBC 4.20 L Hgb 10.3 L Hct 31.2 L MCV 74.2 L MCH 24.6 L MCHC 33.2 RDW 16.2 H Plt Count 264 D MPV 7.5 Neut % (Auto) 83.2 H Lymph % (Auto) 8.0 L [place] % (Auto) 3.6 Eos % (Auto) 4.9 H Baso % (Auto) 0.3 Neut # (Auto) 9.0 H Lymph # (Auto) 0.9 L [place] # (Auto) 0.4 Eos # (Auto) 0.5 Baso # (Auto) 0.0 Neutrophils % (Manual) 90 H Lymphocytes % (Manual) 6 L Monocytes % (Manual) 3 Basophils % (Manual) 1 Platelet Estimate Normal Large Platelets Present Poikilocytosis (manual Slight Anisocytosis (manual) Slight Tear Drop Cells Slight Ovalocytes Slight PT 12.8 INR 1.2 APTT 30.5 Sodium 138 Potassium 5.1 H Chloride 102 Carbon Dioxide 26 Anion Gap 15 BUN 19 Creatinine 1.2 Est GFR ( Amer) > 60 Est GFR (Non-Af Amer) > 60 POC Glucose (mg/dL) Random Glucose 207 H Calcium 9.3 Total Bilirubin AST ALT Alkaline Phosphatase Troponin I 0.3060 H* Total Protein Albumin Globulin Albumin/Globulin Ratio 08/14/18 08/14/18 08/14/18 04:51 05:35 05:35 WBC 11.8 H RBC 4.06 L Hgb 10.2 L Hct 30.5 L MCV 75.0 L MCH 25.1 L MCHC 33.5 RDW 16.2 H Plt Count 279 MPV 8.1 Neut % (Auto) 67.5 Lymph % (Auto) 18.3 L [place] % (Auto) 6.0 Eos % (Auto) 7.4 H Baso % (Auto) 0.8 Neut # (Auto) 7.9 H Lymph # (Auto) 2.1 [place] # (Auto) 0.7 Eos # (Auto) 0.9 H Baso # (Auto) 0.1 Neutrophils % (Manual) Lymphocytes % (Manual) Monocytes % (Manual) Basophils % (Manual) Platelet Estimate Large Platelets Poikilocytosis (manual Anisocytosis (manual) Tear Drop Cells Ovalocytes PT INR APTT Sodium 141 Potassium 4.6 Chloride 104 Carbon Dioxide 26 Anion Gap 16 BUN 17 Creatinine 1.1 Est GFR ( Amer) > 60 Est GFR (Non-Af Amer) > 60 POC Glucose (mg/dL) 94 Random Glucose 120 H Calcium 9.4 Total Bilirubin 0.4 AST 74 H D ALT 33 Alkaline Phosphatase 80 Troponin I Total Protein 8.0 Albumin 4.1 Globulin 3.9 Albumin/Globulin Ratio 1.0 08/14/18 08:12 WBC RBC Hgb Hct MCV MCH MCHC RDW Plt Count MPV Neut % (Auto) Lymph % (Auto) Kings % (Auto) Eos % (Auto) Baso % (Auto) Neut # (Auto) Lymph # (Auto) Kings # (Auto) Eos # (Auto) Baso # (Auto) Neutrophils % (Manual) Lymphocytes % (Manual) Monocytes % (Manual) Basophils % (Manual) Platelet Estimate Large Platelets Poikilocytosis (manual Anisocytosis (manual) Tear Drop Cells Ovalocytes PT INR APTT Sodium Potassium Chloride Carbon Dioxide Anion Gap BUN Creatinine Est GFR ( Amer) Est GFR (Non-Af Amer) POC Glucose (mg/dL) 100 Random Glucose Calcium Total Bilirubin AST ALT Alkaline Phosphatase Troponin I Total Protein Albumin Globulin Albumin/Globulin Ratio Attending/Attestation - Attestation I have personally seen and examined this patient.: Yes I have fully participated in the care of the patient.: Yes I have reviewed all pertinent clinical information: Yes Notes (Text): 08/14/18 09:34 I saw and examined this patient shoulder to shoulder with Dr Blas. I agree with the assessment and plan outlined which represent my direct input. This is a 67 years old male with hx of CAD s/p CABG, DM II and HTN who comes with SOB, chest pain radiating to the left shoulder, with labs showing elevated Troponin and a n EKG with no sign of ischemia. A&P #. NSTEMI with chest pain - Cardiology on consult - ASA/Lipitor/ Plavix/ Metroprolol/ Lisinopril/Heparin #. DM II - Actus - Lispro #. HTN - Lisinopril/ Metoprolol 1Ehiram Lopez MD
[2018-08-14 06:33] LABS: BASO # 0.1 K/uL (0.0-0.2); BASO % 0.8 % (0.0-2.0); EOS # 0.9 K/uL (0.0-0.7); EOS % 7.4 % (0.0-4.0); HEMOGLOBIN 10.2 g/dL (12.0-18.0); LYMPH # 2.1 K/uL (1.0-4.3); LYMPH % 18.3 % (20.0-40.0); MEAN CORPUSCULAR HEMOGLOBIN 25.1 pg (27.0-31.0); MEAN CORPUSCULAR HGB CONC 33.5 g/dL (33.0-37.0); MEAN PLATELET VOLUME 8.1 fl (7.2-11.7); MONO # 0.7 K/uL (0.0-0.8); NEUT # 7.9 K/uL (1.8-7.0); NEUT % 67.5 % (50.0-75.0); NRBC % 0.1 % (0.0-0.0); RBC 4.06 Mil/uL (4.40-5.90); RED CELL DISTRIBUTION WIDTH 16.2 % (11.5-14.5); WHITE BLOOD COUNT 11.8 K/uL (4.8-10.8)
[2018-08-14 06:41] LABS: ALBUMIN 4.1 g/dL (3.5-5.0); ALT/SGPT 33 U/L (21-72); AST/SGOT 74 U/L (17-59); BLOOD UREA NITROGEN 17 mg/dl (9-20); CALCIUM 9.4 mg/dL (8.4-10.2); GFR NON-AFRICAN AMERICAN > 60
--- NOTE | 2018-08-14 09:07 | CARD ---
APPROVED REPORT Date of service: 08/13/2018 EKG Measurement Heart [id number] <Conclusion> Normal sinus rhythm Right bundle branch block Possible Inferior infarct, age undetermined Anterolateral infarct, age undetermined Abnormal ECG
[2018-08-14] MEDS: Insulin Lispro (humaLOG) 100 Units/ml Inj SC SCH (10:19)
--- NOTE | 2018-08-14 11:17 | RAD ---
Date of service: 08/13/2018 HISTORY: chest pain COMPARISON: Frontal chest radiograph 05/04/2018. TECHNIQUE: Chest PA and lateral FINDINGS: LUNGS: No active pulmonary disease. PLEURA: No significant pleural effusion identified. No pneumothorax apparent. CARDIOVASCULAR: Normal cardiac size remains with no pulmonary vascular congestion evident in the interval. Prosthetic cardiac valve reiterated as well as sternotomy wires. No pulmonary vascular congestion. OSSEOUS STRUCTURES: No significant abnormalities. VISUALIZED UPPER ABDOMEN: Normal. OTHER FINDINGS: None. IMPRESSION: No interval acute cardiopulmonary disease appreciated. Prosthetic cardiac valve reiterated.
--- NOTE | 2018-08-14 11:26 | CP.PCM.CON ---
History of Present Illness - History of Present Illness History of Present Illness: 67 y/o male admitted with left-sided chest discomfort. Patient denies any nausea or vomiting and states the last episode was upon arri gibson to the ED. Patient also denies headaches, dizziness, dyspnea, abdominal pain, diarrhea, or fever. Patient states his manager orange is Dr. Tom Leo. Patient's son does not recall when the last catheterization was. Troponin: elevated x 2 EKG: Possible IW ischemia PMH: Left foot osteomyelitis with transmetatarsal amputation 02/06/18, hypertension, NIDDM type 2, CAD s/p CABG 2006, HLD Dr Bolden has been consulted for Catherization Past Patient History - Infectious Disease Hx of Infectious Diseases: None - Past Medical History & Family History Past Medical History?: Yes - Past Social History Smoking Status: Never Smoked - CARDIAC Hx Hypercholesterolemia: Yes Hx Hypertension: Yes Hx Peripheral Edema: Yes - PULMONARY Hx Respiratory Disorders: No - NEUROLOGICAL Hx Neurological Disorder: No - HEENT Hx HEENT Problems: No - RENAL Hx Chronic Kidney Disease: Yes - ENDOCRINE/METABOLIC Hx Endocrine Disorders: Yes Hx Diabetes Mellitus Type 2: Yes - HEMATOLOGICAL/ONCOLOGICAL Hx Human Immunodeficiency Virus (HIV): No - INTEGUMENTARY Hx Dermatological Problems: Yes - MUSCULOSKELETAL/RHEUMATOLOGICAL Hx Falls: No - GASTROINTESTINAL Hx Gastrointestinal Disorders: No - GENITOURINARY/GYNECOLOGICAL Hx Genitourinary Disorders: No - PSYCHIATRIC Hx Psychophysiologic Disorder: No Hx Substance Use: No - SURGICAL HISTORY Hx Coronary Artery Bypass Graft: Yes - ANESTHESIA Hx Anesthesia: Yes Hx Anesthesia Reactions: No Meds Allergies/Adverse Reactions: Allergies Allergy/AdvReac Type Severity Reaction Status Date / Time No Known Allergies Allergy Verified 05/23/18 11:02 - Medications Medications: Current Medications Aspirin (Ecotrin) 81 mg PO DAILY [facility] Atorvastatin Calcium (Lipitor) 10 mg PO HS [facility] Clopidogrel Bisulfate (Plavix) 75 mg PO DAILY [facility] Last Admin: 08/14/18 10:31 Dose: 75 mg Dextrose (Dextrose 50% Inj) 0 ml IV STAT PRN; Protocol PRN Reason: Hypoglycemia Protocol Dextrose (Glutose 15) 0 gm PO ONCE PRN; Protocol PRN Reason: Hypoglycemia Protocol Docusate Sodium (Colace) 100 mg PO DAILY PRN PRN Reason: Constipation Ferrous Sulfate (Feosol) 325 mg PO DAILY [facility] Gabapentin (Neurontin) 100 mg PO DAILY [facility] Glucagon (Glucagen Diagnostic Kit) 0 mg IM STAT PRN; Protocol PRN Reason: Hypoglycemia Protocol Heparin Sodium/Dextrose (Heparin 25,000 Units/250ml In D5w) 25,000 units in 250 mls @ 9 mls/hr IV .Q24H [facility]; Protocol Last Admin: 08/14/18 00:14 Dose: 9 mls/hr Insulin Human Lispro (Humalog) 0 units SC ACHS [facility]; Protocol Last Admin: 08/14/18 10:19 Dose: Not Given Lisinopril (Zestril) 5 mg PO DAILY [facility] Metoprolol Succinate (Toprol Xl) 50 mg PO DAILY [facility] Pantoprazole Sodium (Protonix Ec Tab) 20 mg PO DAILY [facility] Pioglitazone HCl (Actos) 15 mg PO DAILY [facility] Physical Exam - Constitutional Appears: Well - Head Exam Head Exam: NORMAL INSPECTION - Respiratory Exam Respiratory Exam: NORMAL BREATHING PATTERN - Cardiovascular Exam Cardiovascular Exam: REGULAR RHYTHM Results - Vital Signs Recent Vital Signs: Last Vital Signs Temp 98.4 F 08/14/18 07:30 Pulse 70 08/14/18 07:30 Resp 14 08/14/18 07:30 BP 103/53 L 08/14/18 07:30 Pulse Ox 100 08/14/18 07:30 - Labs Result Diagrams: 08/14/18 05:35 08/14/18 05:35 Labs: Laboratory Results - last 24 hr 08/13/18 08/13/18 08/13/18 21:56 21:56 21:56 WBC 10.8 RBC 4.20 L Hgb 10.3 L Hct 31.2 L MCV 74.2 L MCH 24.6 L MCHC 33.2 RDW 16.2 H Plt Count 264 D MPV 7.5 Neut % (Auto) 83.2 H Lymph % (Auto) 8.0 L [place] % (Auto) 3.6 Eos % (Auto) 4.9 H Baso % (Auto) 0.3 Neut # (Auto) 9.0 H Lymph # (Auto) 0.9 L [place] # (Auto) 0.4 Eos # (Auto) 0.5 Baso # (Auto) 0.0 Neutrophils % (Manual) 90 H Lymphocytes % (Manual) 6 L Monocytes % (Manual) 3 Basophils % (Manual) 1 Platelet Estimate Normal Large Platelets Present Poikilocytosis (manual Slight Anisocytosis (manual) Slight Tear Drop Cells Slight Ovalocytes Slight PT 12.8 INR 1.2 APTT 30.5 Sodium 138 Potassium 5.1 H Chloride 102 Carbon Dioxide 26 Anion Gap 15 BUN 19 Creatinine 1.2 Est GFR ( Amer) > 60 Est GFR (Non-Af Amer) > 60 POC Glucose (mg/dL) Random Glucose 207 H Calcium 9.3 Total Bilirubin AST ALT Alkaline Phosphatase Troponin I 0.3060 H* Total Protein Albumin Globulin Albumin/Globulin Ratio 08/14/18 08/14/18 08/14/18 04:51 05:35 05:35 WBC 11.8 H RBC 4.06 L Hgb 10.2 L Hct 30.5 L MCV 75.0 L MCH 25.1 L MCHC 33.5 RDW 16.2 H Plt Count 279 MPV 8.1 Neut % (Auto) 67.5 Lymph % (Auto) 18.3 L [place] % (Auto) 6.0 Eos % (Auto) 7.4 H Baso % (Auto) 0.8 Neut # (Auto) 7.9 H Lymph # (Auto) 2.1 [place] # (Auto) 0.7 Eos # (Auto) 0.9 H Baso # (Auto) 0.1 Neutrophils % (Manual) Lymphocytes % (Manual) Monocytes % (Manual) Basophils % (Manual) Platelet Estimate Large Platelets Poikilocytosis (manual Anisocytosis (manual) Tear Drop Cells Ovalocytes PT INR APTT Sodium 141 Potassium 4.6 Chloride 104 Carbon Dioxide 26 Anion Gap 16 BUN 17 Creatinine 1.1 Est GFR ( Amer) > 60 Est GFR (Non-Af Amer) > 60 POC Glucose (mg/dL) 94 Random Glucose 120 H Calcium 9.4 Total Bilirubin 0.4 AST 74 H D ALT 33 Alkaline Phosphatase 80 Troponin I Total Protein 8.0 Albumin 4.1 Globulin 3.9 Albumin/Globulin Ratio 1.0 08/14/18 08/14/18 08:12 09:57 WBC RBC Hgb Hct MCV MCH MCHC RDW Plt Count MPV Neut % (Auto) Lymph % (Auto) [place] % (Auto) Eos % (Auto) Baso % (Auto) Neut # (Auto) Lymph # (Auto) [place] # (Auto) Eos # (Auto) Baso # (Auto) Neutrophils % (Manual) Lymphocytes % (Manual) Monocytes % (Manual) Basophils % (Manual) Platelet Estimate Large Platelets Poikilocytosis (manual Anisocytosis (manual) Tear Drop Cells Ovalocytes PT INR APTT Sodium Potassium Chloride Carbon Dioxide Anion Gap BUN Creatinine Est GFR ( Amer) Est GFR (Non-Af Amer) POC Glucose (mg/dL) 100 Random Glucose Calcium Total Bilirubin AST ALT Alkaline Phosphatase Troponin I 14.4000 H* Total Protein Albumin Globulin Albumin/Globulin Ratio Assessment & Plan (1) Chest pain Status: Acute (2) NSTEMI (non-ST elevated myocardial infarction) Assessment and Plan: pt to have cardiac carth Status: Acute (3) DM2 (diabetes mellitus, type 2) Status: Chronic (4) HTN (hypertension) Status: Chronic
--- NOTE | 2018-08-14 13:54 | CARD ---
APPROVED REPORT Date of service: 08/14/2018 EKG Measurement Heart [id number] <Conclusion> Normal sinus rhythm Right bundle branch block Left anterior fascicular block Bifascicular block Inferior infarct, age undetermined Anterolateral infarct, age undetermined Abnormal ECG
--- NOTE | 2018-08-14 18:11 | CP.PCM.CON ---
History of Present Illness - History of Present Illness History of Present Illness: Interventional cardiology consultation for NSTEMI HPI: 67 year old male with hx of HTN, DM, CAD s/p CABG presenting with anginal CP a nd +ve TnI of 14 Review of Systems - Review of Systems Systems not reviewed;Unavailable: Acuity of Condition - Constitutional Constitutional: As Per HPI - EENT Eyes: As Per HPI Ears: As Per HPI Nose/Mouth/Throat: As Per HPI - Cardiovascular Cardiovascular: As Per HPI - Respiratory Respiratory: As Per HPI - Gastrointestinal Gastrointestinal: As Per HPI - Genitourinary Genitourinary: As Per HPI - Reproductive: Male Reproductive:Male: As Per HPI - Musculoskeletal Musculoskeletal: As Per HPI - Integumentary Integumentary: As Per HPI - Neurological Neurological: As Per HPI - Psychiatric Psychiatric: As Per HPI - Endocrine Endocrine: As Per HPI - Hematologic/Lymphatic Hematologic: As Per HPI Past Patient History - Infectious Disease Hx of Infectious Diseases: None - Past Medical History & Family History Past Medical History?: Yes - Past Social History Smoking Status: Never Smoked - CARDIAC Hx Hypercholesterolemia: Yes Hx Hypertension: Yes Hx Peripheral Edema: Yes - PULMONARY Hx Respiratory Disorders: No - NEUROLOGICAL Hx Neurological Disorder: No - HEENT Hx HEENT Problems: No - RENAL Hx Chronic Kidney Disease: Yes - ENDOCRINE/METABOLIC Hx Endocrine Disorders: Yes Hx Diabetes Mellitus Type 2: Yes - HEMATOLOGICAL/ONCOLOGICAL Hx Human Immunodeficiency Virus (HIV): No - INTEGUMENTARY Hx Dermatological Problems: Yes - MUSCULOSKELETAL/RHEUMATOLOGICAL Hx Falls: No - GASTROINTESTINAL Hx Gastrointestinal Disorders: No - GENITOURINARY/GYNECOLOGICAL Hx Genitourinary Disorders: No - PSYCHIATRIC Hx Psychophysiologic Disorder: No Hx Substance Use: No - SURGICAL HISTORY Hx Coronary Artery Bypass Graft: Yes - ANESTHESIA Hx Anesthesia: Yes Hx Anesthesia Reactions: No Meds Allergies/Adverse Reactions: Allergies Allergy/AdvReac Type Severity Reaction Status Date / Time No Known Allergies Allergy Verified 05/23/18 11:02 - Medications Medications: Current Medications Aspirin (Ecotrin) 81 mg PO DAILY [facility] Atorvastatin Calcium (Lipitor) 10 mg PO HS [facility] Clopidogrel Bisulfate (Plavix) 75 mg PO DAILY [facility] Last Admin: 08/14/18 10:31 Dose: 75 mg Dextrose (Dextrose 50% Inj) 0 ml IV STAT PRN; Protocol PRN Reason: Hypoglycemia Protocol Dextrose (Glutose 15) 0 gm PO ONCE PRN; Protocol PRN Reason: Hypoglycemia Protocol Docusate Sodium (Colace) 100 mg PO DAILY PRN PRN Reason: Constipation Ferrous Sulfate (Feosol) 325 mg PO DAILY [facility] Gabapentin (Neurontin) 100 mg PO DAILY [facility] Glucagon (Glucagen Diagnostic Kit) 0 mg IM STAT PRN; Protocol PRN Reason: Hypoglycemia Protocol Heparin Sodium/Dextrose (Heparin 25,000 Units/250ml In D5w) 25,000 units in 250 mls @ 9 mls/hr IV .Q24H [facility]; Protocol Last Admin: 08/14/18 00:14 Dose: 9 mls/hr Insulin Human Lispro (Humalog) 0 units SC ACHS [facility]; Protocol Last Admin: 08/14/18 10:19 Dose: Not Given Lisinopril (Zestril) 5 mg PO DAILY [facility] Metoprolol Succinate (Toprol Xl) 50 mg PO DAILY [facility] Pantoprazole Sodium (Protonix Ec Tab) 20 mg PO DAILY [facility] Pioglitazone HCl (Actos) 15 mg PO DAILY [facility] Physical Exam - Constitutional Appears: Well - Head Exam Head Exam: ATRAUMATIC, NORMAL INSPECTION, NORMOCEPHALIC - Eye Exam Eye Exam: EOMI, Normal appearance, PERRL Pupil Exam: NORMAL ACCOMODATION, PERRL - ENT Exam ENT Exam: Mucous Membranes Moist, Normal Exam - Neck Exam Neck exam: Positive for: Normal Inspection - Respiratory Exam Respiratory Exam: Clear to Auscultation Bilateral, NORMAL BREATHING PATTERN - Cardiovascular Exam Cardiovascular Exam: REGULAR RHYTHM - GI/Abdominal Exam GI & Abdominal Exam: Normal Bowel Sounds, Soft. absent: Tenderness - Extremities Exam Extremities exam: Positive for: normal inspection - Back Exam Back exam: NORMAL INSPECTION - Neurological Exam Neurological exam: Alert, CN II-XII Intact, Normal Gait, Oriented x3, Reflexes Normal - Psychiatric Exam Psychiatric exam: Normal Affect, Normal Mood - Skin Skin Exam: Dry, Intact, Normal Color, Warm Results - Vital Signs Recent Vital Signs: Last Vital Signs Temp 98.4 F 08/14/18 13:49 Pulse 88 08/14/18 13:49 Resp 16 08/14/18 13:49 BP 134/79 08/14/18 13:49 Pulse Ox 100 08/14/18 13:49 - Labs Result Diagrams: 08/14/18 05:35 08/14/18 05:35 Labs: Laboratory Results - last 24 hr 08/13/18 08/13/18 08/13/18 21:56 21:56 21:56 WBC 10.8 RBC 4.20 L Hgb 10.3 L Hct 31.2 L MCV 74.2 L MCH 24.6 L MCHC 33.2 RDW 16.2 H Plt Count 264 D MPV 7.5 Neut % (Auto) 83.2 H Lymph % (Auto) 8.0 L [place] % (Auto) 3.6 Eos % (Auto) 4.9 H Baso % (Auto) 0.3 Neut # (Auto) 9.0 H Lymph # (Auto) 0.9 L [place] # (Auto) 0.4 Eos # (Auto) 0.5 Baso # (Auto) 0.0 Neutrophils % (Manual) 90 H Lymphocytes % (Manual) 6 L Monocytes % (Manual) 3 Basophils % (Manual) 1 Platelet Estimate Normal Large Platelets Present Poikilocytosis (manual Slight Anisocytosis (manual) Slight Tear Drop Cells Slight Ovalocytes Slight PT 12.8 INR 1.2 APTT 30.5 Sodium 138 Potassium 5.1 H Chloride 102 Carbon Dioxide 26 Anion Gap 15 BUN 19 Creatinine 1.2 Est GFR ( Amer) > 60 Est GFR (Non-Af Amer) > 60 POC Glucose (mg/dL) Random Glucose 207 H Calcium 9.3 Total Bilirubin AST ALT Alkaline Phosphatase Troponin I 0.3060 H* Total Protein Albumin Globulin Albumin/Globulin Ratio 08/14/18 08/14/18 08/14/18 04:51 05:35 05:35 WBC 11.8 H RBC 4.06 L Hgb 10.2 L Hct 30.5 L MCV 75.0 L MCH 25.1 L MCHC 33.5 RDW 16.2 H Plt Count 279 MPV 8.1 Neut % (Auto) 67.5 Lymph % (Auto) 18.3 L [place] % (Auto) 6.0 Eos % (Auto) 7.4 H Baso % (Auto) 0.8 Neut # (Auto) 7.9 H Lymph # (Auto) 2.1 [place] # (Auto) 0.7 Eos # (Auto) 0.9 H Baso # (Auto) 0.1 Neutrophils % (Manual) Lymphocytes % (Manual) Monocytes % (Manual) Basophils % (Manual) Platelet Estimate Large Platelets Poikilocytosis (manual Anisocytosis (manual) Tear Drop Cells Ovalocytes PT INR APTT Sodium 141 Potassium 4.6 Chloride 104 Carbon Dioxide 26 Anion Gap 16 BUN 17 Creatinine 1.1 Est GFR ( Amer) > 60 Est GFR (Non-Af Amer) > 60 POC Glucose (mg/dL) 94 Random Glucose 120 H Calcium 9.4 Total Bilirubin 0.4 AST 74 H D ALT 33 Alkaline Phosphatase 80 Troponin I Total Protein 8.0 Albumin 4.1 Globulin 3.9 Albumin/Globulin Ratio 1.0 08/14/18 08/14/18 08/14/18 08:12 09:57 11:05 WBC RBC Hgb Hct MCV MCH MCHC RDW Plt Count MPV Neut % (Auto) Lymph % (Auto) [place] % (Auto) Eos % (Auto) Baso % (Auto) Neut # (Auto) Lymph # (Auto) [place] # (Auto) Eos # (Auto) Baso # (Auto) Neutrophils % (Manual) Lymphocytes % (Manual) Monocytes % (Manual) Basophils % (Manual) Platelet Estimate Large Platelets Poikilocytosis (manual Anisocytosis (manual) Tear Drop Cells Ovalocytes PT INR APTT 55.4 H Sodium Potassium Chloride Carbon Dioxide Anion Gap BUN Creatinine Est GFR ( Amer) Est GFR (Non-Af Amer) POC Glucose (mg/dL) 100 Random Glucose Calcium Total Bilirubin AST ALT Alkaline Phosphatase Troponin I 14.4000 H* Total Protein Albumin Globulin Albumin/Globulin Ratio Assessment & Plan (1) NSTEMI (non-ST elevated myocardial infarction) Assessment and Plan: Cath findings RAI to LAD patent SVG to diagonal occluded ( acutely ) - Successfully treated with Drug eluting stent x 1 ( 100% blockage fixed with complete normal flow ) RCA patent - mid 65-70% stenosis EF 50% DAPT ( ASA + plavix ) loaded in laboratory immunologist with 300mg po daily bb statins nitrates Status: Acute (2) Chest pain Status: Acute (3) DM2 (diabetes mellitus, type 2) Status: Chronic (4) HTN (hypertension) Status: Chronic
[2018-08-14] MEDS: Pantoprazole 20 mg EC Tab PO SCH (23:45)
[2018-08-14] MEDS: Metoprolol Succinate 50 mg XL Tab PO SCH (23:56)
[2018-08-15] MEDS: Insulin Lispro (humaLOG) 100 Units/ml Inj SC SCH ×4 (06:32→22:42)
--- NOTE | 2018-08-15 09:29 | CP.PCM.PN ---
Addendum entered by Cynthia Givens MD 08/15/18 18:02: Surrogate Shannan malagon - son Peter Full Code Addendum entered by Cynthia Givens MD 08/15/18 16:01: DM type II Hold oral DM meds for now ( Metformin as pt received IV contrast) start Levemir Addendum entered and electronically signed by Pancho Beltran DPM 08/15/18 12:19: Left TMA Site As per Podiatry- Ordered Left foot X-ray, Wound Cx, surgical shoe, and wound dressed- Dr. Gannon evaluated patient and started patient on Meropenem. CTA ordered for 08/16/18 Original Note: <Pancho Beltran - Last Filed: 08/15/18 11:49> Subjective - Date & Time of Evaluation Date of Evaluation: 08/15/18 Time of Evaluation: 09:19 - Subjective Subjective: 67 y/o male seen and evaluated at bedside s/p 1 day cardiac catheterization. Patient's son was present at bedside. Patient complains of minimal pain to the right groin at the procedure site. Patient denies any nausea or vomiting since returning from [facility] after the procedure. Patient also denies headaches, dizziness, dyspnea, abdominal pain, diarrhea, or fever. ROS: 12 points assessed and negative unless otherwise reported in HPI Objective - Vital Signs/Intake and Output Vital Signs (last 24 hours): Temp Pulse Resp BP Pulse Ox 98.2 F 83 20 115/68 96 08/15/18 08:09 08/15/18 08:09 08/15/18 08:09 08/15/18 08:09 08/15/18 08:09 - Medications Medications: Current Medications Aspirin (Ecotrin) 81 mg PO DAILY [facility] Last Admin: 08/14/18 23:42 Dose: Not Given Atorvastatin Calcium (Lipitor) 10 mg PO HS [facility] Last Admin: 08/14/18 23:57 Dose: 10 mg Clopidogrel Bisulfate (Plavix) 75 mg PO DAILY [facility] Last Admin: 08/14/18 10:31 Dose: 75 mg Dextrose (Dextrose 50% Inj) 0 ml IV STAT PRN; Protocol PRN Reason: Hypoglycemia Protocol Dextrose (Glutose 15) 0 gm PO ONCE PRN; Protocol PRN Reason: Hypoglycemia Protocol Docusate Sodium (Colace) 100 mg PO DAILY PRN PRN Reason: Constipation Enoxaparin Sodium (Lovenox) 40 mg SC DAILY [facility]; Protocol Ferrous Sulfate (Feosol) 325 mg PO DAILY [facility] Last Admin: 08/14/18 23:43 Dose: Not Given Gabapentin (Neurontin) 100 mg PO DAILY [facility] Last Admin: 08/14/18 23:43 Dose: Not Given Glucagon (Glucagen Diagnostic Kit) 0 mg IM STAT PRN; Protocol PRN Reason: Hypoglycemia Protocol Insulin Human Lispro (Humalog) 0 units SC [facility]; Protocol Last Admin: 08/15/18 06:32 Dose: Not Given Lisinopril (Zestril) 5 mg PO DAILY [facility] Last Admin: 08/14/18 23:46 Dose: Not Given Metoprolol Succinate (Toprol Xl) 50 mg PO DAILY [facility] Last Admin: 08/14/18 23:56 Dose: 50 mg Pantoprazole Sodium (Protonix Ec Tab) 20 mg PO DAILY [facility] Last Admin: 08/14/18 23:45 Dose: Not Given Pioglitazone HCl (Actos) 15 mg PO DAILY [facility] Last Admin: 08/14/18 23:42 Dose: Not Given - Labs Labs: 08/14/18 05:35 08/14/18 05:35 PT 12.8 Seconds (9.8-13.1) 08/13/18 21:56 INR 1.2 08/13/18 21:56 APTT 55.4 Seconds (25.6-37.1) H 08/14/18 11:05 - Constitutional Appears: Well, Non-toxic, No Acute Distress - Head Exam Head Exam: ATRAUMATIC, NORMAL INSPECTION, NORMOCEPHALIC - Eye Exam Eye Exam: PERRL - ENT Exam ENT Exam: Mucous Membranes Moist, Normal Exam - Neck Exam Neck Exam: Full ROM - Respiratory Exam Respiratory Exam: Clear to Ausculation Bilateral, NORMAL BREATHING PATTERN. absent: Rales, Rhonchi, Wheezes, Respiratory Distress - Cardiovascular Exam Cardiovascular Exam: REGULAR RHYTHM. absent: Tachycardia, JVD - GI/Abdominal Exam GI & Abdominal Exam: Soft, Normal Bowel Sounds. absent: Distended - Extremities Exam Additional comments: minimal discomfort and pain to the catherter insertion site at the right groin region - Back Exam Back Exam: NORMAL INSPECTION. absent: tenderness - Neurological Exam Neurological Exam: Alert, Awake, Oriented x3 - Psychiatric Exam Psychiatric exam: Normal Affect, Normal Mood - Skin Skin Exam: Normal Color Assessment and Plan - Assessment and Plan (Free Text) Assessment: 67 y/o male with PMHx of HTN, NIDDM2, CAD s/p CABG, HLD seen and evaluated at bedside s/p 1 day cardiac catherization due to occluded SVF Plan: Chest pain: patient denies chest pain at this time - CBC: 11.2>9.7/28.9<263 - BMP: 141/4.6/104/26/17/1.1<120 - troponin: 14.4 (2nd at 11:59 AM on 08/14/18) - Troponin post surgery: 11.3, Dr. astudillo made aware - EKG: NSR, T wave inversion in leads V1-V3, T wave flattening in V4 - continue to monitor patient s/p cardiac cath CAD - cardiac cath 08/14/18- As per Dr. Astudillo, treated with Drug eluting stent x 1 ( 100% blockage fixed with complete normal flow ), RCA patent - mid 65-70% stenosis, EF 50% - Hx of CABG 2006 - c/w Lovenox and Plavix HTN - BP stable - c/w lisinopril NIDDM2 - controlled w/ medication - c/w gabapentin - Actos on hold - Creatinine 1.1 - hold metformin for now - insulin correction scale - hypoglycemic protocol Prophylactic measures - DVT: discontinue Heparin - c/w Plavix 75 mg PO Daily <Cynthia Givens - Last Filed: 08/15/18 16:00> Objective - Vital Signs/Intake and Output Vital Signs (last 24 hours): Temp Pulse Resp BP Pulse Ox 98.3 F 84 20 124/75 96 08/15/18 12:09 08/15/18 12:09 08/15/18 12:09 08/15/18 12:09 08/15/18 12:09 - Medications Medications: Current Medications Aspirin (Ecotrin) 81 mg PO DAILY [facility] Last Admin: 08/15/18 10:46 Dose: 81 mg Atorvastatin Calcium (Lipitor) 10 mg PO HS [facility] Last Admin: 08/14/18 23:57 Dose: 10 mg Clopidogrel Bisulfate (Plavix) 75 mg PO DAILY [facility] Last Admin: 08/15/18 10:46 Dose: 75 mg Dextrose (Dextrose 50% Inj) 0 ml IV STAT PRN; Protocol PRN Reason: Hypoglycemia Protocol Dextrose (Glutose 15) 0 gm PO ONCE PRN; Protocol PRN Reason: Hypoglycemia Protocol Docusate Sodium (Colace) 100 mg PO DAILY PRN PRN Reason: Constipation Enoxaparin Sodium (Lovenox) 40 mg SC DAILY [facility]; Protocol Last Admin: 08/15/18 10:45 Dose: 40 mg Ferrous Sulfate (Feosol) 325 mg PO DAILY [facility] Last Admin: 08/15/18 10:46 Dose: 325 mg Gabapentin (Neurontin) 100 mg PO DAILY [facility] Last Admin: 08/15/18 10:45 Dose: 100 mg Glucagon (Glucagen Diagnostic Kit) 0 mg IM STAT PRN; Protocol PRN Reason: Hypoglycemia Protocol Meropenem 1 gm/ Sodium (Chloride) 100 mls @ 100 mls/hr IVPB Q8 [facility]; Protocol Last Admin: 08/15/18 13:10 Dose: 100 mls/hr Insulin Human Lispro (Humalog) 0 units SC ACHS [facility]; Protocol Last Admin: 08/15/18 13:11 Dose: 2 u Lisinopril (Zestril) 5 mg PO DAILY [facility] Last Admin: 08/15/18 10:45 Dose: 5 mg Metoprolol Succinate (Toprol Xl) 50 mg PO DAILY [facility] Last Admin: 08/15/18 10:46 Dose: 50 mg Pantoprazole Sodium (Protonix Ec Tab) 20 mg PO DAILY [facility] Last Admin: 08/15/18 10:45 Dose: 20 mg Pioglitazone HCl (Actos) 15 mg PO DAILY [facility] Last Admin: 08/14/18 23:42 Dose: Not Given - Labs Labs: 08/15/18 10:11 08/15/18 10:19 PT 12.8 Seconds (9.8-13.1) 08/13/18 21:56 INR 1.2 08/13/18 21:56 APTT 55.4 Seconds (25.6-37.1) H 08/14/18 11:05 Attending/Attestation - Attestation I have personally seen and examined this patient.: Yes I have fully participated in the care of the patient.: Yes I have reviewed all pertinent clinical information, including history, physical exam and plan: Yes Notes (Text): 1. NSTEMI s/p Cardiac cath with PCI 100 % stenosis of the SGV, Stent placed - cont Plavix x 1 year - cont ASA, BB, ARB, Statin 2. Necrotic Stump , Hx of Left TMA, ? osteomyelitis - Pt had TMA a few months ago - wound looks necrotic -Podiatry consulted - Wound c/s done -Dr Gannon consulted - rec Meropenem - discussed case with Dr Astudillo- rec to do CT Angio of the LE to eval Vascular supply ( will do tomorrow as pt just received IV contrast from Cardiac cath)
[2018-08-15 10:17] LABS: HEMOGLOBIN 9.7 g/dL (12.0-18.0); MEAN CELL VOLUME 73.9 fl (80.0-94.0); MEAN CORPUSCULAR HEMOGLOBIN 24.9 pg (27.0-31.0); MEAN CORPUSCULAR HGB CONC 33.6 g/dL (33.0-37.0); RBC 3.91 Mil/uL (4.40-5.90); RED CELL DISTRIBUTION WIDTH 16.2 % (11.5-14.5); WHITE BLOOD COUNT 11.2 K/uL (4.8-10.8)
[2018-08-15] MEDS: Enoxaparin 40 mg Syringe SC SCH (10:45)
[2018-08-15] MEDS: Pantoprazole 20 mg EC Tab PO SCH (10:45)
[2018-08-15] MEDS: Metoprolol Succinate 50 mg XL Tab PO SCH (10:46)
[2018-08-15 11:08] LABS: BLOOD UREA NITROGEN 13 mg/dl (9-20); GFR NON-AFRICAN AMERICAN > 60
--- NOTE | 2018-08-15 11:41 | CP.PCM.CON ---
History of Present Illness - History of Present Illness History of Present Illness: Podiatry Consult Note for Dr. Dale 67 yo male with PMH of DM II, hypertension, CAD, HLD seen in the telemetry unit 1 day s/p cardiac cath revascularization. Patient is in NAD and AAO x3. Patient is seen resting comfortably in bed. his left foot TMA site is not dressed. Patient states that he did amputation in his forefoot last January. Patient states that he had revision 3 months later due to that his wound was still opened. Denise archuleta states that he stayed in the hospital later for about 2 weeks where wound VAC. Patient states that he left the hospital and his wounds looks good and he kept following up in the clinic until the VAC removed. Patient states that last time he cam,e to the clinic was a month ago. Patient states that his next visit suppose to be in the of this month. Patient states that he didn't take a look at the amputation site recently. He states that he was admitted to the hospital 2 days ago due to his cardiac problem where his doctor paid his attention to the the amputation site looks necrotic and there is pus coming out. Patient Denies any pain in the left foot,Patient denies any acute recent events other than his Chest pain. Patient denies any recent F/C/N/V but he had SOB due to his cardiac problem. PMH: DM II, hypertension, CAD, HLD PSH: CABG, left foot TMA and revisional TMA surgeries Allergies: NKDA Social Hx: denies tobacco/EtOH or drug use Review of Systems - Review of Systems Review of Systems: As per HPI Past Patient History - Infectious Disease Hx of Infectious Diseases: None - Past Medical History & Family History Past Medical History?: Yes - Past Social History Smoking Status: Never Smoked - CARDIAC Hx Cardiac Disorders: Yes Hx Hypercholesterolemia: Yes Hx Hypertension: Yes Hx Peripheral Edema: Yes - PULMONARY Hx Respiratory Disorders: No - NEUROLOGICAL Hx Neurological Disorder: No - HEENT Hx HEENT Problems: No - RENAL Hx Chronic Kidney Disease: No - ENDOCRINE/METABOLIC Hx Endocrine Disorders: Yes Hx Diabetes Mellitus Type 2: Yes - HEMATOLOGICAL/ONCOLOGICAL Hx Blood Disorders: No Hx Human Immunodeficiency Virus (HIV): No - INTEGUMENTARY Hx Dermatological Problems: No - MUSCULOSKELETAL/RHEUMATOLOGICAL Hx Musculoskeletal Disorders: Yes Hx Falls: No Hx Osteomyelitis: Yes - GASTROINTESTINAL Hx Gastrointestinal Disorders: No - GENITOURINARY/GYNECOLOGICAL Hx Genitourinary Disorders: No - PSYCHIATRIC Hx Psychophysiologic Disorder: No Hx Substance Use: No - SURGICAL HISTORY Hx Surgeries: Yes Hx Coronary Artery Bypass Graft: Yes Hx Coronary Stent: Yes - ANESTHESIA Hx Anesthesia: Yes Hx Anesthesia Reactions: No Hx Malignant Hyperthermia: No Has any member of the family had a problem w/ anesthesia?: No Meds Allergies/Adverse Reactions: Allergies Allergy/AdvReac Type Severity Reaction Status Date / Time No Known Allergies Allergy Verified 05/23/18 11:02 - Medications Medications: Current Medications Aspirin (Ecotrin) 81 mg PO DAILY [facility] Last Admin: 08/15/18 10:46 Dose: 81 mg Atorvastatin Calcium (Lipitor) 10 mg PO HS [facility] Last Admin: 08/14/18 23:57 Dose: 10 mg Clopidogrel Bisulfate (Plavix) 75 mg PO DAILY [facility] Last Admin: 08/15/18 10:46 Dose: 75 mg Dextrose (Dextrose 50% Inj) 0 ml IV STAT PRN; Protocol PRN Reason: Hypoglycemia Protocol Dextrose (Glutose 15) 0 gm PO ONCE PRN; Protocol PRN Reason: Hypoglycemia Protocol Docusate Sodium (Colace) 100 mg PO DAILY PRN PRN Reason: Constipation Enoxaparin Sodium (Lovenox) 40 mg SC DAILY [facility]; Protocol Last Admin: 08/15/18 10:45 Dose: 40 mg Ferrous Sulfate (Feosol) 325 mg PO DAILY [facility] Last Admin: 08/15/18 10:46 Dose: 325 mg Gabapentin (Neurontin) 100 mg PO DAILY [facility] Last Admin: 08/15/18 10:45 Dose: 100 mg Glucagon (Glucagen Diagnostic Kit) 0 mg IM STAT PRN; Protocol PRN Reason: Hypoglycemia Protocol Insulin Human Lispro (Humalog) 0 units SC [facility]; Protocol Last Admin: 08/15/18 06:32 Dose: Not Given Lisinopril (Zestril) 5 mg PO DAILY [facility] Last Admin: 08/15/18 10:45 Dose: 5 mg Metoprolol Succinate (Toprol Xl) 50 mg PO DAILY [facility] Last Admin: 08/15/18 10:46 Dose: 50 mg Pantoprazole Sodium (Protonix Ec Tab) 20 mg PO DAILY [facility] Last Admin: 08/15/18 10:45 Dose: 20 mg Pioglitazone HCl (Actos) 15 mg PO DAILY [facility] Last Admin: 08/14/18 23:42 Dose: Not Given Physical Exam - Constitutional Appears: Well, Non-toxic, No Acute Distress - Head Exam Head Exam: ATRAUMATIC, NORMOCEPHALIC - Extremities Exam Additional comments: Left lower Extremity Focused Exam: Vasc: DP/PT 1/4, TG warm to cool proximal to distal , no edema noted at this time, no pedal hair noted, No erythema noted around the TMA site. Neuro: Gross and Protective sensation diminished. Derm: An opened TMA site measures [id number]. Drainage of purulent pus inbetween the mets. No malodor. Mets 1 to 5 are protruding out through the TMA site. positive probing to bone, positive tracking. Ulcer base is Necrotic 100% (after debridement using saline wet gauze it came out as granular necrotic 60:40) Bone is covered by black layer. MSK: Mild pain on palpation to the TMA site. - Neurological Exam Neurological exam: Alert, Oriented x3 - Psychiatric Exam Psychiatric exam: Normal Affect, Normal Mood Results - Vital Signs Recent Vital Signs: Last Vital Signs Temp 98.2 F 08/15/18 08:09 Pulse 83 08/15/18 10:46 Resp 20 08/15/18 08:09 BP 115/63 08/15/18 10:46 Pulse Ox 96 08/15/18 08:09 - Labs Result Diagrams: 08/15/18 10:11 08/14/18 05:35 Labs: Laboratory Results - last 24 hr 08/14/18 08/15/18 08/15/18 11:05 05:12 10:11 WBC 11.2 H RBC 3.91 L Hgb 9.7 L Hct 28.9 L MCV 73.9 L MCH 24.9 L MCHC 33.6 RDW 16.2 H Plt Count 263 APTT 55.4 H POC Glucose (mg/dL) 124 H Assessment & Plan - Assessment and Plan (Free Text) Assessment: 67 y/o male s/p TMA seen and evaluated for dehiscent TMA site/ Osteomyelitis Plan: Patient seen and evaluated at bedside Discussed patient plan with attending, Dr. Dael Charts, Labs and vitals reviewed: afebrile, Wbcs 11.2 Ordered left foot 3 views X-ray Wound culture collected and sent to the lab. Wound cleaned and debrided using saline wet gauze. Wound dressed using Saline, DSD and kerlix. Ordered surgical shoe to the patient. ID consulted. Patient instructed to ambulate in the surgical shoe. Podiatry will follow up patient while in-house - Date & Time Date: 08/15/18 Time: 11:42
--- NOTE | 2018-08-15 11:55 | CP.PCM.CON ---
History of Present Illness - History of Present Illness History of Present Illness: 67 yo male seen 1 day s/p cardiac cath revascularization. P. Patient states that he did amputation in his forefoot last January. Patient states that he had revision 3 months later due to that his wound was still opened. Patient states t hat he stayed in the hospital later for about 2 weeks where wound VAC. Patient states that he left the hospital and his wounds looks good and he kept following up in the clinic until the VAC removed. he was admitted to the hospital 2 days ago due to his cardiac problem and went to [place] for cardiac cath / angioplasty Referred for ID eval due to amputation site looking necrotic and there is pus coming out. PMH: DM II, hypertension, CAD, HLD PSH: CABG, left foot TMA and revisional TMA surgeries Allergies: NKDA Social Hx: denies tobacco/EtOH or drug use Review of Systems - Constitutional Constitutional: As Per HPI - EENT Eyes: absent: As Per HPI, Blind Spots, Blurred Vision, Change in Vision, Decreased Night Vision, Diplopia, Discharge, Dry Eye, Exophthalmos, Floaters, Irritation, Itchy Eyes, Loss of Peripheral Vision, Pain, Photophobia, Requires Corrective Lenses, Sees Flashes, Spots in Vision, Tunnel Vision, Other Visual Disturbances, Loss of Vision, Other Ears: absent: As Per HPI, Decreased Hearing, Ear Discharge, Ear Pain, Tinnitus, Abnormal Hearing, Disequilibrium, Dizziness, Other Nose/Mouth/Throat: absent: As Per HPI, Epistaxis, Nasal Congestion, Nasal Discharge, Nasal Obstruction, Nasal Trauma, Nose Pain, Post Nasal Drip, Sinus Pain, Sinus Pressure, Bleeding Gums, Change in Voice, Dental Pain, Dry Mouth, Dysphagia, Halitosis, Hoarsness, Lip Swelling, Mouth Lesions, Mouth Pain, Odynophagia, Sore Throat, Throat Swelling, Tongue Swelling, Facial Pain, Neck Pain, Neck Mass, Other - Cardiovascular Cardiovascular: As Per HPI - Respiratory Respiratory: absent: As Per HPI, Cough, Dyspnea, Hemoptysis, Dyspnea on Exertion, Wheezing, Snoring, Stridor, Pain on Inspiration, Chest Congestion, Excessive Mucous Production, Change in Mucous Color, Pain with Coughing, Other - Gastrointestinal Gastrointestinal: absent: As Per HPI, Abdominal Pain, Belching, Bloating, Change in Bowel Habits, Change in Stool Character, Coffee Ground Emesis, Constipation, Cramping, Diarrhea, Dyspepsia, Dysphagia, Early Satiety, Excessive Flatus, Fecal Incontinence, Heartburn, Hematemesis, Hematochezia, Loose Stools, Melena, Nausea, Odynophagia, Temesmus, Vomiting, Other - Genitourinary Genitourinary: absent: As Per HPI, Change in Urinary Stream, Difficulty Urinating, Dysuria, Flank Pain, Hematuria, Pyuria, Nocturia, Urinary Incontinence, Urinary Frequency, Urinary Hesitance, Urinary Urgency, Voiding Freq/Small Amts, Freq UTI, Hx Renal/Bladder Calculi, Hx /Renal Surgery, Bladder Distension, Other - Musculoskeletal Musculoskeletal: As Per HPI - Integumentary Integumentary: As Per HPI, Skin Pain, Wounds - Neurological Neurological: absent: As Per HPI, Abnormal Gait, Abnormal Hearing, Abnormal Movements, Abnormal Speech, Behavioral Changes, Burning Sensations, Confusion, Convulsions, Disequilibrium, Dizziness, Numbness, Focal Weakness, Frequent Falls, Headaches, Lack of Coordination, Loss of Vision, Memory Loss, Paresthesias, Radicular Pain, Restless Legs, Sensory Deficit, Syncope, Tingling, Tremor, Vertigo, Weakness, Other Visual Disturbances, Other - Psychiatric Psychiatric: absent: As Per HPI, Abnormal Sleep Pattern, Anhedonia, Anxiety, Auditory Hallucinations, Behavioral Changes, Change in Appetite, Change in Libido, Confusion, Depression, Difficulty Concentrating, Hallucinations, Homicidal Ideation, Hopelessness, Irritability, Memory Loss, Mood Swings, Panic Attacks, Paranoia, Suicidal Ideation, Visual Hallucinations, Tactile Hallucinations, Other - Endocrine Endocrine: As Per HPI - Hematologic/Lymphatic Hematologic: absent: As Per HPI, Easy Bleeding, Easy Bruising, Lymphadenopathy, Other Past Patient History - Infectious Disease Hx of Infectious Diseases: None - Past Medical History & Family History Past Medical History?: Yes - Past Social History Smoking Status: Never Smoked - CARDIAC Hx Cardiac Disorders: Yes Hx Hypercholesterolemia: Yes Hx Hypertension: Yes Hx Peripheral Edema: Yes - PULMONARY Hx Respiratory Disorders: No - NEUROLOGICAL Hx Neurological Disorder: No - HEENT Hx HEENT Problems: No - RENAL Hx Chronic Kidney Disease: No - ENDOCRINE/METABOLIC Hx Endocrine Disorders: Yes Hx Diabetes Mellitus Type 2: Yes - HEMATOLOGICAL/ONCOLOGICAL Hx Blood Disorders: No Hx Human Immunodeficiency Virus (HIV): No - INTEGUMENTARY Hx Dermatological Problems: No - MUSCULOSKELETAL/RHEUMATOLOGICAL Hx Musculoskeletal Disorders: Yes Hx Falls: No Hx Osteomyelitis: Yes - GASTROINTESTINAL Hx Gastrointestinal Disorders: No - GENITOURINARY/GYNECOLOGICAL Hx Genitourinary Disorders: No - PSYCHIATRIC Hx Psychophysiologic Disorder: No Hx Substance Use: No - SURGICAL HISTORY Hx Surgeries: Yes Hx Coronary Artery Bypass Graft: Yes Hx Coronary Stent: Yes - ANESTHESIA Hx Anesthesia: Yes Hx Anesthesia Reactions: No Hx Malignant Hyperthermia: No Has any member of the family had a problem w/ anesthesia?: No Meds Allergies/Adverse Reactions: Allergies Allergy/AdvReac Type Severity Reaction Status Date / Time No Known Allergies Allergy Verified 05/23/18 11:02 - Medications Medications: Current Medications Aspirin (Ecotrin) 81 mg PO DAILY [facility] Last Admin: 08/15/18 10:46 Dose: 81 mg Atorvastatin Calcium (Lipitor) 10 mg PO HS [facility] Last Admin: 08/14/18 23:57 Dose: 10 mg Clopidogrel Bisulfate (Plavix) 75 mg PO DAILY [facility] Last Admin: 08/15/18 10:46 Dose: 75 mg Dextrose (Dextrose 50% Inj) 0 ml IV STAT PRN; Protocol PRN Reason: Hypoglycemia Protocol Dextrose (Glutose 15) 0 gm PO ONCE PRN; Protocol PRN Reason: Hypoglycemia Protocol Docusate Sodium (Colace) 100 mg PO DAILY PRN PRN Reason: Constipation Enoxaparin Sodium (Lovenox) 40 mg SC DAILY [facility]; Protocol Last Admin: 08/15/18 10:45 Dose: 40 mg Ferrous Sulfate (Feosol) 325 mg PO DAILY [facility] Last Admin: 08/15/18 10:46 Dose: 325 mg Gabapentin (Neurontin) 100 mg PO DAILY [facility] Last Admin: 08/15/18 10:45 Dose: 100 mg Glucagon (Glucagen Diagnostic Kit) 0 mg IM STAT PRN; Protocol PRN Reason: Hypoglycemia Protocol Insulin Human Lispro (Humalog) 0 units SC [facility]; Protocol Last Admin: 08/15/18 06:32 Dose: Not Given Lisinopril (Zestril) 5 mg PO DAILY [facility] Last Admin: 08/15/18 10:45 Dose: 5 mg Metoprolol Succinate (Toprol Xl) 50 mg PO DAILY [facility] Last Admin: 08/15/18 10:46 Dose: 50 mg Pantoprazole Sodium (Protonix Ec Tab) 20 mg PO DAILY [facility] Last Admin: 08/15/18 10:45 Dose: 20 mg Pioglitazone HCl (Actos) 15 mg PO DAILY [facility] Last Admin: 08/14/18 23:42 Dose: Not Given Physical Exam - Constitutional Appears: Cachectic, Chronically Ill - Head Exam Head Exam: NORMOCEPHALIC - Eye Exam Eye Exam: PERRL. absent: Scleral icterus - ENT Exam ENT Exam: Mucous Membranes Dry, Normal External Ear Exam - Neck Exam Neck exam: Negative for: Lymphadenopathy - Respiratory Exam Respiratory Exam: Decreased Breath Sounds - Cardiovascular Exam Cardiovascular Exam: REGULAR RHYTHM - GI/Abdominal Exam GI & Abdominal Exam: Diminished Bowel Sounds, Soft - Rectal Exam Rectal Exam: Deferred - Exam Exam: NORMAL INSPECTION - Extremities Exam Extremities exam: Negative for: calf tenderness, pedal pulses present Additional comments: left tma with necrotic wound and exposed bone over entire site of forefoot - Back Exam Back exam: absent: CVA tenderness (L), CVA tenderness (R) - Neurological Exam Neurological exam: Alert, CN II-XII Intact, Oriented x3, Reflexes Normal - Psychiatric Exam Psychiatric exam: Normal Mood - Skin Skin Exam: Dry Results - Vital Signs Recent Vital Signs: Last Vital Signs Temp 98.2 F 08/15/18 08:09 Pulse 83 08/15/18 10:46 Resp 20 08/15/18 08:09 BP 115/63 08/15/18 10:46 Pulse Ox 96 08/15/18 08:09 - Labs Result Diagrams: 08/15/18 10:11 08/15/18 10:19 Labs: Laboratory Results - last 24 hr 08/15/18 08/15/18 08/15/18 05:12 10:11 10:11 WBC 11.2 H RBC 3.91 L Hgb 9.7 L Hct 28.9 L MCV 73.9 L MCH 24.9 L MCHC 33.6 RDW 16.2 H Plt Count 263 Sodium Potassium Chloride Carbon Dioxide Anion Gap BUN Creatinine Est GFR ( Amer) Est GFR (Non-Af Amer) POC Glucose (mg/dL) 124 H Random Glucose Calcium Troponin I 11.6000 H* 08/15/18 08/15/18 10:19 10:52 WBC RBC Hgb Hct MCV MCH MCHC RDW Plt Count Sodium 139 Potassium 4.3 Chloride 105 Carbon Dioxide 24 Anion Gap 14 BUN 13 Creatinine 1.1 Est GFR ( Amer) > 60 Est GFR (Non-Af Amer) > 60 POC Glucose (mg/dL) 197 H Random Glucose 227 H Calcium 9.0 Troponin I Assessment & Plan - Assessment and Plan (Free Text) Assessment: chronic OM left foot severe PVD CAD s/p KS and cardiac cath prognosis for limb salvage is poor might benefit from BKA await vascular eval IV rx empiric
[2018-08-15] MEDS: Meropenem 1 GM in Sodium Chloride 0.9% 100 ML IVPB SCH ×2 (13:10→17:34)
[2018-08-15] MEDS: Insulin Detemir 100 Units/ml Inj SC SCH (22:38)
[2018-08-16] MEDS: Meropenem 1 GM in Sodium Chloride 0.9% 100 ML IVPB SCH ×3 (00:50→16:56)
[2018-08-16] MEDS: Insulin Lispro (humaLOG) 100 Units/ml Inj SC SCH ×4 (06:47→22:59)
--- NOTE | 2018-08-16 08:42 | CP.PCM.PN ---
Subjective - Date & Time of Evaluation Date of Evaluation: 08/16/18 Time of Evaluation: 08:35 - Subjective Subjective: Podiatry progress Note for Dr. Dale 67 yo male seen and evaluated at the bedside for dehiscent left TMA site and Osteomyelitis. Patient is in NAD and AAO x3. Patient is seen resting comfortably in bed. his left foot TMA site was not dressed. Patient states that he has mild pain in his left foot since yesterday, Patient denies any overnight acute events. Patient denies any overnight F/C/N/V or SOB. Objective - Vital Signs/Intake and Output Vital Signs (last 24 hours): Temp Pulse Resp BP Pulse Ox 98.6 F 89 18 105/64 100 08/16/18 05:00 08/16/18 05:00 08/16/18 05:00 08/16/18 05:00 08/16/18 05:00 - Medications Medications: Current Medications Aspirin (Ecotrin) 81 mg PO DAILY [facility] Last Admin: 08/15/18 10:46 Dose: 81 mg Atorvastatin Calcium (Lipitor) 10 mg PO HS [facility] Last Admin: 08/15/18 22:37 Dose: 10 mg Clopidogrel Bisulfate (Plavix) 75 mg PO DAILY [facility] Last Admin: 08/15/18 10:46 Dose: 75 mg Dextrose (Dextrose 50% Inj) 0 ml IV STAT PRN; Protocol PRN Reason: Hypoglycemia Protocol Dextrose (Glutose 15) 0 gm PO ONCE PRN; Protocol PRN Reason: Hypoglycemia Protocol Docusate Sodium (Colace) 100 mg PO DAILY PRN PRN Reason: Constipation Enoxaparin Sodium (Lovenox) 40 mg SC DAILY [facility]; Protocol Last Admin: 08/15/18 10:45 Dose: 40 mg Ferrous Sulfate (Feosol) 325 mg PO DAILY [facility] Last Admin: 08/15/18 10:46 Dose: 325 mg Gabapentin (Neurontin) 100 mg PO DAILY [facility] Last Admin: 08/15/18 10:45 Dose: 100 mg Glucagon (Glucagen Diagnostic Kit) 0 mg IM STAT PRN; Protocol PRN Reason: Hypoglycemia Protocol Meropenem 1 gm/ Sodium (Chloride) 100 mls @ 100 mls/hr IVPB Q8 [facility]; Protocol Last Admin: 08/16/18 00:50 Dose: 100 mls/hr Insulin Detemir (Levemir) 10 units SC HS [facility] Last Admin: 08/15/18 22:38 Dose: 10 u Insulin Human Lispro (Humalog) 0 units SC [facility]; Protocol Last Admin: 08/16/18 06:47 Dose: Not Given Lisinopril (Zestril) 5 mg PO DAILY [facility] Last Admin: 08/15/18 10:45 Dose: 5 mg Metoprolol Succinate (Toprol Xl) 50 mg PO DAILY [facility] Last Admin: 08/15/18 10:46 Dose: 50 mg Pantoprazole Sodium (Protonix Ec Tab) 20 mg PO DAILY [facility] Last Admin: 08/15/18 10:45 Dose: 20 mg Pioglitazone HCl (Actos) 15 mg PO DAILY [facility] Last Admin: 08/14/18 23:42 Dose: Not Given - Labs Labs: 08/15/18 10:11 08/15/18 10:19 PT 12.8 Seconds (9.8-13.1) 08/13/18 21:56 INR 1.2 08/13/18 21:56 APTT 55.4 Seconds (25.6-37.1) H 08/14/18 11:05 - Constitutional Appears: Well, Non-toxic, No Acute Distress - Head Exam Head Exam: ATRAUMATIC, NORMOCEPHALIC - Extremities Exam Additional comments: Left lower Extremity Focused Exam: Vasc: DP/PT 1/4, TG warm to cool proximal to distal , no edema noted at this time, no pedal hair noted, No erythema noted around the TMA site. Neuro: Gross and Protective sensation diminished. Derm: An opened TMA site measures [id number]. Still there is drainage of purulent pus inbetween the mets. No malodor. Mets 1 to 5 are protruding out through the TMA site. positive probing to bone, positive tracking. Ulcer base is Necrotic 100% (after debridement using saline wet gauze it came out as granular necrotic 60:40) Bone is covered by black layer. MSK: Mild pain on palpation to the TMA site. - Neurological Exam Neurological Exam: Alert, Awake, Oriented x3 - Psychiatric Exam Psychiatric exam: Normal Affect, Normal Mood Assessment and Plan - Assessment and Plan (Free Text) Assessment: 67 y/o male s/p left TMA seen and evaluated for dehiscent left TMA site/ Osteomyelitis Plan: Patient seen and evaluated at bedside Discussed patient plan with attending, Dr. Dale Charts, Labs and vitals reviewed: afebrile, Wbcs 11.2 Left foot 3 views X-ray; pending Wound culture results; pending. Wound cleaned and debrided using saline wet gauze. Wound dressed using Saline, DSD and kerlix. Patient to ambulate in the surgical shoe. ID consulted. recommendation appreciated. Vascular surgery is on board. Patient could be treated and followed up on out patient bases. Podiatry will continue follow up patient while in-house
[2018-08-16] MEDS: Enoxaparin 40 mg Syringe SC SCH (08:45)
[2018-08-16] MEDS: Pantoprazole 20 mg EC Tab PO SCH (08:45)
[2018-08-16] MEDS: Metoprolol Succinate 50 mg XL Tab PO SCH (08:46)
--- NOTE | 2018-08-16 09:38 | CP.PCM.PN ---
Addendum entered and electronically signed by Guilherme Viramontes MD 08/16/18 17:37: Patient was seen and examined bedside .All chart and clinical data reviewed . Case discussed with resident . Agree with assessment and plan 67 y/o male with history CABG , HTN , IDDM , dyslipidemia,PAD was admitted with chest pain and acute [place] S/p cardiac cath day 1 with drug eluting stent placement to saphenous Vein graft . cleared by surgery from cardiac point of view on medical management. Started on IV meropenem for non healing left TMA wound with pus and necrosis -- most likely acute OM Will follow up CTA of LLE to evaluate for possible need for revascularization in the future Dispo : d/c home will need to discuss with ID about antibiotic of choice and duration of therapy Original Note: Subjective - Date & Time of Evaluation Date of Evaluation: 08/16/18 Time of Evaluation: 09:36 - Subjective Subjective: 67 y/o male seen and evaluated at bedside s/p 2 day cardiac catheterization. Patient denies any pain at this time to his catheter insertion site. Patient also denies nausea, vomiting, headaches, dizziness, dyspnea, abdominal pain, diarrhea, or fever. Patient is scheduled for a CT Angiogram today ROS: 12 points assessed and negative unless otherwise reported in HPI Objective - Vital Signs/Intake and Output Vital Signs (last 24 hours): Temp Pulse Resp BP Pulse Ox 97.9 F 89 20 105/64 99 08/16/18 08:46 08/16/18 08:46 08/16/18 08:46 08/16/18 08:46 08/16/18 08:46 - Medications Medications: Current Medications Aspirin (Ecotrin) 81 mg PO DAILY [facility] Last Admin: 08/16/18 08:45 Dose: 81 mg Atorvastatin Calcium (Lipitor) 10 mg PO HS [facility] Last Admin: 08/15/18 22:37 Dose: 10 mg Clopidogrel Bisulfate (Plavix) 75 mg PO DAILY [facility] Last Admin: 08/16/18 08:45 Dose: 75 mg Dextrose (Dextrose 50% Inj) 0 ml IV STAT PRN; Protocol PRN Reason: Hypoglycemia Protocol Dextrose (Glutose 15) 0 gm PO ONCE PRN; Protocol PRN Reason: Hypoglycemia Protocol Docusate Sodium (Colace) 100 mg PO DAILY PRN PRN Reason: Constipation Enoxaparin Sodium (Lovenox) 40 mg SC DAILY [facility]; Protocol Last Admin: 08/16/18 08:45 Dose: 40 mg Ferrous Sulfate (Feosol) 325 mg PO DAILY [facility] Last Admin: 08/16/18 08:45 Dose: 325 mg Gabapentin (Neurontin) 100 mg PO DAILY [facility] Last Admin: 08/16/18 08:45 Dose: 100 mg Glucagon (Glucagen Diagnostic Kit) 0 mg IM STAT PRN; Protocol PRN Reason: Hypoglycemia Protocol Meropenem 1 gm/ Sodium (Chloride) 100 mls @ 100 mls/hr IVPB Q8 [facility]; Protocol Last Admin: 08/16/18 08:44 Dose: 100 mls/hr Insulin Detemir (Levemir) 10 units SC HS [facility] Last Admin: 08/15/18 22:38 Dose: 10 u Insulin Human Lispro (Humalog) 0 units SC [facility]; Protocol Last Admin: 08/16/18 06:47 Dose: Not Given Lisinopril (Zestril) 5 mg PO DAILY [facility] Last Admin: 08/16/18 08:45 Dose: 5 mg Metoprolol Succinate (Toprol Xl) 50 mg PO DAILY [facility] Last Admin: 08/16/18 08:46 Dose: 50 mg Pantoprazole Sodium (Protonix Ec Tab) 20 mg PO DAILY [facility] Last Admin: 08/16/18 08:45 Dose: 20 mg Pioglitazone HCl (Actos) 15 mg PO DAILY [facility] Last Admin: 08/14/18 23:42 Dose: Not Given - Labs Labs: 08/15/18 10:11 08/15/18 10:19 PT 12.8 Seconds (9.8-13.1) 08/13/18 21:56 INR 1.2 08/13/18 21:56 APTT 55.4 Seconds (25.6-37.1) H 08/14/18 11:05 - Constitutional Appears: Well, Non-toxic, No Acute Distress - Head Exam Head Exam: ATRAUMATIC, NORMOCEPHALIC - ENT Exam ENT Exam: Mucous Membranes Moist - Neck Exam Neck Exam: Full ROM - Respiratory Exam Respiratory Exam: Clear to Ausculation Bilateral, NORMAL BREATHING PATTERN. absent: Rales, Rhonchi, Wheezes, Respiratory Distress - Cardiovascular Exam Cardiovascular Exam: REGULAR RHYTHM - GI/Abdominal Exam GI & Abdominal Exam: Soft, Normal Bowel Sounds. absent: Distended, Guarding, Rigid - Extremities Exam Extremities Exam: absent: Calf Tenderness, Pedal Edema Additional comments: dressing to the left TMA site, clean dry and intact - Back Exam Back Exam: NORMAL INSPECTION - Neurological Exam Neurological Exam: Alert, Awake, Oriented x3 - Psychiatric Exam Psychiatric exam: Normal Affect, Normal Mood - Skin Skin Exam: Normal Color, Warm Assessment and Plan - Assessment and Plan (Free Text) Assessment: 67 y/o male with PMHx of HTN, NIDDM2, CAD s/p CABG, HLD seen and evaluated at bedside s/p 2 days cardiac catherization due to occluded SVF. Plan: Chest pain: patient denies chest pain at this time - CBC: 10.1>9.1/27.0<238 - BMP: 139/4.1/106/25/14/1.2<161 - Troponin (08/16/18)- 5.94, trending down - EKG: NSR, T wave inversion in leads V1-V3, T wave flattening in V4 - continue to monitor patient s/p 2 days cardiac cath CAD - cardiac cath 08/14/18- As per Dr. Bolden, treated with Drug eluting stent x 1 ( 100% blockage fixed with complete normal flow, RCA patent - mid 65-70% stenosis, EF 50% - Hx of CABG 2006 - c/w Lovenox and Plavix - CT Angiogram scheduled for today 12 PM HTN - BP stable - c/w lisinopril NIDDM2 - controlled w/ medication - c/w gabapentin - Actos on hold - Creatinine 1.1 - hold metformin for now - insulin correction scale - hypoglycemic protocol Prophylactic measures - DVT: discontinue Heparin - c/w Plavix 75 mg PO Daily
[2018-08-16 12:00] LABS: BASO # 0.1 K/uL (0.0-0.2); EOS # 0.8 K/uL (0.0-0.7); EOS % 7.5 % (0.0-4.0); HEMOGLOBIN 9.1 g/dL (12.0-18.0); LYMPH # 1.4 K/uL (1.0-4.3); LYMPH % 13.6 % (20.0-40.0); MEAN CELL VOLUME 74.2 fl (80.0-94.0); MEAN CORPUSCULAR HEMOGLOBIN 25.1 pg (27.0-31.0); MEAN CORPUSCULAR HGB CONC 33.8 g/dL (33.0-37.0); MEAN PLATELET VOLUME 8.2 fl (7.2-11.7); MONO % 9.6 % (0.0-10.0); NEUT # 6.9 K/uL (1.8-7.0); NEUT % 68.3 % (50.0-75.0); RBC 3.63 Mil/uL (4.40-5.90); RED CELL DISTRIBUTION WIDTH 16.3 % (11.5-14.5); WHITE BLOOD COUNT 10.1 K/uL (4.8-10.8)
[2018-08-16 12:07] LABS: BLOOD UREA NITROGEN 14 mg/dl (9-20); CALCIUM 8.7 mg/dL (8.4-10.2); GFR NON-AFRICAN AMERICAN > 60
--- NOTE | 2018-08-16 13:43 | CP.PCM.PN ---
Subjective - Date & Time of Evaluation Date of Evaluation: 08/16/18 Time of Evaluation: 09:00 - Subjective Subjective: admitted for acute CT found to have nonhealing left TMA with pus and necrosis- having a large defect which is not healing Started on Merrem empirically going for CT angio today viability of Left TMA/ Foot in question Has exposed bone to left foot - likely OM Objective - Vital Signs/Intake and Output Vital Signs (last 24 hours): Temp Pulse Resp BP Pulse Ox 98.3 F 76 20 129/75 99 08/16/18 12:56 08/16/18 12:56 08/16/18 12:56 08/16/18 12:56 08/16/18 12:56 - Medications Medications: Current Medications Aspirin (Ecotrin) 81 mg PO DAILY [facility] Last Admin: 08/16/18 08:45 Dose: 81 mg Atorvastatin Calcium (Lipitor) 10 mg PO HS [facility] Last Admin: 08/15/18 22:37 Dose: 10 mg Clopidogrel Bisulfate (Plavix) 75 mg PO DAILY [facility] Last Admin: 08/16/18 08:45 Dose: 75 mg Dextrose (Dextrose 50% Inj) 0 ml IV STAT PRN; Protocol PRN Reason: Hypoglycemia Protocol Dextrose (Glutose 15) 0 gm PO ONCE PRN; Protocol PRN Reason: Hypoglycemia Protocol Docusate Sodium (Colace) 100 mg PO DAILY PRN PRN Reason: Constipation Enoxaparin Sodium (Lovenox) 40 mg SC DAILY [facility]; Protocol Last Admin: 08/16/18 08:45 Dose: 40 mg Ferrous Sulfate (Feosol) 325 mg PO DAILY [facility] Last Admin: 08/16/18 08:45 Dose: 325 mg Gabapentin (Neurontin) 100 mg PO DAILY [facility] Last Admin: 08/16/18 08:45 Dose: 100 mg Glucagon (Glucagen Diagnostic Kit) 0 mg IM STAT PRN; Protocol PRN Reason: Hypoglycemia Protocol Meropenem 1 gm/ Sodium (Chloride) 100 mls @ 100 mls/hr IVPB Q8 [facility]; Protocol Last Admin: 08/16/18 08:44 Dose: 100 mls/hr Insulin Detemir (Levemir) 10 units SC HS [facility] Last Admin: 08/15/18 22:38 Dose: 10 u Insulin Human Lispro (Humalog) 0 units SC ACHS [facility]; Protocol Last Admin: 08/16/18 11:44 Dose: Not Given Lisinopril (Zestril) 5 mg PO DAILY [facility] Last Admin: 08/16/18 08:45 Dose: 5 mg Metoprolol Succinate (Toprol Xl) 50 mg PO DAILY [facility] Last Admin: 08/16/18 08:46 Dose: 50 mg Pantoprazole Sodium (Protonix Ec Tab) 20 mg PO DAILY [facility] Last Admin: 08/16/18 08:45 Dose: 20 mg Pioglitazone HCl (Actos) 15 mg PO DAILY [facility] Last Admin: 08/14/18 23:42 Dose: Not Given - Labs Labs: 08/16/18 11:40 08/16/18 11:40 PT 12.8 Seconds (9.8-13.1) 08/13/18 21:56 INR 1.2 08/13/18 21:56 APTT 55.4 Seconds (25.6-37.1) H 08/14/18 11:05 - Constitutional Appears: Non-toxic - Head Exam Head Exam: NORMOCEPHALIC - Eye Exam Eye Exam: PERRL - ENT Exam ENT Exam: Mucous Membranes Dry - Neck Exam Neck Exam: absent: Lymphadenopathy - Respiratory Exam Respiratory Exam: Decreased Breath Sounds - Cardiovascular Exam Cardiovascular Exam: REGULAR RHYTHM - GI/Abdominal Exam GI & Abdominal Exam: Distended, Soft - Rectal Exam Rectal Exam: Deferred - Exam Exam: NORMAL INSPECTION - Extremities Exam Extremities Exam: Pedal Edema. absent: Calf Tenderness - Back Exam Back Exam: absent: CVA tenderness (L), CVA tenderness (R) - Neurological Exam Neurological Exam: Alert, Awake, Oriented x3 Assessment and Plan - Assessment and Plan (Free Text) Assessment: admitted for acute CT- s/p cardiac cath PTCA found to have nonhealing left TMA with pus and necrosis- having a large defect which is not healing Started on Merrem empirically going for CT angio today viability of Left TMA/ Foot in question Has exposed bone to left foot - likely OM
--- NOTE | 2018-08-16 16:04 | CP.PCM.PN ---
Subjective - Date & Time of Evaluation Date of Evaluation: 08/15/18 Time of Evaluation: 16:03 - Subjective Subjective: feeling fine groin site stable no more CP Objective - Vital Signs/Intake and Output Vital Signs (last 24 hours): Temp Pulse Resp BP Pulse Ox 98.9 F 70 20 112/69 98 08/16/18 15:45 08/16/18 15:45 08/16/18 15:45 08/16/18 15:45 08/16/18 15:45 - Medications Medications: Current Medications Aspirin (Ecotrin) 81 mg PO DAILY [facility] Last Admin: 08/16/18 08:45 Dose: 81 mg Atorvastatin Calcium (Lipitor) 10 mg PO HS [facility] Last Admin: 08/15/18 22:37 Dose: 10 mg Clopidogrel Bisulfate (Plavix) 75 mg PO DAILY [facility] Last Admin: 08/16/18 08:45 Dose: 75 mg Dextrose (Dextrose 50% Inj) 0 ml IV STAT PRN; Protocol PRN Reason: Hypoglycemia Protocol Dextrose (Glutose 15) 0 gm PO ONCE PRN; Protocol PRN Reason: Hypoglycemia Protocol Docusate Sodium (Colace) 100 mg PO DAILY PRN PRN Reason: Constipation Enoxaparin Sodium (Lovenox) 40 mg SC DAILY [facility]; Protocol Last Admin: 08/16/18 08:45 Dose: 40 mg Ferrous Sulfate (Feosol) 325 mg PO DAILY [facility] Last Admin: 08/16/18 08:45 Dose: 325 mg Gabapentin (Neurontin) 100 mg PO DAILY [facility] Last Admin: 08/16/18 08:45 Dose: 100 mg Glucagon (Glucagen Diagnostic Kit) 0 mg IM STAT PRN; Protocol PRN Reason: Hypoglycemia Protocol Meropenem 1 gm/ Sodium (Chloride) 100 mls @ 100 mls/hr IVPB Q8 [facility]; Protocol Last Admin: 08/16/18 08:44 Dose: 100 mls/hr Insulin Detemir (Levemir) 10 units SC HS [facility] Last Admin: 08/15/18 22:38 Dose: 10 u Insulin Human Lispro (Humalog) 0 units SC [facility]; Protocol Last Admin: 08/16/18 11:44 Dose: Not Given Lisinopril (Zestril) 5 mg PO DAILY [facility] Last Admin: 08/16/18 08:45 Dose: 5 mg Metoprolol Succinate (Toprol Xl) 50 mg PO DAILY [facility] Last Admin: 08/16/18 08:46 Dose: 50 mg Pantoprazole Sodium (Protonix Ec Tab) 20 mg PO DAILY [facility] Last Admin: 08/16/18 08:45 Dose: 20 mg Pioglitazone HCl (Actos) 15 mg PO DAILY [facility] Last Admin: 08/14/18 23:42 Dose: Not Given - Labs Labs: 08/16/18 11:40 08/16/18 11:40 PT 12.8 Seconds (9.8-13.1) 08/13/18 21:56 INR 1.2 08/13/18 21:56 APTT 55.4 Seconds (25.6-37.1) H 08/14/18 11:05 - Constitutional Appears: Well - Head Exam Head Exam: ATRAUMATIC, NORMAL INSPECTION, NORMOCEPHALIC - Eye Exam Eye Exam: EOMI, Normal appearance, PERRL Pupil Exam: NORMAL ACCOMODATION, PERRL - ENT Exam ENT Exam: Mucous Membranes Moist, Normal Exam - Neck Exam Neck Exam: Full ROM, Normal Inspection. absent: Lymphadenopathy - Respiratory Exam Respiratory Exam: Clear to Ausculation Bilateral, NORMAL BREATHING PATTERN - Cardiovascular Exam Cardiovascular Exam: REGULAR RHYTHM, +S1, +S2. absent: Murmur - GI/Abdominal Exam GI & Abdominal Exam: Soft, Normal Bowel Sounds. absent: Tenderness - Extremities Exam Extremities Exam: Full ROM, Normal Capillary Refill, Normal Inspection. absent: Joint Swelling, Pedal Edema - Back Exam Back Exam: NORMAL INSPECTION - Neurological Exam Neurological Exam: Alert, Awake, CN II-XII Intact, Normal Gait, Oriented x3 - Psychiatric Exam Psychiatric exam: Normal Affect, Normal Mood - Skin Skin Exam: Dry, Intact, Normal Color, Warm Assessment and Plan (1) NSTEMI (non-ST elevated myocardial infarction) Assessment & Plan: s/p LHCx with PCI of SVG to Diagonal cont with asa, plavix cont bb, statins, acei Status: Acute (2) Chest pain Status: Acute (3) DM2 (diabetes mellitus, type 2) Status: Chronic (4) HTN (hypertension) Status: Chronic
--- NOTE | 2018-08-16 16:05 | CP.PCM.PN ---
Subjective - Date & Time of Evaluation Date of Evaluation: 08/16/18 Time of Evaluation: 16:04 - Subjective Subjective: feeling fine Objective - Vital Signs/Intake and Output Vital Signs (last 24 hours): Temp Pulse Resp BP Pulse Ox 98.9 F 70 20 112/69 98 08/16/18 15:45 08/16/18 15:45 08/16/18 15:45 08/16/18 15:45 08/16/18 15:45 - Medications Medications: Current Medications Aspirin (Ecotrin) 81 mg PO DAILY [facility] Last Admin: 08/16/18 08:45 Dose: 81 mg Atorvastatin Calcium (Lipitor) 10 mg PO HS [facility] Last Admin: 08/15/18 22:37 Dose: 10 mg Clopidogrel Bisulfate (Plavix) 75 mg PO DAILY [facility] Last Admin: 08/16/18 08:45 Dose: 75 mg Dextrose (Dextrose 50% Inj) 0 ml IV STAT PRN; Protocol PRN Reason: Hypoglycemia Protocol Dextrose (Glutose 15) 0 gm PO ONCE PRN; Protocol PRN Reason: Hypoglycemia Protocol Docusate Sodium (Colace) 100 mg PO DAILY PRN PRN Reason: Constipation Enoxaparin Sodium (Lovenox) 40 mg SC DAILY [facility]; Protocol Last Admin: 08/16/18 08:45 Dose: 40 mg Ferrous Sulfate (Feosol) 325 mg PO DAILY [facility] Last Admin: 08/16/18 08:45 Dose: 325 mg Gabapentin (Neurontin) 100 mg PO DAILY [facility] Last Admin: 08/16/18 08:45 Dose: 100 mg Glucagon (Glucagen Diagnostic Kit) 0 mg IM STAT PRN; Protocol PRN Reason: Hypoglycemia Protocol Meropenem 1 gm/ Sodium (Chloride) 100 mls @ 100 mls/hr IVPB Q8 [facility]; Protocol Last Admin: 08/16/18 08:44 Dose: 100 mls/hr Insulin Detemir (Levemir) 10 units SC HS [facility] Last Admin: 08/15/18 22:38 Dose: 10 u Insulin Human Lispro (Humalog) 0 units SC [facility]; Protocol Last Admin: 08/16/18 11:44 Dose: Not Given Lisinopril (Zestril) 5 mg PO DAILY [facility] Last Admin: 08/16/18 08:45 Dose: 5 mg Metoprolol Succinate (Toprol Xl) 50 mg PO DAILY [facility] Last Admin: 08/16/18 08:46 Dose: 50 mg Pantoprazole Sodium (Protonix Ec Tab) 20 mg PO DAILY [facility] Last Admin: 08/16/18 08:45 Dose: 20 mg Pioglitazone HCl (Actos) 15 mg PO DAILY [facility] Last Admin: 08/14/18 23:42 Dose: Not Given - Labs Labs: 08/16/18 11:40 08/16/18 11:40 PT 12.8 Seconds (9.8-13.1) 08/13/18 21:56 INR 1.2 08/13/18 21:56 APTT 55.4 Seconds (25.6-37.1) H 08/14/18 11:05 - Constitutional Appears: Well - Head Exam Head Exam: ATRAUMATIC, NORMAL INSPECTION, NORMOCEPHALIC - Eye Exam Eye Exam: EOMI, Normal appearance, PERRL Pupil Exam: NORMAL ACCOMODATION, PERRL - ENT Exam ENT Exam: Mucous Membranes Moist, Normal Exam - Neck Exam Neck Exam: Full ROM, Normal Inspection. absent: Lymphadenopathy - Respiratory Exam Respiratory Exam: Clear to Ausculation Bilateral, NORMAL BREATHING PATTERN - Cardiovascular Exam Cardiovascular Exam: REGULAR RHYTHM, +S1, +S2. absent: Murmur - GI/Abdominal Exam GI & Abdominal Exam: Soft, Normal Bowel Sounds. absent: Tenderness - Extremities Exam Extremities Exam: Full ROM, Normal Capillary Refill, Normal Inspection. absent: Joint Swelling, Pedal Edema - Back Exam Back Exam: NORMAL INSPECTION - Neurological Exam Neurological Exam: Alert, Awake, CN II-XII Intact, Normal Gait, Oriented x3 - Psychiatric Exam Psychiatric exam: Normal Affect, Normal Mood - Skin Skin Exam: Dry, Intact, Normal Color, Warm Assessment and Plan (1) NSTEMI (non-ST elevated myocardial infarction) Assessment & Plan: cont GDMT for CAD staged PCI of RCA if has recurrent ischemic sx Status: Acute (2) Chest pain Status: Acute (3) DM2 (diabetes mellitus, type 2) Status: Chronic (4) HTN (hypertension) Status: Chronic
[2018-08-16] MEDS ORDERED: Sodium Chloride 0.9% 0 ML IV ONE (18:12)
[2018-08-16] MEDS ORDERED: Iodixanol 320 MG/ML 100 ML BOTTLE IV ONE (18:12)
[2018-08-16] MEDS ORDERED: Sodium Chloride 0.9% 0 ML ONE (18:14)
[2018-08-16] MEDS ORDERED: Sodium Chloride 0.9% 50 ML IV ONE (18:16)
[2018-08-16] MEDS: Insulin Detemir 100 Units/ml Inj SC SCH (22:24)
[2018-08-17] MEDS: Meropenem 1 GM in Sodium Chloride 0.9% 100 ML IVPB SCH ×3 (00:03→16:57)
[2018-08-17 05:39] LABS: IRON 14 ug/dL (49-181)
[2018-08-17 05:45] LABS: BASO # 0.1 K/uL (0.0-0.2); BASO % 0.5 % (0.0-2.0); EOS # 1.1 K/uL (0.0-0.7); EOS % 11.4 % (0.0-4.0); HEMOGLOBIN 9.4 g/dL (12.0-18.0); LYMPH # 1.3 K/uL (1.0-4.3); LYMPH % 13.3 % (20.0-40.0); MEAN CELL VOLUME 74.8 fl (80.0-94.0); MEAN CORPUSCULAR HEMOGLOBIN 24.9 pg (27.0-31.0); MEAN CORPUSCULAR HGB CONC 33.3 g/dL (33.0-37.0); MONO # 0.9 K/uL (0.0-0.8); MONO % 8.9 % (0.0-10.0); NEUT # 6.4 K/uL (1.8-7.0); NEUT % 65.9 % (50.0-75.0); RBC 3.79 Mil/uL (4.40-5.90); RED CELL DISTRIBUTION WIDTH 16.2 % (11.5-14.5); WHITE BLOOD COUNT 9.8 K/uL (4.8-10.8)
[2018-08-17 05:49] LABS: % IRON SATURATION 5 % (20-55); TOTAL IRON BINDING CAPACITY 290 ug/dL (250-450)
[2018-08-17 05:51] LABS: BLOOD UREA NITROGEN 14 mg/dl (9-20); GFR NON-AFRICAN AMERICAN 55
[2018-08-17] MEDS: Insulin Lispro (humaLOG) 100 Units/ml Inj SC SCH ×4 (06:29→22:26)
--- NOTE | 2018-08-17 07:38 | CP.PCM.PN ---
Subjective - Date & Time of Evaluation Date of Evaluation: 08/17/18 Time of Evaluation: 07:34 - Subjective Subjective: Podiatry progress Note for Dr. Dale 67 yo male seen and evaluated at the bedside for dehiscent left TMA site and Osteomyelitis. Patient is in NAD and AAO x3. Patient is seen resting comfortably in bed. his left foot TMA site was not dressed. Patient states that he has mild pain in his left foot since yesterday. Patient states that he went yesterday for CT angio for his left LE. Patient denies any overnight acute events. Patient denies any overnight F/C/N/V or SOB. Objective - Vital Signs/Intake and Output Vital Signs (last 24 hours): Temp Pulse Resp BP Pulse Ox 99.3 F 72 18 106/67 99 08/17/18 05:03 08/17/18 05:03 08/17/18 05:03 08/17/18 05:03 08/17/18 05:03 - Medications Medications: Current Medications Aspirin (Ecotrin) 81 mg PO DAILY [facility] Last Admin: 08/16/18 08:45 Dose: 81 mg Atorvastatin Calcium (Lipitor) 10 mg PO HS [facility] Last Admin: 08/16/18 22:23 Dose: 10 mg Clopidogrel Bisulfate (Plavix) 75 mg PO DAILY [facility] Last Admin: 08/16/18 08:45 Dose: 75 mg Dextrose (Dextrose 50% Inj) 0 ml IV STAT PRN; Protocol PRN Reason: Hypoglycemia Protocol Dextrose (Glutose 15) 0 gm PO ONCE PRN; Protocol PRN Reason: Hypoglycemia Protocol Docusate Sodium (Colace) 100 mg PO DAILY PRN PRN Reason: Constipation Enoxaparin Sodium (Lovenox) 40 mg SC DAILY [facility]; Protocol Last Admin: 08/16/18 08:45 Dose: 40 mg Ferrous Sulfate (Feosol) 325 mg PO DAILY [facility] Last Admin: 08/16/18 08:45 Dose: 325 mg Gabapentin (Neurontin) 100 mg PO DAILY [facility] Last Admin: 08/16/18 08:45 Dose: 100 mg Glucagon (Glucagen Diagnostic Kit) 0 mg IM STAT PRN; Protocol PRN Reason: Hypoglycemia Protocol Meropenem 1 gm/ Sodium (Chloride) 100 mls @ 100 mls/hr IVPB Q8 [facility]; Protocol Last Admin: 08/17/18 00:03 Dose: 100 mls/hr Insulin Detemir (Levemir) 10 units SC [facility] Last Admin: 08/16/18 22:24 Dose: 10 u Insulin Human Lispro (Humalog) 0 units SC [facility]; Protocol Last Admin: 08/17/18 06:29 Dose: Not Given Lisinopril (Zestril) 5 mg PO DAILY [facility] Last Admin: 08/16/18 08:45 Dose: 5 mg Metoprolol Succinate (Toprol Xl) 50 mg PO DAILY [facility] Last Admin: 08/16/18 08:46 Dose: 50 mg Pantoprazole Sodium (Protonix Ec Tab) 20 mg PO DAILY [facility] Last Admin: 08/16/18 08:45 Dose: 20 mg Pioglitazone HCl (Actos) 15 mg PO DAILY [facility] Last Admin: 08/14/18 23:42 Dose: Not Given - Labs Labs: 08/17/18 05:18 08/17/18 05:18 PT 12.8 Seconds (9.8-13.1) 08/13/18 21:56 INR 1.2 08/13/18 21:56 APTT 55.4 Seconds (25.6-37.1) H 08/14/18 11:05 - Constitutional Appears: Well, Non-toxic, No Acute Distress - Head Exam Head Exam: ATRAUMATIC, NORMOCEPHALIC - Extremities Exam Additional comments: Left lower Extremity Focused Exam: Vasc: DP/PT 1/4, TG warm to cool proximal to distal , no edema noted at this time, no pedal hair noted, No erythema noted around the TMA site. Neuro: Gross and Protective sensation diminished. Derm: An opened TMA site measures [id number]. Still there is drainage of purulent pus inbetween the mets. No malodor. Mets 1 to 5 are protruding out through the TMA site. positive probing to bone, positive tracking. Ulcer base is Necrotic 100% (after debridement using saline wet gauze it came out as granular,fibrotic and necrotic 40:20:40) Bone is covered by black layer. MSK: Mild pain on palpation to the TMA site. - Neurological Exam Neurological Exam: Alert, Awake, Oriented x3 - Psychiatric Exam Psychiatric exam: Normal Affect, Normal Mood Assessment and Plan - Assessment and Plan (Free Text) Assessment: 67 y/o male s/p left TMA seen and evaluated for dehiscent left TMA site/ Osteomyelitis Plan: Patient seen and evaluated at bedside Discussed patient plan with attending, Dr. Dale Charts, Labs and vitals reviewed: afebrile, Wbcs 9.8 Left foot 3 views X-ray; pending Wound culture results; pending. Wound cleaned and debrided using saline wet gauze. Wound dressed using Saline, DSD and kerlix. Patient to ambulate in the surgical shoe. CT angio Left LE done yesterday; results pending. ID consulted. Recommendation appreciated. Vascular surgery is on board. Recommendation appreciated. Patient could be treated and followed up on out patient bases from the podiatry standpoint. Podiatry will continue follow up patient while in-house.
[2018-08-17] MEDS: Enoxaparin 40 mg Syringe SC SCH (08:47)
[2018-08-17] MEDS: Metoprolol Succinate 50 mg XL Tab PO SCH (08:49)
[2018-08-17] MEDS: Pantoprazole 20 mg EC Tab PO SCH (08:55)
--- NOTE | 2018-08-17 09:53 | RAD ---
Date of service: 08/17/2018 PROCEDURE: Left Foot Radiographs. HISTORY: Left foot ulcer. R/In or Out osteomyelitis COMPARISON: None. FINDINGS: BONES: Status post midfoot amputation. No evidence of osseous erosion or periosteal reaction to suggest osteomyelitis. Large soft tissue ulceration identified adjacent to amputation site along lateral aspect of anterior midfoot. JOINTS: No acute fracture. SOFT TISSUES: As above OTHER FINDINGS: None. IMPRESSION: No plain radiographic evidence of osteomyelitis. Status post midfoot amputation.
--- NOTE | 2018-08-17 11:19 | CP.PCM.PN ---
Addendum entered and electronically signed by Guilherme Viramontes MD 08/17/18 19:15: Patient was seen and examined bedside .All chart and clinical data reviewed . Case discussed with resident . Agree with assessment and plan 67 y/o male with history CABG , HTN , IDDM , dyslipidemia,PAD was admitted with chest pain and acute IL S/p cardiac cath day 2 with drug eluting stent placement to saphenous Vein graft . With episode of NSVT on tele monitor today , denies any chest pain CTA LLE showed severe PVD patient refusing amputation and wants to go home Will increas dose of Metoprolol today from 0 mg to75 mg dailty . Decrease Lisinopril from 5 to 2.5 mg daily Continue tele monitoring Check Mg and K in AM Discussed with ID. Given that patient is refusing amputation will continue trial with Iv antibiotics. Will place PICC line and d/c on Daptomycin if approved by insurance Dispo : d/c home Original Note: Subjective - Date & Time of Evaluation Date of Evaluation: 08/17/18 Time of Evaluation: 11:17 - Subjective Subjective: 67 y/o male seen and evaluated at bedside s/p 3 days cardiac catheterization. Junito almanza denies any pain at this time. Patient also denies nausea, vomiting, headaches, dizziness, dyspnea, chest pain, abdominal pain, diarrhea, or fever. Patient had CT Angio performed yesterday ROS: 12 points assessed and negative unless otherwise reported in HPI Objective - Vital Signs/Intake and Output Vital Signs (last 24 hours): Temp Pulse Resp BP Pulse Ox 98.3 F 76 20 127/72 100 08/17/18 08:50 08/17/18 08:51 08/17/18 08:50 08/17/18 08:51 08/17/18 08:50 - Medications Medications: Current Medications Aspirin (Ecotrin) 81 mg PO DAILY [facility] Last Admin: 08/17/18 08:49 Dose: 81 mg Atorvastatin Calcium (Lipitor) 10 mg PO HS [facility] Last Admin: 08/16/18 22:23 Dose: 10 mg Clopidogrel Bisulfate (Plavix) 75 mg PO DAILY [facility] Last Admin: 08/17/18 08:49 Dose: 75 mg Dextrose (Dextrose 50% Inj) 0 ml IV STAT PRN; Protocol PRN Reason: Hypoglycemia Protocol Dextrose (Glutose 15) 0 gm PO ONCE PRN; Protocol PRN Reason: Hypoglycemia Protocol Docusate Sodium (Colace) 100 mg PO DAILY PRN PRN Reason: Constipation Enoxaparin Sodium (Lovenox) 40 mg SC DAILY [facility]; Protocol Last Admin: 08/17/18 08:47 Dose: 40 mg Ferrous Sulfate (Feosol) 325 mg PO DAILY [facility] Last Admin: 08/17/18 08:48 Dose: 325 mg Gabapentin (Neurontin) 100 mg PO DAILY [facility] Last Admin: 08/17/18 08:48 Dose: 100 mg Glucagon (Glucagen Diagnostic Kit) 0 mg IM STAT PRN; Protocol PRN Reason: Hypoglycemia Protocol Meropenem 1 gm/ Sodium (Chloride) 100 mls @ 100 mls/hr IVPB Q8 [facility]; Protocol Last Admin: 08/17/18 08:52 Dose: 100 mls/hr Insulin Detemir (Levemir) 10 units SC [facility] Last Admin: 08/16/18 22:24 Dose: 10 u Insulin Human Lispro (Humalog) 0 units SC [facility]; Protocol Last Admin: 08/17/18 06:29 Dose: Not Given Lisinopril (Zestril) 5 mg PO DAILY [facility] Last Admin: 08/17/18 08:51 Dose: 5 mg Metoprolol Succinate (Toprol Xl) 50 mg PO DAILY [facility] Last Admin: 08/17/18 08:49 Dose: 50 mg Pantoprazole Sodium (Protonix Ec Tab) 20 mg PO DAILY [facility] Last Admin: 08/17/18 08:55 Dose: 20 mg Pioglitazone HCl (Actos) 15 mg PO DAILY [facility] Last Admin: 08/14/18 23:42 Dose: Not Given - Labs Labs: 08/17/18 05:18 08/17/18 05:18 PT 12.8 Seconds (9.8-13.1) 08/13/18 21:56 INR 1.2 08/13/18 21:56 APTT 55.4 Seconds (25.6-37.1) H 08/14/18 11:05 - Constitutional Appears: Well, Non-toxic, No Acute Distress - Head Exam Head Exam: ATRAUMATIC, NORMOCEPHALIC - Eye Exam Eye Exam: PERRL - ENT Exam ENT Exam: Mucous Membranes Moist - Neck Exam Neck Exam: Full ROM. absent: Lymphadenopathy - Respiratory Exam Respiratory Exam: Clear to Ausculation Bilateral, NORMAL BREATHING PATTERN - Cardiovascular Exam Cardiovascular Exam: REGULAR RHYTHM, RRR, +S1, +S2. absent: JVD - GI/Abdominal Exam GI & Abdominal Exam: Soft, Normal Bowel Sounds. absent: Firm, Guarding, Rigid - Extremities Exam Extremities Exam: Full ROM, Normal Inspection - Neurological Exam Neurological Exam: Alert, Awake, Oriented x3 - Psychiatric Exam Psychiatric exam: Normal Affect, Normal Mood - Skin Skin Exam: Normal Color Assessment and Plan - Assessment and Plan (Free Text) Assessment: 67 y/o male with PMHx of HTN, NIDDM2, CAD s/p CABG, HLD seen and evaluated at bedside s/p 3 days cardiac catherization due to occluded SVF. Plan: 1. Chest pain: patient denies chest pain at this time - Troponin (08/16/18)- 5.94, trending down - EKG: NSR, T wave inversion in leads V1-V3, T wave flattening in V4 - continue to monitor patient s/p 3 days cardiac cath - Episode of run of V-tach noted on monitor, will continue to monitor patient in telemetry 2. CAD - cardiac cath 08/14/18- As per Dr. Bolden, treated with Drug eluting stent x 1 ( 100% blockage fixed with complete normal flow, RCA patent - mid 65-70% stenosis, EF 50% - Hx of CABG 2006 - c/w Aspirin, Lovenox and Plavix 3. Necrotic Left Foot Transmetatarsal Amputation site - Wound Cultures- Prelim, no growth after 24 hours - Podiatry consulted- - Left Foot X-ray- - CT Angiogram was performed on 08/16/18, as per Dr. Bolden, no intervention at this time - Meropenem as per ID recommendation 4. HTN - BP stable - c/w lisinopril 5. NIDDM2 - controlled w/ medication - c/w gabapentin - Actos on hold - Creatinine 1.1 - insulin correction scale - 01/2018- HgA1c 6.2% - hypoglycemic protocol 6. Prophylactic measures - DVT: Lovenox - c/w Plavix 75 mg PO Daily
--- NOTE | 2018-08-17 12:41 | CT ---
Date of service: 08/16/2018 PROCEDURE: CT ANGIOGRAM ABDOMEN, PELVIS AND BILATERAL LOWER EXTREMITIES HISTORY: due to severe PVD COMPARISON: CTA Abdomen, Pelvis And Bilateral Lower Extremities 05/05/2018. TECHNIQUE: A volumetric CT acquisition was performed from the domes of the diaphragm to the feet following dynamic intravenous contrast administration. Multiplanar reformatted dataset have been provided using maximum intensity projection algorithm. Contrast Dose: Visipaque 320, 95 cc Radiation dose:Total exam DLP = 1176.15 mGy-cm. This CT exam was performed using one or more of the following dose reduction techniques: Automated exposure control, adjustment of the mA and/or kV according to patient size, and/or use of iterative reconstruction technique. FINDINGS: The abdominal aorta is minimally calcific atherosclerotic and appears widely patent without significant stenosis. Minimal stenosis of the origin of the celiac and superior mesenteric arteries at the identified, both of which are patent through their bifurcations. The bilateral renal arteries appear widely patent with single bilateral renal arteries identified. The JANE appears normal. The bilateral common and external iliac arteries appear widely patent with the bilateral common iliac arteries minimally calcific atherosclerotic. Internal iliac arteries appear patent though with potential significant stenoses distally. Right Lower Extremity: The common femoral artery is widely patent and minimally calcific atherosclerotic through its bifurcation. Moderate calcific atherosclerosis seen throughout the right superficial femoral artery with several multi segmental moderate stenoses identified once again. It nevertheless appears but patent to the popliteal artery. Popliteal artery is patent with a moderate to severe stenosis noted distally. Anterior tibial artery occludes distally with variable calcific plaque identified proximally. Tibioperoneal trunk appears severely diseased as does the origin of the posterior tibial and peroneal arteries. High-grade stenoses are suggested distally at both peroneal and posterior tibial arteries. Collateralization from the peroneal artery appears to reconstitute constitute the dorsalis pedis artery. Left lower extremity: The common femoral artery is widely patent without stenosis. Variable calcified plaque is seen throughout the left SFA with limited moderate segmental stenoses identified. The vessel appears patent to the popliteal artery. Multiple short segmental moderate to severe stenoses are appreciated at the mid and distal popliteal artery with variable calcified plaque identified in the same distribution. Popliteal artery appears patent to its bifurcation. Extensive calcific atherosclerosis is appreciated and multiple segmental high-grade stenoses are identified. Distal patency is not confirmed. The peroneal artery appears thready and severely diseased at multiple segments. Calcific atherosclerosis obscures evaluation of the posterior tibial artery once again with variable multilevel high-grade stenoses or even short segmental occlusions not excluded. Inferior thorax: Sternotomy reiterated. No pleural or pericardial effusion. Prosthetic mitral valve also reiterated. Abdomen and pelvic viscera: Arterial phase imaging through the abdominal viscera yields the following results: Stable appearing unremarkable liver, spleen, pancreas, bilateral adrenal glands and kidneys once again. Visualized but normal caliber common bile and pancreatic ducts. Cholelithiasis identified with a nondistended gallbladder nonacute stomach and bowel with normal appendix. Urinary bladder is unremarkable and an enlarged prostate gland reiterated. No interval fracture or spondylolisthesis or destructive bony lesion appreciable (including lower extremity bones). Left foot transmetatarsal amputation again identified. IMPRESSION: 1. Scattered moderate segmental stenoses greater the right than left superficial femoral arteries. 2. Runoff is compromised by calcific atherosclerosis though multiple cysts moderate to severe segmental stenosis are felt to be present at the bilateral popliteal arteries. Left anterior tibial artery is occluded proximally with likely mid distal reconstitution. Multifocal severe stenosis felt to present at the bilateral anterior and posterior tibial arteries with bilateral peroneal arteries potentially patent to the ankles. Consider conventional DSA for adequate characterization of runoff arteries.
--- NOTE | 2018-08-17 16:28 | CP.PCM.PN ---
Subjective - Date & Time of Evaluation Date of Evaluation: 08/17/18 Time of Evaluation: 16:27 - Subjective Subjective: NSVT noted on telemetry wants to go home CTA LE severe infragenicular disease Objective - Vital Signs/Intake and Output Vital Signs (last 24 hours): Temp Pulse Resp BP Pulse Ox 97.5 F L 83 20 144/73 100 08/17/18 16:02 08/17/18 16:02 08/17/18 16:02 08/17/18 16:02 08/17/18 16:02 - Medications Medications: Current Medications Aspirin (Ecotrin) 81 mg PO DAILY [facility] Last Admin: 08/17/18 08:49 Dose: 81 mg Atorvastatin Calcium (Lipitor) 10 mg PO HS [facility] Last Admin: 08/16/18 22:23 Dose: 10 mg Clopidogrel Bisulfate (Plavix) 75 mg PO DAILY [facility] Last Admin: 08/17/18 08:49 Dose: 75 mg Dextrose (Dextrose 50% Inj) 0 ml IV STAT PRN; Protocol PRN Reason: Hypoglycemia Protocol Dextrose (Glutose 15) 0 gm PO ONCE PRN; Protocol PRN Reason: Hypoglycemia Protocol Docusate Sodium (Colace) 100 mg PO DAILY PRN PRN Reason: Constipation Enoxaparin Sodium (Lovenox) 40 mg SC DAILY [facility]; Protocol Last Admin: 08/17/18 08:47 Dose: 40 mg Ferrous Sulfate (Feosol) 325 mg PO DAILY [facility] Last Admin: 08/17/18 08:48 Dose: 325 mg Gabapentin (Neurontin) 100 mg PO DAILY [facility] Last Admin: 08/17/18 08:48 Dose: 100 mg Glucagon (Glucagen Diagnostic Kit) 0 mg IM STAT PRN; Protocol PRN Reason: Hypoglycemia Protocol Meropenem 1 gm/ Sodium (Chloride) 100 mls @ 100 mls/hr IVPB Q8 [facility]; Protocol Last Admin: 08/17/18 08:52 Dose: 100 mls/hr Insulin Detemir (Levemir) 10 units SC [facility] Last Admin: 08/16/18 22:24 Dose: 10 u Insulin Human Lispro (Humalog) 0 units SC [facility]; Protocol Last Admin: 08/17/18 11:54 Dose: Not Given Lisinopril (Zestril) 5 mg PO DAILY [facility] Last Admin: 08/17/18 08:51 Dose: 5 mg Metoprolol Succinate (Toprol Xl) 50 mg PO DAILY [facility] Last Admin: 08/17/18 08:49 Dose: 50 mg Pantoprazole Sodium (Protonix Ec Tab) 20 mg PO DAILY [facility] Last Admin: 08/17/18 08:55 Dose: 20 mg Pioglitazone HCl (Actos) 15 mg PO DAILY [facility] Last Admin: 08/14/18 23:42 Dose: Not Given - Labs Labs: 08/17/18 05:18 08/17/18 05:18 PT 12.8 Seconds (9.8-13.1) 08/13/18 21:56 INR 1.2 08/13/18 21:56 APTT 55.4 Seconds (25.6-37.1) H 08/14/18 11:05 - Constitutional Appears: Well - Head Exam Head Exam: ATRAUMATIC, NORMAL INSPECTION, NORMOCEPHALIC - Eye Exam Eye Exam: EOMI, Normal appearance, PERRL Pupil Exam: NORMAL ACCOMODATION, PERRL - ENT Exam ENT Exam: Mucous Membranes Moist, Normal Exam - Neck Exam Neck Exam: Full ROM, Normal Inspection. absent: Lymphadenopathy - Respiratory Exam Respiratory Exam: Clear to Ausculation Bilateral, NORMAL BREATHING PATTERN - Cardiovascular Exam Cardiovascular Exam: REGULAR RHYTHM, +S1, +S2. absent: Murmur - GI/Abdominal Exam GI & Abdominal Exam: Soft, Normal Bowel Sounds. absent: Tenderness - Extremities Exam Extremities Exam: Full ROM, Normal Capillary Refill, Normal Inspection. absent: Joint Swelling, Pedal Edema - Back Exam Back Exam: NORMAL INSPECTION - Neurological Exam Neurological Exam: Alert, Awake, CN II-XII Intact, Normal Gait, Oriented x3 - Psychiatric Exam Psychiatric exam: Normal Affect, Normal Mood - Skin Skin Exam: Dry, Intact, Normal Color, Warm Assessment and Plan (1) NSVT (nonsustained ventricular tachycardia) Assessment & Plan: increase dose of BB Status: Acute (2) NSTEMI (non-ST elevated myocardial infarction) Assessment & Plan: cont dapt cont bb, statins, acei Status: Acute (3) Chest pain Status: Acute (4) DM2 (diabetes mellitus, type 2) Status: Chronic (5) HTN (hypertension) Status: Chronic
--- NOTE | 2018-08-17 18:52 | CP.PCM.PN ---
Subjective - Date & Time of Evaluation Date of Evaluation: 08/17/18 Time of Evaluation: 10:00 - Subjective Subjective: severe PVD left side not amenable to surgery will likely need amputation plan is for trial of IV antibiotics/wound care as pt refusing amputation Objective - Vital Signs/Intake and Output Vital Signs (last 24 hours): Temp Pulse Resp BP Pulse Ox 97.5 F L 83 20 144/73 100 08/17/18 16:02 08/17/18 16:02 08/17/18 16:02 08/17/18 16:02 08/17/18 16:02 - Medications Medications: Current Medications Aspirin (Ecotrin) 81 mg PO DAILY [facility] Last Admin: 08/17/18 08:49 Dose: 81 mg Atorvastatin Calcium (Lipitor) 10 mg PO HS [facility] Last Admin: 08/16/18 22:23 Dose: 10 mg Clopidogrel Bisulfate (Plavix) 75 mg PO DAILY [facility] Last Admin: 08/17/18 08:49 Dose: 75 mg Dextrose (Dextrose 50% Inj) 0 ml IV STAT PRN; Protocol PRN Reason: Hypoglycemia Protocol Dextrose (Glutose 15) 0 gm PO ONCE PRN; Protocol PRN Reason: Hypoglycemia Protocol Docusate Sodium (Colace) 100 mg PO DAILY PRN PRN Reason: Constipation Enoxaparin Sodium (Lovenox) 40 mg SC DAILY [facility]; Protocol Last Admin: 08/17/18 08:47 Dose: 40 mg Ferrous Sulfate (Feosol) 325 mg PO DAILY [facility] Last Admin: 08/17/18 08:48 Dose: 325 mg Gabapentin (Neurontin) 100 mg PO DAILY [facility] Last Admin: 08/17/18 08:48 Dose: 100 mg Glucagon (Glucagen Diagnostic Kit) 0 mg IM STAT PRN; Protocol PRN Reason: Hypoglycemia Protocol Meropenem 1 gm/ Sodium (Chloride) 100 mls @ 100 mls/hr IVPB Q8 [facility]; Protocol Last Admin: 08/17/18 16:57 Dose: 100 mls/hr Insulin Detemir (Levemir) 10 units SC HS [facility] Last Admin: 08/16/18 22:24 Dose: 10 u Insulin Human Lispro (Humalog) 0 units SC ACHS [facility]; Protocol Last Admin: 08/17/18 16:58 Dose: Not Given Lisinopril (Zestril) 2.5 mg PO DAILY [facility] Metoprolol Succinate (Toprol Xl) 75 mg PO DAILY [facility] Pantoprazole Sodium (Protonix Ec Tab) 20 mg PO DAILY [facility] Last Admin: 08/17/18 08:55 Dose: 20 mg Pioglitazone HCl (Actos) 15 mg PO DAILY [facility] Last Admin: 08/14/18 23:42 Dose: Not Given - Labs Labs: 08/17/18 05:18 08/17/18 05:18 PT 12.8 Seconds (9.8-13.1) 08/13/18 21:56 INR 1.2 08/13/18 21:56 APTT 55.4 Seconds (25.6-37.1) H 08/14/18 11:05
[2018-08-17] MEDS: Insulin Detemir 100 Units/ml Inj SC SCH (22:25)
[2018-08-18] MEDS: Meropenem 1 GM in Sodium Chloride 0.9% 100 ML IVPB SCH ×2 (00:20→09:55)
--- NOTE | 2018-08-18 08:06 | CP.PCM.PN ---
Subjective - Date & Time of Evaluation Date of Evaluation: 08/18/18 Time of Evaluation: 08:02 - Subjective Subjective: Podiatry progress Note for Dr. Dale 67 yo male seen and evaluated at the bedside for dehiscent left TMA site and Osteomyelitis. Patient is in NAD and AAO x3. Patient is seen resting comfortably in bed. Left foot dressing C/D/I. Patient states that he has mild pain in his left foot since yesterday. Patient denies any overnight acute events. Patient denies any overnight F/C/N/V or SOB. Objective - Vital Signs/Intake and Output Vital Signs (last 24 hours): Temp Pulse Resp BP Pulse Ox 98.4 F 72 18 120/69 98 08/18/18 05:00 08/18/18 05:00 08/18/18 05:00 08/18/18 05:00 08/18/18 05:00 - Medications Medications: Current Medications Aspirin (Ecotrin) 81 mg PO DAILY [facility] Last Admin: 08/17/18 08:49 Dose: 81 mg Atorvastatin Calcium (Lipitor) 10 mg PO HS [facility] Last Admin: 08/17/18 22:26 Dose: 10 mg Clopidogrel Bisulfate (Plavix) 75 mg PO DAILY [facility] Last Admin: 08/17/18 08:49 Dose: 75 mg Dextrose (Dextrose 50% Inj) 0 ml IV STAT PRN; Protocol PRN Reason: Hypoglycemia Protocol Dextrose (Glutose 15) 0 gm PO ONCE PRN; Protocol PRN Reason: Hypoglycemia Protocol Docusate Sodium (Colace) 100 mg PO DAILY PRN PRN Reason: Constipation Enoxaparin Sodium (Lovenox) 40 mg SC DAILY [facility]; Protocol Last Admin: 08/17/18 08:47 Dose: 40 mg Ferrous Sulfate (Feosol) 325 mg PO DAILY [facility] Last Admin: 08/17/18 08:48 Dose: 325 mg Gabapentin (Neurontin) 100 mg PO DAILY [facility] Last Admin: 08/17/18 08:48 Dose: 100 mg Glucagon (Glucagen Diagnostic Kit) 0 mg IM STAT PRN; Protocol PRN Reason: Hypoglycemia Protocol Meropenem 1 gm/ Sodium (Chloride) 100 mls @ 100 mls/hr IVPB Q8 [facility]; Protocol Last Admin: 08/18/18 00:20 Dose: 100 mls/hr Insulin Detemir (Levemir) 10 units SC HS [facility] Last Admin: 08/17/18 22:25 Dose: 10 u Insulin Human Lispro (Humalog) 0 units SC ACHS [facility]; Protocol Last Admin: 08/17/18 22:26 Dose: Not Given Lisinopril (Zestril) 2.5 mg PO DAILY [facility] Metoprolol Succinate (Toprol Xl) 75 mg PO DAILY [facility] Pantoprazole Sodium (Protonix Ec Tab) 20 mg PO DAILY [facility] Last Admin: 08/17/18 08:55 Dose: 20 mg Pioglitazone HCl (Actos) 15 mg PO DAILY [facility] Last Admin: 08/14/18 23:42 Dose: Not Given - Labs Labs: 08/17/18 05:18 08/17/18 05:18 PT 12.8 Seconds (9.8-13.1) 08/13/18 21:56 INR 1.2 08/13/18 21:56 APTT 55.4 Seconds (25.6-37.1) H 08/14/18 11:05 - Constitutional Appears: Well, Non-toxic, No Acute Distress - Head Exam Head Exam: ATRAUMATIC, NORMOCEPHALIC - Extremities Exam Additional comments: Left lower Extremity Focused Exam: Vasc: DP/PT 1/4, TG warm to cool proximal to distal , no edema noted at this time, no pedal hair noted, No erythema noted around the TMA site. Neuro: Gross and Protective sensation diminished. Derm: Previous TMA site measures 11.5cm X 7cm X 0.5cm. No active drainage noted, wound site dry. No malodor. Mets 1 to 5 are protruding out through the TMA site. positive probing to bone, positive tracking. Base is necrotic, granular and fibrotic 20:40:40 MSK: Mild pain on palpation to the TMA site. - Neurological Exam Neurological Exam: Alert, Awake, Oriented x3 - Psychiatric Exam Psychiatric exam: Normal Affect - Skin Skin Exam: Normal Color Assessment and Plan - Assessment and Plan (Free Text) Assessment: 67 y/o male s/p left TMA seen and evaluated for dehisced left TMA site/ Osteomyelitis Plan: Patient seen and evaluated at bedside Discussed patient plan with attending, Dr. Dale Charts, Labs and vitals reviewed: afebrile, Wbcs 9.8 Left foot 3 views X-ray; pending Wound culture results; pending. Wound cleaned and debrided using saline wet gauze. Wound dressed using Saline, DSD and kerlix. Patient to ambulate in the surgical shoe. CT angio Left LE done yesterday; severe infragenicular disease. ID consulted. Recommendation appreciated- recommends IV antibiotics as patient refuses BKA Patient stable for discharge from podiatry point of view Patient could be treated and followed up on out patient bases from the podiatry standpoint. Patient to follow up in podiatry clinic upon discharge Podiatry will continue follow up patient while in-house.
[2018-08-18] MEDS ORDERED: Metoprolol Succinate 25 mg XL Tab PO SCH (09:00)
[2018-08-18] MEDS: Pantoprazole 20 mg EC Tab PO SCH (09:53)
[2018-08-18] MEDS: Insulin Lispro (humaLOG) 100 Units/ml Inj SC SCH (09:54)
[2018-08-18] MEDS ORDERED: Lidocaine 1% 5ml Abboject ONE (10:29)
--- NOTE | 2018-08-18 10:49 | PCM.SURG1 ---
Surgeon's Initial Post Op Note - Surgeon's Notes Surgeon: Nabeel Méndez MD Landscape Supervisor: NONE Type of Anesthesia: Local Pre-Operative Diagnosis: Infection Operative Findings: US showed patent right brachial vein. Post-Operative Diagnosis: INfection Operation Performed: Single lumen picc right brachial vein, 37 cm. Tip is in the SVC. Specimen/Specimens Removed: NONE Estimated Blood Loss: EBL {In ML}: 2 Blood Products Given: N/A Drains Used: No Drains Post-Op Condition: Fair Date of Surgery/Procedure: 08/18/18 Time of Surgery/Procedure: 10:40
--- NOTE | 2018-08-18 11:02 | CP.PCM.DIS ---
Provider - Provider Date of Admission: 08/13/18 21:29 Attending physician: Fidel Lopez Primary care physician: Consults: cardiology consult podiatry consult ID consult interventional cardiology Time Spent in preparation of Discharge (in minutes): 20 Hospital Course - Lab Results Lab Results: Micro Results 08/16/18 08:27 Blood Blood Culture - Preliminary NO GROWTH AFTER 48 HOURS 08/15/18 12:00 Leg - Left Gram Stain - Final 08/15/18 12:00 Leg - Left Wound Culture - Preliminary Yeast Species Most Recent Lab Values WBC 9.8 K/uL (4.8-10.8) 08/17/18 05:18 RBC 3.79 Mil/uL (4.40-5.90) L 08/17/18 05:18 Hgb 9.4 g/dL (12.0-18.0) L 08/17/18 05:18 Hct 28.3 % (35.0-51.0) L 08/17/18 05:18 MCV 74.8 fl (80.0-94.0) L 08/17/18 05:18 MCH 24.9 pg (27.0-31.0) L 08/17/18 05:18 MCHC 33.3 g/dL (33.0-37.0) 08/17/18 05:18 RDW 16.2 % (11.5-14.5) H 08/17/18 05:18 Plt Count 268 K/uL (130-400) 08/17/18 05:18 MPV 8.0 fl (7.2-11.7) 08/17/18 05:18 Neut % (Auto) 65.9 % (50.0-75.0) 08/17/18 05:18 Lymph % (Auto) 13.3 % (20.0-40.0) L 08/17/18 05:18 [place] % (Auto) 8.9 % (0.0-10.0) 08/17/18 05:18 Eos % (Auto) 11.4 % (0.0-4.0) H 08/17/18 05:18 Baso % (Auto) 0.5 % (0.0-2.0) 08/17/18 05:18 Neut # (Auto) 6.4 K/uL (1.8-7.0) 08/17/18 05:18 Lymph # (Auto) 1.3 K/uL (1.0-4.3) 08/17/18 05:18 [place] # (Auto) 0.9 K/uL (0.0-0.8) H 08/17/18 05:18 Eos # (Auto) 1.1 K/uL (0.0-0.7) H 08/17/18 05:18 Baso # (Auto) 0.1 K/uL (0.0-0.2) 08/17/18 05:18 Neutrophils % (Manual) 90 % (42-75) H 08/13/18 21:56 Lymphocytes % (Manual) 6 % (20-50) L 08/13/18 21:56 Monocytes % (Manual) 3 % (0-10) 08/13/18 21:56 Basophils % (Manual) 1 % (0-2) 08/13/18 21:56 Platelet Estimate Normal (NORMAL) 08/13/18 21:56 Large Platelets Present 08/13/18 21:56 Poikilocytosis (manual Slight 08/13/18 21:56 Anisocytosis (manual) Slight 08/13/18 21:56 Tear Drop Cells Slight 08/13/18 21:56 Ovalocytes Slight 08/13/18 21:56 PT 12.8 Seconds (9.8-13.1) 08/13/18 21:56 INR 1.2 08/13/18 21:56 APTT 55.4 Seconds (25.6-37.1) H 08/14/18 11:05 Sodium 140 mmol/l (132-148) 08/17/18 05:18 Potassium 4.2 MMOL/L (3.6-5.0) 08/17/18 05:18 Chloride 107 mmol/L (98-107) 08/17/18 05:18 Carbon Dioxide 28 mmol/L (22-30) 08/17/18 05:18 Anion Gap 9 (10-20) L 08/17/18 05:18 BUN 14 mg/dl (9-20) 08/17/18 05:18 Creatinine 1.3 mg/dl (0.8-1.5) 08/17/18 05:18 Est GFR ( Amer) > 60 08/17/18 05:18 Est GFR (Non-Af Amer) 55 08/17/18 05:18 POC Glucose (mg/dL) 89 mg/dL (65-110) 08/18/18 05:26 Random Glucose 93 mg/dL (75-110) 08/17/18 05:18 Hemoglobin A1c 5.5 % (4.2-6.5) 08/17/18 13:22 Calcium 9.0 mg/dL (8.4-10.2) 08/17/18 05:18 Iron 14 ug/dL (49-181) L 08/17/18 05:18 TIBC 290 ug/dL (250-450) 08/17/18 05:18 % Saturation 5 % (20-55) L 08/17/18 05:18 Total Bilirubin 0.4 mg/dl (0.2-1.3) 08/14/18 05:35 AST 74 U/L (17-59) H D 08/14/18 05:35 ALT 33 U/L (21-72) 08/14/18 05:35 Alkaline Phosphatase 80 U/L (38-126) 08/14/18 05:35 Total Creatine Kinase 97 U/L (44-196) 08/13/18 23:36 Troponin I 5.9400 ng/mL (0.00-0.120) H* 08/16/18 11:40 Total Protein 8.0 G/DL (6.3-8.2) 08/14/18 05:35 Albumin 4.1 g/dL (3.5-5.0) 08/14/18 05:35 Globulin 3.9 gm/dL (2.2-3.9) 08/14/18 05:35 Albumin/Globulin Ratio 1.0 (1.0-2.1) 08/14/18 05:35 - Hospital Course Hospital Course: 67 y/o male with PMH Plan: 1. Chest pain: patient denies chest pain at this time - Troponin (08/16/18)- 5.94, trending down - EKG: NSR, T wave inversion in leads V1-V3, T wave flattening in V4 - continue to monitor patient s/p 3 days cardiac cath - Episode of run of V-tach noted on monitor, will continue to monitor patient in telemetry 2. CAD - cardiac cath 08/14/18- As per Dr. Bolden, treated with Drug eluting stent x 1 ( 100% blockage fixed with complete normal flow, RCA patent - mid 65-70% stenosis, EF 50% - Hx of CABG 2006 - c/w Aspirin, Lovenox and Plavix 3. Necrotic Left Foot Transmetatarsal Amputation site - Wound Cultures- Prelim, no growth after 24 hours - Podiatry consulted- - Left Foot X-ray- - CT Angiogram was performed on 08/16/18, as per Dr. Bolden, no intervention at this time - Meropenem as per ID recommendation 4. HTN - BP stable - c/w lisinopril 5. NIDDM2 - controlled w/ medication - c/w gabapentin - Actos on hold - Creatinine 1.1 - insulin correction scale - 01/2018- HgA1c 6.2% - hypoglycemic protocol 6. Prophylactic measures - DVT: Lovenox - c/w Plavix 75 mg PO Daily Discharge Exam - Head Exam Head Exam: ATRAUMATIC, NORMOCEPHALIC Discharge Plan - Discharge Medications Prescriptions: Ciprofloxacin/Ciprofloxa HCl [Ciprofloxacin ER 500 mg Tablet] 500 mg PO BID 42 Days #84 tab DAPTOmycin [Cubicin] 430 mg IV DAILY 42 Days vial - Follow Up Plan Condition: SERIOUS Disposition: HOME/ ROUTINE Instructions: Heart Attack (DC), Chest Pain (DC), Cellulitis (DC), Cellulitis (GEN), Necrotizing Fasciitis (DC), Necrotizing Fasciitis (GEN) Referrals: Roberto Bolden MD [Staff Provider] -
--- NOTE | 2018-08-18 11:03 | CP.PCM.DIS ---
<Pancho Beltran - Last Filed: 08/18/18 11:14> Provider - Provider Date of Admission: 08/13/18 21:29 Attending physician: Fidel Lopez Primary care physician: Dr. Tom Leo Consults: Cardiology- Dr. Rodriguez Vascular- Dr. Bolden Podiatry- Dr. Dale Infectious Disease- Dr. Gannon Time Spent in preparation of Discharge (in minutes): 30 Hospital Course - Lab Results Lab Results: Micro Results 08/16/18 08:27 Blood Blood Culture - Preliminary NO GROWTH AFTER 48 HOURS 08/15/18 12:00 Leg - Left Gram Stain - Final 08/15/18 12:00 Leg - Left Wound Culture - Preliminary Yeast Species Most Recent Lab Values WBC 9.8 K/uL (4.8-10.8) 08/17/18 05:18 RBC 3.79 Mil/uL (4.40-5.90) L 08/17/18 05:18 Hgb 9.4 g/dL (12.0-18.0) L 08/17/18 05:18 Hct 28.3 % (35.0-51.0) L 08/17/18 05:18 MCV 74.8 fl (80.0-94.0) L 08/17/18 05:18 MCH 24.9 pg (27.0-31.0) L 08/17/18 05:18 MCHC 33.3 g/dL (33.0-37.0) 08/17/18 05:18 RDW 16.2 % (11.5-14.5) H 08/17/18 05:18 Plt Count 268 K/uL (130-400) 08/17/18 05:18 MPV 8.0 fl (7.2-11.7) 08/17/18 05:18 Neut % (Auto) 65.9 % (50.0-75.0) 08/17/18 05:18 Lymph % (Auto) 13.3 % (20.0-40.0) L 08/17/18 05:18 [place] % (Auto) 8.9 % (0.0-10.0) 08/17/18 05:18 Eos % (Auto) 11.4 % (0.0-4.0) H 08/17/18 05:18 Baso % (Auto) 0.5 % (0.0-2.0) 08/17/18 05:18 Neut # (Auto) 6.4 K/uL (1.8-7.0) 08/17/18 05:18 Lymph # (Auto) 1.3 K/uL (1.0-4.3) 08/17/18 05:18 [place] # (Auto) 0.9 K/uL (0.0-0.8) H 08/17/18 05:18 Eos # (Auto) 1.1 K/uL (0.0-0.7) H 08/17/18 05:18 Baso # (Auto) 0.1 K/uL (0.0-0.2) 08/17/18 05:18 Neutrophils % (Manual) 90 % (42-75) H 08/13/18 21:56 Lymphocytes % (Manual) 6 % (20-50) L 08/13/18 21:56 Monocytes % (Manual) 3 % (0-10) 08/13/18 21:56 Basophils % (Manual) 1 % (0-2) 08/13/18 21:56 Platelet Estimate Normal (NORMAL) 08/13/18 21:56 Large Platelets Present 08/13/18 21:56 Poikilocytosis (manual Slight 08/13/18 21:56 Anisocytosis (manual) Slight 08/13/18 21:56 Tear Drop Cells Slight 08/13/18 21:56 Ovalocytes Slight 08/13/18 21:56 PT 12.8 Seconds (9.8-13.1) 08/13/18 21:56 INR 1.2 08/13/18 21:56 APTT 55.4 Seconds (25.6-37.1) H 08/14/18 11:05 Sodium 140 mmol/l (132-148) 08/17/18 05:18 Potassium 4.2 MMOL/L (3.6-5.0) 08/17/18 05:18 Chloride 107 mmol/L (98-107) 08/17/18 05:18 Carbon Dioxide 28 mmol/L (22-30) 08/17/18 05:18 Anion Gap 9 (10-20) L 08/17/18 05:18 BUN 14 mg/dl (9-20) 08/17/18 05:18 Creatinine 1.3 mg/dl (0.8-1.5) 08/17/18 05:18 Est GFR ( Amer) > 60 08/17/18 05:18 Est GFR (Non-Af Amer) 55 08/17/18 05:18 POC Glucose (mg/dL) 89 mg/dL (65-110) 08/18/18 05:26 Random Glucose 93 mg/dL (75-110) 08/17/18 05:18 Hemoglobin A1c 5.5 % (4.2-6.5) 08/17/18 13:22 Calcium 9.0 mg/dL (8.4-10.2) 08/17/18 05:18 Iron 14 ug/dL (49-181) L 08/17/18 05:18 TIBC 290 ug/dL (250-450) 08/17/18 05:18 % Saturation 5 % (20-55) L 08/17/18 05:18 Total Bilirubin 0.4 mg/dl (0.2-1.3) 08/14/18 05:35 AST 74 U/L (17-59) H D 08/14/18 05:35 ALT 33 U/L (21-72) 08/14/18 05:35 Alkaline Phosphatase 80 U/L (38-126) 08/14/18 05:35 Total Creatine Kinase 97 U/L (44-196) 08/13/18 23:36 Troponin I 5.9400 ng/mL (0.00-0.120) H* 08/16/18 11:40 Total Protein 8.0 G/DL (6.3-8.2) 08/14/18 05:35 Albumin 4.1 g/dL (3.5-5.0) 08/14/18 05:35 Globulin 3.9 gm/dL (2.2-3.9) 08/14/18 05:35 Albumin/Globulin Ratio 1.0 (1.0-2.1) 08/14/18 05:35 - Hospital Course Hospital Course: 67 y/o male seen and evaluated at bedside s/p 4 days cardiac catheterization with drug eluting stent placement to Saphenous Vein Graft. Patient had an episode of NSVT on lunchroom monitor yesterday, however, denied any chest pain. Patient's CTA LLE showed severe PVD, however, patient refused an amputation at this time. Patient received a PICC line today for continuation of IV Antiobitics for 6 more weeks. Patient also denies nausea, vomiting, headaches, dizziness, dyspnea, chest pain, abdominal pain, diarrhea, or fever. 1. Chest pain: patient denies chest pain at this time - NSVT, will be discharged home with increased dose of betablockers 2. CAD - cardiac cath 08/14/18- As per Dr. Bolden, treated with Drug eluting stent x 1 ( 100% blockage fixed with complete normal flow, RCA patent - mid 65-70% stenosis, EF 50% - Hx of CABG 2006 - c/w Aspirin and Plavix 3. Necrotic Left Foot Transmetatarsal Amputation site - CT Angiogram was performed on 08/16/18, as per Dr. Bolden, no intervention at this time - PICC placed, patient to receive home infusion of Daptomycin IV Q24 6 weeks and Cipro 500 mg BID PO for 6 weeks - Weekly labs (CBC, CMP, ESR, CRP, CPK weekly)- results to be sent to Dr. Gannon and Dr. Tom Leo - Patient to follow up in Podiatry clinic for wound care management 4. HTN - BP stable - c/w home medication regimen 5. NIDDM2 - c/w home medication - c/w gabapentin 6. Prophylactic measures - c/w Plavix 75 mg PO Daily - Date & Time of H&P Date of H&P: 08/18/18 Time of H&P: 11:03 Discharge Exam - Head Exam Head Exam: ATRAUMATIC, NORMOCEPHALIC - Eye Exam Eye Exam: Normal appearance, PERRL - ENT Exam ENT Exam: Mucous Membranes Moist - Neck Exam Neck exam: Full Rom - Respiratory Exam Respiratory Exam: Clear to PA & Lateral, NORMAL BREATHING PATTERN, UNREMARKABLE. absent: Rales, Rhonchi, Wheezes, Respiratory Distress - Cardiovascular Exam Cardiovascular Exam: REGULAR RHYTHM, +S1, +S2. absent: JVD - GI/Abdominal Exam GI & Abdominal Exam: Normal Bowel Sounds. absent: Distended, Firm, Guarding - Extremities Exam Additional comments: Left foot TMA, with dressing clean dry and intact - Back Exam Back exam: NORMAL INSPECTION. absent: CVA tenderness (L), CVA tenderness (R) - Neurological Exam Neurological exam: Alert, Oriented x3 - Psychiatric Exam Psychiatric exam: Normal Affect, Normal Mood - Skin Skin Exam: Normal Color Discharge Plan - Discharge Medications Prescriptions: Ciprofloxacin/Ciprofloxa HCl [Ciprofloxacin ER 500 mg Tablet] 500 mg PO BID 42 Days #84 tab DAPTOmycin [Cubicin] 430 mg IV DAILY 42 Days vial - Follow Up Plan Condition: SERIOUS Disposition: HOME/ ROUTINE Instructions: Heart Attack (DC), Chest Pain (DC), Cellulitis (DC), Necrotizing Fasciitis (DC) Additional Instructions: follow up with podiatry clinic in 1 week Referrals: Roberto Bolden MD [Staff Provider] - Podiatry Clinic [Outside] - 7days (with Dr. Dale (Tuesday clinic)) <Guilherme Viramontes - Last Filed: 08/18/18 21:37> Provider - Provider Date of Admission: 08/13/18 21:29 Attending physician: Fidel Lopez [facility] Course - Lab Results Lab Results: Micro Results 08/15/18 12:00 Leg - Left Gram Stain - Final 08/15/18 12:00 Leg - Left Wound Culture - Final Tracey Albicans 08/16/18 08:27 Blood Blood Culture - Preliminary NO GROWTH AFTER 48 HOURS Most Recent Lab Values WBC 9.8 K/uL (4.8-10.8) 08/17/18 05:18 RBC 3.79 Mil/uL (4.40-5.90) L 08/17/18 05:18 Hgb 9.4 g/dL (12.0-18.0) L 08/17/18 05:18 Hct 28.3 % (35.0-51.0) L 08/17/18 05:18 MCV 74.8 fl (80.0-94.0) L 08/17/18 05:18 MCH 24.9 pg (27.0-31.0) L 08/17/18 05:18 MCHC 33.3 g/dL (33.0-37.0) 08/17/18 05:18 RDW 16.2 % (11.5-14.5) H 08/17/18 05:18 Plt Count 268 K/uL (130-400) 08/17/18 05:18 MPV 8.0 fl (7.2-11.7) 08/17/18 05:18 Neut % (Auto) 65.9 % (50.0-75.0) 08/17/18 05:18 Lymph % (Auto) 13.3 % (20.0-40.0) L 08/17/18 05:18 [place] % (Auto) 8.9 % (0.0-10.0) 08/17/18 05:18 Eos % (Auto) 11.4 % (0.0-4.0) H 08/17/18 05:18 Baso % (Auto) 0.5 % (0.0-2.0) 08/17/18 05:18 Neut # (Auto) 6.4 K/uL (1.8-7.0) 08/17/18 05:18 Lymph # (Auto) 1.3 K/uL (1.0-4.3) 08/17/18 05:18 [place] # (Auto) 0.9 K/uL (0.0-0.8) H 08/17/18 05:18 Eos # (Auto) 1.1 K/uL (0.0-0.7) H 08/17/18 05:18 Baso # (Auto) 0.1 K/uL (0.0-0.2) 08/17/18 05:18 Neutrophils % (Manual) 90 % (42-75) H 08/13/18 21:56 Lymphocytes % (Manual) 6 % (20-50) L 08/13/18 21:56 Monocytes % (Manual) 3 % (0-10) 08/13/18 21:56 Basophils % (Manual) 1 % (0-2) 08/13/18 21:56 Platelet Estimate Normal (NORMAL) 08/13/18 21:56 Large Platelets Present 08/13/18 21:56 Poikilocytosis (manual Slight 08/13/18 21:56 Anisocytosis (manual) Slight 08/13/18 21:56 Tear Drop Cells Slight 08/13/18 21:56 Ovalocytes Slight 08/13/18 21:56 PT 12.8 Seconds (9.8-13.1) 08/13/18 21:56 INR 1.2 08/13/18 21:56 APTT 55.4 Seconds (25.6-37.1) H 08/14/18 11:05 Sodium 140 mmol/l (132-148) 08/17/18 05:18 Potassium 4.2 MMOL/L (3.6-5.0) 08/17/18 05:18 Chloride 107 mmol/L (98-107) 08/17/18 05:18 Carbon Dioxide 28 mmol/L (22-30) 08/17/18 05:18 Anion Gap 9 (10-20) L 08/17/18 05:18 BUN 14 mg/dl (9-20) 08/17/18 05:18 Creatinine 1.3 mg/dl (0.8-1.5) 08/17/18 05:18 Est GFR ( Amer) > 60 08/17/18 05:18 Est GFR (Non-Af Amer) 55 08/17/18 05:18 POC Glucose (mg/dL) 199 mg/dL (65-110) H 08/18/18 11:12 Random Glucose 93 mg/dL (75-110) 08/17/18 05:18 Hemoglobin A1c 5.5 % (4.2-6.5) 08/17/18 13:22 Calcium 9.0 mg/dL (8.4-10.2) 08/17/18 05:18 Iron 14 ug/dL (49-181) L 08/17/18 05:18 TIBC 290 ug/dL (250-450) 08/17/18 05:18 % Saturation 5 % (20-55) L 08/17/18 05:18 Total Bilirubin 0.4 mg/dl (0.2-1.3) 08/14/18 05:35 AST 74 U/L (17-59) H D 08/14/18 05:35 ALT 33 U/L (21-72) 08/14/18 05:35 Alkaline Phosphatase 80 U/L (38-126) 08/14/18 05:35 Total Creatine Kinase 97 U/L (44-196) 08/13/18 23:36 Troponin I 5.9400 ng/mL (0.00-0.120) H* 08/16/18 11:40 Total Protein 8.0 G/DL (6.3-8.2) 08/14/18 05:35 Albumin 4.1 g/dL (3.5-5.0) 08/14/18 05:35 Globulin 3.9 gm/dL (2.2-3.9) 08/14/18 05:35 Albumin/Globulin Ratio 1.0 (1.0-2.1) 08/14/18 05:35 - Hospital Course Hospital Course: 67 y/o male with history CABG , HTN ,NIDDM , dyslipidemia,PVD s/p left transmetatarsal amputation January 2017 ,was admitted with chest pain and acute UT, NSTEMI Had cardiac cath with Dr. Bolden with drug eluting stent placement to saphenous Vein graft .Post procedure had episode of NSVT on tele monitor with no chest pain or palpitations so Metoprolol dose was increased from 50 mg to 75 mg as per cardio recommendations During this admission was noted that his left foot transmetatarsal amputation site has not been healing properly , showing necrosis with purulent discharge. ID, podiatry were consulted , cultures sent and started on Meropenem IV . As per ID patient has chronic OM and chances of saving the limb are very slim so BKA was recommended but refused by patient . CTA RLE showed severe PVD . At present patient is stable and insisting to go home , refusing amputation PICC line was placed and arrangements made for IV daptomycin infusion for chronic OM of left foot as outpatient and Cipro PO will discharge patient home with follow up with PMD and podiatry DX Acute UT / NSTEMI / CAD History CABG Left Transmetatarsal amputation site necrosis and chronic osteomyelitis Severe PVD of LLE Hypertension Diabetes mellitus Dyslipidemia chronic anemia and iron deficiency
--- NOTE | 2018-08-18 11:05 | VASCULAR ---
PROCEDURE: Date of procedure: 08/18/2018 Procedure: 1. Placement of a right arm PICC with ultrasound and fluoroscopic guidance, CPT 35319 2. PICC tip confirmation with spot radiograph and is in the superior vena cava Medications: 1 percent lidocaine Total Fluoro time: 9.7 seconds Radiation:0.98 MGy EBL: 2 cc HISTORY: Infection requiring long-term IV antibiotics TECHNIQUE: Following informed consent and procedure time-out, the patient was placed supine on the interventional table and the right arm prepped and draped in the usual sterile fashion. Ultrasound showed a patent and compressible right brachial vein. After the skin was anesthetized with lidocaine, the brachial vein was accessed with micro micropuncture technique using ultrasound guidance. A guidewire was then advanced under fluoroscopic guidance into the superior vena cava. An image documenting ultrasound guidance for vascular access was permanently saved. The length of the single-lumen 4 [place] PICC was trimmed to 37 centimeters and advanced through a peel-away sheath. The PICC was position with tip of PICC confirm a spot radiograph the superior vena cava. The PICC was secured to the patient's skin. The PICC was flushed. A biopatch and sterile dressing was applied. IMPRESSION: Placement of a single-lumen 4 [place] PICC trimmed to 37 centimeters via right brachial vein. The tip of the PICC is confirmed with spot radiograph and is in the superior vena cava.
[2018-08-18 12:48] VITALS: BP 103/61; PULSE 65; RESP 18; TEMP 98.5; O2SAT 100
== END 2018-08-18 14:34 | disposition home or self-care (01) | DRG 247 ==
LOC: H.ER 20:59 → OBSVTOIN 21:29 → H.ERHOLD 21:29 → H.TEL 08-14 22:59
PROVIDERS: ADMIT Internal Medicine; ATTEND Internal Medicine
PROC: 4A023N7 Measurement of Cardiac Sampling and Pressure, Left Heart, Percutaneous Approach (ICD-10-PCS; principal; 2018-08-14)
PROC: 027034Z Dilation of Coronary Artery, One Artery with Drug-eluting Intraluminal Device, Percutaneous Approach (ICD-10-PCS; 2018-08-14)
PROC: B206YZZ Plain Radiography of Right and Left Heart using Other Contrast (ICD-10-PCS; 2018-08-14)
PROC: 3E02340 Introduction of Influenza Vaccine into Muscle, Percutaneous Approach (ICD-10-PCS; 2018-08-15)
PROC: 02HV33Z Insertion of Infusion Device into Superior Vena Cava, Percutaneous Approach (ICD-10-PCS; 2018-08-18)
PROC: B518ZZA Fluoroscopy of Superior Vena Cava, Guidance (ICD-10-PCS; 2018-08-18)
PROC: B548ZZA Ultrasonography of Superior Vena Cava, Guidance (ICD-10-PCS; 2018-08-18)
DX: I21.4 Non-ST elevation (NSTEMI) myocardial infarction (principal); I25.719 Atherosclerosis of autologous vein coronary artery bypass graft(s) with unspecified angina pectoris; M86.672 Other chronic osteomyelitis, left ankle and foot; I47.2 Ventricular tachycardia; T87.81 Dehiscence of amputation stump; E11.51 Type 2 diabetes mellitus with diabetic peripheral angiopathy without gangrene; E11.69 Type 2 diabetes mellitus with other specified complication; Z23 Encounter for immunization; D50.9 Iron deficiency anemia, unspecified; E11.22 Type 2 diabetes mellitus with diabetic chronic kidney disease; E78.00 Pure hypercholesterolemia, unspecified; E78.5 Hyperlipidemia, unspecified; I12.9 Hypertensive chronic kidney disease with stage 1 through stage 4 chronic kidney disease, or unspecified chronic kidney disease; I25.2 Old myocardial infarction; N18.9 Chronic kidney disease, unspecified; Z79.02 Long term (current) use of antithrombotics/antiplatelets; Z79.82 Long term (current) use of aspirin; Z79.84 Long term (current) use of oral hypoglycemic drugs; Z95.5 Presence of coronary angioplasty implant and graft; M25.512 Pain in left shoulder; S42.92XD Fracture of left shoulder girdle, part unspecified, subsequent encounter for fracture with routine healing; X58.XXXD Exposure to other specified factors, subsequent encounter